=== PATIENT | female | born 1955 | race Caucasian/White ===

== ENCOUNTER 2016-11-05 16:53 | Observation (INO) | payer MEDICARE ==
[2016-11-05] MEDS: Sodium Chloride 0.9% 1000 ML 1,000 ML IV SCH (17:47)
[2016-11-05] MEDS: NovoLOG Insulin SQ PRN ×2 (18:01→20:53)
[2016-11-05] MEDS ORDERED: Ativan 0.5 MG PO ONE (20:31)
[2016-11-06] MEDS: Sodium Chloride 0.9% 1000 ML 1,000 ML IV SCH ×2 (03:58→15:24)
[2016-11-06 06:02] LABS: ALBUMIN 2.9 g/dL (3.4-5.0); ALKALINE PHOSPHATASE 91 U/L (46-116); ANION GAP 12.2 MEQ/L (5-15); BLOOD UREA NITROGEN 17 mg/dL (9-20); CHLORIDE 108 mEq/L (98-107); Carbon Dioxide 23.9 mEq/L (21-32); Glucose 218 MG/DL (70-110); Potassium 3.9 mEq/L (3.5-5.1); SGOT/AST 148 U/L (15-37); SGPT/ALT 212 U/L (12-78); SODIUM 140 mEq/L (136-145); Total Protein 6.8 gm/dL (6.4-8.2)
[2016-11-06 06:34] LABS: BASOPHIL % 0.7 % (0.0-0.4); Eosinophil % 3.8 % (0.00-5.0); Granulocytes % 41.8 % (36.0-66.0); Lymphocytes % 44.6 % (24.0-44.0); Mean Cell Volume 95.5 fl (78-100); Mean Platelet Volume 10.9 fl (6-9.5); Monocytes % 9.1 % (0.0-12.0); Platelet Count 157 K/mm3 (150-450); Red Blood Count 4.26 M/mm3 (4.1-5.4); Red Cell Distribution Width 14.4 % (11.5-14.0); White Blood Count 4.5 K/mm3 (4.0-10.5)
[2016-11-06] MEDS: NovoLOG Insulin SQ PRN ×3 (08:22→22:05)
--- NOTE | 2016-11-06 08:42 | PCM.NOTE ---
Date and Time: 11/06/16 0837 Subjective Assessment: Pt still not feeling well, having frontal headaches. Couldn't sleep well last night she says due to restless legs, not on any meds at home for that. Was anxious last night and received IV ativan. Objective Exam General Appearance: no apparent distress Neurologic Exam: alert, oriented x 3, cooperative Skin Exam: normal color, warm, dry Respiratory Exam: normal breath sounds, lungs clear, No crackles/rales, No rhonchi, No wheezing Cardiovascular Exam: regular rate/rhythm, normal heart sounds, No murmur Gastrointestinal/Abdomen Exam: soft, normal bowel sounds, No tenderness, No distention, No mass Extremity Exam: No pedal edema, No swelling OBJECTIVE DATA Vital Signs: Vital Signs - 24 hr Temp Pulse Resp BP BP Pulse Ox 11/06/16 06:58 97.9 F 64 20 114/55 95 11/06/16 04:00 98.5 F 63 18 104/49 94 L 11/05/16 23:47 98.2 F 65 18 90/46 98 11/05/16 20:00 98.3 F 89 18 133/60 96 11/05/16 17:24 98.3 F 89 133/60 11/05/16 17:15 98.3 F 89 16 133/60 Oxygen-Last 24 hours Oxygen Flowrate (L/min)-RT 96 Pain Assessment - Last Documented Pain Intensity 10 [facility] Intake and Output: Intake & Output 11/03/16 11/04/16 11/05/16 11/06/16 11:59 11:59 11:59 11:59 Intake Total 2285 Output Total 450 Balance 1835 Weight 109.679 kg Lab Results: Accuchecks Date 11/05/16 Date 11/05/16 Time 20:51 Time 17:55 Accucheck Value: 261 Accucheck Value: 308 Lab Results-Last 24 Hours 11/05/16 11/06/16 11/06/16 Range/Units 18:09 05:10 05:10 WBC 4.5 (4.0-10.5) K/mm3 RBC 4.26 (4.1-5.4) M/mm3 Hgb 13.2 (12.0-16.0) gm/dl Hct 40.7 (35-47) % MCV 95.5 (78-100) fl MCH 31.0 (26-32) pg MCHC 32.4 (32-36) g/dl RDW 14.4 H (11.5-14.0) % Plt Count 157 (150-450) K/mm3 MPV 10.9 H (6-9.5) fl Gran % 41.8 (36.0-66.0) % Lymphocytes % 44.6 H (24.0-44.0) % Monocytes % 9.1 (0.0-12.0) % Eosinophils % 3.8 (0.00-5.0) % Basophils % 0.7 (0.0-0.4) % Basophils # 0.03 (0-0.4) Sodium 140 (136-145) mEq/L Potassium 3.9 (3.5-5.1) mEq/L Chloride 108 H (98-107) mEq/L Carbon Dioxide 23.9 (21-32) mEq/L Anion Gap 12.2 (5-15) MEQ/L BUN 17 (9-20) mg/dL Creatinine 0.72 (0.55-1.30) mg/dl Estimated GFR > 60 ML/MIN Glucose 218 H (70-110) MG/DL Calcium 9.1 (8.5-10.1) mg/dL Total Bilirubin 0.50 (0.2-1.0) mg/dL AST 148 H (15-37) U/L ALT 212 H (12-78) U/L Alkaline Phosphatase 91 (46-116) U/L Serum Total Protein 6.8 (6.4-8.2) gm/dL Albumin 2.9 L (3.4-5.0) g/dL Prealbumin 18.4 (18.0-35.7) mg/dL Radiology Exams: Radiology Procedures Category Date Time Status GALLBLADDER [US] Routine Exams 11/06/16 08:00 Taken Assessment/Plan (1) Sinusitis Current Visit: No Status: Acute Qualifiers: Sinusitis location: frontal Chronicity: acute Recurrence: not specified as recurrent Qualified Code(s): J01.10 - Acute frontal sinusitis, unspecified Assessment & Plan: On IV levaquin. Still having frontal NIEVES. Will likely need at least another day on IV antibiotics. 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 Code(s): E11.9 - TYPE 2 DIABETES MELLITUS WITHOUT COMPLICATIONS (4) Elevated liver enzymes Current Visit: No Status: Acute Assessment & Plan: Improved since yesterday and alk phos not elevated today. She is getting a RUQ u/s. Code(s): R74.8 - ABNORMAL LEVELS OF OTHER SERUM ENZYMES
--- NOTE | 2016-11-06 09:30 | XRAY ---
Indication: Abdominal pain. Two-dimensional right upper quadrant abdominal sonogram performed. Comparison: None Gallbladder normally distended without gallstones, wall thickening, or pericholecystic fluid. Common bile duct measures 5.5 mm. Remaining visualized portions of the liver, pancreas, and right kidney sonographically unremarkable. Right kidney measures 10.9 cm in length. No ascites. Impression: Negative gallbladder sonogram.
[2016-11-06] MEDS: Levofloxacin 500MG/100ML D5W 500 MG/100 ML BAG IV SCH (09:33)
[2016-11-06] MEDS ORDERED: [UNRECOGNIZED DRUG - OTHER] PO SCH (10:00)
[2016-11-06] MEDS ORDERED: NON-FORMULARY ITEM (Solifenacin Succinate [Vesicare] 10 MG) PO SCH (10:00)
[2016-11-06] MEDS ORDERED: LISINOPRIL PO SCH (10:00)
[2016-11-06] MEDS ORDERED: HYDROCHLOROTHIAZIDE PO SCH (10:00)
[2016-11-06] MEDS ORDERED: Lantus Insulin SQ SCH (10:00)
[2016-11-06] MEDS ORDERED: ROCEPHIN 1 Gm-D5w 50 ml Bag** 1 G/50 ML IVPB IV SCH (10:00)
[2016-11-06] MEDS: Ditropan 5 MG PO SCH ×2 (10:02→21:52)
[2016-11-06] MEDS: Zestril 20 MG PO SCH (10:02)
[2016-11-06] MEDS: NORVASC 5 MG PO SCH (10:02)
[2016-11-06] MEDS: hydroDIURIL 25 MG PO SCH (10:03)
[2016-11-06] MEDS: ENOXAPARIN SODIUM SQ SCH (10:05)
[2016-11-06] MEDS: NovoLOG Insulin SQ SCH ×2 (11:47→16:42)
[2016-11-06] MEDS ORDERED: NON-FORMULARY ITEM (Insulin Lispro 10 UNIT) SQ SCH (12:00)
[2016-11-06] MEDS: Mirapex 0.5 MG Tablet PO SCH (16:35)
[2016-11-06] MEDS ORDERED: ZOCOR 20MG PO SCH (22:00)
[2016-11-06] MEDS ORDERED: Ativan 0.5 MG PO SCH (22:00)
[2016-11-06] MEDS ORDERED: Mirapex 0.5 MG Tablet PO SCH ×2 (22:00)
[2016-11-07] MEDS: Sodium Chloride 0.9% 1000 ML 1,000 ML IV SCH (01:38)
[2016-11-07 07:13] VITALS: BP 143/67; PULSE 78; O2SAT 94
[2016-11-07] MEDS: NovoLOG Insulin SQ SCH (07:41)
[2016-11-07] MEDS: NovoLOG Insulin SQ PRN (07:42)
[2016-11-07 08:25] LABS: Mean Cell Volume 95.4 fl (78-100); Mean Platelet Volume 11.4 fl (6-9.5); Platelet Count 159 K/mm3 (150-450); Red Blood Count 4.52 M/mm3 (4.1-5.4); Red Cell Distribution Width 14.2 % (11.5-14.0); White Blood Count 5.1 K/mm3 (4.0-10.5)
--- NOTE | 2016-11-07 08:29 | PCM.DS ---
Discharge Summary Date of Admission: 11/05/16 16:55 Admitting Physician: JOLANTA MEDEIROS Primary Care Provider: JOLANTA MEDEIROS Allergies Allergies pregabalin [From Lyrica] Allergy (Severe, Verified 11/05/16 17:35) Swelling methadone [Methadone] Allergy (Mild, Verified 02/16/13 15:16) Hives oxycodone HCl [From OxyContin] Allergy (Verified 02/16/13 15:16) Hospital Summary - Hospital Course Hospital Course: Pt admitted from office with sinusitis, also had elevated liver enzymes and alkaline phosphatase. Her labs have improved; rechecking this morning. She is feeling much better, tolerating po well, headache is decreased. Does complain of ongoing leg pain, chronic, and some vaginal itching. She has been depressed and anxious, no suicidal ideation. Not currently on any anti depressants. Has tried several in the past but unsure which ones helped her the most. - Vitals & Intake/Output Vital Signs: Vital Signs Temperature 98.2 F 11/07/16 07:11 Pulse Rate 78 11/07/16 07:11 Respiratory Rate 18 11/07/16 07:11 Blood Pressure 143/67 11/07/16 07:11 O2 Sat by Pulse Oximetry 94 L 11/07/16 07:11 Intake & Output: Intake & Output 11/04/16 11/05/16 11/06/16 11/07/16 11:59 11:59 11:59 11:59 Intake Total 2285 4066 Output Total 450 2200 Balance 1835 1866 Weight 109.679 kg - Lab Result Diagrams: 11/06/16 05:10 11/06/16 05:10 Lab Results-Last 24 Hrs: Accuchecks Date 11/07/16 Date 11/06/16 Time 07:30 Time 22:00 Accucheck Value: 242 Accucheck Value: 217 Accucheck Value: 175 Accucheck Value: 322 Micro Results-Entire Visit: Accuchecks Date 11/07/16 Date 11/06/16 Time 07:30 Time 22:00 Accucheck Value: 242 Accucheck Value: 217 Accucheck Value: 175 Accucheck Value: 322 - Radiology Exams Ordered Rad Exams-Entire Visit: Radiology Procedures Category Date Time Status GALLBLADDER [US] Routine Exams 11/06/16 08:00 Completed Discharge Exam General Appearance: no apparent distress, obese Neurologic Exam: alert, oriented x 3, cooperative Skin Exam: normal color, warm, dry Neck Exam: normal inspection Respiratory Exam: normal breath sounds, No crackles/rales, No rhonchi, No wheezing Cardiovascular Exam: regular rate/rhythm, normal heart sounds, No murmur Gastrointestinal/Abdomen Exam: soft, normal bowel sounds, No tenderness Extremity Exam: normal inspection Back Exam: normal inspection Final Diagnosis/Problem List - Final Discharge Diagnosis/Problem (1) Sinusitis Current Visit: No Status: Acute Assessment & Plan: improved. Home on po levaquin. Advised if increased muscle aches particularly in the Achilles region she needs to call the immigration consultant doctor right away. (2) Dehydration Current Visit: No Status: Resolved (3) Diabetes mellitus Current Visit: No Status: Chronic Assessment & Plan: increase lantus back to home dose today. Uncontrolled. Will address again at office visit in 1 week. (4) Elevated liver enzymes Current Visit: No Status: Acute Assessment & Plan: recheck this morning. (5) Restless leg syndrome Current Visit: Yes Status: Acute Assessment & Plan: I have increased her medicine to TID instead of only at night. She did sleep better last night on the increased dose. (6) Leg pain Current Visit: Yes Status: Acute Assessment & Plan: Will see if paxil and the increased RLS med are helping; if not would discuss neurontin/lyrica or pain management if necessary. (7) Depressed Current Visit: Yes Status: Chronic Assessment & Plan: Start paxil. - Discharge Disposition: Home, Self-Care Condition: Stable Prescriptions: New Levofloxacin [Levaquin] 500 mg PO DAILY #10 tablet Pramipexole Di-HCl 0.5 mg [Mirapex 0.5 MG Tablet] 0.25 mg PO QID #120 tab Paroxetine HCl 20 mg [Paxil 20 MG] 20 mg PO DAILY #30 tablet Continue Lisinopril/Hydrochlorothiazide [Lisinopril-Hctz 20-12.5 mg Tab] 20 mg PO DAILY Solifenacin Succinate [Vesicare] 10 mg PO DAILY Pravastatin Sodium 40 mg PO HS Amlodipine Besylate 5 mg [Norvasc 5 mg] 5 mg PO DAILY Insulin Lispro [Humalog] 10 unit SQ TIDWMEALS Insulin Glargine [Lantus Insulin] 50 units SL DAILY Discontinued Minocycline [Minocycline 100MG Cap] 100 mg PO BID Follow up with: JOLANTA MEDEIROS [Primary Care Provider] - 1 Week
[2016-11-07] MEDS ORDERED: DIFLUCAN PO ONE (09:00)
[2016-11-07 09:13] LABS: ALKALINE PHOSPHATASE 106 U/L (46-116); ANION GAP 12.5 MEQ/L (5-15); BLOOD UREA NITROGEN 16 mg/dL (9-20); CHLORIDE 104 mEq/L (98-107); Carbon Dioxide 25.4 mEq/L (21-32); Glucose 287 MG/DL (70-110); Potassium 4.1 mEq/L (3.5-5.1); SGOT/AST 152 U/L (15-37); SGPT/ALT 226 U/L (12-78); SODIUM 138 mEq/L (136-145)
[2016-11-07] MEDS: Zestril 20 MG PO SCH (09:29)
[2016-11-07] MEDS: Ditropan 5 MG PO SCH (09:29)
[2016-11-07] MEDS: hydroDIURIL 25 MG PO SCH (09:29)
[2016-11-07] MEDS: NORVASC 5 MG PO SCH (09:29)
[2016-11-07] MEDS: Levofloxacin 500MG/100ML D5W 500 MG/100 ML BAG IV SCH (09:29)
[2016-11-07] MEDS: ENOXAPARIN SODIUM SQ SCH (09:30)
[2016-11-07] MEDS ORDERED: Lantus Insulin SQ SCH (10:00)
[2016-11-07] MEDS ORDERED: Paxil 20 MG PO SCH (10:00)
[2016-11-07] MEDS: Mirapex 0.5 MG Tablet PO SCH (10:20)
== END 2016-11-07 10:55 | disposition home or self-care (01) ==
LOC: MED SURG 16:55
PROVIDERS: ADMIT Family Medicine; ATTEND Family Medicine
DX: J01.10 Acute frontal sinusitis, unspecified (principal); E86.0 Dehydration; E11.65 Type 2 diabetes mellitus with hyperglycemia; R74.8 Abnormal levels of other serum enzymes; G25.81 Restless legs syndrome; M79.606 Pain in leg, unspecified; F32.9 Major depressive disorder, single episode, unspecified; R51 Headache; F41.9 Anxiety disorder, unspecified
CPT/HCPCS: 36415; 76705; 80053; 82962; 84134; 85025; 85027; G0378; J1650; J1956; A9270-GY

== ENCOUNTER 2018-03-19 20:50 | Inpatient (IN) | payer MEDICARE ==
[2018-03-19] MEDS ORDERED: Sodium Chloride 0.9% 1000 ML 1,000 ML IV STA (21:22)
[2018-03-19] MEDS ORDERED: Zofran 4 MG/2 ML VIAL IV ONE (21:22)
[2018-03-19] MEDS ORDERED: Hydromorphone 1 mg/ml Ampule IV ONE (21:23)
[2018-03-19] MEDS ORDERED: Zosyn INJ 4.5 GM in D5w 100ML Mini Bag 100 ML 100 ML IV ONE (21:25)
[2018-03-19] MEDS ORDERED: Vancomycin 1GM/ Ns 250ML*** 250 ML IV ONE ×2 (21:26→22:48)
--- NOTE | 2018-03-19 21:27 | ERPHSYRPT ---
- History of Present Illness Time Seen by Provider: 03/19/18 21:15 Source: patient Exam Limitations: clinical condition Patient Subjective Stated Complaint: pt reports chest redness with severe pain for approx 3 days. denies any exposure to new medications or creams. pt reports history of breast CA with double masectomy in July. pt states she finished with radiation before . Triage Nursing Assessment: pt is aox3, crying upon exam, pupils perrl, afebrile , resps easy and non labored, radial pulses strong and equal, abd is distended and tender to the upper quadrants, bowel sounds present and normoactivex4. redness noted across the upper portion of the chest as well as under the axilla bilat, swelling noted the axillary region bilat, 2 abrasions present noted to the left axillary region as well. skin is hot to touch and very painful. skin is intact, no drainage present at this time. no edema noted to the BLE. Physician History: PATIENT WITH A HISTORY OF LEFT BREAST CARCINOMA, UNDERWENT BILATERAL MASECTOMY JULY 2017 AND FINISHED RADIATION THERAPY MID DECEMBER 2017 , COMPLAINS OF A PAINFUL RASH OVER MID TO LOWER CHEST WALL, FEELS HOT TO TOUCH, ASSOCIATED WITH FEVER. PATIENT ALSO COMPLAINS OF INCREASING ABDOMINAL GIRTH OVER THE PAST 6 MONTHS. DENIES NAUSEA, EMESIS OR DIARRHEA. Timing/Duration: yesterday Quality: burning, painful Severity: severe Location: torso Possible Causes: no cause identified Modifying Factors: Improves With: other (MOTION OF TORSO) Associated Symptoms: change in skin texture, fever Allergies/Adverse Reactions: pregabalin [From Lyrica] Allergy (Severe, Verified 03/19/18 21:25) Swelling methadone [Methadone] Allergy (Mild, Verified 03/19/18 21:25) Hives oxycodone HCl [From OxyContin] Allergy (Verified 03/19/18 21:25) Home Medications: Insulin Glargine [Lantus Insulin] 50 units SL DAILY 11/05/16 [History] Insulin Lispro [Humalog] 10 unit SQ TIDWMEALS 11/05/16 [History] Letrozole 2.5 mg PO HS 03/19/18 [History] Hx Tetanus, Diphtheria Vaccination/Date Given: Yes Hx Influenza Vaccination/Date Given: No Hx Pneumococcal Vaccination/Date Given: No - Review of Systems Constitutional: No Fever, No Chills Eyes: No Symptoms Ears, Nose, & Throat: No Symptoms Respiratory: No Symptoms, No Cough, No Dyspnea Cardiac: No Symptoms, No Chest Pain, No Edema, No Syncope Abdominal/Gastrointestinal: No Symptoms, No Abdominal Pain, No Nausea, No Vomiting, No Diarrhea Genitourinary Symptoms: No Symptoms, No Dysuria Musculoskeletal: No Symptoms, No Back Pain, No Neck Pain Skin: Cellulitis, Induration, No Rash Neurological: No Dizziness, No Focal Weakness, No Sensory Changes Psychological: No Symptoms Endocrine: No Symptoms All Other Systems: Reviewed and Negative - Past Medical History Pertinent Past Medical History: Yes Neurological History: Migraines ENT History: No Pertinent History Cardiac History: No Pertinent History Respiratory History: No Pertinent History Endocrine Medical History: Diabetes Type II Musculoskeletal History: Fibromyalgia GI Medical History: No Pertinent History History: No Pertinent History Psycho-Social History: Anxiety, Depression Female Reproductive Disorders: Breast Cancer Other Medical History: breast CA DX 2017 - Past Surgical History Past Surgical History: Yes Neuro Surgical History: No Pertinent History Cardiac: No Pertinent History Respiratory: No Pertinent History Gastrointestinal: Hernia Repair Genitourinary: No Pertinent History Musculoskeletal: Orthopedic Surgery Female Surgical History: No Pertinent History Other Surgical History: muscle stimulator 02/04-REMOVED 2013. back surgery hip surgery. double masectomy july 2017 - Social History Smoking Status: Former smoker Exposure to second hand smoke: Yes Drug Use: none Patient Lives Alone: No - Nursing Vital Signs Nursing Vital Signs: Initial Vital Signs Temperature 99.7 F 03/19/18 20:59 Pulse Rate 97 H 03/19/18 20:59 Respiratory Rate 22 03/19/18 20:59 Blood Pressure 153/79 03/19/18 20:59 O2 Sat by Pulse Oximetry 96 03/19/18 20:59 Pain Scale Pain Intensity 5 - Physical Exam General Appearance: no apparent distress, alert Eye Exam: PERRL/EOMI, eyes nml inspection Ears, Nose, Throat Exam: normal ENT inspection, pharynx normal, moist mucous membranes Neck Exam: normal inspection, non-tender, supple, full range of motion Respiratory Exam: normal breath sounds, lungs clear, other, No respiratory distress Cardiovascular Exam: regular rate/rhythm, normal heart sounds Gastrointestinal/Abdomen Exam: soft, normal bowel sounds, mass, No tenderness Back Exam: normal inspection, normal range of motion, No CVA tenderness, No vertebral tenderness Extremity Exam: normal inspection, normal range of motion Neurologic Exam: alert, oriented x 3, cooperative, normal mood/affect, sensation nml, No motor deficits Skin Exam: dry, other (MARKED CONFLUENT ERYTHEMA BILATERAL CHEST WALL T-2 TO UPPER ABDOMINAL WALL, EXTENDS TO BILATERAL AXILLA AND THE POSTERIOR AXILLA LINE , MARKED TENDERNESS, BILATERAL AXILLA WITH SWELLING) SpO2 Interpretation: normal SpO2: 96 - Course EKG Interpreted by Me: RATE, Sinus Rhythm, NORMAL AXIS - Radiology Exams Chest X-ray Interpretation: Interpreted by me (NO EVIDENCE OF INFILTRATES, ELEVATION RIGHT HEMIDIAPHRAM) - CT Exams Abdomen/Pelvis CT Interpretation: Tele-radiologist Report (NO ACUTE FINDINGS IN THE ABDOMEN OR PELVIS. SUBCUTANEOUS SCARRING WITH SUSPECTED SEROMAS ARE PARTIALLY VISUALIZED IN THE ANTERIOR LOWER HEMITHORAX LIKELY RELATED TO MASTECTOMY AND RADIATION. A REGULAR FOCAL CONSOLIDATION IN THE PERIPHERAL LEFT LOWER LOBE LIKELY RELATED TO ATELECTASIS OR POSSIBLY SCARRING. ) Ordered Tests: Active Orders 24 hr Category Date Time Status Up With Assistance ROUTINE Activity 03/20/18 01:54 Ordered Accucheck Q4H Care 03/20/18 01:54 Ordered Call Admit Doctor for Orders ON ADMISSION Care 03/20/18 01:56 Ordered Code Status Order ROUTINE Care 03/20/18 01:54 Ordered EKG-ER Only STAT Care 03/20/18 01:18 Active IV Care Q6H Care 03/20/18 01:[address] in Observation ROUTINE Care 03/20/18 01:54 Ordered Vital Signs Q4H Care 03/20/18 01:54 Ordered 1800 Calorie ADA Diet 03/20/18 Breakfast Ordered ABDOMEN AND PELVIS W CONTRAST [CT] Stat Exams 03/19/18 21:24 Taken CHEST 1 VIEW (PORTABLE) Stat Exams 03/20/18 00:17 Taken AMYLASE Stat Lab 03/19/18 22:11 Completed BLOOD CULTURE Stat Lab 03/19/18 21:45 Ordered CBC W DIFF Stat Lab 03/19/18 21:45 Completed CMP Stat Lab 03/19/18 21:45 Completed CULTURE,URINE Stat Lab 03/19/18 22:28 Received LIPASE Stat Lab 03/19/18 22:11 Completed Lactic Acid Stat Lab 03/19/18 21:48 Completed PT INR [PROTIME WITH INR] Stat Lab 03/19/18 22:00 Completed TROPONIN Q3H Lab 03/20/18 00:00 Completed TROPONIN Q3H Lab 03/20/18 04:15 Ordered TROPONIN Q3H Lab 03/20/18 07:15 Ordered TROPONIN Q3H Lab 03/20/18 10:15 Ordered TROPONIN Q3H Lab 03/20/18 13:15 Ordered UA W/RFX UR CULTURE Stat Lab 03/19/18 22:28 Completed Oxygen Nasal Cannula 2 lpm RT 03/20/18 01:54 Ordered Transfer Order Routine Transfer 03/20/18 Ordered Medication Summary Discontinued Medications Generic Name Dose Route Start Last Admin Trade Name Heladio PRN Reason Stop Dose Admin Hydromorphone HCl 1 mg 03/19/18 21:23 03/19/18 21:58 Hydromorphone 1 Mg/Ml Ampule IV 03/19/18 21:24 1 mg STAT ONE Administration Hydromorphone HCl Confirm 03/19/18 21:51 Hydromorphone 1 Mg/Ml Ampule Administered 03/19/18 21:52 Dose 1 mg .ROUTE .STK-MED ONE Sodium Chloride 1,000 mls @ 999 mls/hr 03/19/18 21:22 03/19/18 21:58 Sodium Chloride 0.9% 1000 Ml IV 03/19/18 22:22 999 mls/hr .Q1H1M STA Administration Piperacillin Sod/Tazobactam 100 mls @ 100 mls/hr 03/19/18 21:25 03/19/18 21: 59 Sod 4.5 gm/ Dextrose IV 03/19/18 22:24 100 mls/hr STAT ONE Administration Vancomycin HCl 250 mls @ 167 mls/hr 03/19/18 21:26 03/19/18 23:14 Vancomycin 1gm/ Ns 250ml IV 03/19/18 22:55 167 mls/hr STAT ONE Administration Sodium Chloride Confirm 03/19/18 21:51 Sodium Chloride 0.9% 1000 Ml Administered 03/19/18 21:52 Dose 1,000 mls @ ud .ROUTE .STK-MED ONE Piperacillin Sod/Tazobactam Sod Confirm 03/19/18 21:51 Zosyn 3.375gm/100 Ml D5w Administered 03/19/18 21:52 Dose 3.375 gm in 100 mls @ ud IV .STK-MED ONE Dextrose Confirm 03/19/18 21:55 D5w 100ml Mini Bag 100 Ml Administered 03/19/18 21:56 Dose 100 mls @ ud IV .STK-MED ONE Vancomycin HCl Confirm 03/19/18 22:48 Vancomycin 1gm/ Ns 250ml Administered 03/19/18 22:49 Dose 250 mls @ ud IV .STK-MED ONE Morphine Sulfate 4 mg 03/20/18 00:45 03/20/18 01:13 Morphine Sulfate 4 Mg Inj IV 03/20/18 00:46 4 mg STAT ONE Administration Morphine Sulfate Confirm 03/20/18 01:11 Morphine Sulfate 4 Mg Inj Administered 03/20/18 01:12 Dose 4 mg .ROUTE .STK-MED ONE Ondansetron HCl 4 mg 03/19/18 21:22 03/19/18 21:58 Zofran 4 Mg/2 Ml Vial IV 03/19/18 21:23 4 mg STAT ONE Administration Ondansetron HCl Confirm 03/19/18 21:51 Zofran 4 Mg/2 Ml Vial Administered 03/19/18 21:52 Dose 4 mg .ROUTE .STK-MED ONE Piperacillin Sod/Tazobactam Sod Confirm 03/19/18 21:54 Zosyn Inj Administered 03/19/18 21:55 Dose 4.5 gm IV .STK-MED ONE Lab/Rad Data: Laboratory Result Diagrams 03/19/18 21:45 03/19/18 21:45 Laboratory Results 03/20/18 03/19/18 03/19/18 Range/Units 00:00 22:28 22:11 WBC (4.0-10.5) K/mm3 RBC (4.1-5.4) M/mm3 Hgb (12.0-16.0) gm/dl Hct (35-47) % MCV (78-100) fl MCH (26-32) pg MCHC (32-36) g/dl RDW (11.5-14.0) % Plt Count (150-450) K/mm3 MPV (6-9.5) fl Gran % (36.0-66.0) % Eos # (Auto) (0-0.5) Absolute Lymphs (auto) (1.0-4.6) Absolute Monos (auto) (0.0-1.3) Lymphocytes % (24.0-44.0) % Monocytes % (0.0-12.0) % Eosinophils % (0.00-5.0) % Basophils % (0.0-0.4) % Absolute Granulocytes (1.4-6.9) Basophils # (0-0.4) PT (9.95-12.35) SECONDS INR (0.8-3.0) Sodium (137-145) mmol/L Potassium (3.5-5.1) mmol/L Chloride (98-107) mmol/L Carbon Dioxide (22-30) mmol/L Anion Gap (5-15) MEQ/L BUN (7-17) mg/dL Creatinine (0.52-1.04) mg/dL Estimated GFR ML/MIN Glucose (74-106) mg/dL Lactic Acid (0.4-2.0) Calcium (8.4-10.2) mg/dL Total Bilirubin (0.2-1.3) mg/dL AST (14-36) U/L ALT (0-35) U/L Alkaline Phosphatase (38-126) U/L Troponin I < 0.012 (0.000-0.034) ng/mL Serum Total Protein (6.3-8.2) g/dL Albumin (3.5-5.0) g/dL Amylase 58 (30-110) U/L Lipase 74 (23-300) U/L Urine Color YELLOW (YELLOW) Urine Appearance SLIGHTLY CLOUDY (CLEAR) Urine pH 5.0 (5-6) Ur Specific [place] 1.037 (1.005-1.025) Urine Protein 30 (Negative) Urine Ketones TRACE (NEGATIVE) Urine Blood SMALL (0-5) Mookie/ul Urine Nitrite NEGATIVE (NEGATIVE) Urine Bilirubin NEGATIVE (NEGATIVE) Urine Urobilinogen NEGATIVE (0-1) mg/dL Ur Leukocyte Esterase SMALL (NEGATIVE) Urine WBC (Auto) 26-50 (0-5) /HPF Urine RBC (Auto) 6-10 (0-2) /HPF U Epithel Cells (Auto) RARE (FEW) /HPF Urine Bacteria (Auto) RARE (NEGATIVE) /HPF Urine Mucus (Auto) SLIGHT (NEGATIVE) /HPF Urine Culture Reflexed YES (NO) Urine Glucose >=500 (NEGATIVE) mg/dL 03/19/18 03/19/18 03/19/18 Range/Units 22:00 21:48 21:45 WBC (4.0-10.5) K/mm3 RBC (4.1-5.4) M/mm3 Hgb (12.0-16.0) gm/dl Hct (35-47) % MCV (78-100) fl MCH (26-32) pg MCHC (32-36) g/dl RDW (11.5-14.0) % Plt Count (150-450) K/mm3 MPV (6-9.5) fl Gran % (36.0-66.0) % Eos # (Auto) (0-0.5) Absolute Lymphs (auto) (1.0-4.6) Absolute Monos (auto) (0.0-1.3) Lymphocytes % (24.0-44.0) % Monocytes % (0.0-12.0) % Eosinophils % (0.00-5.0) % Basophils % (0.0-0.4) % Absolute Granulocytes (1.4-6.9) Basophils # (0-0.4) PT 13.0 H (9.95-12.35) SECONDS INR 1.12 (0.8-3.0) Sodium 134 L (137-145) mmol/L Potassium 4.1 (3.5-5.1) mmol/L Chloride 100 (98-107) mmol/L Carbon Dioxide 23 (22-30) mmol/L Anion Gap 14.7 (5-15) MEQ/L BUN 18 H (7-17) mg/dL Creatinine 1.02 (0.52-1.04) mg/dL Estimated GFR 58.8 ML/MIN Glucose 375 H (74-106) mg/dL Lactic Acid 1.8 (0.4-2.0) Calcium 8.8 (8.4-10.2) mg/dL Total Bilirubin 0.90 (0.2-1.3) mg/dL AST 88 H (14-36) U/L ALT 141 H (0-35) U/L Alkaline Phosphatase 165 H (38-126) U/L Troponin I (0.000-0.034) ng/mL Serum Total Protein 7.4 (6.3-8.2) g/dL Albumin 3.9 (3.5-5.0) g/dL Amylase (30-110) U/L Lipase (23-300) U/L Urine Color (YELLOW) Urine Appearance (CLEAR) Urine pH (5-6) Ur Specific [place] (1.005-1.025) Urine Protein (Negative) Urine Ketones (NEGATIVE) Urine Blood (0-5) Mookie/ul Urine Nitrite (NEGATIVE) Urine Bilirubin (NEGATIVE) Urine Urobilinogen (0-1) mg/dL Ur Leukocyte Esterase (NEGATIVE) Urine WBC (Auto) (0-5) /HPF Urine RBC (Auto) (0-2) /HPF U Epithel Cells (Auto) (FEW) /HPF Urine Bacteria (Auto) (NEGATIVE) /HPF Urine Mucus (Auto) (NEGATIVE) /HPF Urine Culture Reflexed (NO) Urine Glucose (NEGATIVE) mg/dL 03/19/18 Range/Units 21:45 WBC 9.0 (4.0-10.5) K/mm3 RBC 4.32 (4.1-5.4) M/mm3 Hgb 13.9 (12.0-16.0) gm/dl Hct 42.6 (35-47) % MCV 98.6 (78-100) fl MCH 32.2 H (26-32) pg MCHC 32.6 (32-36) g/dl RDW 14.8 H (11.5-14.0) % Plt Count 175 (150-450) K/mm3 MPV 11.3 H (6-9.5) fl Gran % 75.2 H (36.0-66.0) % Eos # (Auto) 0.05 (0-0.5) Absolute Lymphs (auto) 1.62 (1.0-4.6) Absolute Monos (auto) 0.56 (0.0-1.3) Lymphocytes % 17.9 L (24.0-44.0) % Monocytes % 6.2 (0.0-12.0) % Eosinophils % 0.6 (0.00-5.0) % Basophils % 0.1 (0.0-0.4) % Absolute Granulocytes 6.79 (1.4-6.9) Basophils # 0.01 (0-0.4) PT (9.95-12.35) SECONDS INR (0.8-3.0) Sodium (137-145) mmol/L Potassium (3.5-5.1) mmol/L Chloride (98-107) mmol/L Carbon Dioxide (22-30) mmol/L Anion Gap (5-15) MEQ/L BUN (7-17) mg/dL Creatinine (0.52-1.04) mg/dL Estimated GFR ML/MIN Glucose (74-106) mg/dL Lactic Acid (0.4-2.0) Calcium (8.4-10.2) mg/dL Total Bilirubin (0.2-1.3) mg/dL AST (14-36) U/L ALT (0-35) U/L Alkaline Phosphatase (38-126) U/L Troponin I (0.000-0.034) ng/mL Serum Total Protein (6.3-8.2) g/dL Albumin (3.5-5.0) g/dL Amylase (30-110) U/L Lipase (23-300) U/L Urine Color (YELLOW) Urine Appearance (CLEAR) Urine pH (5-6) Ur Specific [place] (1.005-1.025) Urine Protein (Negative) Urine Ketones (NEGATIVE) Urine Blood (0-5) Mookie/ul Urine Nitrite (NEGATIVE) Urine Bilirubin (NEGATIVE) Urine Urobilinogen (0-1) mg/dL Ur Leukocyte Esterase (NEGATIVE) Urine WBC (Auto) (0-5) /HPF Urine RBC (Auto) (0-2) /HPF U Epithel Cells (Auto) (FEW) /HPF Urine Bacteria (Auto) (NEGATIVE) /HPF Urine Mucus (Auto) (NEGATIVE) /HPF Urine Culture Reflexed (NO) Urine Glucose (NEGATIVE) mg/dL - Progress Progress Note: 03/19/18 22:11 AFTER 2 SETS OF BLOOD CULTURES, IV NORMAL SALINE 50ML/HR, VANCOMYCIN 1GM, ZOSYN 4.5GM IVPB, DILAUDID 1MG IV 03/20/18 00:37 03/20/18 01:52, NEGATIVE TROPONIN Discussed with : Hilton (DISCUSSED WITH DR DUNN AT 1310 FOR OBSERVATION) - Departure Time of Disposition: 02:00 Departure Disposition: Observation Clinical Impression: CHEST WALL CELLULITIS, URINARY TRACT INFECTION Condition: Stable Critical Care Time: No Referrals: JOLANTA MEDEIROS [Primary Care Provider] -
[2018-03-19] MEDS ORDERED: Sodium Chloride 0.9% 1000 ML 1,000 ML ONE (21:51)
[2018-03-19] MEDS ORDERED: Zosyn 3.375GM/100 Ml D5W 3.375 GM/100 ML IVPB IV ONE (21:51)
[2018-03-19] MEDS ORDERED: Hydromorphone 1 mg/ml Ampule ONE (21:51)
[2018-03-19] MEDS ORDERED: Zofran 4 MG/2 ML VIAL ONE (21:51)
[2018-03-19] MEDS ORDERED: Zosyn INJ IV ONE (21:54)
[2018-03-19] MEDS ORDERED: D5w 100ML Mini Bag 100 ML 100 ML IV ONE (21:55)
[2018-03-19 22:13] LABS: BASOPHIL % 0.1 % (0.0-0.4); Basophil (Absolute #) 0.01 (0-0.4); Eosinophil % 0.6 % (0.00-5.0); Eosinophil (Absolute #) 0.05 (0-0.5); Granulocyte Absolute (ANC) 6.79 (1.4-6.9); Granulocytes % 75.2 % (36.0-66.0); Hematocrit 42.6 % (35-47); Hemoglobin 13.9 gm/dl (12.0-16.0); Lymphocyte (Absolute #) 1.62 (1.0-4.6); Lymphocytes % 17.9 % (24.0-44.0); Mean Cell Volume 98.6 fl (78-100); Mean Corpuscular Hemoglobin 32.2 pg (26-32); Mean Corpuscular Hgb Concent. 32.6 g/dl (32-36); Mean Platelet Volume 11.3 fl (6-9.5); Monocyte (Absolute #) 0.56 (0.0-1.3); Monocytes % 6.2 % (0.0-12.0); Platelet Count 175 K/mm3 (150-450); Red Blood Count 4.32 M/mm3 (4.1-5.4); Red Cell Distribution Width 14.8 % (11.5-14.0)
[2018-03-19 22:29] LABS: INR 1.12 (0.8-3.0)
[2018-03-19 22:31] LABS: AMYLASE 58 U/L (30-110); LIPASE 74 U/L (23-300)
[2018-03-19 22:33] LABS: ALBUMIN 3.9 g/dL (3.5-5.0); ANION GAP 14.7 MEQ/L (5-15); BILIRUBIN,TOTAL 0.9 mg/dL (0.2-1.3); Calcium 8.8 mg/dL (8.4-10.2); Creatinine 1 1.02 mg/dL (0.52-1.04); Potassium 4.1 mmol/L (3.5-5.1); Total Protein 7.4 g/dL (6.3-8.2)
[2018-03-19 22:35] LABS: Appearance SLIGHTLY CLOUDY (CLEAR); Bacteria RARE /HPF (NEGATIVE); Bilirubin NEGATIVE (NEGATIVE); Blood SMALL Ery/ul (0-5); Epithelial Cells RARE /HPF (FEW); Glucose >=500 mg/dL (NEGATIVE); Ketones TRACE (NEGATIVE); Leukocyte Esterase SMALL (NEGATIVE); Mucus SLIGHT /HPF (NEGATIVE); Nitrite NEGATIVE (NEGATIVE); Protein,Urine Dip 30 (Negative); Specific Gravity 1.037 (1.005-1.025); Urobilinogen NEGATIVE mg/dL (0-1); WBC 26-50 /HPF (0-5)
[2018-03-20] MEDS ORDERED: MORPHINE SULFATE 4 MG INJ IV ONE (00:45)
[2018-03-20] MEDS ORDERED: MORPHINE SULFATE 4 MG INJ ONE (01:11)
[2018-03-20] MEDS ORDERED: Zofran 4 MG/2 ML VIAL IV PRN (01:54)
[2018-03-20] MEDS ORDERED: TYLENOL 325 MG PO PRN (01:54)
[2018-03-20] MEDS ORDERED: VANCOCIN 1 GM VIAL*** 1 GM in Sodium Chloride 0.9% 250 ML 250 ML IV SCH (02:30)
[2018-03-20] MEDS: Sodium Chloride 0.9% 1000 ML 1,000 ML IV SCH (02:36)
[2018-03-20] MEDS ORDERED: NORCO 5/325 MG ONE (03:15)
[2018-03-20] MEDS ORDERED: Zosyn 3.375GM/100 Ml D5W 3.375 GM/100 ML IVPB IV ONE (05:32)
[2018-03-20] MEDS: MORPHINE SULFATE 4 MG INJ IV PRN ×2 (05:36→12:21)
[2018-03-20] MEDS: Zosyn 3.375GM/100 Ml D5W 3.375 GM/100 ML IVPB IV SCH ×4 (05:37→23:57)
[2018-03-20] MEDS: NovoLOG Insulin SQ PRN ×5 (05:37→23:57)
--- NOTE | 2018-03-20 08:28 | XRAY ---
Indication: Cough. History left breast cancer. Comparison: March 10, 2018. Portable chest less inflated and remains clear. Heart is not enlarged. No new/acute findings.
--- NOTE | 2018-03-20 08:28 | XRAY ---
Indication: Abdominal pain 2 days. Abdominal distention 6 months. History left breast cancer. Multiple contiguous axial images obtained through the abdomen and pelvis using 80 cc Isovue 370 contrast only. Comparison: January 23, 2012. Lung bases now demonstrates bibasilar dependent atelectasis and left peripheral fibrosis/scarring. No infiltrate or effusion. Heart is not enlarged. There has been interval bilateral total hip arthroplasty with beam artifact limiting evaluation at this level. Noncontrasted stomach and bowel loops appear nonobstructed. Normal appendix. No free fluid/air. There is now mild diffuse scattered colonic fecal debris throughout. Gallbladder is now moderately distended without gallstones or biliary distention. Spleen is enlarged measuring 14.2 cm in greatest axial dimension. Remaining liver, gallbladder, pancreas, spleen, adrenal glands, kidneys, ureters, bladder, and uterus appear unremarkable. Minimal aortic calcifications. No AAA or pathological retroperitoneal lymphadenopathy. Osseous structures intact again with mild hand changes throughout the spine. Stable bilateral L5 spondylolysis with minimal grade 1 spondylolisthesis. Impression: 1. Fecal stasis without obstruction and splenomegaly. 2. Distended gallbladder without gallstones. Gallbladder sonogram may yield further information if clinically warranted. 3. Remaining CT abdomen/pelvis with contrast exam is negative. 4. Again incidental L5 spondylolysis with minimal spondylolisthesis. Comment: Preliminary interpretation was made by [facility]. No critical discrepancy. CTDI 23.68
[2018-03-20] MEDS: Zestril 20 MG PO SCH (08:51)
[2018-03-20] MEDS: NORCO 5/325 MG PO PRN ×2 (08:51→18:11)
[2018-03-20] MEDS: NORVASC 5 MG PO SCH (08:51)
[2018-03-20] MEDS: NovoLOG Insulin SQ SCH ×3 (08:52→16:38)
[2018-03-20] MEDS ORDERED: PHARMACY DOSING REQUIRED: VANCOMYCIN IV ONE (08:55)
[2018-03-20] MEDS ORDERED: Lantus Insulin SQ SCH (10:00)
[2018-03-20] MEDS ORDERED: Paxil 20 MG PO SCH (10:00)
[2018-03-20] MEDS: VANCOCIN 1 GM VIAL*** 1.75 GM in Sodium Chloride 0.9% 500 ML 500 ML IV SCH (11:36)
[2018-03-20] MEDS: Lantus Insulin SQ SCH (16:37)
[2018-03-20] MEDS: PATIENT OWN MEDICATION PO SCH (20:34)
[2018-03-20] MEDS ORDERED: Bactroban OINTMENT ONE (21:31)
[2018-03-20] MEDS: Bactroban OINTMENT TP SCH (21:35)
[2018-03-21] MEDS: Sodium Chloride 0.9% 1000 ML 1,000 ML IV SCH (02:28)
[2018-03-21] MEDS: MORPHINE SULFATE 4 MG INJ IV PRN ×4 (04:49→21:02)
[2018-03-21 06:22] LABS: Hematocrit 42.2 % (35-47); Hemoglobin 13.2 gm/dl (12.0-16.0); Mean Cell Volume 100.7 fl (78-100); Mean Corpuscular Hemoglobin 31.5 pg (26-32); Mean Corpuscular Hgb Concent. 31.3 g/dl (32-36); Mean Platelet Volume 10.9 fl (6-9.5); Platelet Count 144 K/mm3 (150-450); Red Blood Count 4.19 M/mm3 (4.1-5.4); Red Cell Distribution Width 14.8 % (11.5-14.0); White Blood Count 5.8 K/mm3 (4.0-10.5)
[2018-03-21 06:29] LABS: ANION GAP 10.9 MEQ/L (5-15); BLOOD UREA NITROGEN 18 mg/dL (7-17); CHLORIDE 103 mmol/L (98-107); Calcium 8.4 mg/dL (8.4-10.2); Carbon Dioxide 27 mmol/L (22-30); Creatinine 1 0.78 mg/dL (0.52-1.04); Glucose 162 mg/dL (74-106); Potassium 4.1 mmol/L (3.5-5.1); SODIUM 137 mmol/L (137-145)
[2018-03-21] MEDS: NORCO 5/325 MG PO PRN ×3 (07:03→23:03)
[2018-03-21] MEDS: Zosyn 3.375GM/100 Ml D5W 3.375 GM/100 ML IVPB IV SCH ×4 (07:03→23:03)
[2018-03-21] MEDS: NovoLOG Insulin SQ SCH ×3 (09:00→17:10)
[2018-03-21] MEDS: Zestril 20 MG PO SCH (09:26)
[2018-03-21] MEDS: NORVASC 5 MG PO SCH (09:26)
[2018-03-21] MEDS: Bactroban OINTMENT TP SCH ×2 (09:33→21:03)
[2018-03-21] MEDS: VANCOCIN 1 GM VIAL*** 1.75 GM in Sodium Chloride 0.9% 500 ML 500 ML IV SCH (10:19)
[2018-03-21] MEDS: ENOXAPARIN SODIUM SQ SCH (12:59)
[2018-03-21] MEDS: NovoLOG Insulin SQ PRN ×3 (13:00→22:15)
[2018-03-21] MEDS: Lantus Insulin SQ SCH (16:40)
[2018-03-21] MEDS: PATIENT OWN MEDICATION PO SCH (21:03)
[2018-03-22] MEDS: MORPHINE SULFATE 4 MG INJ IV PRN ×5 (01:55→20:04)
[2018-03-22] MEDS: NovoLOG Insulin SQ PRN ×4 (01:55→23:14)
[2018-03-22] MEDS: NORCO 5/325 MG PO PRN (04:13)
[2018-03-22] MEDS: Zosyn 3.375GM/100 Ml D5W 3.375 GM/100 ML IVPB IV SCH ×3 (06:05→18:36)
[2018-03-22] MEDS: Sodium Chloride 0.9% 1000 ML 1,000 ML IV SCH (06:15)
[2018-03-22] MEDS: NovoLOG Insulin SQ SCH ×3 (08:08→17:14)
--- NOTE | 2018-03-22 09:09 | PCM.NOTE ---
Date and Time: 03/22/18904 Subjective Assessment: Pt is feeling better but stillhaving pain at the cellulitis site across the chest. kyree po. c/o urinary incontinence which is chronic - Review of Systems Constitutional: No Fever Skin: Cellulitis Objective Exam General Appearance: no apparent distress, alert Neurologic Exam: oriented x 3, cooperative Skin Exam: other (erythema to chest is decreased as evidenced by markings) Eye Exam: eyes nml inspection Respiratory Exam: normal breath sounds, lungs clear, No crackles/rales, No rhonchi, No wheezing Cardiovascular Exam: regular rate/rhythm, normal heart sounds, No murmur Gastrointestinal/Abdomen Exam: soft, normal bowel sounds, No tenderness Extremity Exam: No pedal edema, No swelling OBJECTIVE DATA Vital Signs: Vital Signs - 24 hr Temp Pulse Resp BP Pulse Ox 03/22/18 07:21 98.2 F 74 18 128/58 94 L 03/22/18 04:00 98.3 F 69 19 126/60 92 L 03/22/18 00:00 98.4 F 76 18 130/64 93 L 03/21/18 20:00 98.3 F 74 18 152/66 95 03/21/18 16:00 96.9 F 68 18 131/63 94 L 03/21/18 11:48 97.7 F 66 18 121/62 96 Oxygen-Last 24 hours O2 Percentage 2 Liters = 28% Pain Assessment - Last Documented Pain Intensity 7 Pain Scale Used 0-10 Pain Scale Intake and Output: Intake & Output 03/19/18 03/20/18 03/21/18 03/22/18 11:59 11:59 11:59 11:59 Intake Total 360 3555 1460 Output Total 400 Balance 360 3555 1060 Weight 105.4 kg Lab Results: Accuchecks Date 03/22/18 Date 03/22/18 Date 03/21/18 Date 03/21/18 Date 03/21/18 Time 04:00 Time 00:30 Time 20:00 Time 16:40 Time 08:00 Accucheck Value: 165 Accucheck Value: 214 Accucheck Value: 241 Accucheck Value: 251 Accucheck Value: 361 Accucheck Value: 171 Assessment/Plan (1) Cellulitis Current Visit: Yes Status: Acute Onset Date: ~03/20/18 Assessment & Plan: continue vancomycin an dzosyn, day #3. OK to admit inpatient. Code(s): L03.90 - CELLULITIS, UNSPECIFIED (2) UTI (urinary tract infection) Current Visit: Yes Status: Acute Onset Date: ~03/20/18 Qualifiers: Urinary tract infection type: acute cystitis Hematuria presence: without hematuria Qualified Code(s): N30.00 - Acute cystitis without hematuria Code(s): N39.0 - URINARY TRACT INFECTION, SITE NOT SPECIFIED (3) HX: breast cancer Current Visit: Yes Status: Chronic Code(s): Z85.3 - PERSONAL HISTORY OF MALIGNANT NEOPLASM OF BREAST (4) Hx of bilateral mastectomy Current Visit: Yes Status: Chronic Code(s): Z90.13 - ACQUIRED ABSENCE OF BILATERAL BREASTS AND NIPPLES (5) Diabetes mellitus Current Visit: No Status: Chronic Qualifiers: Code(s): E11.9 - TYPE 2 DIABETES MELLITUS WITHOUT COMPLICATIONS (6) Urinary incontinence Current Visit: Yes Status: Acute Assessment & Plan: restart ditropan; sounds like overactive bladder. Code(s): R32 - UNSPECIFIED URINARY INCONTINENCE
[2018-03-22] MEDS ORDERED: TROUGH DRUG LEVELS IJ ONE (09:30)
[2018-03-22] MEDS: Zestril 20 MG PO SCH (09:56)
[2018-03-22] MEDS: ENOXAPARIN SODIUM SQ SCH (09:56)
[2018-03-22] MEDS: Ditropan XL 5 MG PO SCH (09:56)
[2018-03-22] MEDS: NORVASC 5 MG PO SCH (09:56)
[2018-03-22] MEDS: Bactroban OINTMENT TP SCH ×2 (09:57→21:48)
--- NOTE | 2018-03-22 10:16 | HP ---
CHIEF COMPLAINT: Chest pain, open wounds in the chest, previous bilateral mastectomy from breast cancer. HISTORY OF PRESENT ILLNESS: The patient is a 62 year-old white female who reports she tried to get a hold of Dr. De Jesus's office. She had problems with redness and warmth in the chest area and had developed cellulitis. She presented to the emergency room and subsequently admitted to the hospital on IV Zosyn and Vancomycin for fairly significant cellulitis. PAST MEDICAL/SURGICAL HISTORY: Bilateral mastectomy for breast cancer. She has received radiation and chemotherapy. She has diabetes mellitus type 2 on insulin. HOME MEDICATIONS: Currently are insulin, Lantus 50 units daily and Humalog 10 mg t.i.d. with meals, Letrozole 2.5 mg at night. ALLERGIES: LYRICA, METHADONE, OXYCODONE. PHYSICAL EXAMINATION: Revealed a well nourished, well developed 62 year-old white female currently in mild distress with the chest discomfort. Her vital signs on admission showed a temperature 99.7F, pulse 92, respiratory rate 22, blood pressure 153/79. O2 saturations 96%. HEENT: Normocephalic, atraumatic. Pupils equal round reactive to light. Extraocular movements intact. Oropharynx is pink and moist. NECK: Supple without lymphadenopathy, thyromegaly or JVD. CHEST: Revealed redness clear across the anterior region of the chest measuring approximately 15 cm from the superior to inferior margin and completely across the chest from side to side. There are noted also to be abrasions on both sides of the chest from where the previous scars were located. ABDOMEN: Soft. No palpable masses. EXTREMITIES: Without cyanosis, clubbing or edema. NEUROLOGIC: The patient is alert and oriented x3 with no focal deficits. LAB DATA AND TESTS: Revealed a CT scan abdomen and pelvis essentially normal. She had A1C of 13.26. Her troponin has been less than 0.012 on three separate occasions. She had chest x-ray that showed no acute findings. Her hemoglobin was 13.9, white blood cell count 9,000 with 75.2% granulocytes, PLT count 275,000. Metabolic panel showed her sugar to be 375, BUN 18, creatinine 1.02. Electrolytes were essentially normal. She does have elevation in AST at 88 and ALT 141 and alkaline phosphatase 165. The patient's amylase and lipase were normal. Lactic acid 1.8. International normalized ratio 1.12. ASSESSMENT: We will treat the patient with IV Vancomycin and IV Zosyn. She will receive Lovenox for deep venous thrombosis prophylaxis. We will consider placing a PICC line in the patient as she will likely need at least a week to ten days or perhaps even longer of IV antibiotics.
[2018-03-22] MEDS: VANCOCIN 1 GM VIAL*** 1.75 GM in Sodium Chloride 0.9% 500 ML 500 ML IV SCH (10:47)
[2018-03-22] MEDS: Miralax Powder 17GM PACKET PO SCH (14:34)
[2018-03-22] MEDS: Lantus Insulin SQ SCH (17:14)
[2018-03-22] MEDS: PATIENT OWN MEDICATION PO SCH (21:48)
[2018-03-23] MEDS: MORPHINE SULFATE 4 MG INJ IV PRN ×4 (01:00→20:22)
[2018-03-23] MEDS: Zosyn 3.375GM/100 Ml D5W 3.375 GM/100 ML IVPB IV SCH ×5 (01:02→23:09)
[2018-03-23] MEDS: NovoLOG Insulin SQ PRN ×3 (01:37→21:59)
[2018-03-23 06:29] LABS: BASOPHIL % 0.3 % (0.0-0.4); Basophil (Absolute #) 0.01 (0-0.4); Eosinophil % 2.2 % (0.00-5.0); Eosinophil (Absolute #) 0.08 (0-0.5); Hematocrit 37.3 % (35-47); Hemoglobin 12.1 gm/dl (12.0-16.0); Lymphocyte (Absolute #) 1.04 (1.0-4.6); Lymphocytes % 28.7 % (24.0-44.0); Mean Cell Volume 100.3 fl (78-100); Mean Corpuscular Hemoglobin 32.5 pg (26-32); Mean Corpuscular Hgb Concent. 32.4 g/dl (32-36); Mean Platelet Volume 11.1 fl (6-9.5); Monocyte (Absolute #) 0.39 (0.0-1.3); Monocytes % 10.8 % (0.0-12.0); Platelet Count 138 K/mm3 (150-450); Red Blood Count 3.72 M/mm3 (4.1-5.4); Red Cell Distribution Width 14.9 % (11.5-14.0); White Blood Count 3.6 K/mm3 (4.0-10.5)
[2018-03-23 06:41] LABS: ANION GAP 8.9 MEQ/L (5-15); Calcium 9.1 mg/dL (8.4-10.2); Creatinine 1 1.28 mg/dL (0.52-1.04); Potassium 4.2 mmol/L (3.5-5.1)
--- NOTE | 2018-03-23 08:54 | PCM.NOTE ---
Date and Time: 03/23/18851 Subjective Assessment: Still having pain on the skin of the chest, but the erythema is better. Gladys po. Has been up around the room. - Review of Systems Constitutional: No Fever Skin: Cellulitis Objective Exam General Appearance: no apparent distress, alert, obese Neurologic Exam: oriented x 3, cooperative Skin Exam: warm, dry, other (erythema of chest decreased superiorly; inferiorly still present L>R. TTP L>R.) Ears, Nose, Throat Exam: moist mucous membranes Respiratory Exam: normal breath sounds, lungs clear, No crackles/rales, No rhonchi, No wheezing Cardiovascular Exam: regular rate/rhythm, normal heart sounds, No murmur Extremity Exam: No pedal edema, No swelling OBJECTIVE DATA Vital Signs: Vital Signs - 24 hr Temp Pulse Resp BP BP Pulse Ox 03/23/18 08:00 97.8 F 70 18 150/66 93 L 03/23/18 04:00 98.1 F 66 21 114/97 90 L 03/23/18 00:00 99 F 65 20 140/65 91 L 03/22/18 20:00 96.7 F 73 21 143/65 92 L 03/22/18 15:51 98.2 F 70 18 149/67 93 L 03/22/18 12:00 98.5 F 75 18 140/64 94 L Pain Assessment - Last Documented Pain Intensity 7 Pain Scale Used 0-10 Pain Scale Intake and Output: Intake & Output 03/20/18 03/21/18 03/22/18 03/23/18 11:59 11:59 11:59 11:59 Intake Total 360 3555 2040 3237 Output Total 400 Balance 360 3555 1640 3237 Weight 105.4 kg Lab Results: Accuchecks Date 03/23/18 Date 03/23/18 Date 03/22/18 Time 04:00 Time 00:00 Time 20:00 Accucheck Value: 126 Accucheck Value: 241 Accucheck Value: 342 Accucheck Value: 280 Accucheck Value: 195 Lab Results-Last 24 Hours 03/22/18 03/23/18 03/23/18 Range/Units 09:30 05:40 05:40 WBC 3.6 L (4.0-10.5) K/mm3 RBC 3.72 L (4.1-5.4) M/mm3 Hgb 12.1 (12.0-16.0) gm/dl Hct 37.3 (35-47) % MCV 100.3 H (78-100) fl MCH 32.5 H (26-32) pg MCHC 32.4 (32-36) g/dl RDW 14.9 H (11.5-14.0) % Plt Count 138 L (150-450) K/mm3 MPV 11.1 H (6-9.5) fl Gran % 58.0 (36.0-66.0) % Eos # (Auto) 0.08 (0-0.5) Absolute Lymphs (auto) 1.04 (1.0-4.6) Absolute Monos (auto) 0.39 (0.0-1.3) Lymphocytes % 28.7 (24.0-44.0) % Monocytes % 10.8 (0.0-12.0) % Eosinophils % 2.2 (0.00-5.0) % Basophils % 0.3 (0.0-0.4) % Absolute Granulocytes 2.10 (1.4-6.9) Basophils # 0.01 (0-0.4) Sodium 140 (137-145) mmol/L Potassium 4.2 (3.5-5.1) mmol/L Chloride 109 H (98-107) mmol/L Carbon Dioxide 26 (22-30) mmol/L Anion Gap 8.9 (5-15) MEQ/L BUN 21 H (7-17) mg/dL Creatinine 1.28 H (0.52-1.04) mg/dL Estimated GFR 45.2 ML/MIN Glucose 135 H (74-106) mg/dL Calcium 9.1 (8.4-10.2) mg/dL Vancomycin Trough 11.06 (10-20) ug/mL Assessment/Plan (1) Cellulitis Current Visit: Yes Status: Acute Onset Date: ~03/20/18 Qualifiers: Site of cellulitis: trunk Site of cellulitis of trunk: chest wall Qualified Code(s): L03.313 - Cellulitis of chest wall Assessment & Plan: Improving daily; on vancomycin an dzosyn day #4. Will likely need a few more days of IV antibiotics before discharge to home. Code(s): L03.90 - CELLULITIS, UNSPECIFIED (2) UTI (urinary tract infection) Current Visit: Yes Status: Acute Onset Date: ~03/20/18 Qualifiers: Urinary tract infection type: acute cystitis Hematuria presence: without hematuria Qualified Code(s): N30.00 - Acute cystitis without hematuria Code(s): N39.0 - URINARY TRACT INFECTION, SITE NOT SPECIFIED (3) HX: breast cancer Current Visit: Yes Status: Chronic Code(s): Z85.3 - PERSONAL HISTORY OF MALIGNANT NEOPLASM OF BREAST (4) Hx of bilateral mastectomy Current Visit: Yes Status: Chronic Code(s): Z90.13 - ACQUIRED ABSENCE OF BILATERAL BREASTS AND NIPPLES (5) Diabetes mellitus Current Visit: No Status: Chronic Qualifiers: Code(s): E11.9 - TYPE 2 DIABETES MELLITUS WITHOUT COMPLICATIONS (6) Urinary incontinence Current Visit: Yes Status: Acute Qualifiers: Urinary Incontinence type: urge incontinence Qualified Code(s): N39.41 - Urge incontinence Assessment & Plan: started Detrol LA yesterday. Code(s): R32 - UNSPECIFIED URINARY INCONTINENCE (7) Renal insufficiency Current Visit: Yes Status: Acute Assessment & Plan: will increase fluids; was present on admission but in normal range yesterday. Decreased again today.
--- NOTE | 2018-03-23 09:26 | CONS ---
CONSULT DATE: 03/22/2018 The patient was seen for Dr. De Jesus who apparently was consulted over the weekend and had not been seen yet. HISTORY: She has a prior history of breast cancer on the left side, had bilateral mastectomy by Dr. De Jesus over the summer back in July or August. She said she had some radiation treatments as well. She had some rash recently that failed to improve. She is trying to get into to see Dr. De Jesus to admit her to the hospital for IV antibiotics. She has history of some methicillin resistant staphylococcus aureus in the past according to the nursing staff. She had some small sores on the anterior aspect of chest wall area on the right as well as laterally on the left. She said it has been there for some time, whether she had scratched these areas or not. They do not appear to be malignant at this time. Otherwise the mastectomy incisions seem to be clean, dry and intact, well healed. She had some mild erythema on the chest wall and abdomen. She said this is much improved since she had been on the IV antibiotics in the hospital. There was no evidence of any palpable large masses just some generalized cellulitis or whether this is super-infection from the recent sore. PAST MEDICAL HISTORY: Includes breast cancer, diabetes. PAST SURGICAL HISTORY: Bilateral mastectomy. MEDICATIONS: As listed per the MAR. ALLERGIES: LISTED PER APR. REVIEW OF SYSTEMS: Twelve systems reviewed. No chest pain or palpitations other systems negative or noncontributory as above and per preadmission questionnaire. PHYSICAL EXAMINATION: GENERAL: No acute distress. NECK: No JVD. CHEST: Equal excursion, nonlabored breathing. ABDOMEN: Soft, nondistended. EXTREMITIES: No significant edema. NEURO: Alert, moving extremities grossly symmetrically. IMPRESSION: Chest wall cellulitis. Continue IV antibiotics. She has got some small superficial sores on either side. There does not appear to be obvious malignancy at this point. Recommend continuing IV antibiotics at this time, continue monitoring. No emergent surgery necessary at this point. The patient agrees with the plan. They questioned about consideration of a PICC line. If she does need one for access try to lean towards placing on the right side as the breast cancer was on the left. She understands that she has high risk of thrombosis while being on a thing like that. If she does need skilled nursing IV access for IV antibiotics could consider that. She understands. Continue medical management for now. Again, this patient was seen for Dr. Rogers De Jesus.
[2018-03-23] MEDS: Miralax Powder 17GM PACKET PO SCH (10:25)
[2018-03-23] MEDS: ENOXAPARIN SODIUM SQ SCH (10:25)
[2018-03-23] MEDS: NORVASC 5 MG PO SCH (10:26)
[2018-03-23] MEDS: Zestril 20 MG PO SCH (10:26)
[2018-03-23] MEDS: Ditropan XL 5 MG PO SCH (10:26)
[2018-03-23] MEDS: Bactroban OINTMENT TP SCH ×2 (10:26→20:35)
[2018-03-23] MEDS: NovoLOG Insulin SQ SCH ×3 (10:27→17:52)
[2018-03-23] MEDS: NORCO 5/325 MG PO PRN ×3 (10:31→22:08)
[2018-03-23] MEDS: VANCOCIN 1 GM VIAL*** 1.75 GM in Sodium Chloride 0.9% 500 ML 500 ML IV SCH (10:31)
[2018-03-23] MEDS: Lantus Insulin SQ SCH (18:02)
[2018-03-23] MEDS: Sodium Chloride 0.9% 1000 ML 1,000 ML IV SCH (21:59)
[2018-03-23] MEDS: PATIENT OWN MEDICATION PO SCH (22:00)
[2018-03-24] MEDS: MORPHINE SULFATE 4 MG INJ IV PRN ×2 (00:34→04:15)
[2018-03-24] MEDS: NovoLOG Insulin SQ PRN ×4 (00:45→21:30)
[2018-03-24] MEDS: NORCO 5/325 MG PO PRN ×2 (02:24→06:07)
[2018-03-24] MEDS: Zosyn 3.375GM/100 Ml D5W 3.375 GM/100 ML IVPB IV SCH ×4 (06:07→23:45)
[2018-03-24 06:16] LABS: BASOPHIL % 0.5 % (0.0-0.4); Basophil (Absolute #) 0.02 (0-0.4); Eosinophil (Absolute #) 0.11 (0-0.5); Granulocyte Absolute (ANC) 2.01 (1.4-6.9); Granulocytes % 54.1 % (36.0-66.0); Hematocrit 38.4 % (35-47); Hemoglobin 11.8 gm/dl (12.0-16.0); Lymphocyte (Absolute #) 1.21 (1.0-4.6); Lymphocytes % 32.5 % (24.0-44.0); Mean Cell Volume 102.7 fl (78-100); Mean Corpuscular Hgb Concent. 30.7 g/dl (32-36); Mean Platelet Volume 10.9 fl (6-9.5); Monocyte (Absolute #) 0.37 (0.0-1.3); Monocytes % 9.9 % (0.0-12.0); Platelet Count 145 K/mm3 (150-450); Red Blood Count 3.74 M/mm3 (4.1-5.4); Red Cell Distribution Width 14.7 % (11.5-14.0); White Blood Count 3.7 K/mm3 (4.0-10.5)
[2018-03-24 06:17] LABS: Mean Corpuscular Hemoglobin 31.5 pg (26-32)
[2018-03-24 06:29] LABS: ANION GAP 9.3 MEQ/L (5-15); Calcium 9.7 mg/dL (8.4-10.2); Creatinine 1 1.3 mg/dL (0.52-1.04); Potassium 4.5 mmol/L (3.5-5.1)
[2018-03-24] MEDS ORDERED: APRESOLINE 20 MG/ML INJ IV PRN (07:36)
[2018-03-24] MEDS: NovoLOG Insulin SQ SCH ×3 (08:04→17:33)
--- NOTE | 2018-03-24 09:22 | PCM.NOTE ---
Date and Time: 03/24/18919 Subjective Assessment: Pt still having pain in the chest but thinks it is better. Requiring IV and po pain meds currently. - Review of Systems Constitutional: No Fever Skin: Cellulitis Objective Exam General Appearance: no apparent distress, alert Neurologic Exam: oriented x 3, cooperative Skin Exam: warm, dry, other (chest with erythema L lower chest with some warmth and ttp) Ears, Nose, Throat Exam: moist mucous membranes Neck Exam: normal inspection Respiratory Exam: normal breath sounds, lungs clear, No crackles/rales, No rhonchi, No wheezing Cardiovascular Exam: regular rate/rhythm, normal heart sounds, No murmur Extremity Exam: No pedal edema, No swelling Back Exam: normal inspection, No rash OBJECTIVE DATA Vital Signs: Vital Signs - 24 hr Temp Pulse Resp BP Pulse Ox 03/24/18 07:28 97.3 F 66 18 167/74 94 L 03/24/18 04:00 97.5 F 62 17 144/77 94 L 03/23/18 23:55 93 L 03/23/18 23:38 97.2 F 69 18 136/62 93 L 03/23/18 20:00 98.9 F 62 20 184/79 96 03/23/18 16:00 96.9 F 63 18 169/86 93 L 03/23/18 11:48 98.6 F 71 18 126/84 94 L Pain Assessment - Last Documented Pain Intensity 7 Pain Scale Used 0-10 Pain Scale Intake and Output: Intake & Output 03/21/18 03/22/18 03/23/18 03/24/18 11:59 11:59 11:59 11:59 Intake Total 3555 2040 3717 4198 Output Total 400 400 Balance 3555 1640 3717 3798 Lab Results: Accuchecks Date 03/24/18 Date 03/24/18 Date 03/23/18 Date 03/23/18 Date 03/23/18 Time 04:24 Time 00:30 Time 20:00 Time 16:30 Time 11:30 Accucheck Value: 164 Accucheck Value: 277 Accucheck Value: 338 Accucheck Value: 167 Accucheck Value: 286 Lab Results-Last 24 Hours 03/24/18 03/24/18 Range/Units 06:05 06:05 WBC 3.7 L (4.0-10.5) K/mm3 RBC 3.74 L (4.1-5.4) M/mm3 Hgb 11.8 L (12.0-16.0) gm/dl Hct 38.4 (35-47) % MCV 102.7 H (78-100) fl MCH 31.5 (26-32) pg MCHC 30.7 L (32-36) g/dl RDW 14.7 H (11.5-14.0) % Plt Count 145 L (150-450) K/mm3 MPV 10.9 H (6-9.5) fl Gran % 54.1 (36.0-66.0) % Eos # (Auto) 0.11 (0-0.5) Absolute Lymphs (auto) 1.21 (1.0-4.6) Absolute Monos (auto) 0.37 (0.0-1.3) Lymphocytes % 32.5 (24.0-44.0) % Monocytes % 9.9 (0.0-12.0) % Eosinophils % 3.0 (0.00-5.0) % Basophils % 0.5 (0.0-0.4) % Absolute Granulocytes 2.01 (1.4-6.9) Basophils # 0.02 (0-0.4) Sodium 139 (137-145) mmol/L Potassium 4.5 (3.5-5.1) mmol/L Chloride 106 (98-107) mmol/L Carbon Dioxide 28 (22-30) mmol/L Anion Gap 9.3 (5-15) MEQ/L BUN 22 H (7-17) mg/dL Creatinine 1.30 H (0.52-1.04) mg/dL Estimated GFR 44.4 ML/MIN Glucose 149 H (74-106) mg/dL Calcium 9.7 (8.4-10.2) mg/dL Multi-Disciplinary Progress Notes: Multi-Disciplinary Progress Notes 03/23/18 17:37 Case Management Note by Arielle Aguirre S/W [facility] REGARDING NEW GLUCOMETER. PRESCRIPTIONS FILLED OUT AND SIGNED BY DR. MEDEIROS AND PUT ON THE CHART FOR PT TO TAKE AT D/C. PT DENIED NEED FOR ANY OTHER SERVICES. PLANS TO RETURN HOME TO PRE-EPISODIC LEVEL OF FUNCTION AT D/C. Initialized on 03/23/18 17:37 - END OF NOTE 03/23/18 10:10 Case Management Note by Erin Judd S/W DR. MEDEIROS REGARDING PICC LINE PLACEMENT. AT THIS TIME SHE FEELS THAT PATIENT IS RESPONDING TO THE ANTIBIOTICS NICELY. LONG THE PERIPHERAL LINE (S) REMAIN PATENT, SHE WOULD CANCEL THE PICC LINE PLACEMENT AND REVISIT AT A LATER DATE IF NEEDED. ORDER CANCELLED. Initialized on 03/23/18 10:10 - END OF NOTE Assessment/Plan (1) Cellulitis Current Visit: Yes Status: Acute Onset Date: ~03/20/18 Qualifiers: Site of cellulitis: trunk Site of cellulitis of trunk: chest wall Qualified Code(s): L03.313 - Cellulitis of chest wall Assessment & Plan: Improving. Will stop vanc as below, continue zosyn. Code(s): L03.90 - CELLULITIS, UNSPECIFIED (2) HX: breast cancer Current Visit: Yes Status: Chronic Onset Date: ~03/22/18 Code(s): Z85.3 - PERSONAL HISTORY OF MALIGNANT NEOPLASM OF BREAST (3) Hx of bilateral mastectomy Current Visit: Yes Status: Chronic Onset Date: ~03/22/18 Code(s): Z90.13 - ACQUIRED ABSENCE OF BILATERAL BREASTS AND NIPPLES (4) Diabetes mellitus Current Visit: No Status: Chronic Qualifiers: Code(s): E11.9 - TYPE 2 DIABETES MELLITUS WITHOUT COMPLICATIONS (5) Urinary incontinence Current Visit: Yes Status: Acute Onset Date: ~03/22/18 Qualifiers: Urinary Incontinence type: urge incontinence Qualified Code(s): N39.41 - Urge incontinence Code(s): R32 - UNSPECIFIED URINARY INCONTINENCE (6) Renal insufficiency Current Visit: Yes Status: Acute Onset Date: ~03/22/18 Assessment & Plan: Worse today; may be due to vancomycin. Will stop that. Can add po MRSA coverage.
[2018-03-24] MEDS: Zestril 20 MG PO SCH (09:44)
[2018-03-24] MEDS: Bactroban OINTMENT TP SCH ×2 (09:44→22:04)
[2018-03-24] MEDS: NORVASC 5 MG PO SCH (09:44)
[2018-03-24] MEDS: Miralax Powder 17GM PACKET PO SCH (09:44)
[2018-03-24] MEDS: ENOXAPARIN SODIUM SQ SCH (09:44)
[2018-03-24] MEDS: Ditropan XL 5 MG PO SCH (09:44)
[2018-03-24] MEDS: Vibramycin 100 MG PO SCH ×2 (09:46→21:29)
[2018-03-24] MEDS: Norco 10/325 MG Tablet PO PRN ×2 (12:08→21:32)
[2018-03-24] MEDS: Sodium Chloride 0.9% 1000 ML 1,000 ML IV SCH (14:31)
[2018-03-24] MEDS: Lantus Insulin SQ SCH (17:33)
[2018-03-24] MEDS: PATIENT OWN MEDICATION PO SCH (21:29)
[2018-03-25] MEDS: Sodium Chloride 0.9% 1000 ML 1,000 ML IV SCH ×2 (04:48→21:48)
[2018-03-25] MEDS: Zosyn 3.375GM/100 Ml D5W 3.375 GM/100 ML IVPB IV SCH ×4 (05:13→23:55)
[2018-03-25] MEDS: Norco 10/325 MG Tablet PO PRN ×4 (05:50→22:56)
[2018-03-25 05:55] LABS: BASOPHIL % 0.3 % (0.0-0.4); Basophil (Absolute #) 0.01 (0-0.4); Eosinophil % 3.4 % (0.00-5.0); Eosinophil (Absolute #) 0.13 (0-0.5); Granulocyte Absolute (ANC) 2.34 (1.4-6.9); Granulocytes % 60.2 % (36.0-66.0); Hematocrit 39.8 % (35-47); Hemoglobin 12.5 gm/dl (12.0-16.0); Lymphocyte (Absolute #) 1.07 (1.0-4.6); Lymphocytes % 27.6 % (24.0-44.0); Mean Cell Volume 101.3 fl (78-100); Mean Corpuscular Hemoglobin 31.8 pg (26-32); Mean Corpuscular Hgb Concent. 31.4 g/dl (32-36); Mean Platelet Volume 10.8 fl (6-9.5); Monocyte (Absolute #) 0.33 (0.0-1.3); Monocytes % 8.5 % (0.0-12.0); Platelet Count 156 K/mm3 (150-450); Red Blood Count 3.93 M/mm3 (4.1-5.4); Red Cell Distribution Width 14.6 % (11.5-14.0); White Blood Count 3.9 K/mm3 (4.0-10.5)
[2018-03-25 06:16] LABS: ANION GAP 9.7 MEQ/L (5-15); Calcium 9.5 mg/dL (8.4-10.2); Creatinine 1 1.16 mg/dL (0.52-1.04)
[2018-03-25] MEDS ORDERED: Lantus Insulin SQ SCH (07:14)
[2018-03-25] MEDS: NovoLOG Insulin SQ SCH ×3 (08:45→17:13)
--- NOTE | 2018-03-25 08:56 | PCM.NOTE ---
Date and Time: 03/25/18 0852 Subjective Assessment: Continues to have some tightness superficially on the chest but overall feeling better. Out of bed. Gladys po. Complains ditropan is not helping enough. Had some BP into the 180s systolic last night. - Review of Systems Constitutional: No Fever Skin: Cellulitis Objective Exam General Appearance: no apparent distress, alert, obese Neurologic Exam: oriented x 3, cooperative Skin Exam: other (chest with mild erythema L>R, decreased ttp throughout. There is an excoriated area approx 2x2 cm R upper chest without erythema/exudate) OBJECTIVE DATA Vital Signs: Vital Signs - 24 hr Temp Pulse Resp BP Pulse Ox 03/25/18 07:28 98.3 F 64 20 176/99 92 L 03/25/18 04:00 98.0 F 59 L 16 166/72 95 03/25/18 00:00 97.8 F 64 18 145/72 96 03/24/18 20:40 94 L 03/24/18 20:00 98.3 F 63 18 180/74 96 03/24/18 16:00 98.5 F 57 L 18 137/61 93 L 03/24/18 11:52 98.3 F 65 18 194/84 93 L Pain Assessment - Last Documented Pain Intensity 8 Pain Scale Used 0-10 Pain Scale Intake and Output: Intake & Output 03/22/18 03/23/18 03/24/18 03/25/18 11:59 11:59 11:59 11:59 Intake Total 2040 3717 4198 2830 Output Total 400 400 Balance 1640 3717 3798 2830 Weight 105.4 kg Lab Results: Accuchecks Date 03/24/18 Date 03/24/18 Date 03/24/18 Time 20:00 Time 16:30 Time 11:30 Accucheck Value: 263 Accucheck Value: 304 Accucheck Value: 204 Lab Results-Last 24 Hours 03/25/18 03/25/18 Range/Units 05:25 05:25 WBC 3.9 L (4.0-10.5) K/mm3 RBC 3.93 L (4.1-5.4) M/mm3 Hgb 12.5 (12.0-16.0) gm/dl Hct 39.8 (35-47) % MCV 101.3 H (78-100) fl MCH 31.8 (26-32) pg MCHC 31.4 L (32-36) g/dl RDW 14.6 H (11.5-14.0) % Plt Count 156 (150-450) K/mm3 MPV 10.8 H (6-9.5) fl Gran % 60.2 (36.0-66.0) % Eos # (Auto) 0.13 (0-0.5) Absolute Lymphs (auto) 1.07 (1.0-4.6) Absolute Monos (auto) 0.33 (0.0-1.3) Lymphocytes % 27.6 (24.0-44.0) % Monocytes % 8.5 (0.0-12.0) % Eosinophils % 3.4 (0.00-5.0) % Basophils % 0.3 (0.0-0.4) % Absolute Granulocytes 2.34 (1.4-6.9) Basophils # 0.01 (0-0.4) Sodium 140 (137-145) mmol/L Potassium 4.0 (3.5-5.1) mmol/L Chloride 105 (98-107) mmol/L Carbon Dioxide 30 (22-30) mmol/L Anion Gap 9.7 (5-15) MEQ/L BUN 20 H (7-17) mg/dL Creatinine 1.16 H (0.52-1.04) mg/dL Estimated GFR 50.6 ML/MIN Glucose 177 H (74-106) mg/dL Calcium 9.5 (8.4-10.2) mg/dL Assessment/Plan (1) Cellulitis Current Visit: Yes Status: Acute Onset Date: ~03/20/18 Qualifiers: Site of cellulitis: trunk Site of cellulitis of trunk: chest wall Qualified Code(s): L03.313 - Cellulitis of chest wall Assessment & Plan: continues to improve. on Day #2 doxycycline po and day #6 zosyn IV. Plan would be to send pt home tomorrow on doxycycline and follow up closely (Thursday morning ) in office. Code(s): L03.90 - CELLULITIS, UNSPECIFIED (2) HX: breast cancer Current Visit: Yes Status: Chronic Onset Date: ~03/22/18 Code(s): Z85.3 - PERSONAL HISTORY OF MALIGNANT NEOPLASM OF BREAST (3) Hx of bilateral mastectomy Current Visit: Yes Status: Chronic Onset Date: ~03/22/18 Code(s): Z90.13 - ACQUIRED ABSENCE OF BILATERAL BREASTS AND NIPPLES (4) Diabetes mellitus Current Visit: No Status: Chronic Qualifiers: Diabetes mellitus type: type 2 Diabetes mellitus prison insulin use: unspecified special agent in charge insulin use status Diabetes mellitus complication status : with skin complications Diabetes mellitus complication detail: with other skin complication Qualified Code(s): E11.628 - Type 2 diabetes mellitus with other skin complications Code(s): E11.9 - TYPE 2 DIABETES MELLITUS WITHOUT COMPLICATIONS (5) Urinary incontinence Current Visit: Yes Status: Acute Onset Date: ~03/22/18 Qualifiers: Urinary Incontinence type: urge incontinence Qualified Code(s): N39.41 - Urge incontinence Assessment & Plan: increase ditropan from 5mg daily to 10mg daily. Code(s): R32 - UNSPECIFIED URINARY INCONTINENCE (6) Renal insufficiency Current Visit: Yes Status: Acute Onset Date: ~03/22/18 Assessment & Plan: improved this morning. stopped vancomycin yesterday. recheck in a.m. (7) HTN (hypertension) Current Visit: Yes Status: Acute Qualifiers: Hypertension type: essential hypertension Qualified Code(s): I10 - Essential (primary) hypertension Assessment & Plan: increase amlodipine to 10mg/d Code(s): I10 - ESSENTIAL (PRIMARY) HYPERTENSION
[2018-03-25] MEDS: Vibramycin 100 MG PO SCH ×2 (09:46→22:55)
[2018-03-25] MEDS: Ditropan XL 5 MG PO SCH (09:46)
[2018-03-25] MEDS: Zestril 20 MG PO SCH (09:47)
[2018-03-25] MEDS: Miralax Powder 17GM PACKET PO SCH (09:47)
[2018-03-25] MEDS: NORVASC 5 MG PO SCH (09:47)
[2018-03-25] MEDS: ENOXAPARIN SODIUM SQ SCH (09:47)
[2018-03-25] MEDS: Bactroban OINTMENT TP SCH ×2 (09:47→22:55)
[2018-03-25] MEDS ORDERED: Flonase NASAL NS SCH (10:00)
[2018-03-25] MEDS: Flonase NASAL NS SCH (11:07)
[2018-03-25] MEDS: NovoLOG Insulin SQ PRN ×3 (11:56→22:57)
[2018-03-25] MEDS: PATIENT OWN MEDICATION PO SCH (22:55)
[2018-03-26] MEDS: Norco 10/325 MG Tablet PO PRN ×3 (04:47→13:36)
[2018-03-26] MEDS: Zosyn 3.375GM/100 Ml D5W 3.375 GM/100 ML IVPB IV SCH ×2 (05:54→11:50)
[2018-03-26 08:30] LABS: Hematocrit 37.9 % (35-47); Hemoglobin 11.9 gm/dl (12.0-16.0); Mean Cell Volume 101.6 fl (78-100); Mean Corpuscular Hemoglobin 31.9 pg (26-32); Mean Corpuscular Hgb Concent. 31.4 g/dl (32-36); Mean Platelet Volume 10.8 fl (6-9.5); Platelet Count 153 K/mm3 (150-450); Red Blood Count 3.73 M/mm3 (4.1-5.4); Red Cell Distribution Width 14.7 % (11.5-14.0); White Blood Count 3.6 K/mm3 (4.0-10.5)
--- NOTE | 2018-03-26 08:43 | PCM.DS ---
Discharge Summary Date of Admission: 03/22/18 09:05 Admitting Physician: JOLANTA MEDEIROS Consults: Consults on Case 03/21/18 17:35 Consult Surgery ROUTINE Primary Care Provider: JOLANTA MEDEIROS Allergies Allergies pregabalin [From Lyrica] Allergy (Severe, Verified 03/19/18 21:25) Swelling methadone [Methadone] Allergy (Mild, Verified 03/19/18 21:25) Hives oxycodone HCl [From OxyContin] Allergy (Verified 03/19/18 21:25) Hospital Summary - Hospital Course Hospital Course: Pt is 62 yo female pt of mine from [facility] with HTN and DM with recent PMHx breast cancer and bilateral mastectomy who was admitted through ER with cellulitis of the chest. She was placed on vancomycin and zosyn and recovered steadily; however after 4d the vancomycin was discontinued and doxycycline was started instead because of decreased renal function. Her renal function did improve and is being checked one more time prior to discharge. She has had quite a bit of pain at the chest wall area but it has improved daily and the erythema is nearly resolved. She will be discharged to home on po doxycycline (today is day #3 doxycycline, day #7 of zosyn). Her BP have been intermittently elevated here; at times will be 120s systolic and at times 180s systolic. I did increase her amlodipine form 5mg to 10mg po daily yesterday. Discussed adding Imdur, as she is already on lisinopril 20mg/ d as well. Discussed holding imdur if she feels dizzy or lightheaded at home. she will f/u with me in 1 week in the office. Will be given 1 week of po pain meds for home use. - Vitals & Intake/Output Vital Signs: Vital Signs Temperature 97.7 F 03/26/18 07:35 Pulse Rate 66 03/26/18 07:35 Respiratory Rate 18 03/26/18 07:35 Blood Pressure 172/78 03/26/18 07:35 O2 Sat by Pulse Oximetry 93 L 03/26/18 07:35 Oxygen-Last Documented O2 Percentage 2 Liters = 28% Intake & Output: Intake & Output 03/23/18 03/24/18 03/25/18 03/26/18 11:59 11:59 11:59 11:59 Intake Total 3717 4198 3070 4295 Output Total 400 Balance 3713 6618 3070 4295 Weight 105.4 kg - Lab Result Diagrams: 03/25/18 05:25 03/25/18 05:25 Lab Results-Last 24 Hrs: Accuchecks Date 03/25/18 Date 03/25/18 Date 03/25/18 Time 22:00 Accucheck Value: 221 Accucheck Value: 252 Accucheck Value: 241 Micro Results-Entire Visit: Microbiology 03/19/18 21:22 Blood Culture Gram Stain - Final Blood Not Reportable Blood Culture - Final NO GROWTH 03/19/18 21:45 Blood Culture Gram Stain - Final Blood Not Reportable Blood Culture - Final NO GROWTH 03/19/18 22:28 Urine Culture - Final Urine, Void MIXED CAROL; 3 OR MORE TYPES. NO PREDOMINANT ORGANISM. NO FURTHER WORKUP. PLEASE RESUBMIT IF CLINICALLY INDICATED. Accuchecks Date 03/25/18 Date 03/25/18 Date 03/25/18 Time 22:00 Accucheck Value: 221 Accucheck Value: 252 Accucheck Value: 241 - Procedures and Test Procedures and Tests throughout Hospitalization: Therapy Orders & Screens 03/20/18 01:54 Oxygen Nasal Cannula 2 lpm Comment: 03/20/18 03:41 OT Screen per Nursing Assess Comment: Protocol Order Physician Instructions: Greater than 3 points order OT Admission Screening Reason For Exam: Triggered on Admission Diagnosis: cellulitous Open Wound/Cellutlitis/Pressure Ulcers: Yes Acute Fx/ORIF/Change in wt bearing status: No Severe MUSCULOSKELETAL pain: No ADL Dysfunction: No Acute CVA w/Hemiparesis/Hemiplegia: No Decreased Functional Mobility/Strength: No Sprain/Strain: No Acute Post-op Mobility Dysfunction: No Total Points: 5 PT Screen per Nursing Assess Comment: Protocol Order Physician Instructions: Greater than 3 points order PT Admission Screenin Reason For Exam: Triggered on Admission Diagnosis: cellulitous Open Wound/Cellutlitis/Pressure Ulcers: Yes Acute Fx/ORIF/Change in wt bearing status: No Severe MUSCULOSKELETAL pain: No ADL Dysfunction: No Acute CVA w/Hemiparesis/Hemiplegia: No Decreased Functional Mobility/Strength: No Sprain/Strain: No Acute Post-op Mobility Dysfunction: No Total Points: 5 03/24/18 20:35 Respiratory Therapy Assessment DAILY Comment: Diagnosis: CELLULITIS, FAILED OUTPATIENT, UTI Discharge Exam General Appearance: no apparent distress, alert, obese Neurologic Exam: oriented x 3, cooperative Skin Exam: other (chest with scant erythema, mild ttp L>R) Respiratory Exam: normal breath sounds, lungs clear, No crackles/rales, No rhonchi, No wheezing Cardiovascular Exam: regular rate/rhythm, normal heart sounds, No murmur Gastrointestinal/Abdomen Exam: soft, normal bowel sounds, No tenderness, No distention, No mass, No guarding, No rebound Extremity Exam: normal inspection, No pedal edema, No swelling Final Diagnosis/Problem List - Final Discharge Diagnosis/Problem (1) Cellulitis Current Visit: Yes Status: Acute Onset Date: ~03/20/18 Assessment & Plan: much improved. Home on doxycycline for another week. home on norco. (2) HX: breast cancer Current Visit: Yes Status: Chronic Onset Date: ~03/22/18 (3) Hx of bilateral mastectomy Current Visit: Yes Status: Chronic Onset Date: ~03/22/18 (4) Diabetes mellitus Current Visit: No Status: Chronic (5) Urinary incontinence Current Visit: Yes Status: Chronic Onset Date: ~03/22/18 Assessment & Plan: continue anti-spasmodic at home; started in hospital. (6) Renal insufficiency Current Visit: Yes Status: Acute Onset Date: ~03/22/18 Assessment & Plan: will continue to observe; improved after stopping vancomycin. (7) HTN (hypertension) Current Visit: Yes Status: Acute Assessment & Plan: home on Imdur 30mg/d, first dose today. Also lisinopril 20mg/d, and amlodipine 10mg/d. - Discharge Disposition: Home, Self-Care Condition: Stable Prescriptions: New Mupirocin [Bactroban OINTMENT] 1 gm TP BID #1 tube Oxybutynin Chloride Xl 5 mg [Ditropan XL 5 MG] 10 mg PO DAILY #30 tab Fluticasone Propionate [Flonase NASAL] 0 gm NS DAILY #0 bottle Isosorbide Mononitrate 30 mg [Imdur 30 MG] 30 mg PO DAILY #30 tab Hydrocodone/APAP 10/325 mg [[place] 10/325 MG Tablet] 1 tab PO Q6H PRN PRN #28 tablet MDD 4 PRN Reason: Pain Amlodipine Besylate 5 mg [Norvasc 5 mg] 10 mg PO QAM #30 tablet Doxycycline Hyclate 100 mg [Vibramycin 100 MG] 100 mg PO BID #14 tab Lisinopril 20 mg [Zestril 20 MG] 20 mg PO DAILY #30 tablet Continue Insulin Lispro [Humalog] 10 unit SQ TIDWMEALS Insulin Glargine [Lantus Insulin] 50 units SL DAILY Letrozole 2.5 mg PO HS Follow up with: JOLANTA MEDEIROS [Primary Care Provider] - 03/29/18 9:00 am
[2018-03-26 09:08] LABS: ANION GAP 11.9 MEQ/L (5-15); Calcium 9.7 mg/dL (8.4-10.2); Creatinine 1 1.24 mg/dL (0.52-1.04); Potassium 4.2 mmol/L (3.5-5.1)
[2018-03-26] MEDS: Miralax Powder 17GM PACKET PO SCH (09:39)
[2018-03-26] MEDS: Vibramycin 100 MG PO SCH (09:40)
[2018-03-26] MEDS: NORVASC 5 MG PO SCH (09:40)
[2018-03-26] MEDS: ENOXAPARIN SODIUM SQ SCH (09:40)
[2018-03-26] MEDS: Zestril 20 MG PO SCH (09:40)
[2018-03-26] MEDS: Ditropan XL 5 MG PO SCH (09:40)
[2018-03-26] MEDS: Flonase NASAL NS SCH (09:41)
[2018-03-26] MEDS: NovoLOG Insulin SQ SCH ×2 (09:41→12:12)
[2018-03-26] MEDS: NovoLOG Insulin SQ PRN ×2 (09:42→12:12)
[2018-03-26] MEDS: Bactroban OINTMENT TP SCH (09:43)
[2018-03-26 12:18] VITALS: BP 186/79; PULSE 62; O2SAT 96
== END 2018-03-26 14:45 | disposition home or self-care (01) | DRG 603 ==
LOC: ED 20:50 → MED SURG 03-20 02:14 → OBSVTOIN 03-22 09:05
PROVIDERS: ADMIT Family Medicine; ATTEND Family Medicine
DX: L03.313 Cellulitis of chest wall (principal); N39.0 Urinary tract infection, site not specified; R10.9 Unspecified abdominal pain; R07.9 Chest pain, unspecified; Z85.3 Personal history of malignant neoplasm of breast; Z90.13 Acquired absence of bilateral breasts and nipples; E11.9 Type 2 diabetes mellitus without complications; Z79.4 Long term (current) use of insulin; I10 Essential (primary) hypertension; R32 Unspecified urinary incontinence; N28.9 Disorder of kidney and ureter, unspecified; Z79.899 Other long term (current) drug therapy
CPT/HCPCS: 36415; 71045; 74177; 80048; 80053; 80202; 81001; 82150; 82962; 83036; 83605; 83690; 84484; 85025; 85027; 85610; 87040; 87086; 93005; 94760; 96365; 96367; 96374; 96375; 99285; G0378; J1170; J1650; J2270; J2405; J2543; J3370; A9270-GY

== ENCOUNTER 2018-04-20 06:56 | Inpatient (IN) | payer MEDICARE ==
[2018-04-20] MEDS ORDERED: TYLENOL 325 MG PO PRN (13:56)
[2018-04-20] MEDS ORDERED: NORCO 5/325 MG PO PRN (14:00)
[2018-04-20 14:03] LABS: ALKALINE PHOSPHATASE 185 U/L (38-126); ANION GAP 15.3 MEQ/L (5-15); BLOOD UREA NITROGEN 17 mg/dL (7-17); CHLORIDE 99 mmol/L (98-107); Calcium 9.4 mg/dL (8.4-10.2); Carbon Dioxide 22 mmol/L (22-30); Potassium 4.5 mmol/L (3.5-5.1); SGOT/AST 81 U/L (14-36); SGPT/ALT 105 U/L (0-35); SODIUM 132 mmol/L (137-145); Total Protein 7.5 g/dL (6.3-8.2)
[2018-04-20 14:09] LABS: BASOPHIL % 0.5 % (0.0-0.4); Basophil (Absolute #) 0.02 (0-0.4); Eosinophil % 2.1 % (0.00-5.0); Eosinophil (Absolute #) 0.09 (0-0.5); Granulocyte Absolute (ANC) 2.67 (1.4-6.9); Granulocytes % 63.7 % (36.0-66.0); Hematocrit 36.2 % (35-47); Hemoglobin 11.6 gm/dl (12.0-16.0); Lymphocyte (Absolute #) 1.08 (1.0-4.6); Lymphocytes % 25.8 % (24.0-44.0); Mean Cell Volume 99.7 fl (78-100); Mean Platelet Volume 11.1 fl (6-9.5); Monocyte (Absolute #) 0.33 (0.0-1.3); Monocytes % 7.9 % (0.0-12.0); Platelet Count 133 K/mm3 (150-450); Red Blood Count 3.63 M/mm3 (4.1-5.4); White Blood Count 4.2 K/mm3 (4.0-10.5)
[2018-04-20 14:12] LABS: Mean Corpuscular Hemoglobin 31.9 pg (26-32)
[2018-04-20 14:14] LABS: Glucose 614 mg/dL (74-106)
[2018-04-20] MEDS ORDERED: NovoLIN R IV ONE (14:51)
[2018-04-20] MEDS: Sodium Chloride 0.9% 1000 ML 1,000 ML IV SCH (15:48)
[2018-04-20] MEDS: NovoLOG Insulin SQ PRN ×3 (15:51→21:31)
[2018-04-20 16:28] LABS: Appearance CLEAR (CLEAR); Bilirubin NEGATIVE (NEGATIVE); Blood NEGATIVE Ery/ul (0-5); Glucose 250 mg/dL (NEGATIVE); Ketones NEGATIVE (NEGATIVE); Leukocyte Esterase NEGATIVE (NEGATIVE); Nitrite NEGATIVE (NEGATIVE); Protein,Urine Dip NEGATIVE (Negative); Urobilinogen NORMAL mg/dL (0-1)
[2018-04-20 16:38] LABS: Bacteria RARE /HPF (NEGATIVE); Epithelial Cells RARE /HPF (FEW)
[2018-04-20] MEDS ORDERED: Norco 10/325 MG Tablet PO PRN (17:13)
[2018-04-20] MEDS: VANCOCIN 1 GM VIAL*** 0.75 GM in Sodium Chloride 0.9% 250 ML 250 ML IV SCH (17:18)
[2018-04-20] MEDS ORDERED: MEDICATION INTERVENTION PO SCH (17:30)
--- NOTE | 2018-04-20 17:49 | PCM.HP ---
History of Present Illness - Chief Complaint Chief Complaint: cellulitis to chest History of Present Illness: is a 63 year old female pt of mine from [facility] with PMHx breast cancer (double mastectomy with radiation course finished 12/2017), DM, HTN, and psoriasis who was admitted from office today with cellulitis of the chest. She was treated in the hospital from 03/21/18 to 03/26/18 for cellulitis of the chest; had IV antibiotics then was discharged to home on doxycycline, which she finished. In the hospital she was feeling much better at the time of discharge ; I did not see her on admission but late in her stay the erythema was barely noticeable on the chest and she was ready to go home. In Dr. Brown's note of 03/30/18 he mentions her recent admission but he did not mention her having pain in the area. Today she says she never really got any better. She is complaining of 10/10 chest pain that is constant. Had fever to 102 the past 2 days. she does have cough. Has been tolerating po. She is also c/o 8/10 pain in the bilat soles of her feet that is worse at night. - Review of Systems Constitutional: Fever Respiratory: Cough Cardiac: Chest Pain Abdominal/Gastrointestinal: Abdominal Pain (after eating), Diarrhea (x3d , now resolved) Skin: Cellulitis All Other Systems: Reviewed and Negative Medications & Allergies Home Medications: Home Medication List Insulin Glargine [Lantus Insulin] 50 units SL HS 11/05/16 [History Confirmed ] Insulin Lispro [Humalog] 10 unit SQ TIDWMEALS 11/05/16 [History Confirmed ] Letrozole 2.5 mg PO HS 03/19/18 [History Confirmed 04/20/18] Isosorbide Mononitrate 30 mg [Imdur 30 MG] 30 mg PO DAILY #30 tab 03/26/18 [Rx Confirmed 04/20/18] Lisinopril 20 mg [Zestril 20 MG] 20 mg PO DAILY #30 tablet 03/26/18 [Rx Confirmed 04/20/18] Amlodipine Besylate 5 mg [Norvasc 5 mg] 10 mg PO DAILY 04/20/18 [History Confirmed 04/20/18] Hydrocodone/APAP 10/325 mg [[place] 10/325 MG Tablet] 1 tab PO HS PRN PRN MDD 4 04/20/18 [History Confirmed 04/20/18] Allergies/Adverse Reactions: Allergies Allergy/AdvReac Type Severity Reaction Status Date / Time pregabalin [From Lyrica] Allergy Severe Swelling Verified 03/19/18 21:25 methadone [Methadone] Allergy Mild Hives Verified 03/19/18 21:25 oxycodone HCl Allergy Verified 03/19/18 21:25 [From OxyContin] - Past Medical History Past Medical History: Yes Neurological History: Migraines ENT History: No Pertinent History Cardiac History: No Pertinent History, Hypertension Respiratory History: No Pertinent History Endocrine Medical History: Diabetes Type II Musculoskelatal History: Fibromyalgia GI Medical History: No Pertinent History History: No Pertinent History Pyscho-Social History: Anxiety, Depression Reproductive Disorders: Breast Cancer Comment: breast CA DX 2017 - Female History Are you now?: No - Past Surgical History Past Surgical History: Yes Neuro Surgical History: No Pertinent History Cardiac History: No Pertinent History Respiratory Surgery: No Pertinent History GI Surgical History: Hernia Repair Genitourinary Surgical Hx: No Pertinent History Musculskeletal Surgical Hx: Orthopedic Surgery Female Surgical History: No Pertinent History Other Surgical History: muscle stimulator 02/04-REMOVED 2013. back surgery hip surgery. double masectomy july 2017 - Social History Smoking Status: Former smoker Exposure to second hand smoke: No Alcohol: None Drug Use: none - Physical Exam Vital Signs: Vital Signs - 24 hr Temp Pulse Resp BP BP Pulse Ox 04/20/18 16:11 98.0 F 77 19 141/65 96 04/20/18 13:54 97.8 F 87 22 157/67 157/67 94 L 04/20/18 13:32 97.8 F 87 22 157/67 94 L General Appearance: moderate distress (crying during interview), obese Neurologic Exam: alert, cooperative Eye Exam: eyes nml inspection Ears, Nose, Throat Exam: moist mucous membranes Neck Exam: normal inspection, non-tender, No lymphadenopathy Respiratory Exam: normal breath sounds, lungs clear, No crackles/rales, No rhonchi, No wheezing Cardiovascular Exam: regular rate/rhythm, normal heart sounds, No murmur Gastrointestinal/Abdomen Exam: soft, normal bowel sounds, No tenderness, No distention, No mass, No guarding, No rebound Extremity Exam: other (feet w/o lesions. pedal pulses + bilat.), No pedal edema , No swelling Skin Exam: other (very faint erythema on mid chest. chest is s/p bilateral mastectomy. no appreciable warmth. no exudate. tender to palp. R chest with approx 1cm healing abrasion.) Results - Labs Lab/Micro Results: Accuchecks Date 04/20/18 Time 16:30 Accucheck Value: 323 Lab Results-Last 24 Hours 04/20/18 04/20/18 04/20/18 Range/Units 13:30 13:44 13:44 WBC 4.2 (4.0-10.5) K/mm3 RBC 3.63 L (4.1-5.4) M/mm3 Hgb 11.6 L (12.0-16.0) gm/dl Hct 36.2 (35-47) % MCV 99.7 (78-100) fl MCH 31.9 (26-32) pg MCHC 32.0 (32-36) g/dl RDW 14.0 (11.5-14.0) % Plt Count 133 L (150-450) K/mm3 MPV 11.1 H (6-9.5) fl Gran % 63.7 (36.0-66.0) % Eos # (Auto) 0.09 (0-0.5) Absolute Lymphs (auto) 1.08 (1.0-4.6) Absolute Monos (auto) 0.33 (0.0-1.3) Lymphocytes % 25.8 (24.0-44.0) % Monocytes % 7.9 (0.0-12.0) % Eosinophils % 2.1 (0.00-5.0) % Basophils % 0.5 (0.0-0.4) % Absolute Granulocytes 2.67 (1.4-6.9) Basophils # 0.02 (0-0.4) Sodium 132 L (137-145) mmol/L Potassium 4.5 (3.5-5.1) mmol/L Chloride 99 (98-107) mmol/L Carbon Dioxide 22 (22-30) mmol/L Anion Gap 15.3 H (5-15) MEQ/L BUN 17 (7-17) mg/dL Creatinine 0.80 (0.52-1.04) mg/dL Estimated GFR > 60.0 ML/MIN Glucose 614 H* (74-106) mg/dL Calcium 9.4 (8.4-10.2) mg/dL Total Bilirubin 0.60 (0.2-1.3) mg/dL AST 81 H (14-36) U/L ALT 105 H (0-35) U/L Alkaline Phosphatase 185 H (38-126) U/L Serum Total Protein 7.5 (6.3-8.2) g/dL Albumin 4.0 (3.5-5.0) g/dL Urine Color YELLOW (YELLOW) Urine Appearance CLEAR (CLEAR) Urine pH 5.0 (5-6) Ur Specific [place] 1.010 (1.005-1.025) Urine Protein NEGATIVE (Negative) Urine Ketones NEGATIVE (NEGATIVE) Urine Blood NEGATIVE (0-5) Mookie/ul Urine Nitrite NEGATIVE (NEGATIVE) Urine Bilirubin NEGATIVE (NEGATIVE) Urine Urobilinogen NORMAL (0-1) mg/dL Ur Leukocyte Esterase NEGATIVE (NEGATIVE) Urine WBC (Auto) NONE (0-5) /HPF Urine RBC (Auto) NONE (0-2) /HPF U Epithel Cells (Auto) RARE (FEW) /HPF Urine Bacteria (Auto) RARE (NEGATIVE) /HPF Urine Culture Reflexed NO (NO) Urine Glucose 250 (NEGATIVE) mg/dL Accuchecks Date 04/20/18 Time 16:30 Accucheck Value: 323 - Radiology Impressions Radiology Exams & Impressions: Radiology Procedures Category Date Time Status CHEST 2 VIEWS (PA AND LAT) Urgent Exams 04/20/18 Ordered - Other Procedures and Tests Respiratory Therapy 04/20/18 17:35 EKG STAT Assessment/Plan (1) Chest pain Current Visit: Yes Status: Acute Qualifiers: Chest pain type: unspecified Qualified Code(s): R07.9 - Chest pain, unspecified Assessment & Plan: likely due to superficial process, but I have ordered stat EKG and troponin x 1. The appearance of the skin is not typical for cellulitis, but I have initiated IV antibiotics. Considered radiation dermatitis, but she does not have peeling skin, just very mild erythema. OK ice to the area prn. [place] is not helping, so will give IV morphine for now. Checking ESR to r/o a vasculitis but this is not typical appearance for that either. Code(s): R07.9 - CHEST PAIN, UNSPECIFIED (2) Peripheral neuropathy Current Visit: Yes Status: Acute Qualifiers: Peripheral neuropathy type: polyneuropathy associated with underlying disease Qualified Code(s): G63 - Polyneuropathy in diseases classified elsewhere Assessment & Plan: diabetic. She was on gabapentin in the past; it is not on her allergy list. She is however allergic to lyrica. checking B12/folate and RPR. Code(s): G62.9 - POLYNEUROPATHY, UNSPECIFIED (3) Cellulitis Current Visit: No Status: Acute Onset Date: ~03/20/18 Qualifiers: Site of cellulitis: trunk Site of cellulitis of trunk: chest wall Qualified Code(s): L03.313 - Cellulitis of chest wall Assessment & Plan: on vancomycin IV. 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 She is on a regular diet currently so I can adjust her insulin more accurately to her home po intake. Code(s): E11.9 - TYPE 2 DIABETES MELLITUS WITHOUT COMPLICATIONS (5) HX: breast cancer Current Visit: No Status: Chronic Onset Date: ~03/22/18 Assessment & Plan: Sees Dr. Brown. Code(s): Z85.3 - PERSONAL HISTORY OF MALIGNANT NEOPLASM OF BREAST
[2018-04-20] MEDS: NovoLOG Insulin SQ SCH (17:54)
[2018-04-20] MEDS: MORPHINE SULFATE 10 MG/ML IV PRN (20:08)
[2018-04-20 21:22] LABS: Folate (Folic Acid) 9.1 ng/mL (2.76 - >20)
[2018-04-20] MEDS: Lantus Insulin SQ SCH (21:30)
[2018-04-20] MEDS: NEURONTIN 300 MG PO SCH (21:30)
[2018-04-21] MEDS: MORPHINE SULFATE 10 MG/ML IV PRN ×4 (00:18→13:38)
[2018-04-21] MEDS: Sodium Chloride 0.9% 1000 ML 1,000 ML IV SCH ×2 (03:28→13:38)
[2018-04-21] MEDS ORDERED: Vancomycin 1GM/ Ns 250ML*** 250 ML IV ONE (05:03)
[2018-04-21 05:52] LABS: BASOPHIL % 0.4 % (0.0-0.4); Basophil (Absolute #) 0.02 (0-0.4); Eosinophil (Absolute #) 0.18 (0-0.5); Granulocyte Absolute (ANC) 2.59 (1.4-6.9); Granulocytes % 58.3 % (36.0-66.0); Hematocrit 38.3 % (35-47); Hemoglobin 12.2 gm/dl (12.0-16.0); Lymphocyte (Absolute #) 1.28 (1.0-4.6); Lymphocytes % 28.8 % (24.0-44.0); Mean Corpuscular Hemoglobin 31.5 pg (26-32); Mean Corpuscular Hgb Concent. 31.9 g/dl (32-36); Mean Platelet Volume 10.3 fl (6-9.5); Monocyte (Absolute #) 0.38 (0.0-1.3); Monocytes % 8.5 % (0.0-12.0); Platelet Count 141 K/mm3 (150-450); Red Blood Count 3.87 M/mm3 (4.1-5.4); Red Cell Distribution Width 14.1 % (11.5-14.0); White Blood Count 4.5 K/mm3 (4.0-10.5)
[2018-04-21 06:04] LABS: ALBUMIN 3.7 g/dL (3.5-5.0); ALKALINE PHOSPHATASE 136 U/L (38-126); ANION GAP 12.1 MEQ/L (5-15); BLOOD UREA NITROGEN 18 mg/dL (7-17); CHLORIDE 105 mmol/L (98-107); Carbon Dioxide 24 mmol/L (22-30); Creatinine 1 0.72 mg/dL (0.52-1.04); Glucose 249 mg/dL (74-106); Potassium 4.2 mmol/L (3.5-5.1); SGOT/AST 78 U/L (14-36); SGPT/ALT 105 U/L (0-35); SODIUM 137 mmol/L (137-145); Total Protein 7.2 g/dL (6.3-8.2)
[2018-04-21] MEDS: VANCOCIN 1 GM VIAL*** 0.75 GM in Sodium Chloride 0.9% 250 ML 250 ML IV SCH ×2 (06:40→17:05)
--- NOTE | 2018-04-21 06:59 | PCM.NOTE ---
Date and Time: 04/21/18 0656 Subjective Assessment: Feeling better this morning, pain on chest is 8/10. She has been using ice pack. Out of bed to bathroom by herself. Objective Exam General Appearance: no apparent distress, alert Neurologic Exam: oriented x 3, cooperative Skin Exam: warm, dry, other (chest with very mild erythema and warmth; ttp), No rash Eye Exam: eyes nml inspection Ears, Nose, Throat Exam: moist mucous membranes Respiratory Exam: normal breath sounds, lungs clear, No crackles/rales, No rhonchi, No wheezing Cardiovascular Exam: regular rate/rhythm, normal heart sounds, No murmur Extremity Exam: normal inspection OBJECTIVE DATA Vital Signs: Vital Signs - 24 hr Temp Pulse Resp BP BP Pulse Ox 04/21/18 04:00 97.9 F 69 18 133/62 95 04/20/18 23:58 98.5 F 82 20 134/62 96 04/20/18 20:00 97.9 F 76 16 151/67 97 04/20/18 16:11 98.0 F 77 19 141/65 96 04/20/18 13:54 97.8 F 87 22 157/67 157/67 94 L 04/20/18 13:32 97.8 F 87 22 157/67 94 L Pain Assessment - Last Documented Pain Intensity 9 Pain Scale Used 0-10 Pain Scale Intake and Output: Intake & Output 04/18/18 04/19/18 04/20/18 04/21/18 11:59 11:59 11:59 11:59 Intake Total 2557 Output Total 1050 Balance 1507 Weight 107.9 kg Lab Results: Accuchecks Date 04/20/18 Date 04/20/18 Time 22:00 Time 16:30 Accucheck Value: 295 Accucheck Value: 323 Lab Results-Last 24 Hours 04/20/18 04/20/18 04/20/18 Range/Units 13:30 13:44 13:44 WBC 4.2 (4.0-10.5) K/mm3 RBC 3.63 L (4.1-5.4) M/mm3 Hgb 11.6 L (12.0-16.0) gm/dl Hct 36.2 (35-47) % MCV 99.7 (78-100) fl MCH 31.9 (26-32) pg MCHC 32.0 (32-36) g/dl RDW 14.0 (11.5-14.0) % Plt Count 133 L (150-450) K/mm3 MPV 11.1 H (6-9.5) fl Gran % 63.7 (36.0-66.0) % Eos # (Auto) 0.09 (0-0.5) Absolute Lymphs (auto) 1.08 (1.0-4.6) Absolute Monos (auto) 0.33 (0.0-1.3) Lymphocytes % 25.8 (24.0-44.0) % Monocytes % 7.9 (0.0-12.0) % Eosinophils % 2.1 (0.00-5.0) % Basophils % 0.5 (0.0-0.4) % Absolute Granulocytes 2.67 (1.4-6.9) Basophils # 0.02 (0-0.4) ESR (0-20) mm/hr Sodium 132 L (137-145) mmol/L Potassium 4.5 (3.5-5.1) mmol/L Chloride 99 (98-107) mmol/L Carbon Dioxide 22 (22-30) mmol/L Anion Gap 15.3 H (5-15) MEQ/L BUN 17 (7-17) mg/dL Creatinine 0.80 (0.52-1.04) mg/dL Estimated GFR > 60.0 ML/MIN Glucose 614 H* (74-106) mg/dL Calcium 9.4 (8.4-10.2) mg/dL Total Bilirubin 0.60 (0.2-1.3) mg/dL AST 81 H (14-36) U/L ALT 105 H (0-35) U/L Alkaline Phosphatase 185 H (38-126) U/L Troponin I (0.000-0.034) ng/mL Serum Total Protein 7.5 (6.3-8.2) g/dL Albumin 4.0 (3.5-5.0) g/dL Vitamin B12 (239-931) pg/mL Folic Acid (2.76 - >20) ng/mL Urine Color YELLOW (YELLOW) Urine Appearance CLEAR (CLEAR) Urine pH 5.0 (5-6) Ur Specific [place] 1.010 (1.005-1.025) Urine Protein NEGATIVE (Negative) Urine Ketones NEGATIVE (NEGATIVE) Urine Blood NEGATIVE (0-5) Mookie/ul Urine Nitrite NEGATIVE (NEGATIVE) Urine Bilirubin NEGATIVE (NEGATIVE) Urine Urobilinogen NORMAL (0-1) mg/dL Ur Leukocyte Esterase NEGATIVE (NEGATIVE) Urine WBC (Auto) NONE (0-5) /HPF Urine RBC (Auto) NONE (0-2) /HPF U Epithel Cells (Auto) RARE (FEW) /HPF Urine Bacteria (Auto) RARE (NEGATIVE) /HPF Urine Culture Reflexed NO (NO) Urine Glucose 250 (NEGATIVE) mg/dL 04/20/18 04/20/18 04/20/18 Range/Units 17:36 18:05 18:05 WBC (4.0-10.5) K/mm3 RBC (4.1-5.4) M/mm3 Hgb (12.0-16.0) gm/dl Hct (35-47) % MCV (78-100) fl MCH (26-32) pg MCHC (32-36) g/dl RDW (11.5-14.0) % Plt Count (150-450) K/mm3 MPV (6-9.5) fl Gran % (36.0-66.0) % Eos # (Auto) (0-0.5) Absolute Lymphs (auto) (1.0-4.6) Absolute Monos (auto) (0.0-1.3) Lymphocytes % (24.0-44.0) % Monocytes % (0.0-12.0) % Eosinophils % (0.00-5.0) % Basophils % (0.0-0.4) % Absolute Granulocytes (1.4-6.9) Basophils # (0-0.4) ESR 60 H (0-20) mm/hr Sodium (137-145) mmol/L Potassium (3.5-5.1) mmol/L Chloride (98-107) mmol/L Carbon Dioxide (22-30) mmol/L Anion Gap (5-15) MEQ/L BUN (7-17) mg/dL Creatinine (0.52-1.04) mg/dL Estimated GFR ML/MIN Glucose (74-106) mg/dL Calcium (8.4-10.2) mg/dL Total Bilirubin (0.2-1.3) mg/dL AST (14-36) U/L ALT (0-35) U/L Alkaline Phosphatase (38-126) U/L Troponin I < 0.012 (0.000-0.034) ng/mL Serum Total Protein (6.3-8.2) g/dL Albumin (3.5-5.0) g/dL Vitamin B12 447 (239-931) pg/mL Folic Acid 9.10 (2.76 - >20) ng/mL Urine Color (YELLOW) Urine Appearance (CLEAR) Urine pH (5-6) Ur Specific [place] (1.005-1.025) Urine Protein (Negative) Urine Ketones (NEGATIVE) Urine Blood (0-5) Mookie/ul Urine Nitrite (NEGATIVE) Urine Bilirubin (NEGATIVE) Urine Urobilinogen (0-1) mg/dL Ur Leukocyte Esterase (NEGATIVE) Urine WBC (Auto) (0-5) /HPF Urine RBC (Auto) (0-2) /HPF U Epithel Cells (Auto) (FEW) /HPF Urine Bacteria (Auto) (NEGATIVE) /HPF Urine Culture Reflexed (NO) Urine Glucose (NEGATIVE) mg/dL 04/21/18 04/21/18 Range/Units 05:36 05:36 WBC 4.5 (4.0-10.5) K/mm3 RBC 3.87 L (4.1-5.4) M/mm3 Hgb 12.2 (12.0-16.0) gm/dl Hct 38.3 (35-47) % MCV 99.0 (78-100) fl MCH 31.5 (26-32) pg MCHC 31.9 L (32-36) g/dl RDW 14.1 H (11.5-14.0) % Plt Count 141 L (150-450) K/mm3 MPV 10.3 H (6-9.5) fl Gran % 58.3 (36.0-66.0) % Eos # (Auto) 0.18 (0-0.5) Absolute Lymphs (auto) 1.28 (1.0-4.6) Absolute Monos (auto) 0.38 (0.0-1.3) Lymphocytes % 28.8 (24.0-44.0) % Monocytes % 8.5 (0.0-12.0) % Eosinophils % 4.0 (0.00-5.0) % Basophils % 0.4 (0.0-0.4) % Absolute Granulocytes 2.59 (1.4-6.9) Basophils # 0.02 (0-0.4) ESR (0-20) mm/hr Sodium 137 (137-145) mmol/L Potassium 4.2 (3.5-5.1) mmol/L Chloride 105 (98-107) mmol/L Carbon Dioxide 24 (22-30) mmol/L Anion Gap 12.1 (5-15) MEQ/L BUN 18 H (7-17) mg/dL Creatinine 0.72 (0.52-1.04) mg/dL Estimated GFR > 60.0 ML/MIN Glucose 249 H (74-106) mg/dL Calcium 9.0 (8.4-10.2) mg/dL Total Bilirubin 0.50 (0.2-1.3) mg/dL AST 78 H (14-36) U/L ALT 105 H (0-35) U/L Alkaline Phosphatase 136 H (38-126) U/L Troponin I (0.000-0.034) ng/mL Serum Total Protein 7.2 (6.3-8.2) g/dL Albumin 3.7 (3.5-5.0) g/dL Vitamin B12 (239-931) pg/mL Folic Acid (2.76 - >20) ng/mL Urine Color (YELLOW) Urine Appearance (CLEAR) Urine pH (5-6) Ur Specific [place] (1.005-1.025) Urine Protein (Negative) Urine Ketones (NEGATIVE) Urine Blood (0-5) Mookie/ul Urine Nitrite (NEGATIVE) Urine Bilirubin (NEGATIVE) Urine Urobilinogen (0-1) mg/dL Ur Leukocyte Esterase (NEGATIVE) Urine WBC (Auto) (0-5) /HPF Urine RBC (Auto) (0-2) /HPF U Epithel Cells (Auto) (FEW) /HPF Urine Bacteria (Auto) (NEGATIVE) /HPF Urine Culture Reflexed (NO) Urine Glucose (NEGATIVE) mg/dL Radiology Exams: Radiology Procedures Category Date Time Status CHEST 2 VIEWS (PA AND LAT) Urgent Exams 04/20/18 18:07 Taken Multi-Disciplinary Progress Notes: Multi-Disciplinary Progress Notes 04/20/18 14:27 Pharmacy Note by GUIDE SETTER,PHARM Vancomycin IV pharmacy to dose. Will dose at 750 mg IV every 12 hours, will check trough morning and adjust dose as necessary. Leopoldo Preciado - Animal Anatomist. Initialized on 04/20/18 14:27 - END OF NOTE Assessment/Plan (1) Chest pain Current Visit: Yes Status: Acute Qualifiers: Chest pain type: unspecified Qualified Code(s): R07.9 - Chest pain, unspecified Assessment & Plan: improving. on IV vancomycin day #2. She notes she did have some peeling skin after her last admission. Code(s): R07.9 - CHEST PAIN, UNSPECIFIED (2) Peripheral neuropathy Current Visit: Yes Status: Acute Qualifiers: Peripheral neuropathy type: polyneuropathy associated with underlying disease Qualified Code(s): G63 - Polyneuropathy in diseases classified elsewhere Assessment & Plan: started neurontin Code(s): G62.9 - POLYNEUROPATHY, UNSPECIFIED (3) Cellulitis Current Visit: No Status: Acute Onset Date: ~03/20/18 Qualifiers: Site of cellulitis: trunk Site of cellulitis of trunk: chest wall Qualified Code(s): L03.313 - Cellulitis of chest wall Code(s): L03.90 - CELLULITIS, UNSPECIFIED (4) Diabetes mellitus Current Visit: No Status: Chronic Qualifiers: Diabetes mellitus type: type 2 Diabetes 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 Code(s): E11.9 - TYPE 2 DIABETES MELLITUS WITHOUT COMPLICATIONS (5) HX: breast cancer Current Visit: No Status: Chronic Onset Date: ~03/22/18 Code(s): Z85.3 - PERSONAL HISTORY OF MALIGNANT NEOPLASM OF BREAST
[2018-04-21] MEDS ORDERED: NON-FORMULARY ITEM (Insulin Lispro 10 UNIT) SQ SCH (08:00)
[2018-04-21] MEDS: NovoLOG Insulin SQ PRN ×4 (08:15→22:17)
[2018-04-21] MEDS: NovoLOG Insulin SQ SCH ×3 (08:15→17:04)
--- NOTE | 2018-04-21 08:35 | XRAY ---
Indication: Fever and cough. Cellulitis. Comparison: March 20, 2018. PA/lateral chest remains clear. Heart and mediastinal structures within normal limits. Bony thorax intact again with mild degenerative changes and left axillary surgical clips. No new/acute findings. Impression: Stable nonacute chest with chronic features.
[2018-04-21] MEDS: ENOXAPARIN SODIUM SQ SCH (09:16)
[2018-04-21] MEDS: NEURONTIN 300 MG PO SCH ×3 (09:16→22:17)
[2018-04-21] MEDS: Imdur 30 MG PO SCH (09:16)
[2018-04-21] MEDS: NORVASC 5 MG PO SCH (09:16)
[2018-04-21] MEDS: Zestril 20 MG PO SCH (09:16)
[2018-04-21] MEDS: PATIENT OWN MEDICATION PO SCH (09:17)
[2018-04-21] MEDS: Ditropan 5 MG PO SCH ×2 (14:45→22:17)
[2018-04-21] MEDS: Norco 10/325 MG Tablet PO PRN ×3 (15:41→23:48)
[2018-04-21] MEDS ORDERED: Ditropan 5 MG PO SCH (22:00)
[2018-04-21] MEDS: Lantus Insulin SQ SCH (22:17)
[2018-04-22] MEDS: Sodium Chloride 0.9% 1000 ML 1,000 ML IV SCH ×2 (02:05→14:27)
[2018-04-22] MEDS: Norco 10/325 MG Tablet PO PRN ×5 (04:26→23:53)
[2018-04-22] MEDS ORDERED: TROUGH DRUG LEVELS IJ ONE (05:30)
[2018-04-22] MEDS: VANCOCIN 1 GM VIAL*** 0.75 GM in Sodium Chloride 0.9% 250 ML 250 ML IV SCH (05:53)
[2018-04-22 07:37] LABS: BASOPHIL % 0.3 % (0.0-0.4); Basophil (Absolute #) 0.01 (0-0.4); Eosinophil % 4.4 % (0.00-5.0); Eosinophil (Absolute #) 0.17 (0-0.5); Granulocyte Absolute (ANC) 2.28 (1.4-6.9); Granulocytes % 58.5 % (36.0-66.0); Hemoglobin 11.5 gm/dl (12.0-16.0); Lymphocyte (Absolute #) 1.15 (1.0-4.6); Lymphocytes % 29.6 % (24.0-44.0); Mean Cell Volume 100.6 fl (78-100); Mean Corpuscular Hemoglobin 32.1 pg (26-32); Mean Corpuscular Hgb Concent. 31.9 g/dl (32-36); Mean Platelet Volume 10.8 fl (6-9.5); Monocyte (Absolute #) 0.28 (0.0-1.3); Monocytes % 7.2 % (0.0-12.0); Platelet Count 143 K/mm3 (150-450); Red Blood Count 3.58 M/mm3 (4.1-5.4); Red Cell Distribution Width 14.4 % (11.5-14.0); White Blood Count 3.9 K/mm3 (4.0-10.5)
[2018-04-22 07:41] LABS: ALBUMIN 3.5 g/dL (3.5-5.0); ALKALINE PHOSPHATASE 116 U/L (38-126); ANION GAP 11.4 MEQ/L (5-15); BLOOD UREA NITROGEN 21 mg/dL (7-17); CHLORIDE 107 mmol/L (98-107); Calcium 8.9 mg/dL (8.4-10.2); Carbon Dioxide 23 mmol/L (22-30); Creatinine 1 0.72 mg/dL (0.52-1.04); Glucose 250 mg/dL (74-106); Potassium 4.6 mmol/L (3.5-5.1); SGOT/AST 93 U/L (14-36); SGPT/ALT 114 U/L (0-35); SODIUM 137 mmol/L (137-145); Total Protein 6.9 g/dL (6.3-8.2)
[2018-04-22] MEDS: NovoLOG Insulin SQ PRN ×4 (07:52→21:37)
[2018-04-22] MEDS: NovoLOG Insulin SQ SCH ×3 (07:53→17:12)
[2018-04-22] MEDS ORDERED: PROVENTIL 2.5 MG/3 ML NEB IH PRN (08:19)
--- NOTE | 2018-04-22 08:21 | PCM.NOTE ---
Date and Time: 04/22/18 0816 Subjective Assessment: Her chest pain is somewhat better but is still 8/10 this morning. Having productive cough. non smoker. c/o vaginal itching. Objective Exam General Appearance: no apparent distress, alert (laughing and talking, sitting on side of bed) Neurologic Exam: oriented x 3, cooperative Skin Exam: warm, dry, other (central and upper chest with very mild erythema; warmth is present. nttp) Eye Exam: eyes nml inspection Ears, Nose, Throat Exam: moist mucous membranes Respiratory Exam: normal breath sounds, lungs clear, No crackles/rales, No rhonchi, No wheezing Cardiovascular Exam: regular rate/rhythm, normal heart sounds, No murmur Extremity Exam: normal inspection OBJECTIVE DATA Vital Signs: Vital Signs - 24 hr Temp Pulse Resp BP BP Pulse Ox 04/22/18 08:00 98.7 F 75 18 150/67 97 04/22/18 04:00 98.6 F 66 20 127/61 95 04/22/18 00:00 98 F 70 20 140/63 96 04/21/18 20:00 98.3 F 68 21 142/65 96 04/21/18 16:00 97.8 F 75 20 150/67 96 04/21/18 12:00 97.5 F 64 20 139/58 97 Pain Assessment - Last Documented Pain Intensity 6 Pain Scale Used 0-10 Pain Scale Intake and Output: Intake & Output 04/19/18 04/20/18 04/21/18 04/22/18 11:59 11:59 11:59 11:59 Intake Total 3037 3910 Output Total 1450 600 Balance 1587 3310 Weight 107.9 kg Lab Results: Accuchecks Date 04/21/18 Time 22:00 Accucheck Value: 308 Accucheck Value: 349 Accucheck Value: 272 Lab Results-Last 24 Hours 04/22/18 04/22/18 04/22/18 Range/Units 05:45 05:45 05:45 WBC 3.9 L (4.0-10.5) K/mm3 RBC 3.58 L (4.1-5.4) M/mm3 Hgb 11.5 L (12.0-16.0) gm/dl Hct 36.0 (35-47) % MCV 100.6 H (78-100) fl MCH 32.1 H (26-32) pg MCHC 31.9 L (32-36) g/dl RDW 14.4 H (11.5-14.0) % Plt Count 143 L (150-450) K/mm3 MPV 10.8 H (6-9.5) fl Gran % 58.5 (36.0-66.0) % Eos # (Auto) 0.17 (0-0.5) Absolute Lymphs (auto) 1.15 (1.0-4.6) Absolute Monos (auto) 0.28 (0.0-1.3) Lymphocytes % 29.6 (24.0-44.0) % Monocytes % 7.2 (0.0-12.0) % Eosinophils % 4.4 (0.00-5.0) % Basophils % 0.3 (0.0-0.4) % Absolute Granulocytes 2.28 (1.4-6.9) Basophils # 0.01 (0-0.4) Sodium 137 (137-145) mmol/L Potassium 4.6 (3.5-5.1) mmol/L Chloride 107 (98-107) mmol/L Carbon Dioxide 23 (22-30) mmol/L Anion Gap 11.4 (5-15) MEQ/L BUN 21 H (7-17) mg/dL Creatinine 0.72 (0.52-1.04) mg/dL Estimated GFR > 60.0 ML/MIN Glucose 250 H (74-106) mg/dL Calcium 8.9 (8.4-10.2) mg/dL Total Bilirubin 0.40 (0.2-1.3) mg/dL AST 93 H (14-36) U/L ALT 114 H (0-35) U/L Alkaline Phosphatase 116 (38-126) U/L Serum Total Protein 6.9 (6.3-8.2) g/dL Albumin 3.5 (3.5-5.0) g/dL Vancomycin Trough 10.07 (10-20) ug/mL Radiology Exams: Radiology Procedures Category Date Time Status CHEST 2 VIEWS (PA AND LAT) Urgent Exams 04/20/18 18:07 Completed Multi-Disciplinary Progress Notes: Multi-Disciplinary Progress Notes 04/22/18 08:09 Pharmacy Note by JAVA LEAD ARCHITECT,PHARM Reviewed vancomycin trough this morning of 10.07. Dose was increased from 750 mg every 12 hours to 1 g every 12 hours to target a trough of 15. Will continue to monitor and follow. Leopoldo Preciado - student affairs vice president. Initialized on 04/22/18 08:09 - END OF NOTE Assessment/Plan (1) Chest pain Current Visit: Yes Status: Acute Qualifiers: Chest pain type: unspecified Qualified Code(s): R07.9 - Chest pain, unspecified Assessment & Plan: it's improved. I will discuss with Dr. Brown today re her radiation therapy to see if he recommends any treatment changes. Code(s): R07.9 - CHEST PAIN, UNSPECIFIED (2) Peripheral neuropathy Current Visit: Yes Status: Chronic Qualifiers: Peripheral neuropathy type: polyneuropathy associated with underlying disease Qualified Code(s): G63 - Polyneuropathy in diseases classified elsewhere Assessment & Plan: pt reports much better with neurontin. Code(s): G62.9 - POLYNEUROPATHY, UNSPECIFIED (3) Cellulitis Current Visit: No Status: Acute Onset Date: ~03/20/18 Qualifiers: Site of cellulitis: trunk Site of cellulitis of trunk: chest wall Qualified Code(s): L03.313 - Cellulitis of chest wall Assessment & Plan: on vancomycin IV day #3. norco for pain. Reports feeling somewhat better. Acts like she feels much better. Code(s): L03.90 - CELLULITIS, UNSPECIFIED (4) Diabetes mellitus Current Visit: No Status: Chronic Qualifiers: Diabetes mellitus type: type 2 Diabetes mellitus management scientist insulin use: unspecified mcc insulin use status Diabetes mellitus complication status : with skin complications Diabetes mellitus complication detail: with other skin complication Qualified Code(s): E11.628 - Type 2 diabetes mellitus with other skin complications Assessment & Plan: BS in 200s-300s - increase lantus to 60 units qhs. Code(s): E11.9 - TYPE 2 DIABETES MELLITUS WITHOUT COMPLICATIONS (5) HX: breast cancer Current Visit: No Status: Chronic Onset Date: ~03/22/18 Code(s): Z85.3 - PERSONAL HISTORY OF MALIGNANT NEOPLASM OF BREAST
[2018-04-22] MEDS: Zithromax 250 MG TABLET PO SCH (09:40)
[2018-04-22] MEDS: Imdur 30 MG PO SCH (09:40)
[2018-04-22] MEDS: Mucinex 600MG ER Tabs PO SCH ×2 (09:40→21:36)
[2018-04-22] MEDS: Ditropan 5 MG PO SCH ×2 (09:41→21:35)
[2018-04-22] MEDS: PATIENT OWN MEDICATION PO SCH (09:41)
[2018-04-22] MEDS: NEURONTIN 300 MG PO SCH ×3 (09:41→21:37)
[2018-04-22] MEDS: ENOXAPARIN SODIUM SQ SCH (09:41)
[2018-04-22] MEDS: NORVASC 5 MG PO SCH (09:43)
[2018-04-22] MEDS: Zestril 20 MG PO SCH (09:43)
[2018-04-22] MEDS: VANCOCIN 1 GM VIAL*** 1 GM in Sodium Chloride 0.9% 250 ML 250 ML IV SCH (17:12)
[2018-04-22] MEDS: Lantus Insulin SQ SCH (21:36)
[2018-04-22] MEDS: Monistat 7 VG SCH (21:36)
[2018-04-23] MEDS: Sodium Chloride 0.9% 1000 ML 1,000 ML IV SCH ×2 (02:29→17:18)
[2018-04-23] MEDS: Norco 10/325 MG Tablet PO PRN ×4 (05:13→19:51)
[2018-04-23] MEDS: VANCOCIN 1 GM VIAL*** 1 GM in Sodium Chloride 0.9% 250 ML 250 ML IV SCH ×2 (06:27→17:56)
[2018-04-23 07:42] LABS: Hematocrit 37.3 % (35-47); Hemoglobin 11.9 gm/dl (12.0-16.0); Mean Cell Volume 101.1 fl (78-100); Mean Corpuscular Hemoglobin 32.2 pg (26-32); Mean Corpuscular Hgb Concent. 31.9 g/dl (32-36); Mean Platelet Volume 10.6 fl (6-9.5); Platelet Count 135 K/mm3 (150-450); Red Blood Count 3.69 M/mm3 (4.1-5.4); Red Cell Distribution Width 14.4 % (11.5-14.0); White Blood Count 3.4 K/mm3 (4.0-10.5)
[2018-04-23] MEDS: NovoLOG Insulin SQ SCH ×3 (07:47→17:56)
[2018-04-23] MEDS: NovoLOG Insulin SQ PRN ×4 (07:47→21:54)
[2018-04-23 07:57] LABS: ALBUMIN 3.5 g/dL (3.5-5.0); ALKALINE PHOSPHATASE 112 U/L (38-126); ANION GAP 11.3 MEQ/L (5-15); BLOOD UREA NITROGEN 15 mg/dL (7-17); CHLORIDE 106 mmol/L (98-107); Calcium 8.9 mg/dL (8.4-10.2); Carbon Dioxide 26 mmol/L (22-30); Creatinine 1 0.69 mg/dL (0.52-1.04); Glucose 251 mg/dL (74-106); Potassium 4.4 mmol/L (3.5-5.1); SGOT/AST 79 U/L (14-36); SGPT/ALT 98 U/L (0-35); SODIUM 139 mmol/L (137-145)
[2018-04-23] MEDS: NEURONTIN 300 MG PO SCH ×3 (09:50→21:54)
[2018-04-23] MEDS: Mucinex 600MG ER Tabs PO SCH ×2 (09:50→21:54)
[2018-04-23] MEDS: ENOXAPARIN SODIUM SQ SCH (09:51)
[2018-04-23] MEDS: Imdur 30 MG PO SCH (09:51)
[2018-04-23] MEDS: Zestril 20 MG PO SCH (09:51)
[2018-04-23] MEDS: NORVASC 5 MG PO SCH (09:51)
[2018-04-23] MEDS: Ditropan 5 MG PO SCH ×2 (09:51→21:52)
[2018-04-23] MEDS: Zithromax 250 MG TABLET PO SCH (09:51)
[2018-04-23] MEDS: PATIENT OWN MEDICATION PO SCH (10:02)
[2018-04-23 15:19] LABS: RPR Screen Non Reactive (Non Reactive)
--- NOTE | 2018-04-23 17:20 | PCM.NOTE ---
Date and Time: 04/23/18 171 Late entry for 04/23/18 08:30 Subjective Assessment: She is still having 7-8/10 chest discomfort of the skin of the upper chest, with warmth. It feels "like a piece of raw meat." - Review of Systems Constitutional: No Fever Skin: Cellulitis Objective Exam General Appearance: no apparent distress, alert, obese Neurologic Exam: oriented x 3, cooperative Skin Exam: warm, dry, other (upper chest with warm skin, somewhat warm, is ttp. there is a bandage on a small lesion R lateral chest near axilla.), No rash Eye Exam: eyes nml inspection Ears, Nose, Throat Exam: moist mucous membranes Respiratory Exam: normal breath sounds, lungs clear, No crackles/rales, No rhonchi, No wheezing Cardiovascular Exam: regular rate/rhythm, normal heart sounds, No murmur Extremity Exam: No pedal edema, No swelling OBJECTIVE DATA Vital Signs: Vital Signs - 24 hr Temp Pulse Resp BP Pulse Ox 04/23/18 16:00 98.5 F 73 19 139/66 99 04/23/18 12:00 98.1 F 70 18 129/57 95 04/23/18 11:23 92 H 16 97 04/23/18 07:40 98.0 F 65 18 149/66 98 04/23/18 04:00 98.4 F 63 20 153/74 95 04/23/18 00:00 98.5 F 66 20 140/61 95 04/22/18 20:11 87 18 95 04/22/18 20:00 98.9 F 72 22 144/65 96 Pain Assessment - Last Documented Pain Intensity 7 Pain Scale Used 0-10 Pain Scale Intake and Output: Intake & Output 04/21/18 04/22/18 04/23/18 04/24/18 11:59 11:59 11:59 11:59 Intake Total 3037 4150 3730 240 Output Total 1450 600 Balance 1587 3550 3730 240 Weight 107.9 kg Lab Results: Accuchecks Date 04/23/18 Date 04/23/18 Date 04/22/18 Time 11:30 Time 07:30 Time 22:00 Accucheck Value: 289 Accucheck Value: 244 Accucheck Value: 320 Lab Results-Last 24 Hours 04/23/18 04/23/18 Range/Units 07:36 07:36 WBC 3.4 L (4.0-10.5) K/mm3 RBC 3.69 L (4.1-5.4) M/mm3 Hgb 11.9 L (12.0-16.0) gm/dl Hct 37.3 (35-47) % MCV 101.1 H (78-100) fl MCH 32.2 H (26-32) pg MCHC 31.9 L (32-36) g/dl RDW 14.4 H (11.5-14.0) % Plt Count 135 L (150-450) K/mm3 MPV 10.6 H (6-9.5) fl Sodium 139 (137-145) mmol/L Potassium 4.4 (3.5-5.1) mmol/L Chloride 106 (98-107) mmol/L Carbon Dioxide 26 (22-30) mmol/L Anion Gap 11.3 (5-15) MEQ/L BUN 15 (7-17) mg/dL Creatinine 0.69 (0.52-1.04) mg/dL Estimated GFR > 60.0 ML/MIN Glucose 251 H (74-106) mg/dL Calcium 8.9 (8.4-10.2) mg/dL Total Bilirubin 0.40 (0.2-1.3) mg/dL AST 79 H (14-36) U/L ALT 98 H (0-35) U/L Alkaline Phosphatase 112 (38-126) U/L Serum Total Protein 7.0 (6.3-8.2) g/dL Albumin 3.5 (3.5-5.0) g/dL Multi-Disciplinary Progress Notes: Multi-Disciplinary Progress Notes 04/23/18 10:30 (created 04/23/18 10:41) Case Management Note by Ashley Resendiz INDEPENDENT WITH ALL ADL'S. CONTINUES TO DENY NEEDS FOR DISCHARGE. PLANS TO RETURN HOME TO PRE EPISODIC LEVEL OF FNX. Initialized on 04/23/18 10:41 - END OF NOTE Assessment/Plan (1) Chest pain Current Visit: Yes Status: Acute Qualifiers: Chest pain type: unspecified Qualified Code(s): R07.9 - Chest pain, unspecified Assessment & Plan: I spoke with Dr. Brown about the possibility of a radiation-induced dermatitis. Her last radiation was I believe in dec. He said it is reasonable to try a topical steroid, so I ordered that today. He said to see if it improves over the next 5-6 days. If so, continue it another 10 days. If at any time it's worse, call him and he would see the pt in office the same day. Plan is to see if pt's pain would improve over the next day or two, send her home to finish a course of po antibiotics and the topical steroid. Close follow up in the office. Code(s): R07.9 - CHEST PAIN, UNSPECIFIED (2) Peripheral neuropathy Current Visit: Yes Status: Chronic Qualifiers: Peripheral neuropathy type: polyneuropathy associated with underlying disease Qualified Code(s): G63 - Polyneuropathy in diseases classified elsewhere Assessment & Plan: Much better on gabapentin - she will need a new script at home. Code(s): G62.9 - POLYNEUROPATHY, UNSPECIFIED (3) Cellulitis Current Visit: No Status: Acute Onset Date: ~03/20/18 Qualifiers: Site of cellulitis: trunk Site of cellulitis of trunk: chest wall Qualified Code(s): L03.313 - Cellulitis of chest wall Assessment & Plan: on IV vancomycin. Code(s): L03.90 - CELLULITIS, UNSPECIFIED (4) Diabetes mellitus Current Visit: No Status: Chronic Qualifiers: Diabetes mellitus type: type 2 Diabetes mellitus termination clerk insulin use: unspecified termination clerk insulin use status Diabetes mellitus complication status : with skin complications Diabetes mellitus complication detail: with other skin complication Qualified Code(s): E11.628 - Type 2 diabetes mellitus with other skin complications Code(s): E11.9 - TYPE 2 DIABETES MELLITUS WITHOUT COMPLICATIONS (5) HX: breast cancer Current Visit: No Status: Chronic Onset Date: ~03/22/18 Assessment & Plan: s/p double mastectomy Code(s): Z85.3 - PERSONAL HISTORY OF MALIGNANT NEOPLASM OF BREAST
[2018-04-23] MEDS: BETAMETHASONE DIPROPIONATE TOP SCH (21:51)
[2018-04-23] MEDS: Lantus Insulin SQ SCH (21:52)
[2018-04-23] MEDS: Monistat 7 VG SCH (21:53)
[2018-04-24] MEDS: Norco 10/325 MG Tablet PO PRN ×5 (00:06→21:17)
[2018-04-24] MEDS: Sodium Chloride 0.9% 1000 ML 1,000 ML IV SCH ×2 (05:20→16:36)
[2018-04-24] MEDS: VANCOCIN 1 GM VIAL*** 1 GM in Sodium Chloride 0.9% 250 ML 250 ML IV SCH ×2 (05:20→17:48)
[2018-04-24 05:49] LABS: Hematocrit 38.2 % (35-47); Hemoglobin 12.2 gm/dl (12.0-16.0); Mean Corpuscular Hemoglobin 31.9 pg (26-32); Mean Corpuscular Hgb Concent. 31.9 g/dl (32-36); Mean Platelet Volume 10.7 fl (6-9.5); Platelet Count 140 K/mm3 (150-450); Red Blood Count 3.82 M/mm3 (4.1-5.4); Red Cell Distribution Width 14.5 % (11.5-14.0); White Blood Count 3.1 K/mm3 (4.0-10.5)
[2018-04-24 06:02] LABS: ALBUMIN 3.6 g/dL (3.5-5.0); ALKALINE PHOSPHATASE 129 U/L (38-126); ANION GAP 11.2 MEQ/L (5-15); BLOOD UREA NITROGEN 14 mg/dL (7-17); CHLORIDE 106 mmol/L (98-107); Carbon Dioxide 25 mmol/L (22-30); Creatinine 1 0.73 mg/dL (0.52-1.04); Glucose 196 mg/dL (74-106); Potassium 4.2 mmol/L (3.5-5.1); SGOT/AST 74 U/L (14-36); SGPT/ALT 100 U/L (0-35); SODIUM 138 mmol/L (137-145)
--- NOTE | 2018-04-24 07:38 | PCM.NOTE ---
Date and Time: 04/24/18 0737 Subjective Assessment: patient reports some mild improvement in her pain and redness, no new complaints or problems Objective Exam General Appearance: obese Neurologic Exam: alert, oriented x 3 Skin Exam: other (well healed bilateral mastectomy scars, mild erythema in folds. slightly warmth and tenderness) Respiratory Exam: normal breath sounds, lungs clear, No respiratory distress Cardiovascular Exam: regular rate/rhythm, normal heart sounds OBJECTIVE DATA Vital Signs: Vital Signs - 24 hr Temp Pulse Resp BP Pulse Ox 04/24/18 07:17 98.2 F 70 20 133/60 96 04/24/18 00:00 98.3 F 72 21 145/65 95 04/23/18 20:13 75 20 97 04/23/18 20:00 98.4 F 76 20 138/61 95 04/23/18 16:00 98.5 F 73 19 139/66 99 04/23/18 12:00 98.1 F 70 18 129/57 95 04/23/18 11:23 92 H 16 97 04/23/18 07:40 98.0 F 65 18 149/66 98 Pain Assessment - Last Documented Pain Intensity 10 Pain Scale Used 0-10 Pain Scale Intake and Output: Intake & Output 04/21/18 04/22/18 04/23/18 04/24/18 11:59 11:59 11:59 11:59 Intake Total 3037 4150 3730 3709 Output Total 3934 198 8933 Balance 1587 3550 3730 2709 Weight 107.9 kg Lab Results: Accuchecks Date 04/23/18 Date 04/23/18 Time 16:30 Time 11:30 Accucheck Value: 350 Accucheck Value: 312 Accucheck Value: 289 Lab Results-Last 24 Hours 04/20/18 04/23/18 04/23/18 Range/Units 18:05 07:36 07:36 WBC 3.4 L (4.0-10.5) K/mm3 RBC 3.69 L (4.1-5.4) M/mm3 Hgb 11.9 L (12.0-16.0) gm/dl Hct 37.3 (35-47) % MCV 101.1 H (78-100) fl MCH 32.2 H (26-32) pg MCHC 31.9 L (32-36) g/dl RDW 14.4 H (11.5-14.0) % Plt Count 135 L (150-450) K/mm3 MPV 10.6 H (6-9.5) fl Sodium 139 (137-145) mmol/L Potassium 4.4 (3.5-5.1) mmol/L Chloride 106 (98-107) mmol/L Carbon Dioxide 26 (22-30) mmol/L Anion Gap 11.3 (5-15) MEQ/L BUN 15 (7-17) mg/dL Creatinine 0.69 (0.52-1.04) mg/dL Estimated GFR > 60.0 ML/MIN Glucose 251 H (74-106) mg/dL Calcium 8.9 (8.4-10.2) mg/dL Total Bilirubin 0.40 (0.2-1.3) mg/dL AST 79 H (14-36) U/L ALT 98 H (0-35) U/L Alkaline Phosphatase 112 (38-126) U/L Serum Total Protein 7.0 (6.3-8.2) g/dL Albumin 3.5 (3.5-5.0) g/dL RPR w/Rflx to Titer Non Reactive (Non Reactive) 04/24/18 04/24/18 Range/Units 05:30 05:30 WBC 3.1 L (4.0-10.5) K/mm3 RBC 3.82 L (4.1-5.4) M/mm3 Hgb 12.2 (12.0-16.0) gm/dl Hct 38.2 (35-47) % MCV 100.0 (78-100) fl MCH 31.9 (26-32) pg MCHC 31.9 L (32-36) g/dl RDW 14.5 H (11.5-14.0) % Plt Count 140 L (150-450) K/mm3 MPV 10.7 H (6-9.5) fl Sodium 138 (137-145) mmol/L Potassium 4.2 (3.5-5.1) mmol/L Chloride 106 (98-107) mmol/L Carbon Dioxide 25 (22-30) mmol/L Anion Gap 11.2 (5-15) MEQ/L BUN 14 (7-17) mg/dL Creatinine 0.73 (0.52-1.04) mg/dL Estimated GFR > 60.0 ML/MIN Glucose 196 H (74-106) mg/dL Calcium 9.0 (8.4-10.2) mg/dL Total Bilirubin 0.40 (0.2-1.3) mg/dL AST 74 H (14-36) U/L ALT 100 H (0-35) U/L Alkaline Phosphatase 129 H (38-126) U/L Serum Total Protein 7.0 (6.3-8.2) g/dL Albumin 3.6 (3.5-5.0) g/dL RPR w/Rflx to Titer (Non Reactive) Multi-Disciplinary Progress Notes: Multi-Disciplinary Progress Notes 04/23/18 10:30 (created 04/23/18 10:41) Case Management Note by Ashley Resendiz INDEPENDENT WITH ALL ADL'S. CONTINUES TO DENY NEEDS FOR DISCHARGE. PLANS TO RETURN HOME TO PRE EPISODIC LEVEL OF FNX. Initialized on 04/23/18 10:41 - END OF NOTE Assessment/Plan (1) Cellulitis Current Visit: No Status: Acute Onset Date: ~03/20/18 Qualifiers: Site of cellulitis: trunk Site of cellulitis of trunk: chest wall Qualified Code(s): L03.313 - Cellulitis of chest wall Assessment & Plan: continue vanc at this time, using steroid cream for likely radiation induced component Code(s): L03.90 - CELLULITIS, UNSPECIFIED (2) Chest pain Current Visit: Yes Status: Acute Qualifiers: Chest pain type: unspecified Qualified Code(s): R07.9 - Chest pain, unspecified Code(s): R07.9 - CHEST PAIN, UNSPECIFIED (3) Hx of bilateral mastectomy Current Visit: No Status: Chronic Onset Date: ~03/22/18 Code(s): Z90.13 - ACQUIRED ABSENCE OF BILATERAL BREASTS AND NIPPLES
[2018-04-24] MEDS: NovoLOG Insulin SQ SCH ×3 (08:09→17:03)
[2018-04-24] MEDS: Mucinex 600MG ER Tabs PO SCH ×2 (09:32→21:17)
[2018-04-24] MEDS: NORVASC 5 MG PO SCH (09:32)
[2018-04-24] MEDS: NEURONTIN 300 MG PO SCH ×3 (09:32→21:17)
[2018-04-24] MEDS: Imdur 30 MG PO SCH (09:32)
[2018-04-24] MEDS: Zestril 20 MG PO SCH (09:33)
[2018-04-24] MEDS: PATIENT OWN MEDICATION PO SCH (09:33)
[2018-04-24] MEDS: ENOXAPARIN SODIUM SQ SCH (09:33)
[2018-04-24] MEDS: Ditropan 5 MG PO SCH ×2 (09:33→21:17)
[2018-04-24] MEDS: BETAMETHASONE DIPROPIONATE TOP SCH ×2 (09:33→21:17)
[2018-04-24] MEDS: Zithromax 250 MG TABLET PO SCH (09:34)
[2018-04-24] MEDS: NovoLOG Insulin SQ PRN ×2 (17:03→21:18)
[2018-04-24] MEDS: Lantus Insulin SQ SCH (21:18)
[2018-04-24] MEDS: Monistat 7 VG SCH (21:19)
[2018-04-25] MEDS: Sodium Chloride 0.9% 1000 ML 1,000 ML IV SCH (04:00)
[2018-04-25] MEDS: Norco 10/325 MG Tablet PO PRN (04:00)
[2018-04-25] MEDS: VANCOCIN 1 GM VIAL*** 1 GM in Sodium Chloride 0.9% 250 ML 250 ML IV SCH (05:22)
[2018-04-25 06:02] LABS: BASOPHIL % 0.8 % (0.0-0.4); Basophil (Absolute #) 0.03 (0-0.4); Eosinophil % 5.1 % (0.00-5.0); Eosinophil (Absolute #) 0.19 (0-0.5); Granulocyte Absolute (ANC) 1.94 (1.4-6.9); Hematocrit 35.5 % (35-47); Hemoglobin 11.3 gm/dl (12.0-16.0); Lymphocyte (Absolute #) 1.22 (1.0-4.6); Lymphocytes % 32.7 % (24.0-44.0); Mean Corpuscular Hemoglobin 31.8 pg (26-32); Mean Corpuscular Hgb Concent. 31.8 g/dl (32-36); Mean Platelet Volume 10.2 fl (6-9.5); Monocyte (Absolute #) 0.35 (0.0-1.3); Monocytes % 9.4 % (0.0-12.0); Platelet Count 144 K/mm3 (150-450); Red Blood Count 3.55 M/mm3 (4.1-5.4); Red Cell Distribution Width 14.7 % (11.5-14.0); White Blood Count 3.7 K/mm3 (4.0-10.5)
[2018-04-25 06:23] LABS: ANION GAP 10.6 MEQ/L (5-15); BLOOD UREA NITROGEN 16 mg/dL (7-17); CHLORIDE 108 mmol/L (98-107); Carbon Dioxide 25 mmol/L (22-30); Creatinine 1 0.66 mg/dL (0.52-1.04); Glucose 135 mg/dL (74-106); SODIUM 139 mmol/L (137-145)
[2018-04-25 07:01] VITALS: BP 158/78; PULSE 86; O2SAT 96
[2018-04-25] MEDS: NovoLOG Insulin SQ SCH (08:01)
--- NOTE | 2018-04-25 08:15 | PCM.DS ---
Discharge Summary Date of Admission: 04/21/18 06:56 Admitting Physician: JOLANTA BARNETT Primary Care Provider: JOLANTA BARNETT Allergies Allergies pregabalin [From Lyrica] Allergy (Severe, Verified 03/19/18 21:25) Swelling methadone [Methadone] Allergy (Mild, Verified 03/19/18 21:25) Hives oxycodone HCl [From OxyContin] Allergy (Verified 03/19/18 21:25) Hospital Summary - Hospital Course Hospital Course: patient was admitted and cared for by Dr Barnett, treated for cellulitis of chest , hx bilateral mastectomy. redness and pain have resolved and she is feeling well at the time of discharge. - Vitals & Intake/Output Vital Signs: Vital Signs Temperature 97.9 F 04/25/18 07:01 Pulse Rate 86 04/25/18 07:01 Respiratory Rate 20 04/25/18 07:01 Blood Pressure 158/78 04/25/18 07:01 O2 Sat by Pulse Oximetry 96 04/25/18 07:01 Intake & Output: Intake & Output 04/22/18 04/23/18 04/24/18 04/25/18 11:59 11:59 11:59 11:59 Intake Total 4150 3730 4249 4311 Output Total 600 1300 4900 Balance 3550 3730 2949 -589 - Lab Result Diagrams: 04/25/18 05:50 04/25/18 05:50 Lab Results-Last 24 Hrs: Accuchecks Date 04/24/18 Time 21:56 Accucheck Value: 262 Accucheck Value: 291 Accucheck Value: 165 Lab Results-Last 24 Hours 04/25/18 04/25/18 Range/Units 05:50 05:50 WBC 3.7 L (4.0-10.5) K/mm3 RBC 3.55 L (4.1-5.4) M/mm3 Hgb 11.3 L (12.0-16.0) gm/dl Hct 35.5 (35-47) % MCV 100.0 (78-100) fl MCH 31.8 (26-32) pg MCHC 31.8 L (32-36) g/dl RDW 14.7 H (11.5-14.0) % Plt Count 144 L (150-450) K/mm3 MPV 10.2 H (6-9.5) fl Gran % 52.0 (36.0-66.0) % Eos # (Auto) 0.19 (0-0.5) Absolute Lymphs (auto) 1.22 (1.0-4.6) Absolute Monos (auto) 0.35 (0.0-1.3) Lymphocytes % 32.7 (24.0-44.0) % Monocytes % 9.4 (0.0-12.0) % Eosinophils % 5.1 H (0.00-5.0) % Basophils % 0.8 (0.0-0.4) % Absolute Granulocytes 1.94 (1.4-6.9) Basophils # 0.03 (0-0.4) Sodium 139 (137-145) mmol/L Potassium 4.0 (3.5-5.1) mmol/L Chloride 108 H (98-107) mmol/L Carbon Dioxide 25 (22-30) mmol/L Anion Gap 10.6 (5-15) MEQ/L BUN 16 (7-17) mg/dL Creatinine 0.66 (0.52-1.04) mg/dL Estimated GFR > 60.0 ML/MIN Glucose 135 H (74-106) mg/dL Calcium 9.0 (8.4-10.2) mg/dL Micro Results-Entire Visit: Microbiology 04/20/18 13:30 Urine Culture - Final Urine, Void <10K NORMAL SKIN CAROL PROBABLE SKIN CONTAMINANT Accuchecks Date 04/24/18 Time 21:56 Accucheck Value: 262 Accucheck Value: 291 Accucheck Value: 165 - Procedures and Test Procedures and Tests throughout Hospitalization: Therapy Orders & Screens 04/20/18 17:35 EKG STAT Comment: chest pain Diagnosis: cellulitis to chest 04/22/18 09:46 Respiratory Therapy Assessment DAILY Comment: Diagnosis: cellulitis to chest Discharge Exam General Appearance: no apparent distress, alert, obese Neurologic Exam: alert, oriented x 3 Skin Exam: normal color, warm, dry, other (bilateral well healed mastectomy scars, no redness, no warmth) Respiratory Exam: normal breath sounds, lungs clear, No respiratory distress Cardiovascular Exam: regular rate/rhythm, normal heart sounds Gastrointestinal/Abdomen Exam: soft, No tenderness, No mass Final Diagnosis/Problem List - Final Discharge Diagnosis/Problem (1) Cellulitis Current Visit: No Status: Acute Onset Date: ~03/20/18 Assessment & Plan: much better, home on po bactrim (2) Chest pain Current Visit: Yes Status: Acute (3) Hx of bilateral mastectomy Current Visit: No Status: Chronic Onset Date: ~03/22/18 - Discharge Disposition: Home, Self-Care Condition: Stable Prescriptions: New Smz/Tmp Ds Tablet [Bactrim Ds Tablet] 1 udtab PO Q12H #10 tablet Continue Insulin Lispro [Humalog] 10 unit SQ TIDWMEALS Insulin Glargine [Lantus Insulin] 50 units SL HS Letrozole 2.5 mg PO HS Isosorbide Mononitrate 30 mg [Imdur 30 MG] 30 mg PO DAILY #30 tab Lisinopril 20 mg [Zestril 20 MG] 20 mg PO DAILY #30 tablet Amlodipine Besylate 5 mg [Norvasc 5 mg] 10 mg PO DAILY Hydrocodone/APAP 10/325 mg [Mizpah 10/325 MG Tablet] 1 tab PO HS PRN PRN MDD 4 PRN Reason: Pain Follow up with: JOLANTA BARNETT [Primary Care Provider] - 05/06/18 10:30 am
[2018-04-25] MEDS: ENOXAPARIN SODIUM SQ SCH (09:38)
[2018-04-25] MEDS: Ditropan 5 MG PO SCH (09:38)
[2018-04-25] MEDS: NEURONTIN 300 MG PO SCH (09:39)
[2018-04-25] MEDS: Mucinex 600MG ER Tabs PO SCH (09:39)
[2018-04-25] MEDS: Imdur 30 MG PO SCH (09:39)
[2018-04-25] MEDS: NORVASC 5 MG PO SCH (09:39)
[2018-04-25] MEDS: Zestril 20 MG PO SCH (09:40)
[2018-04-25] MEDS: Zithromax 250 MG TABLET PO SCH (09:40)
[2018-04-25] MEDS: PATIENT OWN MEDICATION PO SCH (09:40)
[2018-04-25] MEDS: BETAMETHASONE DIPROPIONATE TOP SCH (09:41)
== END 2018-04-25 10:20 | disposition home or self-care (01) | DRG 603 ==
LOC: MED SURG 06:56 → OBSVTOIN 04-21 06:56
PROVIDERS: ADMIT Family Medicine; ATTEND Family Medicine
DX: L03.313 Cellulitis of chest wall (principal); R07.9 Chest pain, unspecified; E11.9 Type 2 diabetes mellitus without complications; I10 Essential (primary) hypertension; G62.9 Polyneuropathy, unspecified; Z85.3 Personal history of malignant neoplasm of breast; Z90.13 Acquired absence of bilateral breasts and nipples; Z79.4 Long term (current) use of insulin; Z79.899 Other long term (current) drug therapy; R10.9 Unspecified abdominal pain; R19.7 Diarrhea, unspecified
CPT/HCPCS: 36415; 71046; 80048; 80053; 80202; 81001; 82607; 82746; 82962; 84484; 85025; 85027; 85652; 86592; 86593; 86780; 87086; 93005; 94760; G0378; J1650; J2270; J3370; A9270-GY

== ENCOUNTER 2018-09-29 05:03 | Inpatient (IN) | payer MEDICARE ==
[2018-09-29] MEDS ORDERED: Sodium Chloride 0.9% 1000 ML 1,000 ML IV STA (05:26)
[2018-09-29] MEDS ORDERED: Zofran 4 MG/2 ML VIAL IV ONE (05:29)
[2018-09-29] MEDS ORDERED: MORPHINE SULFATE 4 MG INJ IV ONE ×2 (05:29→06:04)
[2018-09-29] MEDS ORDERED: MORPHINE SULFATE 4 MG INJ ONE ×2 (05:31→06:05)
[2018-09-29] MEDS ORDERED: Sodium Chloride 0.9% 1000 ML 1,000 ML ONE (05:32)
[2018-09-29] MEDS ORDERED: Zofran 4 MG/2 ML VIAL ONE (05:32)
[2018-09-29] MEDS ORDERED: Zosyn 3.375GM/100 Ml D5W 3.375 GM/100 ML IVPB IV STA (05:35)
[2018-09-29] MEDS ORDERED: Vancomycin 1GM/ Ns 250ML*** 250 ML IV ONE ×2 (05:35→06:55)
--- NOTE | 2018-09-29 05:35 | ERPHSYRPT ---
- History of Present Illness Source: patient Exam Limitations: no limitations Patient Subjective Stated Complaint: pt states she has pain, redness and warmth to her chest since yesterday. has hx of mastectomy 1 yr ago with hx of cellulitis 2x Triage Nursing Assessment: pt alert and oriented, answers questions approp. pt ambulatory with steady gait ntoed. respirations nonlabored with l elsa cta. pt tearful and rubbing at red area on chest. redness and warmth ntoed to bilat scars on chest around to lt side of back and rt axilla. Timing/Duration: yesterday Severity: moderate Modifying Factors: Improves With: nothing Associated Symptoms: chest pain (burning pain in the skin of the anterior chest since yesterday), fever, malaise, rash (erythematous skin anterior chest), No nausea, No vomiting, No abdominal pain, No shortness of breath, No heartburn, No diaphoresis, No cough, No chills, No headaches, No loss of appetite, No syncope, No seizure, No weakness Hx Tetanus, Diphtheria Vaccination/Date Given: Yes Hx Influenza Vaccination/Date Given: No Hx Pneumococcal Vaccination/Date Given: No Immunizations Up to Date: Yes <JUDE GA - Last Filed: 09/29/18 07:02> <SARIAH JON - Last Filed: 09/29/18 09:00> - History of Present Illness Time Seen by Provider: 09/29/18 05:26 Physician History: 63-year-old white female with history of breast cancer status post mastectomy bilaterally of his head radiation therapy in the past approximately one year ago and has had 2 subsequent episodes of cellulitis of the chest. Patient arrives with complaint of pain in her anterior chest radiating across the chest described as sharp stabbing pain she also states her skin is erythematous she has erythema extending across her anterior lateral chest bilaterally. She states she's had a fever at home no nausea no vomiting. Past medical history includes migraines, high blood pressure, diabetes type 2, fibromyalgia, anxiety, depression, breast cancer. Past surgical history includes hernia repair, orthopedic surgery, muscle stimulator which was placed and removed in the past back surgery, hip surgery, double mastectomy. (JUDE GA) Allergies/Adverse Reactions: pregabalin [From Lyrica] Allergy (Severe, Verified 09/29/18 05:19) Swelling methadone [Methadone] Allergy (Mild, Verified 09/29/18 05:19) Hives oxycodone HCl [From OxyContin] Allergy (Verified 09/29/18 05:19) Home Medications: Insulin Glargine [Lantus Insulin] 50 units SL HS 11/05/16 [History] Insulin Lispro [Humalog] 10 unit SQ TIDWMEALS 11/05/16 [History] Letrozole 2.5 mg PO HS 03/19/18 [History] Amlodipine Besylate 10 mg PO DAILY 09/29/18 [History] Gabapentin [Neurontin] 300 mg PO TID 09/29/18 [History] Hydrocodone Bit/Acetaminophen [Hydrocodon-Acetaminophen 5-325] 1 each PO Q8H PRN PRN 09/29/18 [History] Paroxetine HCl 20 mg [Paxil 20 MG] 20 mg PO DAILY 09/29/18 [History] - Review of Systems Constitutional: Fever Eyes: No Symptoms Ears, Nose, & Throat: No Symptoms Respiratory: Other (erythematous skin anterior chest), No Cough, No Dyspnea Cardiac: Chest Pain (burning pain anterior chest since yesterday) Abdominal/Gastrointestinal: No Abdominal Pain, No Nausea, No Vomiting, No Diarrhea Genitourinary Symptoms: No Dysuria Musculoskeletal: No Back Pain, No Neck Pain Skin: No Rash Neurological: No Dizziness, No Focal Weakness, No Sensory Changes Psychological: No Symptoms Endocrine: No Symptoms All Other Systems: Reviewed and Negative <JUDE GA - Last Filed: 09/29/18 07:02> - Past Medical History Pertinent Past Medical History: Yes Neurological History: Migraines ENT History: No Pertinent History Cardiac History: No Pertinent History, Hypertension Respiratory History: No Pertinent History Endocrine Medical History: Diabetes Type II Musculoskeletal History: Fibromyalgia GI Medical History: No Pertinent History History: No Pertinent History Psycho-Social History: Anxiety, Depression Female Reproductive Disorders: Breast Cancer Other Medical History: breast CA DX 2017 - Past Surgical History Past Surgical History: Yes Neuro Surgical History: No Pertinent History Cardiac: No Pertinent History Respiratory: No Pertinent History Gastrointestinal: Hernia Repair Genitourinary: No Pertinent History Musculoskeletal: Orthopedic Surgery Female Surgical History: No Pertinent History Other Surgical History: muscle stimulator 02/04-REMOVED 2013. back surgery hip surgery. double masectomy july 2017 - Social History Smoking Status: Never smoker Exposure to second hand smoke: No Drug Use: none Patient Lives Alone: No (takes care of mother) <JUDE GA - Last Filed: 09/29/18 07:02> - Physical Exam General Appearance: moderate distress, alert, obese Eye Exam: PERRL/EOMI, eyes nml inspection Ears, Nose, Throat Exam: normal ENT inspection, TMs normal, pharynx normal, moist mucous membranes Neck Exam: normal inspection, non-tender, supple, full range of motion Respiratory Exam: normal breath sounds, lungs clear, other (status post mastectomy bilaterally, erythematous skin anterior chest extending from inferior axillary line to just above the lower ribs bilaterally, skin tender with palpation, small 1 cm area of excoriation right lateral anterior chest), No respiratory distress Cardiovascular Exam: regular rate/rhythm, normal heart sounds, normal peripheral pulses, capillary refill <2 sec Back Exam: normal inspection, normal range of motion, No CVA tenderness, No vertebral tenderness Extremity Exam: normal inspection, normal range of motion, pelvis stable Neurologic Exam: alert, oriented x 3, cooperative, normal mood/affect, nml cerebellar function, nml station & gait, sensation nml, No motor deficits Skin Exam: other (erythematous skin anterior and lateral chest from axilla to lower ribs) SpO2 Interpretation: normal (95%) SpO2: 95 <JUDE GA - Last Filed: 09/29/18 07:02> - Nursing Vital Signs Nursing Vital Signs: Initial Vital Signs Temperature 100.1 F 09/29/18 05:09 Pulse Rate 100 H 09/29/18 05:09 Respiratory Rate 20 09/29/18 05:09 Blood Pressure 108/71 09/29/18 05:09 O2 Sat by Pulse Oximetry 95 09/29/18 05:09 Pain Scale Pain Intensity [Chest] 10 Pain Intensity 6 - Course Nursing assessment & vital signs reviewed: Yes EKG Interpreted by Me: RATE (85 bpm), Sinus Rhythm, NORMAL AXIS, Other (EKG: Sinus rhythm, 85 beats per minute, normal axis, no acute ST or T wave changes, normal EKG compared to April 20, 2018) <JUDE GA - Last Filed: 09/29/18 07:02> Ordered Tests: Active Orders 24 hr Category Date Time Status EKG-ER Only STAT Care 09/29/18 05:26 Active IV Insertion STAT Care 09/29/18 05:26 Active CHEST WITH CONTRAST [CT] Stat Exams 09/29/18 06:00 Taken AMYLASE Stat Lab 09/29/18 05:38 Completed BLOOD CULTURE Stat Lab 09/29/18 05:55 Received CBC W DIFF Stat Lab 09/29/18 05:38 Completed CMP Stat Lab 09/29/18 05:38 Completed CULTURE,URINE Stat Lab 09/29/18 05:40 Received D-DIMER QUANTITATION Stat Lab 09/29/18 05:38 Completed LIPASE Stat Lab 09/29/18 05:38 Completed Lactic Acid Stat Lab 09/29/18 05:36 Completed TROPONIN Q3H Lab 09/29/18 05:38 Completed UA W/RFX UR CULTURE Stat Lab 09/29/18 05:40 Completed Transfer Order Routine Transfer 09/29/18 Ordered Medication Summary Discontinued Medications Generic Name Dose Route Start Last Admin Trade Name Freq PRN Reason Stop Dose Admin Sodium Chloride 1,000 mls @ 999 mls/hr 09/29/18 05:26 09/29/18 06:56 Sodium Chloride 0.9% 1000 Ml IV 09/29/18 06:26 Infused .Q1H1M STA Infusion Sodium Chloride Confirm 09/29/18 05:32 Sodium Chloride 0.9% 1000 Ml Administered 09/29/18 05:33 Dose 1,000 mls @ ud .ROUTE .STK-MED ONE Vancomycin HCl 250 mls @ 167 mls/hr 09/29/18 05:35 09/29/18 07:00 Vancomycin 1gm/ Ns 250ml IV 09/29/18 07:04 167 mls/hr STAT ONE Administration Piperacillin Sod/Tazobactam Sod 3.375 gm in 100 mls @ 200 mls/hr 09/29/18 05: 35 09/29/18 06:56 Zosyn 3.375gm/100 Ml D5w IV 09/29/18 06:04 Infused STAT STA Infusion Piperacillin Sod/Tazobactam Sod Confirm 09/29/18 05:49 Zosyn 3.375gm/100 Ml D5w Administered 09/29/18 05:50 Dose 3.375 gm in 100 mls @ ud IV .STK-MED ONE Vancomycin HCl Confirm 09/29/18 06:55 Vancomycin 1gm/ Ns 250ml Administered 09/29/18 06:56 Dose 250 mls @ ud IV .STK-MED ONE Morphine Sulfate 4 mg 09/29/18 05:29 09/29/18 05:34 Morphine Sulfate 4 Mg Inj IV 09/29/18 05:30 4 mg STAT ONE Administration Morphine Sulfate Confirm 09/29/18 05:31 Morphine Sulfate 4 Mg Inj Administered 09/29/18 05:32 Dose 4 mg .ROUTE .STK-MED ONE Morphine Sulfate 4 mg 09/29/18 06:04 09/29/18 06:10 Morphine Sulfate 4 Mg Inj IV 09/29/18 06:05 4 mg STAT ONE Administration Morphine Sulfate Confirm 09/29/18 06:05 Morphine Sulfate 4 Mg Inj Administered 09/29/18 06:06 Dose 4 mg .ROUTE .STK-MED ONE Ondansetron HCl 4 mg 09/29/18 05:29 09/29/18 05:34 Zofran 4 Mg/2 Ml Vial IV 09/29/18 05:30 4 mg STAT ONE Administration Ondansetron HCl Confirm 09/29/18 05:32 Zofran 4 Mg/2 Ml Vial Administered 09/29/18 05:33 Dose 4 mg .ROUTE .STK-MED ONE Lab/Rad Data: Laboratory Result Diagrams 09/29/18 05:38 09/29/18 05:38 Laboratory Results 09/29/18 09/29/18 09/29/18 Range/Units 05:40 05:38 05:38 WBC (4.0-10.5) K/mm3 RBC (4.1-5.4) M/mm3 Hgb (12.0-16.0) gm/dl Hct (35-47) % MCV (78-100) fl MCH (26-32) pg MCHC (32-36) g/dl RDW (11.5-14.0) % Plt Count (150-450) K/mm3 MPV (6-9.5) fl Gran % (36.0-66.0) % Eos # (Auto) (0-0.5) Absolute Lymphs (auto) (1.0-4.6) Absolute Monos (auto) (0.0-1.3) Lymphocytes % (24.0-44.0) % Monocytes % (0.0-12.0) % Eosinophils % (0.00-5.0) % Basophils % (0.0-0.4) % Absolute Granulocytes (1.4-6.9) Basophils # (0-0.4) D-Dimer 1569 H* (215-500) ng/mL Sodium (137-145) mmol/L Potassium (3.5-5.1) mmol/L Chloride (98-107) mmol/L Carbon Dioxide (22-30) mmol/L Anion Gap (5-15) MEQ/L BUN (7-17) mg/dL Creatinine (0.52-1.04) mg/dL Estimated GFR ML/MIN Glucose (74-106) mg/dL Lactic Acid (0.4-2.0) Calcium (8.4-10.2) mg/dL Total Bilirubin (0.2-1.3) mg/dL AST (14-36) U/L ALT (0-35) U/L Alkaline Phosphatase (38-126) U/L Troponin I < 0.012 (0.000-0.034) ng/mL Serum Total Protein (6.3-8.2) g/dL Albumin (3.5-5.0) g/dL Amylase (30-110) U/L Lipase (23-300) U/L Urine Color YELLOW (YELLOW) Urine Appearance SLIGHTLY CLOUDY (CLEAR) Urine pH 5.0 (5-6) Ur Specific [place] 1.025 (1.005-1.025) Urine Protein NEGATIVE (Negative) Urine Ketones TRACE (NEGATIVE) Urine Blood SMALL (0-5) Mookie/ul Urine Nitrite NEGATIVE (NEGATIVE) Urine Bilirubin NEGATIVE (NEGATIVE) Urine Urobilinogen NEGATIVE (0-1) mg/dL Ur Leukocyte Esterase LARGE (NEGATIVE) Urine WBC (Auto) 26-50 (0-5) /HPF Urine RBC (Auto) 3-5 (0-2) /HPF U Epithel Cells (Auto) RARE (FEW) /HPF Urine Bacteria (Auto) NONE (NEGATIVE) /HPF Urine Mucus (Auto) SLIGHT (NEGATIVE) /HPF Urine Culture Reflexed YES (NO) Urine Glucose NEGATIVE (NEGATIVE) mg/dL 09/29/18 09/29/18 09/29/18 Range/Units 05:38 05:38 05:36 WBC 8.8 (4.0-10.5) K/mm3 RBC 4.17 (4.1-5.4) M/mm3 Hgb 13.8 (12.0-16.0) gm/dl Hct 41.9 (35-47) % MCV 100.5 H (78-100) fl MCH 33.1 H (26-32) pg MCHC 32.9 (32-36) g/dl RDW 14.4 H (11.5-14.0) % Plt Count 182 (150-450) K/mm3 MPV 10.7 H (6-9.5) fl Gran % 77.9 H (36.0-66.0) % Eos # (Auto) 0.12 (0-0.5) Absolute Lymphs (auto) 1.42 (1.0-4.6) Absolute Monos (auto) 0.39 (0.0-1.3) Lymphocytes % 16.2 L (24.0-44.0) % Monocytes % 4.4 (0.0-12.0) % Eosinophils % 1.4 (0.00-5.0) % Basophils % 0.1 (0.0-0.4) % Absolute Granulocytes 6.83 (1.4-6.9) Basophils # 0.01 (0-0.4) D-Dimer (215-500) ng/mL Sodium 137 (137-145) mmol/L Potassium 4.3 (3.5-5.1) mmol/L Chloride 102 (98-107) mmol/L Carbon Dioxide 24 (22-30) mmol/L Anion Gap 14.6 (5-15) MEQ/L BUN 18 H (7-17) mg/dL Creatinine 0.89 (0.52-1.04) mg/dL Estimated GFR > 60.0 ML/MIN Glucose 220 H (74-106) mg/dL Lactic Acid 1.8 (0.4-2.0) Calcium 10.0 (8.4-10.2) mg/dL Total Bilirubin 0.60 (0.2-1.3) mg/dL AST 115 H (14-36) U/L ALT 135 H (0-35) U/L Alkaline Phosphatase 126 (38-126) U/L Troponin I (0.000-0.034) ng/mL Serum Total Protein 8.5 H (6.3-8.2) g/dL Albumin 4.3 (3.5-5.0) g/dL Amylase 81 (30-110) U/L Lipase 49 (23-300) U/L Urine Color (YELLOW) Urine Appearance (CLEAR) Urine pH (5-6) Ur Specific [place] (1.005-1.025) Urine Protein (Negative) Urine Ketones (NEGATIVE) Urine Blood (0-5) Mookie/ul Urine Nitrite (NEGATIVE) Urine Bilirubin (NEGATIVE) Urine Urobilinogen (0-1) mg/dL Ur Leukocyte Esterase (NEGATIVE) Urine WBC (Auto) (0-5) /HPF Urine RBC (Auto) (0-2) /HPF U Epithel Cells (Auto) (FEW) /HPF Urine Bacteria (Auto) (NEGATIVE) /HPF Urine Mucus (Auto) (NEGATIVE) /HPF Urine Culture Reflexed (NO) Urine Glucose (NEGATIVE) mg/dL - Progress Progress: improved <JUDE GA - Last Filed: 09/29/18 07:02> - Progress Counseled pt/family regarding: lab results, diagnosis, need for follow-up, rad results <SARIAH JON - Last Filed: 09/29/18 09:00> - Progress Progress Note: 09/29/18 07:[address] Jon, he will assume care of this patien due to shift change (JUDE GA) 09/29/18 08:48 cta chest-no pulm emboli. walled off fluid collection right chest. hematoma vs. seroma vs abscess. pt has had iv morphine in past for pain and kyree well. spoke with dr. medeiros. reviewed pts hx, condition, lab, and cta results. she accepts pt for admission. ok to continue zosyn and vanco for now (SARIAH JON) <JUDE GA - Last Filed: 09/29/18 07:02> - Departure Departure Disposition: In-patient Admission Critical Care Time: No <SARIAH JON - Last Filed: 09/29/18 09:00> - Departure Clinical Impression: Cellulitis Condition: Stable Referrals: JOLANTA MEDEIROS [Primary Care Provider] -
[2018-09-29 05:40] LABS: BASOPHIL % 0.1 % (0.0-0.4); Basophil (Absolute #) 0.01 (0-0.4); Eosinophil % 1.4 % (0.00-5.0); Eosinophil (Absolute #) 0.12 (0-0.5); Granulocyte Absolute (ANC) 6.83 (1.4-6.9); Granulocytes % 77.9 % (36.0-66.0); Hematocrit 41.9 % (35-47); Hemoglobin 13.8 gm/dl (12.0-16.0); Lymphocyte (Absolute #) 1.42 (1.0-4.6); Lymphocytes % 16.2 % (24.0-44.0); Mean Cell Volume 100.5 fl (78-100); Mean Corpuscular Hemoglobin 33.1 pg (26-32); Mean Corpuscular Hgb Concent. 32.9 g/dl (32-36); Mean Platelet Volume 10.7 fl (6-9.5); Monocyte (Absolute #) 0.39 (0.0-1.3); Monocytes % 4.4 % (0.0-12.0); Platelet Count 182 K/mm3 (150-450); Red Blood Count 4.17 M/mm3 (4.1-5.4); Red Cell Distribution Width 14.4 % (11.5-14.0); White Blood Count 8.8 K/mm3 (4.0-10.5)
[2018-09-29 05:45] LABS: Appearance SLIGHTLY CLOUDY (CLEAR); Bilirubin NEGATIVE (NEGATIVE); Blood SMALL Ery/ul (0-5); Epithelial Cells RARE /HPF (FEW); Glucose NEGATIVE (NEGATIVE); Ketones TRACE (NEGATIVE); Leukocyte Esterase LARGE (NEGATIVE); Mucus SLIGHT /HPF (NEGATIVE); Nitrite NEGATIVE (NEGATIVE); Protein,Urine Dip NEGATIVE (Negative); Specific Gravity 1.025 (1.005-1.025); Urobilinogen NEGATIVE mg/dL (0-1); WBC 26-50 /HPF (0-5)
[2018-09-29] MEDS ORDERED: Zosyn 3.375GM/100 Ml D5W 3.375 GM/100 ML IVPB IV ONE (05:49)
[2018-09-29 05:52] LABS: ALBUMIN 4.3 g/dL (3.5-5.0); ALKALINE PHOSPHATASE 126 U/L (38-126); AMYLASE 81 U/L (30-110); ANION GAP 14.6 MEQ/L (5-15); BLOOD UREA NITROGEN 18 mg/dL (7-17); CHLORIDE 102 mmol/L (98-107); Carbon Dioxide 24 mmol/L (22-30); Creatinine 1 0.89 mg/dL (0.52-1.04); Glucose 220 mg/dL (74-106); LIPASE 49 U/L (23-300); Potassium 4.3 mmol/L (3.5-5.1); SGOT/AST 115 U/L (14-36); SGPT/ALT 135 U/L (0-35); SODIUM 137 mmol/L (137-145); Total Protein 8.5 g/dL (6.3-8.2)
[2018-09-29] MEDS ORDERED: Zofran 4 MG/2 ML VIAL IV PRN (09:19)
[2018-09-29] MEDS ORDERED: TYLENOL 325 MG PO PRN (09:19)
--- NOTE | 2018-09-29 09:22 | XRAY ---
Indication: Fever. Bilateral chest cellulitis. Status post bilateral mastectomy and radiation therapy. Elevated d-dimer, AST, and ALT. Multiple contiguous axial images obtained through the chest using 80 cc Isovue 370 contrast and PE protocol. Comparison: None There is good opacification of the pulmonary arteries including the lobar and segmental branches. No filling defect or pulmonary embolus. Heart is not enlarged. Aorta is normal in course and caliber. No pathologic mediastinal/hilar lymphadenopathy. Small hiatal hernia. Lungs demonstrates left anterior lateral subpleural fibrosis/scarring possibly related to radiation therapy. No suspicious pulmonary mass, infiltrate, or effusion. Bony thorax intact with mild degenerative changes throughout the spine. There has been bilateral mastectomy with left axilla abhay dissection. Right mastectomy site demonstrates a walled off fluid collection measuring at least 3.1 x 13.6 x 10 cm possible postoperative hematoma/seroma versus abscess. Limited upper abdomen demonstrates diffuse fatty liver and 13.7 cm splenomegaly. Impression: 1. Negative pulmonary embolus. 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 2. Status post bilateral mastectomy and left axilla abhay dissection. Large walled off fluid collection right mastectomy site possibly postoperative hematoma/seroma versus abscess. 3. Incidental small hiatal hernia, fatty liver, and splenomegaly. CT DI 23.68
[2018-09-29] MEDS: Sodium Chloride 0.9% 1000 ML 1,000 ML IV SCH (10:14)
[2018-09-29] MEDS: MORPHINE SULFATE 4 MG INJ IV PRN ×2 (10:15→15:55)
[2018-09-29] MEDS ORDERED: MEDICATION INTERVENTION MC SCH (11:15)
[2018-09-29] MEDS ORDERED: NON-FORMULARY ITEM (Insulin Lispro 10 UNIT) SQ SCH (12:00)
[2018-09-29] MEDS: NovoLOG Insulin SQ SCH ×2 (12:41→16:35)
[2018-09-29] MEDS: NEURONTIN 300 MG PO SCH ×3 (12:41→21:33)
[2018-09-29] MEDS: NORVASC 5 MG PO SCH (12:41)
[2018-09-29] MEDS: NORCO 5/325 MG PO PRN ×2 (12:44→22:46)
[2018-09-29] MEDS: Zosyn 3.375GM/100 Ml D5W 3.375 GM/100 ML IVPB IV SCH ×2 (12:45→17:33)
[2018-09-29] MEDS: NovoLOG Insulin SQ PRN ×2 (16:36→22:41)
[2018-09-29] MEDS: DILAUDID 2 MG INJECTION IV PRN (18:34)
[2018-09-29] MEDS: Imdur 30 MG PO SCH (21:32)
[2018-09-29] MEDS: Lantus Insulin SQ SCH (21:33)
[2018-09-29] MEDS: Paxil 20 MG PO SCH (21:33)
[2018-09-29] MEDS: Vancomycin 1GM/ Ns 250ML*** 1 GM/250 ML IVPB IV SCH (21:34)
[2018-09-30 05:26] LABS: BASOPHIL % 0.2 % (0.0-0.4); Basophil (Absolute #) 0.01 (0-0.4); Eosinophil % 2.6 % (0.00-5.0); Eosinophil (Absolute #) 0.12 (0-0.5); Granulocyte Absolute (ANC) 2.78 (1.4-6.9); Granulocytes % 59.5 % (36.0-66.0); Hematocrit 36.5 % (35-47); Hemoglobin 11.5 gm/dl (12.0-16.0); Lymphocyte (Absolute #) 1.37 (1.0-4.6); Lymphocytes % 29.3 % (24.0-44.0); Mean Cell Volume 103.7 fl (78-100); Mean Corpuscular Hgb Concent. 31.5 g/dl (32-36); Mean Platelet Volume 10.4 fl (6-9.5); Monocyte (Absolute #) 0.39 (0.0-1.3); Monocytes % 8.4 % (0.0-12.0); Platelet Count 129 K/mm3 (150-450); Red Blood Count 3.52 M/mm3 (4.1-5.4); Red Cell Distribution Width 14.7 % (11.5-14.0); White Blood Count 4.7 K/mm3 (4.0-10.5)
[2018-09-30 05:28] LABS: Mean Corpuscular Hemoglobin 32.6 pg (26-32)
[2018-09-30] MEDS: Zosyn 3.375GM/100 Ml D5W 3.375 GM/100 ML IVPB IV SCH ×4 (05:37→17:26)
[2018-09-30 05:39] LABS: ALBUMIN 3.4 g/dL (3.5-5.0); ANION GAP 12.7 MEQ/L (5-15); BILIRUBIN,TOTAL 0.5 mg/dL (0.2-1.3); Calcium 8.8 mg/dL (8.4-10.2); Creatinine 1 1.13 mg/dL (0.52-1.04)
[2018-09-30] MEDS: DILAUDID 2 MG INJECTION IV PRN ×3 (06:03→17:30)
[2018-09-30] MEDS: NORCO 5/325 MG PO PRN (07:54)
[2018-09-30] MEDS: NovoLOG Insulin SQ SCH ×3 (07:59→16:54)
--- NOTE | 2018-09-30 09:27 | PCM.HP ---
History of Present Illness - Chief Complaint Chief Complaint: cellulitis; intrathoracic fluid collection History of Present Illness: is a 63 year old female pt of mine from [facility] with PMHx breast ca s/p bilat mastectomy (not recent0, chronic back pain and OA, HTN, DM and renal insufficiency who was admitted through ER with cellulitis of the chest wall and a possible abscess at the R mastectomy site. She started having pain on the R side of the chest 4d ago; started running a fever 3d ago. Then yesterday her L chest became very red and painful so she came to ER. She was started on IV vancomycin and zosyn. Her WBC were 8.8, this morning are 4.7. She was found on CT of the chest to have a [id number] walled off fluid collection in the R mastectomy site (neg for PE). Surgery has been consulted, thank you. This morning she is tearful, states pain is 10/10 "and more" and is helped only briefly by the pain medicine. - Review of Systems Constitutional: Fever Respiratory: Cough (dry cough for some time) Neurological: Dizziness All Other Systems: Reviewed and Negative Medications & Allergies Home Medications: Home Medication List Insulin Glargine [Lantus Insulin] 50 units SL HS 11/05/16 [History Confirmed 09/10] Insulin Lispro [Humalog] 10 unit SQ TIDWMEALS 11/05/16 [History Confirmed ] Letrozole 2.5 mg PO HS 03/19/18 [History Confirmed 09/29/18] Amlodipine Besylate 10 mg PO DAILY 09/29/18 [History Confirmed 09/29/18] Gabapentin [Neurontin] 300 mg PO TID 09/29/18 [History Confirmed 09/29/18] Hydrocodone Bit/Acetaminophen [Hydrocodon-Acetaminophen 5-325] 1 each PO Q8H PRN PRN 09/29/18 [History Confirmed 09/29/18] Isosorbide Mononitrate 30 mg [Imdur 30 MG] 30 mg PO HS 09/29/18 [History Confirmed 09/29/18] Paroxetine HCl 20 mg [Paxil 20 MG] 20 mg PO HS 09/29/18 [History Confirmed 09/29/18] Allergies/Adverse Reactions: Allergies Allergy/AdvReac Type Severity Reaction Status Date / Time pregabalin [From Lyrica] Allergy Severe Swelling Verified 09/29/18 05:19 methadone [Methadone] Allergy Mild Hives Verified 09/29/18 05:19 oxycodone HCl Allergy Verified 09/29/18 05:19 [From OxyContin] - Past Medical History Past Medical History: Yes Neurological History: Migraines ENT History: No Pertinent History Cardiac History: No Pertinent History, Hypertension Respiratory History: No Pertinent History Endocrine Medical History: Diabetes Type II Musculoskelatal History: Fibromyalgia GI Medical History: No Pertinent History History: No Pertinent History Pyscho-Social History: Anxiety, Depression Reproductive Disorders: Breast Cancer Comment: breast CA DX 2017 - Female History Are you now?: No - Past Surgical History Past Surgical History: Yes Neuro Surgical History: No Pertinent History Cardiac History: No Pertinent History Respiratory Surgery: No Pertinent History GI Surgical History: Hernia Repair Genitourinary Surgical Hx: No Pertinent History Musculskeletal Surgical Hx: Orthopedic Surgery Female Surgical History: No Pertinent History Other Surgical History: muscle stimulator 02/04-REMOVED 2013. back surgery hip surgery. double masectomy july 2017 - Social History Smoking Status: Never smoker Exposure to second hand smoke: No Alcohol: None Drug Use: none - Physical Exam Vital Signs: Vital Signs - 24 hr Temp Pulse Resp BP Pulse Ox 09/30/18 08:00 98.8 F 77 19 195/91 96 09/30/18 04:25 98.8 F 73 16 97/45 94 L 09/29/18 23:52 101.8 F 87 17 99/53 95 09/29/18 21:00 89 L 09/29/18 20:00 100.4 F 86 16 139/77 97 09/29/18 16:00 98.1 F 09/29/18 11:18 98 F 80 20 110/58 99 09/29/18 10:23 98.2 F 77 20 109/55 98 Oxygen-Last 24 hours O2 Percentage 2 Liters = 28% O2 Percentage 2 Liters = 28% O2 Percentage 2 Liters = 28% General Appearance: moderate distress, alert Neurologic Exam: oriented x 3, cooperative Eye Exam: eyes nml inspection Ears, Nose, Throat Exam: moist mucous membranes Respiratory Exam: normal breath sounds, lungs clear, No crackles/rales, No rhonchi, No wheezing Cardiovascular Exam: regular rate/rhythm, normal heart sounds, No murmur Gastrointestinal/Abdomen Exam: soft, normal bowel sounds, No tenderness, No distention, No mass, No guarding, No rebound Extremity Exam: normal inspection, No pedal edema, No swelling Skin Exam: other (L chest erythematous, warm, and tender. no induration or exudate. R lateral chest with an outpouching of skin, approx 8-10cm long; it is ttp, soft, no induration or erythema. no exudate.) Results - Labs Lab/Micro Results: Accuchecks Accucheck Value: 163 Accucheck Value: 208 Accucheck Value: 229 Accucheck Value: 180 Lab Results-Last 24 Hours 09/30/18 09/30/18 Range/Units 05:25 05:25 WBC 4.7 (4.0-10.5) K/mm3 RBC 3.52 L (4.1-5.4) M/mm3 Hgb 11.5 L (12.0-16.0) gm/dl Hct 36.5 (35-47) % MCV 103.7 H (78-100) fl MCH 32.6 H (26-32) pg MCHC 31.5 L (32-36) g/dl RDW 14.7 H (11.5-14.0) % Plt Count 129 L (150-450) K/mm3 MPV 10.4 H (6-9.5) fl Gran % 59.5 (36.0-66.0) % Eos # (Auto) 0.12 (0-0.5) Absolute Lymphs (auto) 1.37 (1.0-4.6) Absolute Monos (auto) 0.39 (0.0-1.3) Lymphocytes % 29.3 (24.0-44.0) % Monocytes % 8.4 (0.0-12.0) % Eosinophils % 2.6 (0.00-5.0) % Basophils % 0.2 (0.0-0.4) % Absolute Granulocytes 2.78 (1.4-6.9) Basophils # 0.01 (0-0.4) Sodium 138 (137-145) mmol/L Potassium 4.0 (3.5-5.1) mmol/L Chloride 105 (98-107) mmol/L Carbon Dioxide 24 (22-30) mmol/L Anion Gap 12.7 (5-15) MEQ/L BUN 22 H (7-17) mg/dL Creatinine 1.13 H (0.52-1.04) mg/dL Estimated GFR 52.0 ML/MIN Glucose 163 H (74-106) mg/dL Calcium 8.8 (8.4-10.2) mg/dL Total Bilirubin 0.50 (0.2-1.3) mg/dL AST 58 H (14-36) U/L ALT 80 H (0-35) U/L Alkaline Phosphatase 90 (38-126) U/L Serum Total Protein 7.0 (6.3-8.2) g/dL Albumin 3.4 L (3.5-5.0) g/dL Microbiology 09/29/18 05:55 Blood Culture - Preliminary Blood NO GROWTH TO DATE 09/29/18 05:51 Blood Culture - Preliminary Blood NO GROWTH TO DATE Accuchecks Accucheck Value: 163 Accucheck Value: 208 Accucheck Value: 229 Accucheck Value: 180 - Radiology Impressions Radiology Exams & Impressions: Radiology Procedures Category Date Time Status CHEST WITH CONTRAST [CT] Stat Exams 09/29/18 06:00 Completed - Other Procedures and Tests Respiratory Therapy 09/29/18 21:02 Oxygen NASAL CANNULA 2 lpm Assessment/Plan (1) Abscess of chest wall Current Visit: Yes Status: Acute Assessment & Plan: possibly. Surgery consulted, thank you. Code(s): L02.213 - CUTANEOUS ABSCESS OF CHEST WALL (2) Cellulitis Current Visit: Yes Status: Acute Onset Date: ~03/20/18 Qualifiers: Site of cellulitis: trunk Site of cellulitis of trunk: chest wall Qualified Code(s): L03.313 - Cellulitis of chest wall Assessment & Plan: on vancomycina nd zosyn day #2 Code(s): L03.90 - CELLULITIS, UNSPECIFIED (3) HTN (hypertension) Current Visit: No Status: Acute Qualifiers: Hypertension type: essential hypertension Qualified Code(s): I10 - Essential (primary) hypertension Code(s): I10 - ESSENTIAL (PRIMARY) HYPERTENSION (4) Renal insufficiency Current Visit: No Status: Acute Onset Date: ~03/22/18 (5) Diabetes mellitus Current Visit: No Status: Chronic Qualifiers: Diabetes mellitus type: type 2 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 Diabetes mellitus complication status : with skin complications Diabetes mellitus complication detail: with other skin complication Qualified Code(s): E11.628 - Type 2 diabetes mellitus with other skin complications Code(s): E11.9 - TYPE 2 DIABETES MELLITUS WITHOUT COMPLICATIONS (6) HX: breast cancer Current Visit: No Status: Chronic Onset Date: ~03/22/18 Code(s): Z85.3 - PERSONAL HISTORY OF MALIGNANT NEOPLASM OF BREAST (7) Hx of bilateral mastectomy Current Visit: No Status: Chronic Onset Date: ~03/22/18 Assessment & Plan: previously we have treated her chest wall pain for post-radiation pain so I will see which meds we used and possibly resume some of those. Code(s): Z90.13 - ACQUIRED ABSENCE OF BILATERAL BREASTS AND NIPPLES
[2018-09-30] MEDS: SODIUM CHLORIDE 0.9% IV SCH (09:48)
[2018-09-30] MEDS: MORPHINE SULFATE IV SCH (09:48)
[2018-09-30] MEDS: NEURONTIN 300 MG PO SCH ×3 (09:57→22:00)
[2018-09-30] MEDS: Sodium Chloride 0.9% 1000 ML 1,000 ML IV SCH (09:57)
[2018-09-30] MEDS: NORVASC 5 MG PO SCH (09:57)
[2018-09-30] MEDS: PATIENT OWN MEDICATION PO SCH (09:57)
[2018-09-30] MEDS: Vancomycin 1GM/ Ns 250ML*** 1 GM/250 ML IVPB IV SCH ×2 (09:58→22:01)
[2018-09-30] MEDS ORDERED: NON-FORMULARY ITEM (Amlodipine Besylate [Amlodipine Besylate] 10 MG) PO SCH (10:00)
[2018-09-30] MEDS: BETAMETHASONE DIPROPIONATE TOP SCH (21:58)
[2018-09-30] MEDS: Imdur 30 MG PO SCH (21:59)
[2018-09-30] MEDS: Paxil 20 MG PO SCH (22:00)
[2018-09-30] MEDS: Lantus Insulin SQ SCH (22:00)
[2018-10-01] MEDS: DILAUDID 2 MG INJECTION IV PRN ×5 (00:02→19:20)
[2018-10-01] MEDS: Zosyn 3.375GM/100 Ml D5W 3.375 GM/100 ML IVPB IV SCH ×2 (00:57→06:35)
[2018-10-01 05:12] LABS: BASOPHIL % 0.2 % (0.0-0.4); Basophil (Absolute #) 0.01 (0-0.4); Eosinophil % 4.1 % (0.00-5.0); Eosinophil (Absolute #) 0.18 (0-0.5); Granulocyte Absolute (ANC) 2.17 (1.4-6.9); Granulocytes % 49.3 % (36.0-66.0); Hematocrit 34.1 % (35-47); Lymphocyte (Absolute #) 1.65 (1.0-4.6); Lymphocytes % 37.5 % (24.0-44.0); Mean Cell Volume 104.3 fl (78-100); Mean Corpuscular Hemoglobin 33.6 pg (26-32); Mean Corpuscular Hgb Concent. 32.3 g/dl (32-36); Mean Platelet Volume 11.8 fl (6-9.5); Monocyte (Absolute #) 0.39 (0.0-1.3); Monocytes % 8.9 % (0.0-12.0); Platelet Count 97 K/mm3 (150-450); Red Blood Count 3.27 M/mm3 (4.1-5.4); Red Cell Distribution Width 14.3 % (11.5-14.0); White Blood Count 4.4 K/mm3 (4.0-10.5)
[2018-10-01 05:24] LABS: ANION GAP 11.1 MEQ/L (5-15); BLOOD UREA NITROGEN 15 mg/dL (7-17); CHLORIDE 107 mmol/L (98-107); Calcium 8.6 mg/dL (8.4-10.2); Carbon Dioxide 22 mmol/L (22-30); Creatinine 1 0.77 mg/dL (0.52-1.04); Glucose 145 mg/dL (74-106); Potassium 4.2 mmol/L (3.5-5.1); SODIUM 135 mmol/L (137-145)
[2018-10-01] MEDS: NovoLOG Insulin SQ SCH ×3 (07:44→17:02)
[2018-10-01 08:15] LABS: Slide Review 1 YES
[2018-10-01] MEDS: NEURONTIN 300 MG PO SCH ×3 (08:51→21:30)
[2018-10-01] MEDS: NORVASC 5 MG PO SCH (08:51)
[2018-10-01] MEDS: PATIENT OWN MEDICATION PO SCH (08:54)
[2018-10-01] MEDS: BETAMETHASONE DIPROPIONATE TOP SCH ×2 (08:55→21:29)
--- NOTE | 2018-10-01 09:14 | PCM.NOTE ---
Date and Time: 10/01/18908 Subjective Assessment: Had desat to 80s last night on pulse ox, after she had had some pain medicine and was sleeping. She is feeling better, pain is 7/10 now. The steroid topical cream is "heavenly" she says. - Review of Systems Constitutional: No Fever Abdominal/Gastrointestinal: No Vomiting Objective Exam General Appearance: no apparent distress, alert Neurologic Exam: oriented x 3, cooperative Skin Exam: warm, dry, other (decreasing erythema on chest L>R; the area is marked with marker. Warmth is present.) OBJECTIVE DATA Vital Signs: Vital Signs - 24 hr Temp Pulse Resp BP Pulse Ox 10/01/18 07:21 98 F 70 20 122/68 97 10/01/18 06:54 92 L 10/01/18 04:00 98.8 F 78 17 139/63 96 10/01/18 00:00 99.4 F 77 16 120/57 94 L 09/30/18 20:40 93 L 09/30/18 20:00 99.3 F 71 17 119/58 93 L 09/30/18 12:01 70 98 09/30/18 12:00 99.1 F 70 19 141/76 70 L 09/30/18 10:07 97 Oxygen-Last 24 hours O2 Percentage 2 Liters = 28% O2 Percentage 2 Liters = 28% O2 Percentage 2 Liters = 28% O2 Percentage 2 Liters = 28% Oxygen Flowrate (L/min)-RT 2 Pain Assessment - Last Documented Pain Intensity [Chest] 10 Pain Intensity 7 Pain Scale Used 0-10 Pain Scale Intake and Output: Intake & Output 09/28/18 09/29/18 09/30/18 10/01/18 11:59 11:59 11:59 11:59 Intake Total 2645 2581 Output Total 2500 2215 Balance 145 366 Weight 104.6 kg 106 kg Lab Results: Accuchecks Date 10/01/18 Time 07:45 Accucheck Value: 145 Accucheck Value: 154 Accucheck Value: 161 Accucheck Value: 149 Lab Results-Last 24 Hours 10/01/18 10/01/18 Range/Units 05:07 05:07 WBC 4.4 (4.0-10.5) K/mm3 RBC 3.27 L (4.1-5.4) M/mm3 Hgb 11.0 L (12.0-16.0) gm/dl Hct 34.1 L (35-47) % MCV 104.3 H (78-100) fl MCH 33.6 H (26-32) pg MCHC 32.3 (32-36) g/dl RDW 14.3 H (11.5-14.0) % Plt Count 97 L (150-450) K/mm3 MPV 11.8 H (6-9.5) fl Gran % 49.3 (36.0-66.0) % Eos # (Auto) 0.18 (0-0.5) Absolute Lymphs (auto) 1.65 (1.0-4.6) Absolute Monos (auto) 0.39 (0.0-1.3) Lymphocytes % 37.5 (24.0-44.0) % Monocytes % 8.9 (0.0-12.0) % Eosinophils % 4.1 (0.00-5.0) % Basophils % 0.2 (0.0-0.4) % Absolute Granulocytes 2.17 (1.4-6.9) Basophils # 0.01 (0-0.4) Sodium 135 L (137-145) mmol/L Potassium 4.2 (3.5-5.1) mmol/L Chloride 107 (98-107) mmol/L Carbon Dioxide 22 (22-30) mmol/L Anion Gap 11.1 (5-15) MEQ/L BUN 15 (7-17) mg/dL Creatinine 0.77 (0.52-1.04) mg/dL Estimated GFR > 60.0 ML/MIN Glucose 145 H (74-106) mg/dL Calcium 8.6 (8.4-10.2) mg/dL Slides for Path Review YES Assessment/Plan (1) Seroma after procedure Current Visit: Yes Status: Acute Assessment & Plan: at mastectomy site. Surgery evaluated yesterday, thank you. Not planning to drain it. Code(s): [id number] - (2) Cellulitis Current Visit: Yes Status: Acute Onset Date: ~03/20/18 Qualifiers: Site of cellulitis: trunk Site of cellulitis of trunk: chest wall Qualified Code(s): L03.313 - Cellulitis of chest wall Assessment & Plan: On vancomycin and zosyn day #3; however since there is not an abscess, I will d/ c the zosyn and stay with the vancomycin. 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: unspecified assisted insulin use status Diabetes mellitus complication status : with skin complications Diabetes mellitus complication detail: with other skin complication Qualified Code(s): E11.628 - Type 2 diabetes mellitus with other skin complications Assessment & Plan: BS mid 100s Code(s): E11.9 - TYPE 2 DIABETES MELLITUS WITHOUT COMPLICATIONS (6) HX: breast cancer Current Visit: No Status: Chronic Onset Date: ~03/22/18 Code(s): Z85.3 - PERSONAL HISTORY OF MALIGNANT NEOPLASM OF BREAST (7) Hx of bilateral mastectomy Current Visit: No Status: Chronic Onset Date: ~03/22/18 Assessment & Plan: she is going to f/u withDr. De Jesus for probable revision. Code(s): Z90.13 - ACQUIRED ABSENCE OF BILATERAL BREASTS AND NIPPLES
[2018-10-01] MEDS ORDERED: TROUGH DRUG LEVELS IJ ONE (09:30)
[2018-10-01] MEDS: Sodium Chloride 0.9% 1000 ML 1,000 ML IV SCH (11:19)
[2018-10-01] MEDS: VANCOCIN 1 GM VIAL*** 1.25 GM in Sodium Chloride 0.9% 250 ML 250 ML IV SCH ×2 (11:38→21:48)
[2018-10-01] MEDS: NORCO 5/325 MG PO PRN ×2 (17:02→23:27)
[2018-10-01] MEDS: Lantus Insulin SQ SCH (21:29)
[2018-10-01] MEDS: Paxil 20 MG PO SCH (21:30)
[2018-10-01] MEDS: Imdur 30 MG PO SCH (21:30)
[2018-10-02] MEDS: MORPHINE SULFATE IV SCH (06:07)
[2018-10-02] MEDS: SODIUM CHLORIDE 0.9% IV SCH (06:07)
[2018-10-02] MEDS: NORCO 5/325 MG PO PRN (06:15)
[2018-10-02] MEDS: NovoLOG Insulin SQ SCH ×3 (07:55→16:40)
[2018-10-02] MEDS: NovoLOG Insulin SQ PRN ×2 (07:56→16:40)
[2018-10-02] MEDS: VANCOCIN 1 GM VIAL*** 1.25 GM in Sodium Chloride 0.9% 250 ML 250 ML IV SCH ×2 (10:06→22:05)
[2018-10-02] MEDS: NORVASC 5 MG PO SCH (10:06)
[2018-10-02] MEDS: NEURONTIN 300 MG PO SCH ×3 (10:07→21:21)
[2018-10-02] MEDS: BETAMETHASONE DIPROPIONATE TOP SCH ×2 (10:07→21:21)
[2018-10-02] MEDS: PATIENT OWN MEDICATION PO SCH (10:08)
[2018-10-02] MEDS ORDERED: DILAUDID 2 MG INJECTION IV PRN (11:20)
--- NOTE | 2018-10-02 11:25 | PCM.NOTE ---
Date and Time: 10/02/18 1120 Subjective Assessment: She is still having pain, currently rating it 10/10, she is due to get pain medicine in her IV. She is kyree po. She is sitting up in bed talking with me. She c/o trouble swallowing liquids, solids, and pills for the past 2 mo. she c/o LUE paesthesia, described as constant tingling in her whole hand up to her elbow, for the past 1 mo. She does have neck pain. Does c/o cough that is worse at night. - Review of Systems Constitutional: No Fever Skin: Cellulitis Objective Exam General Appearance: no apparent distress, alert Neurologic Exam: oriented x 3, cooperative, normal mood/affect Skin Exam: other (L chest with erythema, macular, unchanged from yesterday. warm.) Respiratory Exam: normal breath sounds, lungs clear, No crackles/rales, No rhonchi, No wheezing Cardiovascular Exam: regular rate/rhythm, normal heart sounds, No murmur OBJECTIVE DATA Vital Signs: Vital Signs - 24 hr Temp Pulse Resp BP Pulse Ox 10/02/18 07:30 97.5 F 67 20 115/54 98 10/02/18 07:11 96 10/02/18 05:00 98.3 F 67 14 117/61 96 10/02/18 00:05 98.3 F 74 14 124/59 91 L 10/01/18 20:06 92 L 10/01/18 20:00 98.4 F 69 12 130/58 94 L 10/01/18 17:02 97.8 F 78 20 120/64 97 10/01/18 13:07 97.9 F 78 20 115/57 96 10/01/18 12:48 98 F 78 20 97 Oxygen-Last 24 hours O2 Percentage 3 Liters = 32% O2 Percentage 3 Liters = 32% O2 Percentage 2 Liters = 28% O2 Percentage 2 Liters = 28% Pain Assessment - Last Documented Pain Intensity [Chest] 10 Pain Intensity 6 Pain Scale Used 0-10 Pain Scale Intake and Output: Intake & Output 09/29/18 09/30/18 10/01/18 10/02/18 11:59 11:59 11:59 11:59 Intake Total 2641 4471 4129 Output Total 7072 1425 2100 Balance 444 950 0422 Weight 104.6 kg 106 kg 103.1 kg Lab Results: Accuchecks Date 10/02/18 Date 10/01/18 Date 10/01/18 Date 10/01/18 Time 07:30 Time 22:00 Time 16:30 Time 11:30 Accucheck Value: 217 Accucheck Value: 289 Accucheck Value: 126 Accucheck Value: 120 Assessment/Plan (1) Seroma after procedure Current Visit: Yes Status: Acute Code(s): [id number] - (2) Cellulitis Current Visit: Yes Status: Acute Onset Date: ~03/20/18 Qualifiers: Site of cellulitis: trunk Site of cellulitis of trunk: chest wall Qualified Code(s): L03.313 - Cellulitis of chest wall Code(s): L03.90 - CELLULITIS, UNSPECIFIED (3) HTN (hypertension) Current Visit: No Status: Acute Qualifiers: Hypertension type: essential hypertension Qualified Code(s): I10 - Essential (primary) hypertension Code(s): I10 - ESSENTIAL (PRIMARY) HYPERTENSION (4) Diabetes mellitus Current Visit: No Status: Chronic Qualifiers: Diabetes mellitus type: type 2 Diabetes mellitus long-term insulin use: unspecified 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 Diabetes mellitus complication status : with skin complications Diabetes mellitus complication detail: with other skin complication Qualified Code(s): E11.628 - Type 2 diabetes mellitus with other skin complications Code(s): E11.9 - TYPE 2 DIABETES MELLITUS WITHOUT COMPLICATIONS (5) HX: breast cancer Current Visit: No Status: Chronic Onset Date: ~03/22/18 Code(s): Z85.3 - PERSONAL HISTORY OF MALIGNANT NEOPLASM OF BREAST (6) Hx of bilateral mastectomy Current Visit: No Status: Chronic Onset Date: ~03/22/18 Code(s): Z90.13 - ACQUIRED ABSENCE OF BILATERAL BREASTS AND NIPPLES (7) Dysphagia Current Visit: Yes Status: Acute Qualifiers: Dysphagia type: unspecified Qualified Code(s): R13.10 - Dysphagia, unspecified Assessment & Plan: Needs EGD, unsure if she can get if IP or outpatient. Likely with Dr. De Jesus as he already assessed her mastectomy site. Code(s): R13.10 - DYSPHAGIA, UNSPECIFIED (8) Neck pain Current Visit: Yes Status: Chronic Assessment & Plan: check xr. may be contributing to paresthesia. Code(s): M54.2 - CERVICALGIA (9) Cough Current Visit: Yes Status: Acute Assessment & Plan: CXR. add duonebs QID. Code(s): R05 - COUGH (10) Paresthesia and pain of left extremity Current Visit: Yes Status: Acute Assessment & Plan: from hand to elbow. Start with XR neck. May need ct or mri, and if neg would refer for EMG outpatient. Code(s): M79.609 - PAIN IN UNSPECIFIED LIMB; R20.2 - PARESTHESIA OF SKIN
[2018-10-02] MEDS: DUONEB 0.5-3 MG/3 ml Neb IH SCH ×2 (12:36→19:20)
[2018-10-02] MEDS: OXYCODONE-ACETAMINOPHEN 10-325 PO PRN ×3 (13:07→21:20)
[2018-10-02] MEDS: Sodium Chloride 0.9% 1000 ML 1,000 ML IV SCH (13:07)
[2018-10-02] MEDS: Paxil 20 MG PO SCH (21:21)
[2018-10-02] MEDS: Imdur 30 MG PO SCH (21:21)
--- NOTE | 2018-10-02 21:21 | XRAY ---
Indication: Cough. Comparison: April 20, 2018. PA/lateral chest again demonstrates chronic lung markings without focal infiltrate, consolidation, or large effusion. Heart is not enlarged. Bony thorax intact again with mild degenerative changes and left axilla surgical clips. Impression: Stable nonacute chest with chronic features.
--- NOTE | 2018-10-02 21:21 | XRAY ---
Indication: Neck pain. No known injury. Comparison: None 3 views of the cervical spine demonstrates normal alignment with vertebral body heights/disc spaces maintained and minimal C4-C6 degenerative endplate spurring. No other bony, articular, or soft tissue abnormalities. Patient is edentulous.
[2018-10-02] MEDS: Lantus Insulin SQ SCH (21:22)
[2018-10-02] MEDS ORDERED: TROUGH DRUG LEVELS IJ ONE (21:30)
[2018-10-02] MEDS: Miralax Powder 17GM PACKET PO PRN (21:40)
[2018-10-03] MEDS: DUONEB 0.5-3 MG/3 ml Neb IH SCH ×4 (00:59→19:17)
[2018-10-03] MEDS: OXYCODONE-ACETAMINOPHEN 10-325 PO PRN ×5 (02:41→22:11)
[2018-10-03] MEDS: NovoLOG Insulin SQ SCH ×3 (07:43→17:22)
[2018-10-03] MEDS: NORVASC 5 MG PO SCH (09:27)
[2018-10-03] MEDS: NEURONTIN 300 MG PO SCH ×3 (09:27→22:07)
[2018-10-03] MEDS: PATIENT OWN MEDICATION PO SCH (09:28)
[2018-10-03] MEDS: ENOXAPARIN SODIUM SQ SCH (09:45)
[2018-10-03] MEDS: BETAMETHASONE DIPROPIONATE TOP SCH ×2 (10:22→22:09)
[2018-10-03] MEDS: VANCOCIN 1 GM VIAL*** 1.25 GM in Sodium Chloride 0.9% 250 ML 250 ML IV SCH ×2 (10:47→22:17)
[2018-10-03] MEDS: NovoLOG Insulin SQ PRN ×3 (11:43→22:10)
[2018-10-03] MEDS: Miralax Powder 17GM PACKET PO PRN (12:36)
--- NOTE | 2018-10-03 13:02 | PCM.NOTE ---
Date and Time: 10/03/18 1255 Subjective Assessment: She started having LE edema and pain bilat yesterday. Her pain is much better, down to 6/10. Still c/o tingling in LUE. Became tearful during the interview; she is stressed and sad about her sister's sudden a few months ago and her mom's declining health. Denies suicidal or homicidal ideation. - Review of Systems Constitutional: No Fever Cardiac: Edema Abdominal/Gastrointestinal: No Vomiting Objective Exam General Appearance: no apparent distress, alert, obese Neurologic Exam: oriented x 3, cooperative Skin Exam: other (decreased erythema of L chest, with decreased warmth from yesterday. does have 2 irregular abrasions on R chest that were present previously as well) Respiratory Exam: normal breath sounds, lungs clear, No crackles/rales, No rhonchi, No wheezing Cardiovascular Exam: regular rate/rhythm, normal heart sounds, No murmur Extremity Exam: swelling (1+ pretibial edema bilat) OBJECTIVE DATA Vital Signs: Vital Signs - 24 hr Temp Pulse Resp BP Pulse Ox 10/03/18 11:47 98.1 F 75 20 143/74 92 L 10/03/18 07:50 98.1 F 76 20 147/68 93 L 10/03/18 06:31 70 18 94 L 10/03/18 04:20 98.1 F 73 20 140/63 94 L 10/03/18 01:03 71 18 96 10/02/18 23:40 98.6 F 74 18 116/56 97 10/02/18 20:00 98.2 F 68 18 133/68 96 10/02/18 19:23 70 16 97 10/02/18 16:30 97.7 F 71 16 134/64 98 10/02/18 15:00 97.7 F 71 16 134/64 98 Oxygen-Last 24 hours O2 Percentage 2 Liters = 28% O2 Percentage 2 Liters = 28% O2 Percentage 2 Liters = 28% Pain Assessment - Last Documented Pain Intensity [Chest] 10 Pain Intensity 7 Pain Scale Used 0-10 Pain Scale Intake and Output: Intake & Output 10/01/18 10/02/18 10/03/18 10/04/18 11:59 11:59 11:59 11:59 Intake Total 9957 7210 3574 Output Total 2215 2100 1525 Balance 366 2029 3619 Weight 106 kg 103.1 kg 107.3 kg Lab Results: Accuchecks Date 10/03/18 Date 10/03/18 Date 10/02/18 Date 10/02/18 Time 11:30 Time 07:51 Time 22:00 Time 16:30 Accucheck Value: 245 Accucheck Value: 187 Accucheck Value: 200 Accucheck Value: 211 Lab Results-Last 24 Hours 10/02/18 Range/Units 21:55 Vancomycin Trough 18.31 (10-20) ug/mL Radiology Exams: Radiology Procedures Category Date Time Status CERVICAL SPINE (2 OR 3 VIEW) Routine Exams 10/02/18 14:06 Completed CHEST 2 VIEWS (PA AND LAT) Routine Exams 10/02/18 14:07 Completed VENOUS BILATERAL EXTREMITY [US] Stat Exams 10/03/18 Ordered Assessment/Plan (1) Cellulitis Current Visit: Yes Status: Acute Onset Date: ~03/20/18 Qualifiers: Site of cellulitis: trunk Site of cellulitis of trunk: chest wall Qualified Code(s): L03.313 - Cellulitis of chest wall Assessment & Plan: Improving! on day #5 of vancomycin. Code(s): L03.90 - CELLULITIS, UNSPECIFIED (2) Leg edema Current Visit: Yes Status: Acute Assessment & Plan: bilat; with elevated d-dimer on admission. Will order u/s LE bilat. 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 long-term insulin use status Diabetes mellitus complication status : with skin complications Diabetes mellitus complication detail: with other skin complication Qualified Code(s): E11.628 - Type 2 diabetes mellitus with other skin complications Code(s): E11.9 - TYPE 2 DIABETES MELLITUS WITHOUT COMPLICATIONS (6) HX: breast cancer Current Visit: No Status: Chronic Onset Date: ~03/22/18 Code(s): Z85.3 - PERSONAL HISTORY OF MALIGNANT NEOPLASM OF BREAST (7) Hx of bilateral mastectomy Current Visit: No Status: Chronic Onset Date: ~03/22/18 Code(s): Z90.13 - ACQUIRED ABSENCE OF BILATERAL BREASTS AND NIPPLES (8) Dysphagia Current Visit: Yes Status: Acute Qualifiers: Dysphagia type: unspecified Qualified Code(s): R13.10 - Dysphagia, unspecified Assessment & Plan: Will plan to do EGD outpatient. Code(s): R13.10 - DYSPHAGIA, UNSPECIFIED (9) Neck pain Current Visit: Yes Status: Chronic Code(s): M54.2 - CERVICALGIA (10) Cough Current Visit: Yes Status: Acute Assessment & Plan: much better on nebs! Code(s): R05 - COUGH (11) Paresthesia and pain of left extremity Current Visit: Yes Status: Chronic Assessment & Plan: discussed that I will order EMG outpatient in [place]. Code(s): M79.609 - PAIN IN UNSPECIFIED LIMB; R20.2 - PARESTHESIA OF SKIN (12) DVT prophylaxis Current Visit: Yes Status: Acute Assessment & Plan: started pt on Lovenox this morning. Code(s): Z29.9 - ENCOUNTER FOR PROPHYLACTIC MEASURES, UNSPECIFIED
[2018-10-03] MEDS: Sodium Chloride 0.9% 1000 ML 1,000 ML IV SCH (15:03)
--- NOTE | 2018-10-03 20:14 | XRAY ---
Indication: Lower extremity swelling. Two-dimensional sonogram and color Doppler imaging of the major venous vessels of the left and right leg was performed. Comparison: None No thrombus seen in the examined deep venous vessels of the left and right leg including greater saphenous vein. Veins demonstrate normal compressibility. Venous waveforms are normal with and without augmentation. Impression: Left and right legs negative for DVT. Comment: Preliminary report was given.
[2018-10-03] MEDS ORDERED: Paxil 20 MG PO SCH (22:00)
[2018-10-03] MEDS: Imdur 30 MG PO SCH (22:05)
[2018-10-03] MEDS: Paxil 20 MG PO SCH (22:06)
[2018-10-03] MEDS: Lantus Insulin SQ SCH (22:09)
[2018-10-04] MEDS: DUONEB 0.5-3 MG/3 ml Neb IH SCH ×2 (01:11→06:52)
[2018-10-04 04:00] VITALS: O2SAT 95
[2018-10-04 07:00] VITALS: PULSE 77
[2018-10-04] MEDS: OXYCODONE-ACETAMINOPHEN 10-325 PO PRN (07:32)
[2018-10-04] MEDS: NovoLOG Insulin SQ SCH (07:32)
[2018-10-04] MEDS ORDERED: TORAdol 30 mg Injection IV PRN (08:58)
[2018-10-04] MEDS ORDERED: Ativan 0.5 MG PO PRN (08:58)
--- NOTE | 2018-10-04 09:03 | PCM.NOTE ---
Date and Time: 10/04/18 0858 Subjective Assessment: Pt had a good day yesterday but has been anxious today. Increased pain last night and today of L chest - up to 8/10 this morning. Worse with movement. Gladys po. C/o areas on her arms, "feels like bugs," and she picks at them. U/S neg for DVT in legs bilat, but she is still swollen. - Review of Systems Constitutional: No Fever Abdominal/Gastrointestinal: No Vomiting Objective Exam General Appearance: mild distress, alert Neurologic Exam: oriented x 3, cooperative Skin Exam: other (mild erythema to L chest with some warmth and TTP.) Respiratory Exam: normal breath sounds, lungs clear, No crackles/rales, No rhonchi, No wheezing Cardiovascular Exam: regular rate/rhythm, normal heart sounds, No murmur Extremity Exam: swelling (1+ LE edema bilat) Back Exam: normal inspection, No rash OBJECTIVE DATA Vital Signs: Vital Signs - 24 hr Temp Pulse Resp BP Pulse Ox 10/04/18 06:56 77 18 95 10/04/18 03:58 98.4 F 83 16 171/85 95 10/04/18 01:13 85 16 96 10/04/18 00:00 98.9 F 77 20 128/58 93 L 10/03/18 20:05 72 18 94 L 10/03/18 20:00 98.2 F 84 18 138/89 96 10/03/18 16:00 98.6 F 78 20 163/88 93 L 10/03/18 13:02 87 16 97 10/03/18 11:47 98.1 F 75 20 143/74 92 L Pain Assessment - Last Documented Pain Intensity [Chest] 10 Pain Intensity 8 Pain Scale Used 0-10 Pain Scale Intake and Output: Intake & Output 10/01/18 10/02/18 10/03/18 10/04/18 11:59 11:59 11:59 11:59 Intake Total 3785 7535 1053 2920 Output Total 5968 2100 1525 Balance 366 5843 2770 2921 Weight 106 kg 103.1 kg 107.3 kg 109.3 kg Lab Results: Accuchecks Date 10/04/18 Date 10/03/18 Date 10/03/18 Date 10/03/18 Time 07:34 Time 21:00 Time 16:30 Time 11:30 Accucheck Value: 183 Accucheck Value: 264 Accucheck Value: 318 Accucheck Value: 245 Radiology Exams: Radiology Procedures Category Date Time Status CERVICAL SPINE (2 OR 3 VIEW) Routine Exams 10/02/18 14:06 Completed CHEST 2 VIEWS (PA AND LAT) Routine Exams 10/02/18 14:07 Completed VENOUS BILATERAL EXTREMITY [US] Stat Exams 10/03/18 14:58 Completed Assessment/Plan (1) Cellulitis Current Visit: Yes Status: Acute Onset Date: ~03/20/18 Qualifiers: Site of cellulitis: trunk Site of cellulitis of trunk: chest wall Qualified Code(s): L03.313 - Cellulitis of chest wall Assessment & Plan: On day #6 vancomycin; has improved, but slowly. Will need 14d antibiotics total. If she made consistent progress would be able to switch her to po antibiotics. Try adding toradol for pain ctrl. Code(s): L03.90 - CELLULITIS, UNSPECIFIED (2) Leg edema Current Visit: Yes Status: Acute Assessment & Plan: echo. try lasix. Code(s): R60.0 - LOCALIZED EDEMA (3) Seroma after procedure Current Visit: Yes Status: Acute Code(s): [id number] - (4) HTN (hypertension) Current Visit: No Status: Chronic Qualifiers: Hypertension type: essential hypertension Qualified Code(s): I10 - Essential (primary) hypertension Assessment & Plan: May have been elevated more due to pain and anxiety - her lowest bp to 120s so instead of adding another antihypertensive, will add ativan. 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: unspecified terminal carman insulin use status Diabetes mellitus complication status : with skin complications Diabetes mellitus complication detail: with other skin complication Qualified Code(s): E11.628 - Type 2 diabetes mellitus with other skin complications Code(s): E11.9 - TYPE 2 DIABETES MELLITUS WITHOUT COMPLICATIONS (6) HX: breast cancer Current Visit: No Status: Chronic Onset Date: ~03/22/18 Code(s): Z85.3 - PERSONAL HISTORY OF MALIGNANT NEOPLASM OF BREAST (7) Hx of bilateral mastectomy Current Visit: No Status: Chronic Onset Date: ~03/22/18 Code(s): Z90.13 - ACQUIRED ABSENCE OF BILATERAL BREASTS AND NIPPLES (8) Dysphagia Current Visit: Yes Status: Acute Qualifiers: Dysphagia type: unspecified Qualified Code(s): R13.10 - Dysphagia, unspecified Assessment & Plan: OP EGD Code(s): R13.10 - DYSPHAGIA, UNSPECIFIED (9) Neck pain Current Visit: Yes Status: Chronic Code(s): M54.2 - CERVICALGIA (10) Cough Current Visit: Yes Status: Acute Code(s): R05 - COUGH (11) Paresthesia and pain of left extremity Current Visit: Yes Status: Chronic Assessment & Plan: OP EMG Code(s): M79.609 - PAIN IN UNSPECIFIED LIMB; R20.2 - PARESTHESIA OF SKIN (12) DVT prophylaxis Current Visit: Yes Status: Acute Assessment & Plan: on lovenox 40mg SQ daily. Code(s): Z29.9 - ENCOUNTER FOR PROPHYLACTIC MEASURES, UNSPECIFIED (13) Anxiety Current Visit: Yes Status: Chronic Assessment & Plan: Did increase her SSRI yesterday. Adding some ativan today; I did let her know that this is only for use in the hospital, for her. Code(s): F41.9 - ANXIETY DISORDER, UNSPECIFIED (14) Skin lesion Current Visit: Yes Status: Chronic Assessment & Plan: multiple; may be due to anxiety or may be inflammatory - adding doxycycline. Code(s): L98.9 - DISORDER OF THE SKIN AND SUBCUTANEOUS TISSUE, UNSPECIFIED
[2018-10-04] MEDS: NEURONTIN 300 MG PO SCH (09:05)
[2018-10-04] MEDS: NORVASC 5 MG PO SCH (09:05)
[2018-10-04] MEDS: VANCOCIN 1 GM VIAL*** 1.25 GM in Sodium Chloride 0.9% 250 ML 250 ML IV SCH (09:05)
[2018-10-04] MEDS: PATIENT OWN MEDICATION PO SCH (09:05)
[2018-10-04] MEDS: ENOXAPARIN SODIUM SQ SCH (09:06)
[2018-10-04] MEDS: BETAMETHASONE DIPROPIONATE TOP SCH (09:07)
[2018-10-04 09:14] LABS: Hematocrit 34.7 % (35-47); Hemoglobin 10.9 gm/dl (12.0-16.0); Mean Cell Volume 105.2 fl (78-100); Mean Corpuscular Hgb Concent. 31.4 g/dl (32-36); Mean Platelet Volume 10.5 fl (6-9.5); Platelet Count 161 K/mm3 (150-450); Red Cell Distribution Width 14.9 % (11.5-14.0); White Blood Count 3.7 K/mm3 (4.0-10.5)
[2018-10-04 09:15] VITALS: BP 171/93
[2018-10-04] MEDS: Miralax Powder 17GM PACKET PO PRN (09:15)
[2018-10-04 09:30] LABS: ANION GAP 11.1 MEQ/L (5-15); Calcium 9.5 mg/dL (8.4-10.2); Creatinine 1 1.11 mg/dL (0.52-1.04); Potassium 4.3 mmol/L (3.5-5.1)
[2018-10-04] MEDS ORDERED: Vibramycin 100 MG PO SCH (10:00)
[2018-10-04] MEDS ORDERED: LASIX 20 MG PO SCH (10:00)
== END 2018-10-04 10:15 | disposition swing bed (61) | DRG 603 ==
LOC: ED 05:03 → MED SURG 09:13 → OBSVTOIN 09-30 09:22
PROVIDERS: ADMIT Family Medicine; ATTEND Family Medicine
DX: L02.213 Cutaneous abscess of chest wall (principal); L03.313 Cellulitis of chest wall; E11.9 Type 2 diabetes mellitus without complications; Z90.13 Acquired absence of bilateral breasts and nipples; N28.9 Disorder of kidney and ureter, unspecified; R42 Dizziness and giddiness; I10 Essential (primary) hypertension; Z85.3 Personal history of malignant neoplasm of breast; R13.10 Dysphagia, unspecified; M54.2 Cervicalgia; R05 Cough; R20.2 Paresthesia of skin; M79.622 Pain in left upper arm; R60.0 Localized edema; F41.9 Anxiety disorder, unspecified; L98.9 Disorder of the skin and subcutaneous tissue, unspecified; Z79.899 Other long term (current) drug therapy
CPT/HCPCS: 36000; 36415; 71046; 71260; 72040; 80048; 80053; 80202; 81001; 82150; 82962; 83605; 83690; 84484; 85025; 85027; 85379; 87040; 87086; 93005; 93306; 93970; 94150; 94640; 94760; 94762; 96360; 96365; 96367; 96374; 96375; 96376; 99285; G0378; J1170; J1650; J1885; J2270; J2405; J2543; J3370; A9270-GY

== ENCOUNTER 2018-10-04 10:15 | Inpatient (IN) | payer MEDICARE ==
[2018-10-04] MEDS ORDERED: Miralax Powder 17GM PACKET PO PRN (10:29)
[2018-10-04] MEDS ORDERED: TYLENOL 325 MG PO PRN (10:29)
[2018-10-04] MEDS ORDERED: Zofran 4 MG/2 ML VIAL IV PRN (10:29)
[2018-10-04] MEDS ORDERED: DILAUDID 2 MG INJECTION IV PRN (10:29)
[2018-10-04] MEDS ORDERED: Aplisol ID ONE (10:29)
[2018-10-04] MEDS: Acidophilus TABLET PO SCH (11:46)
[2018-10-04] MEDS: OXYCODONE-ACETAMINOPHEN 10-325 PO PRN ×3 (11:47→20:22)
[2018-10-04] MEDS: NovoLOG Insulin SQ SCH ×2 (11:48→16:58)
[2018-10-04] MEDS: DUONEB 0.5-3 MG/3 ml Neb IH SCH ×2 (12:53→18:53)
[2018-10-04] MEDS: Sodium Chloride 0.9% 1000 ML 1,000 ML IV SCH (13:58)
[2018-10-04] MEDS: NEURONTIN 300 MG PO SCH ×3 (16:47→20:20)
[2018-10-04] MEDS: TORAdol 30 mg Injection IV PRN (16:58)
[2018-10-04] MEDS: NovoLOG Insulin SQ PRN ×2 (17:00→21:42)
[2018-10-04] MEDS: Imdur 30 MG PO SCH (20:20)
[2018-10-04] MEDS: Vibramycin 100 MG PO SCH (20:20)
[2018-10-04] MEDS: Lantus Insulin SQ SCH (20:21)
[2018-10-04] MEDS: Ativan 0.5 MG PO PRN (20:21)
[2018-10-04] MEDS: BETAMETHASONE DIPROPIONATE TOP SCH (20:23)
[2018-10-04] MEDS: Paxil 20 MG PO SCH ×2 (20:23→20:24)
[2018-10-04] MEDS: VANCOCIN 1 GM VIAL*** 1.25 GM in Sodium Chloride 0.9% 250 ML 250 ML IV SCH (20:28)
[2018-10-05] MEDS: OXYCODONE-ACETAMINOPHEN 10-325 PO PRN ×4 (00:11→21:21)
[2018-10-05] MEDS: DUONEB 0.5-3 MG/3 ml Neb IH SCH ×4 (01:15→19:14)
[2018-10-05] MEDS: NovoLOG Insulin SQ SCH ×3 (07:52→16:34)
[2018-10-05] MEDS: NovoLOG Insulin SQ PRN ×2 (07:53→21:23)
[2018-10-05] MEDS: TORAdol 30 mg Injection IV PRN ×2 (07:54→13:26)
[2018-10-05] MEDS: Sodium Chloride 0.9% 1000 ML 1,000 ML IV SCH (07:54)
[2018-10-05] MEDS: Acidophilus TABLET PO SCH (09:41)
[2018-10-05] MEDS: ENOXAPARIN SODIUM SQ SCH (09:42)
[2018-10-05] MEDS: NEURONTIN 300 MG PO SCH ×3 (09:42→21:20)
[2018-10-05] MEDS: LASIX 20 MG PO SCH (09:42)
[2018-10-05] MEDS: NORVASC 5 MG PO SCH (09:43)
[2018-10-05] MEDS: Vibramycin 100 MG PO SCH ×2 (09:43→21:20)
[2018-10-05] MEDS: BETAMETHASONE DIPROPIONATE TOP SCH ×2 (09:44→21:22)
[2018-10-05] MEDS: PATIENT OWN MEDICATION PO SCH (09:44)
[2018-10-05] MEDS: VANCOCIN 1 GM VIAL*** 1.25 GM in Sodium Chloride 0.9% 250 ML 250 ML IV SCH ×2 (09:45→21:20)
[2018-10-05] MEDS: Ativan 0.5 MG PO PRN ×2 (11:39→21:21)
[2018-10-05] MEDS: Paxil 20 MG PO SCH ×2 (21:20)
[2018-10-05] MEDS: Imdur 30 MG PO SCH (21:21)
[2018-10-05] MEDS: Lantus Insulin SQ SCH (21:21)
[2018-10-06] MEDS: DUONEB 0.5-3 MG/3 ml Neb IH SCH ×4 (00:45→19:08)
[2018-10-06] MEDS: Sodium Chloride 0.9% 1000 ML 1,000 ML IV SCH (04:58)
[2018-10-06] MEDS: OXYCODONE-ACETAMINOPHEN 10-325 PO PRN ×4 (04:58→20:21)
[2018-10-06] MEDS: NovoLOG Insulin SQ SCH ×3 (08:22→17:02)
[2018-10-06] MEDS: TORAdol 30 mg Injection IV PRN ×2 (08:27→21:51)
[2018-10-06] MEDS ORDERED: TROUGH DRUG LEVELS IJ ONE (09:30)
[2018-10-06] MEDS: VANCOCIN 1 GM VIAL*** 1.25 GM in Sodium Chloride 0.9% 250 ML 250 ML IV SCH (09:50)
[2018-10-06] MEDS: LASIX 20 MG PO SCH (09:52)
[2018-10-06] MEDS: Acidophilus TABLET PO SCH (09:52)
[2018-10-06] MEDS: NORVASC 5 MG PO SCH (09:52)
[2018-10-06] MEDS: Vibramycin 100 MG PO SCH ×2 (09:52→22:31)
[2018-10-06] MEDS: NEURONTIN 300 MG PO SCH ×3 (09:52→22:30)
[2018-10-06] MEDS: BETAMETHASONE DIPROPIONATE TOP SCH ×2 (09:53→22:32)
[2018-10-06] MEDS: PATIENT OWN MEDICATION PO SCH (09:54)
[2018-10-06] MEDS: ENOXAPARIN SODIUM SQ SCH (09:58)
[2018-10-06 11:55] LABS: Creatinine 1 1.22 mg/dL (0.52-1.04)
[2018-10-06] MEDS: Ativan 0.5 MG PO PRN (21:52)
[2018-10-06] MEDS ORDERED: VANCOCIN 1 GM VIAL*** 1.5 GM in Sodium Chloride 0.9% 500 ML 500 ML IV SCH (22:00)
[2018-10-06] MEDS: Lantus Insulin SQ SCH (22:29)
[2018-10-06] MEDS: NovoLOG Insulin SQ PRN (22:30)
[2018-10-06] MEDS: Paxil 20 MG PO SCH ×2 (22:31)
[2018-10-06] MEDS: Imdur 30 MG PO SCH (22:31)
[2018-10-06] MEDS: Lopressor 25MG Tab PO SCH (23:00)
[2018-10-07] MEDS: DUONEB 0.5-3 MG/3 ml Neb IH SCH ×2 (01:10→06:39)
[2018-10-07 06:20] LABS: Creatinine 1 1.29 mg/dL (0.52-1.04)
[2018-10-07] MEDS: OXYCODONE-ACETAMINOPHEN 10-325 PO PRN (07:02)
[2018-10-07] MEDS: NovoLOG Insulin SQ SCH (07:38)
[2018-10-07 08:30] LABS: Hematocrit 36.3 % (35-47); Hemoglobin 11.3 gm/dl (12.0-16.0); Mean Cell Volume 105.2 fl (78-100); Mean Corpuscular Hgb Concent. 31.1 g/dl (32-36); Mean Platelet Volume 10.6 fl (6-9.5); Platelet Count 177 K/mm3 (150-450); Red Blood Count 3.45 M/mm3 (4.1-5.4); White Blood Count 3.5 K/mm3 (4.0-10.5)
[2018-10-07 08:33] LABS: Mean Corpuscular Hemoglobin 32.7 pg (26-32)
--- NOTE | 2018-10-07 09:13 | PCM.DS ---
Discharge Summary Date of Admission: 10/04/18 10:15 Admitting Physician: JOLANTA MEDEIROS Primary Care Provider: JOLANTA MEDEIROS Allergies Allergies pregabalin [From Lyrica] Allergy (Severe, Verified 09/29/18 05:19) Swelling methadone [Methadone] Allergy (Mild, Verified 09/29/18 05:19) Hives oxycodone HCl [From OxyContin] Allergy (Verified 09/29/18 05:19) Hospital Summary - Hospital Course Hospital Course: Pt is a 63 yo pt of mine from [facility] with hx breast cancer with double mastectomy who was admitted to swing bed after acute stay for cellulitis of the L chest. She also had a large area visible on CT on the R that was thought by surgery to be a seroma. She was put on IV vancomyin and has remained on that through her stay. She had in increase in her SSRI dose during her stay due to tearfulness, crying and stress over the deaths of her mother and sister. Today the L chest is no longer erythematous! It is still painful, "stinging" she says. Will go home and finish a course of doxycycline and resume steroid lotion to her chest (only if it seems to be helping). F/u with me in 1 week. - Vitals & Intake/Output Vital Signs: Vital Signs Temperature 97.6 F 10/06/18 19:32 Pulse Rate 78 10/07/18 06:42 Respiratory Rate 16 10/07/18 06:42 Blood Pressure 184/81 10/06/18 22:45 O2 Sat by Pulse Oximetry 94 L 10/07/18 06:42 Intake & Output: Intake & Output 10/04/18 10/05/18 10/06/18 10/07/18 11:59 11:59 11:59 11:59 Intake Total 3116 1595 848 Output Total 404 0 Balance 2712 1595 848 Weight 109.3 kg 109.3 kg - Lab Result Diagrams: 10/07/18 06:00 10/07/18 06:00 Lab Results-Last 24 Hrs: Accuchecks Date 10/06/18 Date 10/06/18 Date 10/06/18 Time 02:01 Time 17:41 Time 11:30 Accucheck Value: 201 Accucheck Value: 122 Accucheck Value: 149 Lab Results-Last 24 Hours 10/06/18 10/06/18 10/07/18 Range/Units 09:55 09:55 06:00 WBC (4.0-10.5) K/mm3 RBC (4.1-5.4) M/mm3 Hgb (12.0-16.0) gm/dl Hct (35-47) % MCV (78-100) fl MCH (26-32) pg MCHC (32-36) g/dl RDW (11.5-14.0) % Plt Count (150-450) K/mm3 MPV (6-9.5) fl Creatinine 1.22 H 1.29 H (0.52-1.04) mg/dL Estimated GFR 47.6 44.7 ML/MIN Vancomycin Trough 27.76 H (10-20) ug/mL 10/07/18 Range/Units 06:00 WBC 3.5 L (4.0-10.5) K/mm3 RBC 3.45 L (4.1-5.4) M/mm3 Hgb 11.3 L (12.0-16.0) gm/dl Hct 36.3 (35-47) % MCV 105.2 H (78-100) fl MCH 32.7 H (26-32) pg MCHC 31.1 L (32-36) g/dl RDW 15.0 H (11.5-14.0) % Plt Count 177 (150-450) K/mm3 MPV 10.6 H (6-9.5) fl Creatinine (0.52-1.04) mg/dL Estimated GFR ML/MIN Vancomycin Trough (10-20) ug/mL Micro Results-Entire Visit: Accuchecks Date 10/06/18 Date 10/06/18 Date 10/06/18 Time 02:01 Time 17:41 Time 11:30 Accucheck Value: 201 Accucheck Value: 122 Accucheck Value: 149 - Procedures and Test Procedures and Tests throughout Hospitalization: Therapy Orders & Screens 10/04/18 10:29 Oxygen NASAL CANNULA 2 lpm Comment: Diagnosis: cellulitis; intrathoracic fluid collection Peak Expiratory Flow Rate ONCE Comment: Reason For Exam: Diagnosis: cellulitis; intrathoracic fluid collection Respiratory Therapy Assessment DAILY Comment: Diagnosis: cellulitis; intrathoracic fluid collection Discharge Exam General Appearance: no apparent distress, alert Neurologic Exam: oriented x 3, cooperative Eye Exam: eyes nml inspection Respiratory Exam: normal breath sounds, lungs clear, No crackles/rales, No rhonchi, No wheezing Cardiovascular Exam: regular rate/rhythm, normal heart sounds, No murmur Gastrointestinal/Abdomen Exam: soft, normal bowel sounds, No tenderness Skin Exam: normal color, dry, No rash Wound Assessment: Skin/Wound Assessment Wound/Incision Assessment Start: 10/04/18 10: 42 Text: Status: Active Freq: Q6H Protocol: Document 10/07/18 02:00 (Rec: 10/07/18 02:16 [email or web address]) Wound/Incision Assessment Right Upper Anterior Chest Wound Assessment Shift Assessment Wound Type cellulitis Wound Stage Non Pressure Wound Drainage Amount None Drainage Odor None/Absent General Appearance Open to air Surrounding Tissue Bright Red Topical Solution/Irrigant Medicated Ointment Comment cellulitis Wound Photo Photo Taken No Final Diagnosis/Problem List - Final Discharge Diagnosis/Problem (1) Cellulitis Current Visit: No Status: Acute Onset Date: ~03/20/18 Assessment & Plan: Much improved. Home on doxycycline for the next 5d. Code(s): L03.90 - CELLULITIS, UNSPECIFIED (2) Seroma after procedure Current Visit: No Status: Chronic Code(s): [id number] - (3) Anxiety Current Visit: No Status: Chronic Code(s): F41.9 - ANXIETY DISORDER, UNSPECIFIED (4) Depressed Current Visit: No Status: Chronic Assessment & Plan: increased SSRI dose Code(s): F32.9 - MAJOR DEPRESSIVE DISORDER, SINGLE EPISODE, UNSPECIFIED (5) Diabetes mellitus Current Visit: No Status: Chronic Code(s): E11.9 - TYPE 2 DIABETES MELLITUS WITHOUT COMPLICATIONS (6) HTN (hypertension) Current Visit: No Status: Chronic Assessment & Plan: added toprol yesterday for elevated BPs. Code(s): I10 - ESSENTIAL (PRIMARY) HYPERTENSION (7) Hx of bilateral mastectomy Current Visit: No Status: Chronic Onset Date: ~03/22/18 Code(s): Z90.13 - ACQUIRED ABSENCE OF BILATERAL BREASTS AND NIPPLES (8) Renal insufficiency Current Visit: No Status: Resolved Onset Date: ~03/22/18 Assessment & Plan: recheck today prior to discharge - Discharge Disposition: Home, Self-Care Condition: Stable Prescriptions: New Lactobacillus Acidophilus [Acidophilus TABLET] 1 tab PO DAILY #0 tablet Betamethasone Dipropionate 1 gm TOP BID #30 oint...g. Albuterol/Ipratropium 3ml Neb* [DUONEB 0.5-3 MG/3 ml Neb] 3 ml IH Q6HRT PRN #30 ampul.neb PRN Reason: Cough Furosemide 20 mg [Lasix 20 mg] 20 mg PO DAILY #30 tablet Metoprolol Tartrate 25 mg [Lopressor 25MG Tab] 25 mg PO BID #60 tab Polyethylene Glycol 3350 17 gm [Miralax Powder 17GM PACKET] 17 gm PO QDP PRN packet PRN Reason: Constipation PARoxetine HCl [Paroxetine HCl] 40 mg PO DAILY #30 tablet Doxycycline Hyclate 100 mg [Vibramycin 100 MG] 100 mg PO BID #12 tab Continue Insulin Lispro [Humalog] 10 unit SQ TIDWMEALS Insulin Glargine [Lantus Insulin] 50 units SL HS Letrozole 2.5 mg PO HS Hydrocodone Bit/Acetaminophen [Hydrocodon-Acetaminophen 5-325] 1 each PO Q8H PRN PRN PRN Reason: Pain Amlodipine Besylate 10 mg PO DAILY Gabapentin [Neurontin] 300 mg PO TID Isosorbide Mononitrate 30 mg [Imdur 30 MG] 30 mg PO HS Discontinued Paroxetine HCl 20 mg [Paxil 20 MG] 20 mg PO HS Follow up with: JOLANTA MEDEIROS [Primary Care Provider] - 10/14/18 10:15 am
[2018-10-07] MEDS ORDERED: DIFLUCAN PO ONE (09:15)
[2018-10-07] MEDS: ENOXAPARIN SODIUM SQ SCH (09:19)
[2018-10-07] MEDS: Acidophilus TABLET PO SCH (09:21)
[2018-10-07] MEDS: NORVASC 5 MG PO SCH (09:21)
[2018-10-07] MEDS: Vibramycin 100 MG PO SCH (09:21)
[2018-10-07] MEDS: NEURONTIN 300 MG PO SCH (09:22)
[2018-10-07] MEDS: Lopressor 25MG Tab PO SCH (09:22)
[2018-10-07] MEDS: LASIX 20 MG PO SCH (09:22)
[2018-10-07] MEDS: BETAMETHASONE DIPROPIONATE TOP SCH (09:24)
[2018-10-07] MEDS: PATIENT OWN MEDICATION PO SCH (09:25)
[2018-10-07 09:32] VITALS: BP 137/71; PULSE 80; O2SAT 90
[2018-10-07 11:05] LABS: ANION GAP 13.4 MEQ/L (5-15); Calcium 9.2 mg/dL (8.4-10.2); Creatinine 1 1.29 mg/dL (0.52-1.04); Potassium 4.4 mmol/L (3.5-5.1)
[2018-10-08] MEDS ORDERED: TROUGH DRUG LEVELS IJ ONE (21:30)
== END 2018-10-07 10:01 | disposition home or self-care (01) | DRG 603 ==
LOC: MED SURG 10:15
PROVIDERS: ADMIT Family Medicine; ATTEND Family Medicine
DX: L03.313 Cellulitis of chest wall (principal); E11.9 Type 2 diabetes mellitus without complications; I10 Essential (primary) hypertension; Z85.3 Personal history of malignant neoplasm of breast; Z90.13 Acquired absence of bilateral breasts and nipples; F41.9 Anxiety disorder, unspecified; F32.9 Major depressive disorder, single episode, unspecified; N28.9 Disorder of kidney and ureter, unspecified; Z79.899 Other long term (current) drug therapy
CPT/HCPCS: 36415; 80048; 80202; 82565; 82962; 85027; 94150; 94640; 94760; J1650; J1885; J3370; A9270-GY

== ENCOUNTER 2018-10-18 05:56 | Day surgery (SDC) | payer MEDICARE ==
[2018-10-18] MEDS ORDERED: Lactated Ringers 1,000 ML IV SCH (06:30)
[2018-10-18] MEDS ORDERED: DIPRIVAN 200 MG/20 ML IV ONE (07:49)
[2018-10-18 08:54] VITALS: BP 153/71; PULSE 67; O2SAT 98
--- NOTE | 2018-10-18 09:15 | OP ---
AMENDED REPORT: SURGERY DATE/TIME: 10/18/2018 0747 PREOPERATIVE DIAGNOSIS: Dysphagia, epigastric pain. POSTOPERATIVE DIAGNOSES: 1) ANTRAL ULCERATIONS. 2) MODERATE GASTRITIS. 3) ESOPHAGEAL ULCERATION AT GASTROESOPHAGEAL JUNCTION. PROCEDURE: Esophagogastroduodenoscopy with cold forceps biopsy. SURGEON: Dr. Canela. ANESTHESIA: Medications were given by the anesthesia department. BRIEF HISTORY: The patient is a 63 year old white female presenting now for dysphagia and epigastric pain. She reports this has been going on for the past year but worse in the last six months. The patient was felt to need to have endoscopic evaluation. She was appraised of the risks of the procedure including the risk of perforation, phlebitis, untoward reaction to medication, bleeding and missed lesions. The patient verbalized her understanding and desired to have the procedure performed. DESCRIPTION OF PROCEDURE: The patient was given the medications by the anesthesia department. She had continuous pulse oximetry, ECG monitoring, intermittent blood pressure monitoring and tidal CO2 monitoring during the examination. She was placed in the left lateral decubitus position. A bite block was placed and the flexible Olympus gastroscope was used to intubate the oropharynx. The scope was easily introduced in the esophagus which appeared to be normal to the gastroesophageal junction where there appeared to be small ulceration. The scope was passed in the stomach where normal gastric rugal folds were seen and these distended nicely with insufflation of air. The scope was passed along the greater curvature of the stomach to the antrum where there appeared to be streaks of erythema and three small ulcerated areas surrounding the pylorus. The pylorus was encountered and intubated. The duodenum inspected and found to be essentially normal. The scope is withdrawn towards the stomach. A retroflex view was obtained of the lesser curvature, fundus and cardia regions of the stomach and these appeared to be essentially normal. The scope was then redirected towards the gastric antrum and biopsies were obtained to rule out the presence of Helicobacter pylori-type organisms. The scope was then removed from the patient who tolerated the procedure well and was sent back to the hospital no in good condition.
== END 2018-10-18 09:00 | disposition home or self-care (01) ==
LOC: SDC 05:56
PROVIDERS: ATTEND Family Medicine
DX: K25.9 Gastric ulcer, unspecified as acute or chronic, without hemorrhage or perforation (principal); K22.10 Ulcer of esophagus without bleeding; K29.70 Gastritis, unspecified, without bleeding; E11.9 Type 2 diabetes mellitus without complications; I10 Essential (primary) hypertension; M06.9 Rheumatoid arthritis, unspecified
CPT/HCPCS: 82962; J2704

== ENCOUNTER 2018-11-01 07:26 | Emergency (ER) | payer MEDICARE ==
[2018-11-01] MEDS ORDERED: Hydromorphone 1 mg/ml Ampule IV ONE (07:52)
[2018-11-01] MEDS ORDERED: Zofran 4 MG/2 ML VIAL IV ONE (07:54)
[2018-11-01] MEDS ORDERED: Zofran 4 MG/2 ML VIAL ONE (07:58)
--- NOTE | 2018-11-01 07:58 | ERPHSYRPT ---
- History of Present Illness Time Seen by Provider: 11/01/18 07:45 Source: patient Exam Limitations: clinical condition (hyperventilating, crying (pain hips)) Patient Subjective Stated Complaint: Pt came into the ER with complaints of shortness of breath and then once in the ER stated that was not the issue but it was pain in her right lower back/hip area, woke up having the pain, rates pain 10/10, denies falling Triage Nursing Assessment: Vitals wnl, pulses normal, lungs clear, rates pain 10 /10 in right back/hip, bowel sounds heard in all 4 Physician History: Crying with pain - points to right hip/buttocks area but says other side also hurts...."so bad I can't stand it" Was due for wound care/wound vac care in [place] today but says does not want to go back there. Very anxious - hyperventilating. Notedthat she crosses and uncrosses her right leg over the left leg without difficulty. Allergies/Adverse Reactions: pregabalin [From Lyrica] Allergy (Severe, Verified 11/01/18 07:46) Swelling methadone [Methadone] Allergy (Mild, Verified 11/01/18 07:46) Hives oxycodone HCl [From OxyContin] Allergy (Verified 11/01/18 07:46) Home Medications: Insulin Glargine [Lantus Insulin] 10 units SL 11/05/16 [History] Insulin Lispro [Humalog] 8 unit SQ TIDWMEALS 11/05/16 [History] Letrozole 2.5 mg PO DAILY 03/19/18 [History] Amlodipine Besylate 10 mg PO DAILY 09/29/18 [History] Gabapentin [Neurontin] 300 mg PO TID 09/29/18 [History] Hydrocodone Bit/Acetaminophen [Hydrocodon-Acetaminophen 5-325] 1 each PO Q8H PRN PRN 09/29/18 [History] Isosorbide Mononitrate 30 mg [Imdur 30 MG] 30 mg PO HS 09/29/18 [History] Hx Tetanus, Diphtheria Vaccination/Date Given: Yes Hx Influenza Vaccination/Date Given: No Hx Pneumococcal Vaccination/Date Given: No - Review of Systems Constitutional: Malaise Musculoskeletal: Back Pain, Other (Right hip pain) Skin: Skin Lesions (secondary to bilateral mastectomies; wound vac in place - drainage present across chest) Psychological: Other (Anxiety apparent) All Other Systems: Reviewed and Negative - Past Medical History Pertinent Past Medical History: Yes Neurological History: Migraines, Peripheral Neuropathy ENT History: No Pertinent History Cardiac History: No Pertinent History, Hypertension Respiratory History: No Pertinent History Endocrine Medical History: Diabetes Type II Musculoskeletal History: Fibromyalgia, Rheumatoid Arthritis GI Medical History: No Pertinent History History: No Pertinent History Psycho-Social History: Anxiety, Depression Female Reproductive Disorders: Breast Cancer Other Medical History: breast CA DX 2017 - Past Surgical History Past Surgical History: Yes Neuro Surgical History: No Pertinent History Cardiac: No Pertinent History Respiratory: No Pertinent History Gastrointestinal: Hernia Repair Genitourinary: No Pertinent History Musculoskeletal: Orthopedic Surgery Female Surgical History: No Pertinent History Other Surgical History: muscle stimulator 02/04-REMOVED 2013. back surgery hip surgery. double masectomy july 2017 - Social History Smoking Status: Never smoker Exposure to second hand smoke: No Drug Use: none Patient Lives Alone: No - Female History Hx Now: No - Nursing Vital Signs Nursing Vital Signs: Initial Vital Signs Pulse Rate 98 H 11/01/18 07:34 Blood Pressure 141/77 11/01/18 07:34 O2 Sat by Pulse Oximetry 99 11/01/18 07:34 Pain Scale Pain Intensity 10 - Physical Exam General Appearance: severe distress (Crying, almost hysterial, hyperventilating) Eye Exam: eyes nml inspection Ears, Nose, Throat Exam: pharynx normal, moist mucous membranes Neck Exam: normal inspection, non-tender, supple Respiratory Exam: normal breath sounds, lungs clear, airway intact, No respiratory distress Cardiovascular Exam: regular rate/rhythm, normal heart sounds, normal peripheral pulses Gastrointestinal/Abdomen Exam: normal bowel sounds, No tenderness Extremity Exam: normal inspection, normal range of motion (voluntarily crosses and uncrosses R leg over her L leg when roling to left side to demonstrate area of pain in hip/buttocks. No ecchymosis noted; denied falls or other injuries to area), pelvis stable, No calf tenderness, No roberto's sign Neurologic Exam: alert, oriented x 3, cooperative SpO2 Interpretation: normal SpO2: 99 O2 Delivery: Room Air - Course Nursing assessment & vital signs reviewed: Yes Ordered Tests: Active Orders 24 hr Category Date Time Status CBC W DIFF Stat Lab 11/01/18 08:12 Completed CMP Stat Lab 11/01/18 08:12 Completed Manual Differential NC Stat Lab 11/01/18 08:12 Completed Medication Summary Discontinued Medications Generic Name Dose Route Start Last Admin Trade Name Heladio PRN Reason Stop Dose Admin Hydromorphone HCl 1 mg 11/01/18 07:52 11/01/18 08:07 Hydromorphone 1 Mg/Ml Ampule IV 11/01/18 07:53 1 mg STAT ONE Administration Hydromorphone HCl Confirm 11/01/18 08:04 Hydromorphone 1 Mg/Ml Ampule Administered 11/01/18 08:05 Dose 1 mg .ROUTE .STK-MED ONE Lorazepam 1 mg 11/01/18 08:57 11/01/18 09:17 Ativan 2 Mg/1 Ml Vial IV 11/01/18 08:58 1 mg STAT ONE Administration Lorazepam Confirm 11/01/18 09:16 Ativan 2 Mg/1 Ml Vial Administered 11/01/18 09:17 Dose 2 mg .ROUTE .STK-MED ONE Ondansetron HCl 4 mg 11/01/18 07:54 11/01/18 08:07 Zofran 4 Mg/2 Ml Vial IV 11/01/18 07:55 4 mg STAT ONE Administration Ondansetron HCl Confirm 11/01/18 07:58 Zofran 4 Mg/2 Ml Vial Administered 11/01/18 07:59 Dose 4 mg .ROUTE .STK-MED ONE Lab/Rad Data: Laboratory Result Diagrams 11/01/18 08:12 11/01/18 08:12 Laboratory Results 11/01/18 11/01/18 Range/Units 08:12 08:12 WBC 14.3 H (4.0-10.5) K/mm3 RBC 4.03 L (4.1-5.4) M/mm3 Hgb 13.4 (12.0-16.0) gm/dl Hct 40.5 (35-47) % MCV 100.5 H (78-100) fl MCH 33.2 H (26-32) pg MCHC 33.1 (32-36) g/dl RDW 14.7 H (11.5-14.0) % Plt Count 159 (150-450) K/mm3 MPV 10.3 H (6-9.5) fl Segmented Neutrophils 80 H (36.0-66.0) % Band Neutrophils 8 H (0.0-2.0) % Lymphocytes (Manual) 10 L (24-44) % Monocytes (Manual) 2 (0.0-12.0) % Platelet Estimate NORMAL (NORMAL) RBC Morphology NORMAL Sodium 136 L (137-145) mmol/L Potassium 4.4 (3.5-5.1) mmol/L Chloride 102 (98-107) mmol/L Carbon Dioxide 20 L (22-30) mmol/L Anion Gap 18.3 H (5-15) MEQ/L BUN 23 H (7-17) mg/dL Creatinine 0.97 (0.52-1.04) mg/dL Estimated GFR > 60.0 ML/MIN Glucose 262 H (74-106) mg/dL Calcium 9.5 (8.4-10.2) mg/dL Total Bilirubin 0.90 (0.2-1.3) mg/dL AST 48 H (14-36) U/L ALT 59 H (0-35) U/L Alkaline Phosphatase 97 (38-126) U/L Serum Total Protein 8.1 (6.3-8.2) g/dL Albumin 4.2 (3.5-5.0) g/dL - Progress Progress: improved Progress Note: 11/01/18 10:43 Resting peacefully after dilaudid, zofran and ativan. Has had PT down and wound vac care. Pain in back, r hip and l hip not further evaluated given her very favorable response to pain medication and voluntary movement of R leg and rolling towards left when demonstrating the muscular areas of pain on the right hip, buttoccks and back. - Departure Departure Disposition: Home Clinical Impression: Encounter for management of wound VAC Hip pain, chronic Qualifiers: Laterality: bilateral Qualified Code(s): M25.551 - Pain in right hip; M25.552 - Pain in left hip; G89.29 - Other chronic pain Condition: Stable Critical Care Time: Yes Critical Care Time(excluding separately billable procedures): Critical 30-74 mins Referrals: JOLANTA MEDEIROS [Primary Care Provider] - Additional Instructions: Resume usual pain management and regular medical treatment. Wound vac management is up to you as far as wether you want to continue care at [place] or switch to care in [place].
[2018-11-01] MEDS ORDERED: Hydromorphone 1 mg/ml Ampule ONE (08:04)
[2018-11-01 08:15] LABS: Hematocrit 40.5 % (35-47); Hemoglobin 13.4 gm/dl (12.0-16.0); Mean Cell Volume 100.5 fl (78-100); Mean Corpuscular Hgb Concent. 33.1 g/dl (32-36); Mean Platelet Volume 10.3 fl (6-9.5); Platelet Count 159 K/mm3 (150-450); Red Blood Count 4.03 M/mm3 (4.1-5.4); Red Cell Distribution Width 14.7 % (11.5-14.0); White Blood Count 14.3 K/mm3 (4.0-10.5)
[2018-11-01 08:17] LABS: Mean Corpuscular Hemoglobin 33.2 pg (26-32)
[2018-11-01 08:34] LABS: ALBUMIN 4.2 g/dL (3.5-5.0); ALKALINE PHOSPHATASE 97 U/L (38-126); ANION GAP 18.3 MEQ/L (5-15); BAND 8 % (0.0-2.0); BLOOD UREA NITROGEN 23 mg/dL (7-17); CHLORIDE 102 mmol/L (98-107); Calcium 9.5 mg/dL (8.4-10.2); Carbon Dioxide 20 mmol/L (22-30); Creatinine 1 0.97 mg/dL (0.52-1.04); Glucose 262 mg/dL (74-106); Lymphocytes 10 % (24-44); Monocyte 2 % (0.0-12.0); Neutrophils 80 % (36.0-66.0); Platelet Estimate NORMAL (NORMAL); Potassium 4.4 mmol/L (3.5-5.1); SGOT/AST 48 U/L (14-36); SGPT/ALT 59 U/L (0-35); SODIUM 136 mmol/L (137-145); Total Cells Counted 100; Total Protein 8.1 g/dL (6.3-8.2)
[2018-11-01] MEDS ORDERED: Ativan 2 MG/1 ML VIAL IV ONE (08:57)
[2018-11-01] MEDS ORDERED: Ativan 2 MG/1 ML VIAL ONE (09:16)
[2018-11-01 11:30] VITALS: BP 110/78; PULSE 74; O2SAT 96
== END 2018-11-01 11:20 | disposition home or self-care (01) ==
LOC: ED 07:26
DX: Z48.00 Encounter for change or removal of nonsurgical wound dressing (principal); M25.551 Pain in right hip; M25.552 Pain in left hip; G89.29 Other chronic pain; I10 Essential (primary) hypertension; Z79.899 Other long term (current) drug therapy; G62.9 Polyneuropathy, unspecified; E11.9 Type 2 diabetes mellitus without complications; M06.9 Rheumatoid arthritis, unspecified; F41.9 Anxiety disorder, unspecified; F32.9 Major depressive disorder, single episode, unspecified; Z85.3 Personal history of malignant neoplasm of breast
CPT/HCPCS: 36000; 36415; 80053; 85025; 96374; 96375; 99284; 99291; J1170; J2060; J2405

== ENCOUNTER 2019-06-29 09:09 | Day surgery (SDC) | payer MEDICARE ==
[2012-02-24 11:27] VITALS: BP 118/69
[2019-06-29] MEDS ORDERED: Lactated Ringers 1,000 ML IV ONE (13:48)
== END 2019-06-29 09:40 | disposition home or self-care (01) ==
LOC: SDC-PAIN 09:09
PROVIDERS: ATTEND Psychiatry & Neurology Pain Medicine
DX: Z53.09 Procedure and treatment not carried out because of other contraindication (principal); E11.9 Type 2 diabetes mellitus without complications; I10 Essential (primary) hypertension; G62.9 Polyneuropathy, unspecified; Z79.899 Other long term (current) drug therapy
CPT/HCPCS: 82962

== ENCOUNTER 2019-09-11 14:59 | Emergency (ER) | payer MEDICARE ==
[2019-09-11] MEDS ORDERED: Rocephin 1000 MG INJ IM ONE (15:24)
[2019-09-11] MEDS ORDERED: Rocephin 1000 MG INJ ONE (15:29)
[2019-09-11] MEDS ORDERED: XYLOCAINE 1% HCL 20 ML MDV ONE (15:29)
--- NOTE | 2019-09-11 15:33 | ERPHSYRPT ---
- History of Present Illness Time Seen by Provider: 09/11/19 15:28 Source: patient Patient Subjective Stated Complaint: I have a historyof breast cancer. have an infection in left arm pit area and has been draining for 3 wks. Had lymph nodes removed from left axillary area 2 yrs ago. My blood sugar today was 500. Triage Nursing Assessment: aaox3, walked in, Dr Hernandez examining wound at this time. C/o wound to left axilla worsening and noticed large hole in area rece ntly. Worse today states patient. Afebrile, Physician History: Is a 64-year-old white female with a remote history of breast cancer who recently had a biopsy done at the end of the left lateral incision from her mastectomy. This was done by Dr. De Jesus it appears that the wound has dehisced although it may have been left open for healing by secondary intention. However apparently it opened up and has drained some fluid each foul-smelling material. She was sent in by home health for evaluation of the wound. She has already been seen at the wound care clinic. And they are planning on starting packing and treatment this week. Is all according to the patient. Quality: painful Severity: mild Location: axillary (L) Allergies/Adverse Reactions: pregabalin [From Lyrica] Allergy (Severe, Verified 11/01/18 07:46) Swelling methadone [Methadone] Allergy (Mild, Verified 11/01/18 07:46) Hives oxycodone HCl [From OxyContin] Allergy (Verified 11/01/18 07:46) Home Medications: Insulin Lispro [Humalog] 14 unit SQ TIDWMEALS 11/05/16 [History] Letrozole 2.5 mg PO DAILY 03/19/18 [History] Amlodipine Besylate 10 mg PO DAILY 09/29/18 [History] Hydrocodone Bit/Acetaminophen [Hydrocodon-Acetaminophen 5-325] 1 each PO Q8H PRN PRN 09/29/18 [History] Isosorbide Mononitrate 30 mg [Imdur 30 MG] 30 mg PO HS 09/29/18 [History] Cyanocobalamin (Vitamin B-12) [Vitamin B12] 2,500 mcg PO DAILY 05/03/19 [History] Lisinopril 20 mg [Zestril 20 MG] 20 mg PO DAILY 05/03/19 [History] Mv,Willie,Iron,Mn/Folic Acid/Chol [Hair, Skin and Nails Capsule] 1 each PO DAILY 05/03/19 [History] Oxybutynin Chloride [Oxybutynin Chloride ER] 10 mg PO DAILY 05/03/19 [History] Potassium Chloride 10 Meq Tab* [Klor Con 10 MEQ] 10 meq PO DAILY 05/03/19 [History] Venlafaxine HCl [Venlafaxine HCl ER] 150 mg PO DAILY 05/03/19 [History] Hx Tetanus, Diphtheria Vaccination/Date Given: No Hx Influenza Vaccination/Date Given: No Hx Pneumococcal Vaccination/Date Given: No Travel Risk - International Travel Have you traveled outside of the country in past 3 weeks: No - Coronavirus Screening Are you exhibiting any of the following symptoms?: No Close contact with a COVID-19 positive Pt in past 14-21 Days: No - Review of Systems Constitutional: No Fever, No Chills Eyes: No Symptoms Ears, Nose, & Throat: No Symptoms Respiratory: No Cough, No Dyspnea Cardiac: No Chest Pain, No Edema, No Syncope Abdominal/Gastrointestinal: No Abdominal Pain, No Nausea, No Vomiting, No Diarrhea Genitourinary Symptoms: No Dysuria Musculoskeletal: No Back Pain, No Neck Pain Skin: No Rash Neurological: No Dizziness, No Focal Weakness, No Sensory Changes Psychological: No Symptoms Endocrine: No Symptoms All Other Systems: Reviewed and Negative - Past Medical History Pertinent Past Medical History: Yes Neurological History: Alzheimer's Disease ENT History: No Pertinent History Cardiac History: No Pertinent History, Hypertension Respiratory History: No Pertinent History Endocrine Medical History: Diabetes Type II Musculoskeletal History: Fibromyalgia, Rheumatoid Arthritis GI Medical History: No Pertinent History History: No Pertinent History Psycho-Social History: Anxiety, Depression Female Reproductive Disorders: Breast Cancer Other Medical History: breast CA DX 2018 - Past Surgical History Past Surgical History: Yes Neuro Surgical History: No Pertinent History Cardiac: No Pertinent History Respiratory: No Pertinent History Gastrointestinal: Hernia Repair Genitourinary: No Pertinent History Musculoskeletal: Orthopedic Surgery Female Surgical History: No Pertinent History Other Surgical History: muscle stimulator 02/04-REMOVED 2013. back surgery hip surgery. double masectomy july 2017 - Social History Smoking Status: Never smoker Exposure to second hand smoke: No Drug Use: none Patient Lives Alone: No - Female History Hx Now: No - Nursing Vital Signs Nursing Vital Signs: Initial Vital Signs Temperature 98.3 F 09/11/19 15:09 Pulse Rate 96 H 09/11/19 15:09 Respiratory Rate 20 09/11/19 15:09 Blood Pressure 144/79 09/11/19 15:09 O2 Sat by Pulse Oximetry 96 09/11/19 15:09 Pain Scale Pain Intensity 6 - Physical Exam General Appearance: no apparent distress, alert Eye Exam: PERRL/EOMI, eyes nml inspection Ears, Nose, Throat Exam: normal ENT inspection, pharynx normal, moist mucous membranes Neck Exam: normal inspection, non-tender, supple, full range of motion Respiratory Exam: normal breath sounds, lungs clear, No respiratory distress Cardiovascular Exam: regular rate/rhythm, normal heart sounds Gastrointestinal/Abdomen Exam: soft, mass, No tenderness Back Exam: normal inspection, normal range of motion, No CVA tenderness, No vertebral tenderness Extremity Exam: normal inspection, normal range of motion Neurologic Exam: alert, oriented x 3, cooperative, normal mood/affect, sensation nml, No motor deficits Skin Exam: other (In the left axilla at the lateral end of the mastectomy scar which appeals remote and well-healed there is an area with an incision approximately 6 cm long which is gaping in the middle by about 3 to 4 cm and draining what appears to be clear fluid.) SpO2 Interpretation: normal SpO2: 96 O2 Delivery: Room Air - Course Nursing assessment & vital signs reviewed: Yes Ordered Tests: Active Orders 24 hr Category Date Time Status Dressing Care ROUTINE Care 09/11/19 15:27 Ordered CULTURE,WOUND Stat Lab 09/11/19 15:24 Ordered Medication Summary Discontinued Medications Generic Name Dose Route Start Last Admin Trade Name Heladio PRN Reason Stop Dose Admin Ceftriaxone Sodium 1,000 mg 09/11/19 15:24 Rocephin 1000 Mg Inj IM 09/11/19 15:25 STAT ONE - Progress Progress: unchanged - Departure Departure Disposition: Home Clinical Impression: Wound dehiscence Condition: Stable Critical Care Time: No Referrals: JOLANTA MEDEIROS [Primary Care Provider] - Instructions: Wound Infection Additional Instructions: All the wound center for an appointment as soon as possible tomorrow Prescriptions: Cephalexin Mh 500 mg [Keflex 500 mg] 500 mg PO QID #40 capsule
[2019-09-11 15:36] VITALS: BP 149/76; PULSE 90; O2SAT 97
== END 2019-09-11 16:04 | disposition home or self-care (01) ==
LOC: ED 14:59
DX: T81.30XA Disruption of wound, unspecified, initial encounter (principal); L04.2 Acute lymphadenitis of upper limb; Z98.890 Other specified postprocedural states; Z85.3 Personal history of malignant neoplasm of breast; Z79.899 Other long term (current) drug therapy; G30.9 Alzheimer's disease, unspecified; F02.80 Dementia in other diseases classified elsewhere, unspecified severity, without behavioral disturbance, psychotic disturbance, mood disturbance, and anxiety; I10 Essential (primary) hypertension; E11.9 Type 2 diabetes mellitus without complications; M79.7 Fibromyalgia; M06.9 Rheumatoid arthritis, unspecified
CPT/HCPCS: 87070; 96372; 99284; J0696

== ENCOUNTER 2019-12-27 12:08 | Observation (INO) | payer MEDICARE ==
[2019-12-27] MEDS ORDERED: Zofran 4 MG/2 ML VIAL IV ONE (12:25)
[2019-12-27] MEDS ORDERED: Sodium Chloride 0.9% 1000 ML 1,000 ML IV STA (12:25)
[2019-12-27] MEDS ORDERED: Pepcid 20 MG VIAL IV ONE ×2 (12:28→12:56)
[2019-12-27] MEDS ORDERED: Sodium Chloride 0.9% 1000 ML 1,000 ML ONE (12:56)
[2019-12-27] MEDS ORDERED: Zofran 4 MG/2 ML VIAL ONE (12:56)
[2019-12-27 13:00] LABS: INR 1.2 (0.8-3.0); PROTIME 13.6 SECONDS (9.95-12.35)
[2019-12-27 13:06] LABS: Absolute Neutrophil Ct (ANC) 1.15 (1.4-6.9); BASOPHIL % 0.4 % (0.0-0.4); Basophil (Absolute #) 0.01 (0-0.4); Eosinophil % 4.2 % (0.00-5.0); Eosinophil (Absolute #) 0.12 (0-0.5); Hematocrit 39.5 % (35-47); Hemoglobin 12.5 gm/dl (12.0-16.0); Lymphocyte (Absolute #) 1.39 (1.0-4.6); Lymphocytes % 48.8 % (24.0-44.0); Mean Cell Volume 102.6 fl (78-100); Mean Corpuscular Hemoglobin 32.5 pg (26-32); Mean Corpuscular Hgb Concent. 31.6 g/dl (32-36); Mean Platelet Volume 11.5 fl (7.5-11.0); Monocyte (Absolute #) 0.18 (0.0-1.3); Monocytes % 6.3 % (0.0-12.0); Neutrophil % 40.3 % (36.0-66.0); Platelet Count 136 K/mm3 (150-450); Red Blood Count 3.85 M/mm3 (4.1-5.4); Red Cell Distribution Width 14.7 % (11.5-14.0); White Blood Count 2.9 K/mm3 (4.0-10.5)
[2019-12-27 13:15] LABS: ALBUMIN 3.9 g/dL (3.5-5.0); ALKALINE PHOSPHATASE 127 U/L (38-126); ANION GAP 10.8 MEQ/L (5-15); BLOOD UREA NITROGEN 7 mg/dL (7-17); CHLORIDE 109 mmol/L (98-107); Carbon Dioxide 24 mmol/L (22-30); Creatinine 1 0.59 mg/dL (0.52-1.04); EST GLOMERULAR FILTRATION RATE > 60.0 ML/MIN; Glucose 329 mg/dL (74-106); LIPASE 115 U/L (23-300); NT PRO BNP 90.2 pg/mL (0-900); Potassium 3.7 mmol/L (3.5-5.1); SGOT/AST 99 U/L (14-36); SGPT/ALT 86 U/L (0-35); SODIUM 140 mmol/L (137-145); Total Protein 8.1 g/dL (6.3-8.2)
--- NOTE | 2019-12-27 13:23 | ERPHSYRPT ---
- History of Present Illness Time Seen by Provider: 12/27/19 12:11 Source: patient Exam Limitations: no limitations Patient Subjective Stated Complaint: Pt states "I tested positive for covid on thursday and I have not been able to keep anything down for the past week and now I am coughing up blood and it is even coming out of my nose." Triage Nursing Assessment: Pt presented alert and oriented X 3, skin pwd Pt able to speak in clear full sentences pt in no apparent respiratory distress. PT has slight blood coming out of nose, pt has intermittant cough, pt intermittantly crying. Physician History: Patient here with cough, shortness of breath, coughing up blood. Patient states that she tested positive for Covid yesterday. Since that time she had increasing shortness, cough, feeling worse. Patient does have remote history of breast cancer. She does not believe that she is vomiting blood. Timing/Duration: today Severity: moderate Modifying Factors: Improves With: other (Coughing) Associated Symptoms: shortness of breath, cough Allergies/Adverse Reactions: pregabalin [From Lyrica] Allergy (Severe, Verified 11/01/18 07:46) Swelling methadone [Methadone] Allergy (Mild, Verified 11/01/18 07:46) Hives oxycodone HCl [From OxyContin] Allergy (Verified 11/01/18 07:46) Home Medications: Insulin Lispro [Humalog] 14 unit SQ TIDWMEALS 11/05/16 [History] Letrozole 2.5 mg PO DAILY 03/19/18 [History] Amlodipine Besylate 10 mg PO DAILY 09/29/18 [History] Hydrocodone Bit/Acetaminophen [Hydrocodon-Acetaminophen 5-325] 1 each PO Q8H PRN PRN 09/29/18 [History] Isosorbide Mononitrate 30 mg [Imdur 30 MG] 30 mg PO HS 09/29/18 [History] Cyanocobalamin (Vitamin B-12) [Vitamin B12] 2,500 mcg PO DAILY 05/03/19 [History] Lisinopril 20 mg [Zestril 20 MG] 20 mg PO DAILY 05/03/19 [History] Mv,Willie,Iron,Mn/Folic Acid/Chol [Hair, Skin and Nails Capsule] 1 each PO DAILY 05/03/19 [History] Oxybutynin Chloride [Oxybutynin Chloride ER] 10 mg PO DAILY 05/03/19 [History] Potassium Chloride 10 Meq Tab* [Klor Con 10 MEQ] 10 meq PO DAILY 05/03/19 [History] Venlafaxine HCl [Venlafaxine HCl ER] 150 mg PO DAILY 05/03/19 [History] Metformin HCl 500 mg [Glucophage 500 MG] 500 mg PO BIDWM 12/27/19 [History] Oxybutynin Chloride [Oxybutynin Chloride ER] 10 mg PO DAILY 12/27/19 [History] Hx Tetanus, Diphtheria Vaccination/Date Given: No Hx Influenza Vaccination/Date Given: No Hx Pneumococcal Vaccination/Date Given: No Immunizations Up to Date: Yes Travel Risk - International Travel Have you traveled outside of the country in past 3 weeks: No - Coronavirus Screening Are you exhibiting any of the following symptoms?: Yes Symptoms: Cough: New Onset, Shortness of Breath Close contact with a COVID-19 positive Pt in past 14-21 Days: No - Review of Systems Constitutional: No Fever, No Chills Eyes: No Symptoms Ears, Nose, & Throat: No Symptoms Respiratory: Cough, Dyspnea, Other (Coughing up blood) Cardiac: No Chest Pain, No Edema, No Syncope Abdominal/Gastrointestinal: No Abdominal Pain, No Nausea, No Vomiting, No Diarrhea Genitourinary Symptoms: No Dysuria Musculoskeletal: No Back Pain, No Neck Pain Skin: No Rash Neurological: No Dizziness, No Focal Weakness, No Sensory Changes Psychological: No Symptoms Endocrine: No Symptoms All Other Systems: Reviewed and Negative - Past Medical History Pertinent Past Medical History: Yes Neurological History: Alzheimer's Disease ENT History: No Pertinent History Cardiac History: No Pertinent History, Hypertension Respiratory History: No Pertinent History Endocrine Medical History: Diabetes Type II Musculoskeletal History: Fibromyalgia, Rheumatoid Arthritis GI Medical History: No Pertinent History History: No Pertinent History Psycho-Social History: Anxiety, Depression Female Reproductive Disorders: Breast Cancer Other Medical History: breast CA DX 2018. covid + on 12/26/2019 - Past Surgical History Past Surgical History: Yes Neuro Surgical History: No Pertinent History Cardiac: No Pertinent History Respiratory: No Pertinent History Gastrointestinal: Hernia Repair Genitourinary: No Pertinent History Musculoskeletal: Orthopedic Surgery Female Surgical History: No Pertinent History Other Surgical History: muscle stimulator 02/04-REMOVED 2013. back surgery hip surgery. double masectomy july 2017 - Social History Smoking Status: Never smoker Exposure to second hand smoke: No Drug Use: none Patient Lives Alone: No - Female History Hx Now: No - Nursing Vital Signs Nursing Vital Signs: Initial Vital Signs Temperature 98.1 F 12/27/19 12:11 Pulse Rate 85 12/27/19 12:11 Respiratory Rate 19 12/27/19 12:11 Blood Pressure 154/69 12/27/19 12:11 O2 Sat by Pulse Oximetry 98 12/27/19 12:11 Pain Scale Pain Intensity 0 - Physical Exam General Appearance: no apparent distress, alert Eye Exam: PERRL/EOMI, eyes nml inspection Ears, Nose, Throat Exam: normal ENT inspection, TMs normal, pharynx normal, moist mucous membranes Neck Exam: normal inspection, non-tender, supple, full range of motion Respiratory Exam: normal breath sounds, lungs clear, other (Crackles.), No respiratory distress Cardiovascular Exam: regular rate/rhythm, normal heart sounds, normal peripheral pulses Gastrointestinal/Abdomen Exam: soft, normal bowel sounds, No tenderness, No mass Back Exam: normal inspection, normal range of motion, No CVA tenderness, No vertebral tenderness Extremity Exam: normal inspection, normal range of motion, pelvis stable Neurologic Exam: alert, oriented x 3, cooperative, normal mood/affect, nml cerebellar function, nml station & gait, sensation nml, No motor deficits Skin Exam: normal color, warm, dry, No rash Lymphatic Exam: No adenopathy SpO2 Interpretation: normal SpO2: 98 Comments: 12/27/19 13:25 No trismus, able to fully extend neck, normal range of motion of neck without pain. Uvula is midline, no swelling of the mouth, noraml oropharynx. No exudate, no signs of meningitis, no floor of mouth swelling, no hot potato voice on exam. No buccal swelling, no gum bleeding, no signs of tooth abscess/infection. No obvious deformity, sensation intact, 2+ capillary refill, 2 point tactile discrimination intact. 5 out of 5 strength. Full range of motion without pain. Compartments are soft, nontender. Overlying skin shows no tenting, bruising, ecchymosis. Ordered Tests: Active Orders 24 hr Category Date Time Status Check Totaler STAT Care 12/27/19 12:26 Active Code Status Order ROUTINE Care 12/27/19 13:59 Active EKG-ER Only STAT Care 12/27/19 12:25 Active IV Care Q6H Care 12/27/19 13:59 Active IV Insertion STAT Care 12/27/19 12:[address] in Observation ROUTINE Care 12/27/19 13:59 Active ABDOMEN WITH CONTRAST [CT] Stat Exams 12/27/19 12:27 Completed CHEST WITH CONTRAST [CT] Stat Exams 12/27/19 12:26 Completed CBC W DIFF AM.LAB Lab 12/28/19 04:00 Ordered CBC W DIFF Stat Lab 12/27/19 12:54 Completed CMP AM.LAB Lab 12/28/19 04:00 Ordered CMP Stat Lab 12/27/19 12:54 Completed LIPASE Stat Lab 12/27/19 12:54 Completed NT PRO BNP Stat Lab 12/27/19 12:54 Completed PROTIME WITH INR Stat Lab 12/27/19 12:54 Completed PTT Stat Lab 12/27/19 12:54 Completed TROPONIN Q3H Lab 12/27/19 12:54 Completed TROPONIN Q3H Lab 12/27/19 15:30 Ordered TROPONIN Q3H Lab 12/27/19 18:30 Ordered TROPONIN Q3H Lab 12/27/19 21:30 Ordered TROPONIN Q3H Lab 12/28/19 00:30 Ordered Medication Summary Generic Name Dose Route Start Last Admin Trade Name Freq PRN Reason Stop Dose Admin Non-Formulary Medication 1 each 12/28/19 10:00 Hold Metformin Products For 48 Hours 12/30/19 10:01 DAILY REECE Ondansetron HCl 2 mg 12/27/19 15:07 Zofran 4 Mg/2 Ml Vial IV 01/26/20 15:06 Q6H PRN PRN NAUSEA/VOMITING Oxymetazoline HCl 2 ml 12/27/19 15:11 Afrin Nasal [place] NS 01/26/20 15:14 Q1H PRN nose bleed Discontinued Medications Generic Name Dose Route Start Last Admin Trade Name Freq PRN Reason Stop Dose Admin Famotidine 20 mg 12/27/19 12:28 12/27/19 12:57 Pepcid 20 Mg Vial IV 12/27/19 12:29 20 mg STAT ONE Administration Famotidine Confirm 12/27/19 12:56 Pepcid 20 Mg Vial Administered 12/27/19 12:57 Dose 20 mg IV .STK-MED ONE Sodium Chloride 1,000 mls @ 999 mls/hr 12/27/19 12:25 12/27/19 14:21 Sodium Chloride 0.9% 1000 Ml IV 12/27/19 13:25 Infused .Q1H1M STA Infusion Sodium Chloride Confirm 12/27/19 12:56 Sodium Chloride 0.9% 1000 Ml Administered 12/27/19 12:57 Dose 1,000 mls @ ud .ROUTE .STK-MED ONE Ondansetron HCl 4 mg 12/27/19 12:25 12/27/19 12:57 Zofran 4 Mg/2 Ml Vial IV 12/27/19 12:26 4 mg STAT ONE Administration Ondansetron HCl Confirm 12/27/19 12:56 Zofran 4 Mg/2 Ml Vial Administered 12/27/19 12:57 Dose 4 mg .ROUTE .STK-MED ONE Lab/Rad Data: Laboratory Result Diagrams 12/27/19 12:54 12/27/19 12:54 Laboratory Results 12/27/19 12/27/19 12/27/19 Range/Units 12:54 12:54 12:54 WBC (4.0-10.5) K/mm3 RBC (4.1-5.4) M/mm3 Hgb (12.0-16.0) gm/dl Hct (35-47) % MCV (78-100) fl MCH (26-32) pg MCHC (32-36) g/dl RDW (11.5-14.0) % Plt Count (150-450) K/mm3 MPV (7.5-11.0) fl Gran % (36.0-66.0) % Eos # (Auto) (0-0.5) Absolute Lymphs (auto) (1.0-4.6) Absolute Monos (auto) (0.0-1.3) Lymphocytes % (24.0-44.0) % Monocytes % (0.0-12.0) % Eosinophils % (0.00-5.0) % Basophils % (0.0-0.4) % Absolute Granulocytes (1.4-6.9) Basophils # (0-0.4) PT 13.6 H (9.95-12.35) SECONDS INR 1.20 (0.8-3.0) APTT 32.0 (25.3-37.0) SECONDS Sodium 140 (137-145) mmol/L Potassium 3.7 (3.5-5.1) mmol/L Chloride 109 H (98-107) mmol/L Carbon Dioxide 24 (22-30) mmol/L Anion Gap 10.8 (5-15) MEQ/L BUN 7 (7-17) mg/dL Creatinine 0.59 (0.52-1.04) mg/dL Estimated GFR > 60.0 ML/MIN Glucose 329 H (74-106) mg/dL Calcium 9.0 (8.4-10.2) mg/dL Total Bilirubin 0.90 (0.2-1.3) mg/dL AST 99 H (14-36) U/L ALT 86 H (0-35) U/L Alkaline Phosphatase 127 H (38-126) U/L Troponin I < 0.012 (0.000-0.034) ng/mL NT-Pro-B Natriuret Pep 90.2 (0-900) pg/mL Serum Total Protein 8.1 (6.3-8.2) g/dL Albumin 3.9 (3.5-5.0) g/dL Lipase 115 (23-300) U/L 12/27/19 Range/Units 12:54 WBC 2.9 L (4.0-10.5) K/mm3 RBC 3.85 L (4.1-5.4) M/mm3 Hgb 12.5 (12.0-16.0) gm/dl Hct 39.5 (35-47) % MCV 102.6 H (78-100) fl MCH 32.5 H (26-32) pg MCHC 31.6 L (32-36) g/dl RDW 14.7 H (11.5-14.0) % Plt Count 136 L (150-450) K/mm3 MPV 11.5 H (7.5-11.0) fl Gran % 40.3 (36.0-66.0) % Eos # (Auto) 0.12 (0-0.5) Absolute Lymphs (auto) 1.39 (1.0-4.6) Absolute Monos (auto) 0.18 (0.0-1.3) Lymphocytes % 48.8 H (24.0-44.0) % Monocytes % 6.3 (0.0-12.0) % Eosinophils % 4.2 (0.00-5.0) % Basophils % 0.4 (0.0-0.4) % Absolute Granulocytes 1.15 L (1.4-6.9) Basophils # 0.01 (0-0.4) PT (9.95-12.35) SECONDS INR (0.8-3.0) APTT (25.3-37.0) SECONDS Sodium (137-145) mmol/L Potassium (3.5-5.1) mmol/L Chloride (98-107) mmol/L Carbon Dioxide (22-30) mmol/L Anion Gap (5-15) MEQ/L BUN (7-17) mg/dL Creatinine (0.52-1.04) mg/dL Estimated GFR ML/MIN Glucose (74-106) mg/dL Calcium (8.4-10.2) mg/dL Total Bilirubin (0.2-1.3) mg/dL AST (14-36) U/L ALT (0-35) U/L Alkaline Phosphatase (38-126) U/L Troponin I (0.000-0.034) ng/mL NT-Pro-B Natriuret Pep (0-900) pg/mL Serum Total Protein (6.3-8.2) g/dL Albumin (3.5-5.0) g/dL Lipase (23-300) U/L - Progress Progress: improved Progress Note: 12/27/19 13:25 We will obtain basic labs, CT chest abdomen pelvis looking for possible source of bleed, fluids, Pepcid, Zofran. 12/27/19 13:58 CT findings are consistent with Covid pneumonia. Patient does need to be admitted to the hospital at this point time. Discussed over the phone with on- call physician, Dr. Carvalho. We discussed the case in detail. He did accept the patient for admission. After reviewing labs, appropriate imaging, discussion with patient and family. We decided the patient should be admitted to the hospital. I called the inpatient team discussed history, physical and results with them in detail. We decided on the plan of action and admission to [facility]. We agreed on appropriate consults and who would call them. Discussed with : Other (Deven) Will see patient in: hospital (observation) - Departure Departure Disposition: Observation Clinical Impression: Pneumonia due to COVID-19 virus Condition: Stable Critical Care Time: Yes Critical Care Time(excluding separately billable procedures): Critical 30-74 mins
--- NOTE | 2019-12-27 13:52 | XRAY ---
Indication: Hemoptysis. Positive Covid 19. Multiple contiguous axial images obtained through the chest using 100 cc Isovue 370 contrast. Comparison: October 09, 2018. Lungs demonstrates new bilateral multifocal patchy groundglass airspace opacities greatest in both upper lobes. Several opacities are peripheral. No consolidation or effusion. Stable bilateral midlung subpleural fibrosis/scarring. Heart is now enlarged. Aorta is normal in course and caliber. No pathologic mediastinal/hilar lymphadenopathy. Stable small hiatal hernia. Bony thorax intact again with mild degenerative changes throughout the spine, bilateral mastectomy, and left axilla abhay dissection. Previous right chest wall fluid collection has cleared. CT abdomen/pelvis reported separately. Impression: 1. New bilateral patchy airspace disease without consolidation/effusion. Commonly reported imaging features of Covid 19 pneumonia are present. Other processes such as influenza pneumonia and organizing pneumonia, as can be seen with drug toxicity and connective tissue disease, can cause a similar imaging pattern. 2. New cardiomegaly. 3. Again incidental small hiatal hernia, bilateral mastectomy, and left axilla node dissection.
--- NOTE | 2019-12-27 13:55 | XRAY ---
Indication: Vomiting blood. Positive Covid 19. Multiple contiguous axial images obtained through the abdomen only using 100 cc Isovue 370 contrast. Comparison: March 19, 2018. CT chest reported separately. Noncontrasted stomach and visualized bowel loops are nonobstructed. Liver now demonstrates micronodular margins favoring cirrhosis. Spleen remains enlarged today measuring 15 cm, previously 14.2 cm. New 1.1 cm peripheral splenic hemangioma. No free fluid/air. Remaining gallbladder, pancreas, adrenal glands, kidneys, proximal ureters, and aorta are unremarkable. No pathologic retroperitoneal lymphadenopathy. Osseous structures intact again with mild degenerative changes throughout the spine and L5 spondylolysis with minimal grade 1 spondylolisthesis. Impression: 1. New cirrhotic appearing liver with worsening splenomegaly. No ascites. 2. New small splenic hemangioma. 3. Stable chronic bony findings. 4. Remaining CT abdomen with contrast exam is negative.
[2019-12-27] MEDS: AFRIN NASAL SPRAY NS PRN (15:00)
[2019-12-27] MEDS ORDERED: Zofran 4 MG/2 ML VIAL IV PRN (15:07)
[2019-12-27] MEDS ORDERED: AFRIN NASAL SPRAY NS PRN (15:11)
[2019-12-27] MEDS: Ativan 2 MG/1 ML VIAL IV PRN ×2 (17:30→22:08)
[2019-12-27] MEDS ORDERED: REMDESIVIR 200 MG in Sodium Chloride 0.9% 250 ML 250 ML IV ONE (17:30)
[2019-12-27] MEDS ORDERED: MEDICATION INTERVENTION MC SCH (17:30)
[2019-12-27] MEDS: HUMALOG SQ SCH (18:09)
[2019-12-27] MEDS: Decadron 4 MG INJ IV SCH (18:14)
[2019-12-27] MEDS: NORCO 5/325 MG PO PRN (22:07)
[2019-12-27] MEDS: Lopressor 25MG Tab PO SCH (22:07)
[2019-12-27] MEDS: Imdur 30 MG PO SCH (22:08)
[2019-12-27] MEDS ORDERED: BACIGUENT PACKET ONE (22:08)
[2019-12-27] MEDS: HUMALOG SQ PRN (22:19)
[2019-12-27] MEDS ORDERED: Ativan 2 MG/1 ML VIAL IV ONE (23:33)
[2019-12-27] MEDS ORDERED: Ativan 2 MG/1 ML VIAL IV PRN (23:35)
[2019-12-28] MEDS: Bactroban OINTMENT TP SCH ×2 (04:47→10:59)
[2019-12-28] MEDS: Decadron 4 MG INJ IV SCH (05:45)
[2019-12-28 06:01] LABS: Basophil (Absolute #) 0 (0-0.4); Eosinophil % 0.4 % (0.00-5.0); Eosinophil (Absolute #) 0.01 (0-0.5); Hematocrit 30.3 % (35-47); Hemoglobin 9.7 gm/dl (12.0-16.0); Lymphocyte (Absolute #) 0.81 (1.0-4.6); Lymphocytes % 30.9 % (24.0-44.0); Mean Cell Volume 102.7 fl (78-100); Mean Corpuscular Hemoglobin 32.9 pg (26-32); Mean Platelet Volume 11.3 fl (7.5-11.0); Monocytes % 3.8 % (0.0-12.0); Neutrophil % 64.9 % (36.0-66.0); Platelet Count 123 K/mm3 (150-450); Red Blood Count 2.95 M/mm3 (4.1-5.4); Red Cell Distribution Width 14.4 % (11.5-14.0); White Blood Count 2.6 K/mm3 (4.0-10.5)
[2019-12-28 06:23] LABS: ALBUMIN 3.2 g/dL (3.5-5.0); ALKALINE PHOSPHATASE 91 U/L (38-126); ANION GAP 11.3 MEQ/L (5-15); BLOOD UREA NITROGEN 19 mg/dL (7-17); CHLORIDE 109 mmol/L (98-107); Calcium 8.4 mg/dL (8.4-10.2); Carbon Dioxide 20 mmol/L (22-30); Creatinine 1 0.54 mg/dL (0.52-1.04); EST GLOMERULAR FILTRATION RATE > 60.0 ML/MIN; Glucose 369 mg/dL (74-106); Potassium 4.4 mmol/L (3.5-5.1); SGOT/AST 72 U/L (14-36); SGPT/ALT 71 U/L (0-35); SODIUM 136 mmol/L (137-145); Total Protein 6.8 g/dL (6.3-8.2)
[2019-12-28] MEDS: HUMALOG SQ SCH ×3 (07:35→16:54)
[2019-12-28] MEDS: NORCO 5/325 MG PO PRN ×2 (07:39→16:52)
[2019-12-28] MEDS: HUMALOG SQ PRN ×4 (07:39→22:01)
[2019-12-28] MEDS ORDERED: NON-FORMULARY ITEM (Insulin Lispro 14 UNIT) SQ SCH (08:00)
[2019-12-28] MEDS ORDERED: NON-FORMULARY ITEM (Amlodipine Besylate [Amlodipine Besylate] 10 MG) PO SCH (10:00)
[2019-12-28] MEDS ORDERED: [UNRECOGNIZED DRUG - OTHER] PO SCH (10:00)
[2019-12-28] MEDS ORDERED: MV CAL IRON MN PO SCH (10:00)
[2019-12-28] MEDS ORDERED: FOLIC ACID PO SCH (10:00)
[2019-12-28] MEDS ORDERED: NON-FORMULARY ITEM (Venlafaxine Hcl [Venlafaxine Hcl Er] 150 MG) PO SCH (10:00)
[2019-12-28] MEDS ORDERED: NON-FORMULARY ITEM (Oxybutynin Chloride [Oxybutynin Chloride Er] 10 MG) PO SCH (10:00)
[2019-12-28] MEDS ORDERED: CHOL PO SCH (10:00)
[2019-12-28] MEDS ORDERED: NON-FORMULARY ITEM (Cyanocobalamin (Vitamin B-12) [Vitamin B12] 2,500 MCG) PO SCH (10:00)
[2019-12-28] MEDS ORDERED: FLUZONE QUAD 2020-2021 SYRINGE IM ONE (10:15)
--- NOTE | 2019-12-28 10:55 | HP ---
CHIEF COMPLAINT: Vomiting, unable to hold food down for one week and coughing up blood now. HISTORY OF PRESENT ILLNESS: Per the history from mother actually shows that she was vomiting blood at least the day of admission. In the emergency room there was not any evidence of a nosebleed but by the time she got back to the COVID unit she had copious bleeding from the right side of her nose. This took quite a while to get under control. She said just feeling tired, wore out, aching and some nausea, not eating food for two days. She got the COVID test and is now being admitted. She lives with her mother who is very demented and there are no other family members really to help take care of them. I am not for sure where she got the COVID. Apparently family members do come in. She does not know of any of them being positive. MEDICATIONS: Humalog 14 before meals, Letrozole 2.5 mg q.d., Norvasc 10 q.d., hydrocodone 5/325 mg 1 every 8 hours PRN pain, isosorbide 30, Imdur 30 mg 1 q.d., B12 2,500 units q.d., Lisinopril 20 q.d., calcium/minerals 1 q.d., oxybutynin 10 mg in the morning, KCL 10 q.d., Effexor Extended Release 150 q.d., Metformin 500 mg b.i.d., oxybutynin extended release 10 mg q.d. ALLERGIES: LYRICA. METHADONE. OXYCODONE. IMMUNIZATIONS: She thinks her immunizations are up-to-date. History of influenza vaccine: No. History of pneumococcal vaccine: No. TRAVEL RISK: She has not left the house really for two or three weeks, does not travel anywhere. PAST MEDICAL HISTORY: Diabetes mellitus, coronary artery disease, abdominal pain, back pain, hypertension, spastic bladder, depression. PAST SURGICAL HISTORY: The patient had a muscle stimulator for low back pain but was removed in 2013 after one year. She has had back surgery, broken hip, double mastectomy July 2017. REVIEW OF SYSTEMS: CONSTITUTIONAL: No fever. No chills. Just aching and weakness. HEENT: Eyes no problems. CHEST: A little bit short of breath. She said she is coughing up blood later on it turned out to be a nosebleed. CVS: No chest pain. No edema. She had heart attack several years ago. ABDOMEN: No complaints. : Has spastic bladder, frequent urination. She is on medication for that. MUSCULOSKELETAL: Occasional back pain. NEUROLOGIC: The patient has spastic bladder and some depression and takes Effexor for. The emergency room doctor put down Alzheimer's disease. She has been alert, orientated, given a reasonable history pretty well. She functions and takes her mother who is very demented. She was brought in later in the night. ENDOCRINE: Diabetes mellitus taking insulin for and Metformin which has been stopped secondary to having a CT with contrast which was normal. SHOE PACKER: The patient has had breast cancer numerous years ago. She still has radiation burn which has never healed on her left side. SOCIAL HISTORY: Never smoked, does not drink. Lives with her demented mother to take care of her mother. PHYSICAL EXAMINATION: VITAL SIGNS: Temperature 98F, pulse 80, respirations 20, blood pressure 160/80. Pulse ox 98% on room air. GENERAL APPEARANCE: The patient is kind of agitated because she has a bad nosebleed and before that she was not in any distress and was alert. HEENT: Pupils equal and reactive to light. Shortly after the exam she started bleeding profusely from the right side of her nose. NECK: Supple without adenopathy. CHEST: Clear. CVS: No murmurs or gallops. ABDOMEN: No tenderness. No masses. EXTREMITIES: Normal range of motion of the arms and legs. SKIN: There is an open area on the left side from radiation years ago. LAB DATA AND TESTS: Her chest x-ray and CT scan were okay. Hemoglobin 12.5, white count 2.9, PLT count was 136,000 so little bit low. IMPRESSION: 1) The patient does have COVID with secondary malaise, achiness and problem with nausea. 2) The patient had a severe nosebleed which took multiple attempts at placing a [employer] first the right side which was bleeding and then on the left to give it something to push against and with that we controlled the bleeding. She removed this seven or eight hours after admission overnight and she is being observed now without it. She has not eaten anything so we are going to feed her something to see if she can hold food down. HOSPITAL COURSE: Expected to go well unless the nosebleed reoccurs since she has removed the nose packing.
[2019-12-28] MEDS: Zestril 20 MG PO SCH (10:57)
[2019-12-28] MEDS: Vitamin B-12 500 MCG PO SCH (10:57)
[2019-12-28] MEDS: Klor Con 10 MEQ PO SCH (10:58)
[2019-12-28] MEDS: Effexor XR 75 MG PO SCH (10:58)
[2019-12-28] MEDS: LASIX 20 MG PO SCH (10:58)
[2019-12-28] MEDS: Lopressor 25MG Tab PO SCH ×3 (10:59→22:41)
[2019-12-28] MEDS: Ditropan XL 5 MG PO SCH (10:59)
[2019-12-28] MEDS: AFRIN NASAL SPRAY NS PRN (10:59)
[2019-12-28] MEDS: NORVASC 5 MG PO SCH (11:00)
[2019-12-28] MEDS: HOLD METFORMIN PRODUCTS FOR 48 HOURS MC SCH (11:00)
[2019-12-28] MEDS: Ativan 1 MG PO PRN ×3 (11:03→22:00)
[2019-12-28] MEDS ORDERED: ZOFRAN ODT 4 MG PO PRN (16:17)
[2019-12-28] MEDS ORDERED: REMDESIVIR 100 MG in Sodium Chloride 0.9% 100 ML IVPB 100 ML IV SCH (17:00)
[2019-12-28] MEDS: Imdur 30 MG PO SCH (22:00)
[2019-12-29 05:49] LABS: Hematocrit 30.6 % (35-47); Hemoglobin 9.8 gm/dl (12.0-16.0); Mean Corpuscular Hemoglobin 32.7 pg (26-32); Mean Platelet Volume 11.1 fl (7.5-11.0); Platelet Count 161 K/mm3 (150-450); Red Cell Distribution Width 14.6 % (11.5-14.0); White Blood Count 6.3 K/mm3 (4.0-10.5)
[2019-12-29 07:57] VITALS: O2SAT 97
[2019-12-29] MEDS: HUMALOG SQ PRN ×2 (07:59→12:08)
[2019-12-29] MEDS: HUMALOG SQ SCH ×2 (08:00→12:08)
[2019-12-29] MEDS: Bactroban OINTMENT TP SCH (09:39)
[2019-12-29] MEDS: Effexor XR 75 MG PO SCH (09:41)
[2019-12-29] MEDS: Ditropan XL 5 MG PO SCH (09:41)
[2019-12-29] MEDS: HOLD METFORMIN PRODUCTS FOR 48 HOURS MC SCH (09:42)
[2019-12-29] MEDS: Lopressor 25MG Tab PO SCH (09:42)
[2019-12-29] MEDS: LASIX 20 MG PO SCH (09:42)
[2019-12-29] MEDS: Klor Con 10 MEQ PO SCH (09:42)
[2019-12-29] MEDS: NORVASC 5 MG PO SCH (09:42)
[2019-12-29] MEDS: Zestril 20 MG PO SCH (09:43)
[2019-12-29] MEDS: Vitamin B-12 500 MCG PO SCH (09:43)
[2019-12-29 12:20] VITALS: BP 134/82; PULSE 78
[2019-12-30] MEDS ORDERED: Glucophage 500 MG PO SCH (10:15)
== END 2019-12-29 13:50 | disposition home or self-care (01) ==
LOC: ED 12:08 → MED SURG 14:40
PROVIDERS: ADMIT Family Medicine; ATTEND Family Medicine
DX: U07.1 COVID-19 (principal); R04.0 Epistaxis; E11.9 Type 2 diabetes mellitus without complications; I10 Essential (primary) hypertension; R53.81 Other malaise; I25.10 Atherosclerotic heart disease of native coronary artery without angina pectoris; F32.9 Major depressive disorder, single episode, unspecified; Z79.899 Other long term (current) drug therapy; Z23 Encounter for immunization; Z79.4 Long term (current) use of insulin; Z85.3 Personal history of malignant neoplasm of breast
CPT/HCPCS: 36415; 71260; 74160; 80053; 82947; 83036; 83690; 83880; 84484; 85025; 85027; 85610; 85730; 93005; 93041; 93268; 94762; 96360; 96374; 96375; 99291; G0008; G0378; 90686; 99285; J1100; J1817; J2060; J2405; Q0162; A9270-GY

== ENCOUNTER 2020-01-09 16:13 | Emergency (ER) | payer MEDICARE ==
[2020-01-09 17:18] LABS: Absolute Neutrophil Ct (ANC) 2.53 (1.4-6.9); BASOPHIL % 0.4 % (0.0-0.4); Basophil (Absolute #) 0.02 (0-0.4); Eosinophil % 1.8 % (0.00-5.0); Eosinophil (Absolute #) 0.08 (0-0.5); Hematocrit 31.9 % (35-47); Hemoglobin 10.6 gm/dl (12.0-16.0); Lymphocyte (Absolute #) 1.61 (1.0-4.6); Lymphocytes % 35.4 % (24.0-44.0); Mean Cell Volume 101.9 fl (78-100); Mean Corpuscular Hemoglobin 33.9 pg (26-32); Mean Corpuscular Hgb Concent. 33.2 g/dl (32-36); Mean Platelet Volume 11.7 fl (7.5-11.0); Monocyte (Absolute #) 0.31 (0.0-1.3); Monocytes % 6.8 % (0.0-12.0); Neutrophil % 55.6 % (36.0-66.0); Platelet Count 157 K/mm3 (150-450); Red Blood Count 3.13 M/mm3 (4.1-5.4); Red Cell Distribution Width 14.8 % (11.5-14.0); White Blood Count 4.6 K/mm3 (4.0-10.5)
--- NOTE | 2020-01-09 17:26 | XRAY ---
Indication: Cough and headache. Positive COVID 19. Comparison: December 23, 2019. Portable chest is clear. Heart is not enlarged. Bony thorax intact again with mild degenerative changes and left axilla abhay dissection. Impression: Nonacute chest with chronic features.
[2020-01-09 17:32] LABS: ALBUMIN 4.1 g/dL (3.5-5.0); ALKALINE PHOSPHATASE 203 U/L (38-126); ANION GAP 15.1 MEQ/L (5-15); BLOOD UREA NITROGEN 11 mg/dL (7-17); CHLORIDE 102 mmol/L (98-107); Calcium 10.1 mg/dL (8.4-10.2); Carbon Dioxide 20 mmol/L (22-30); Creatinine 1 0.63 mg/dL (0.52-1.04); EST GLOMERULAR FILTRATION RATE > 60.0 ML/MIN; Potassium 4.3 mmol/L (3.5-5.1); SGOT/AST 81 U/L (14-36); SGPT/ALT 66 U/L (0-35); SODIUM 132 mmol/L (137-145); Total Protein 8.7 g/dL (6.3-8.2)
--- NOTE | 2020-01-09 17:35 | ERPHSYRPT ---
- History of Present Illness Source: patient Patient Subjective Stated Complaint: " I have the COVID and I was positive a c ouple weeks ago and I'm not any better. I hurt all over, I have had diarrhea, weakess, fever, shortness of breath, cough, and headache. I was recently discharged from hospital." Triage Nursing Assessment: Pt presents to ER with complaints of symptoms of Covid-19. Complains of shortness of breath, cough, fever, weakness, all over body aches, headache. States has had fever and diarrhea also. Pt is alert and oriented x 3. Appears anxious and respirations slighly labored. Breath sounds clear and equal throughout. - . Pt skin is pale, warm, and dry. Pt states had had three episodes of diarrhea and vomited x 1 today. States recently dx positive covid-19 and recent discharge from hospital. Pt ambulates with slightly unsteady gait. Physician History: 64 yo wf who tested + for Covid19 in late November presents w NIEVES/diarrhea/N/V/fever/cough/lethargy. Timing/Duration: other (10-14 days) Severity: moderate Modifying Factors: Worsens With: cold therapy, eating, immobilization, movement, rest, acetaminophen, ibuprofen Associated Symptoms: nausea, vomiting, shortness of breath, cough, fever, headaches, loss of appetite Allergies/Adverse Reactions: pregabalin [From Lyrica] Allergy (Severe, Verified 01/09/20 17:12) Swelling methadone [Methadone] Allergy (Mild, Verified 01/09/20 17:12) Hives oxycodone HCl [From OxyContin] Allergy (Verified 01/09/20 17:12) Home Medications: Insulin Lispro [Humalog] 14 unit SQ TIDWMEALS 11/05/16 [History] Letrozole 2.5 mg PO DAILY 03/19/18 [History] Amlodipine Besylate 10 mg PO DAILY 09/29/18 [History] Hydrocodone Bit/Acetaminophen [Hydrocodon-Acetaminophen 5-325] 1 each PO Q8H PRN PRN 09/29/18 [History] Isosorbide Mononitrate 30 mg [Imdur 30 MG] 30 mg PO HS 09/29/18 [History] Cyanocobalamin (Vitamin B-12) [Vitamin B12] 2,500 mcg PO DAILY 05/03/19 [History] Lisinopril 20 mg [Zestril 20 MG] 20 mg PO DAILY 05/03/19 [History] Mv,Willie,Iron,Mn/Folic Acid/Chol [Hair, Skin and Nails Capsule] 1 each PO DAILY 05/03/19 [History] Oxybutynin Chloride [Oxybutynin Chloride ER] 10 mg PO DAILY 05/03/19 [History] Potassium Chloride 10 Meq Tab* [Klor Con 10 MEQ] 10 meq PO DAILY 05/03/19 [History] Venlafaxine HCl [Venlafaxine HCl ER] 150 mg PO DAILY 05/03/19 [History] Metformin HCl 500 mg [Glucophage 500 MG] 500 mg PO BIDWM 12/27/19 [History] Oxybutynin Chloride [Oxybutynin Chloride ER] 10 mg PO DAILY 12/27/19 [History] Hx Tetanus, Diphtheria Vaccination/Date Given: Yes Hx Influenza Vaccination/Date Given: Yes Hx Pneumococcal Vaccination/Date Given: Yes Immunizations Up to Date: Yes Travel Risk - International Travel Have you traveled outside of the country in past 3 weeks: No - Coronavirus Screening Are you exhibiting any of the following symptoms?: Yes Symptoms: Fever, Cough: New Onset, Vomiting/Diarrhea, Headaches/Body Aches/Fatigue - Review of Systems Constitutional: Fever, Chills, Fatigue, Weakness Eyes: No Symptoms Ears, Nose, & Throat: No Symptoms Respiratory: Cough, Dyspnea Cardiac: No Symptoms Abdominal/Gastrointestinal: No Symptoms, Nausea, Vomiting, Diarrhea Genitourinary Symptoms: No Symptoms Musculoskeletal: No Symptoms Skin: No Symptoms Neurological: No Symptoms Psychological: No Symptoms Endocrine: No Symptoms Hematologic/Lymphatic: No Symptoms Immunological/Allergic: No Symptoms - Past Medical History Pertinent Past Medical History: Yes Neurological History: Alzheimer's Disease ENT History: No Pertinent History Cardiac History: No Pertinent History, Hypertension Respiratory History: No Pertinent History Endocrine Medical History: Diabetes Type II Musculoskeletal History: Fibromyalgia, Rheumatoid Arthritis GI Medical History: No Pertinent History History: No Pertinent History Psycho-Social History: Anxiety, Depression Female Reproductive Disorders: Breast Cancer Other Medical History: breast CA DX 2018. covid + on 12/26/2019 - Past Surgical History Past Surgical History: Yes Neuro Surgical History: No Pertinent History Cardiac: No Pertinent History Respiratory: No Pertinent History Gastrointestinal: Hernia Repair Genitourinary: No Pertinent History Musculoskeletal: Orthopedic Surgery Female Surgical History: No Pertinent History Other Surgical History: muscle stimulator 02/04-REMOVED 2013. back surgery hip surgery. double masectomy july 2017 - Social History Smoking Status: Never smoker Exposure to second hand smoke: No Drug Use: marijuana Patient Lives Alone: No - Female History Hx Now: No - Nursing Vital Signs Nursing Vital Signs: Initial Vital Signs Temperature 98.6 F 01/09/20 16:23 Pulse Rate 94 H 01/09/20 16:23 Respiratory Rate 22 01/09/20 16:23 O2 Sat by Pulse Oximetry 92 L 01/09/20 16:23 Pain Scale Pain Intensity 3 - Physical Exam General Appearance: no apparent distress Eye Exam: PERRL/EOMI, eyes nml inspection Ears, Nose, Throat Exam: normal ENT inspection, TMs normal, pharynx normal, moist mucous membranes Neck Exam: normal inspection, non-tender, supple, full range of motion, No meningismus, No mass, No Brudzinski, No Kernig's, No carotid bruit Respiratory Exam: normal breath sounds, lungs clear, airway intact, No respiratory distress Cardiovascular Exam: regular rate/rhythm, normal heart sounds, normal peripheral pulses, No murmur Gastrointestinal/Abdomen Exam: soft, normal bowel sounds, No tenderness Pelvic Exam: not done Back Exam: normal inspection, normal range of motion Extremity Exam: normal inspection, normal range of motion Neurologic Exam: alert, oriented x 3, cooperative, 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 tested, n ormal mood/affect, sensation nml, No motor deficits, No sensory deficit Skin Exam: normal color, warm, dry, No rash Lymphatic Exam: No adenopathy SpO2 Interpretation: normal SpO2: 96 O2 Delivery: Room Air - Course Nursing assessment & vital signs reviewed: Yes - Radiology Exams Chest X-ray Interpretation: Discussed w/ radiologist (NAD) Ordered Tests: Active Orders 24 hr Category Date Time Status EKG-ER Only STAT Care 01/09/20 16:43 Completed CHEST 1 VIEW (PORTABLE) Stat Exams 01/09/20 17:06 Completed CBC W DIFF Stat Lab 01/09/20 17:00 Completed CMP Stat Lab 01/09/20 17:00 Completed ETHYL ALCOHOL Stat Lab 01/09/20 17:00 Completed Lactic Acid Stat Lab 01/09/20 17:02 Completed POCT GLUCOSE Stat Lab 01/09/20 17:10 Completed POCT GLUCOSE Stat Lab 01/09/20 19:27 Completed TROPONIN Q3H Lab 01/09/20 17:00 Completed UA W/RFX UR CULTURE Stat Lab 01/09/20 17:34 Completed Urine Triage Profile Stat Lab 01/09/20 17:34 Completed Medication Summary Discontinued Medications Generic Name Dose Route Start Last Admin Trade Name Freq PRN Reason Stop Dose Admin Sodium Chloride 1,000 mls @ 999 mls/hr 01/09/20 17:54 01/09/20 19:30 Sodium Chloride 0.9% 1000 Ml IV 01/09/20 18:54 Infused .Q1H1M STA Infusion Sodium Chloride Confirm 01/09/20 18:03 Sodium Chloride 0.9% 1000 Ml Administered 01/09/20 18:04 Dose 1,000 mls @ ud .ROUTE .Opicos ONE Insulin Human Regular 10 unit 01/09/20 17:54 01/09/20 18:04 Humulin R IV 01/09/20 17:55 10 unit STAT ONE Administration Insulin Human Regular 10 unit 01/09/20 17:55 01/09/20 18:05 Humulin R SQ 01/09/20 17:56 10 unit STAT ONE Administration Insulin Human Regular Confirm 01/09/20 18:03 Humulin R Administered 01/09/20 18:04 Dose 20 unit .ROUTE .STK-MED ONE Lab/Rad Data: Laboratory Result Diagrams 01/09/20 17:00 01/09/20 17:00 Laboratory Results 01/09/20 01/09/20 01/09/20 Range/Units 19:27 17:34 17:34 WBC (4.0-10.5) K/mm3 RBC (4.1-5.4) M/mm3 Hgb (12.0-16.0) gm/dl Hct (35-47) % MCV (78-100) fl MCH (26-32) pg MCHC (32-36) g/dl RDW (11.5-14.0) % Plt Count (150-450) K/mm3 MPV (7.5-11.0) fl Gran % (36.0-66.0) % Eos # (Auto) (0-0.5) Absolute Lymphs (auto) (1.0-4.6) Absolute Monos (auto) (0.0-1.3) Lymphocytes % (24.0-44.0) % Monocytes % (0.0-12.0) % Eosinophils % (0.00-5.0) % Basophils % (0.0-0.4) % Absolute Granulocytes (1.4-6.9) Basophils # (0-0.4) Sodium (137-145) mmol/L Potassium (3.5-5.1) mmol/L Chloride (98-107) mmol/L Carbon Dioxide (22-30) mmol/L Anion Gap (5-15) MEQ/L BUN (7-17) mg/dL Creatinine (0.52-1.04) mg/dL Estimated GFR ML/MIN Glucose (74-106) mg/dL POC Glucometer 291 H (74 to 106) mg/dL Lactic Acid (0.4-2.0) Calcium (8.4-10.2) mg/dL Total Bilirubin (0.2-1.3) mg/dL AST (14-36) U/L ALT (0-35) U/L Alkaline Phosphatase (38-126) U/L Troponin I (0.000-0.034) ng/mL Serum Total Protein (6.3-8.2) g/dL Albumin (3.5-5.0) g/dL Urine Color STRAW (YELLOW) Urine Appearance CLEAR (CLEAR) Urine pH 5.0 (5-6) Ur Specific [place] 1.032 (1.005-1.025) Urine Protein NEGATIVE (Negative) Urine Ketones TRACE (NEGATIVE) Urine Blood NEGATIVE (0-5) Mookie/ul Urine Nitrite NEGATIVE (NEGATIVE) Urine Bilirubin NEGATIVE (NEGATIVE) Urine Urobilinogen NEGATIVE (0-1) mg/dL Ur Leukocyte Esterase NEGATIVE (NEGATIVE) Urine WBC (Auto) NONE (0-5) /HPF Urine RBC (Auto) NONE (0-2) /HPF U Epithel Cells (Auto) NONE (FEW) /HPF Urine Bacteria (Auto) NONE (NEGATIVE) /HPF Urine Mucus (Auto) SLIGHT (NEGATIVE) /HPF Urine Culture Reflexed NO (NO) Urine Glucose >=500 (NEGATIVE) mg/dL Urine Opiates Level NEGATIVE (NEGATIVE) Ur Methadone NEGATIVE (NEGATIVE) Urine Barbiturates NEGATIVE (NEGATIVE) Ur Phencyclidine (PCP) NEGATIVE (NEGATIVE) Urine Amphetamine NEGATIVE (NEGATIVE) U Benzodiazepine Level NEGATIVE (NEGATIVE) Urine Cocaine NEGATIVE (NEGATIVE) Urine Marijuana (THC) NEGATIVE (NEGATIVE) Ethyl Alcohol (0-10) mg/dL 01/09/20 01/09/20 01/09/20 Range/Units 17:10 17:02 17:00 WBC (4.0-10.5) K/mm3 RBC (4.1-5.4) M/mm3 Hgb (12.0-16.0) gm/dl Hct (35-47) % MCV (78-100) fl MCH (26-32) pg MCHC (32-36) g/dl RDW (11.5-14.0) % Plt Count (150-450) K/mm3 MPV (7.5-11.0) fl Gran % (36.0-66.0) % Eos # (Auto) (0-0.5) Absolute Lymphs (auto) (1.0-4.6) Absolute Monos (auto) (0.0-1.3) Lymphocytes % (24.0-44.0) % Monocytes % (0.0-12.0) % Eosinophils % (0.00-5.0) % Basophils % (0.0-0.4) % Absolute Granulocytes (1.4-6.9) Basophils # (0-0.4) Sodium (137-145) mmol/L Potassium (3.5-5.1) mmol/L Chloride (98-107) mmol/L Carbon Dioxide (22-30) mmol/L Anion Gap (5-15) MEQ/L BUN (7-17) mg/dL Creatinine (0.52-1.04) mg/dL Estimated GFR ML/MIN Glucose (74-106) mg/dL POC Glucometer 447 H (74 to 106) mg/dL Lactic Acid 2.1 H (0.4-2.0) Calcium (8.4-10.2) mg/dL Total Bilirubin (0.2-1.3) mg/dL AST (14-36) U/L ALT (0-35) U/L Alkaline Phosphatase (38-126) U/L Troponin I < 0.012 (0.000-0.034) ng/mL Serum Total Protein (6.3-8.2) g/dL Albumin (3.5-5.0) g/dL Urine Color (YELLOW) Urine Appearance (CLEAR) Urine pH (5-6) Ur Specific [place] (1.005-1.025) Urine Protein (Negative) Urine Ketones (NEGATIVE) Urine Blood (0-5) Mookie/ul Urine Nitrite (NEGATIVE) Urine Bilirubin (NEGATIVE) Urine Urobilinogen (0-1) mg/dL Ur Leukocyte Esterase (NEGATIVE) Urine WBC (Auto) (0-5) /HPF Urine RBC (Auto) (0-2) /HPF U Epithel Cells (Auto) (FEW) /HPF Urine Bacteria (Auto) (NEGATIVE) /HPF Urine Mucus (Auto) (NEGATIVE) /HPF Urine Culture Reflexed (NO) Urine Glucose (NEGATIVE) mg/dL Urine Opiates Level (NEGATIVE) Ur Methadone (NEGATIVE) Urine Barbiturates (NEGATIVE) Ur Phencyclidine (PCP) (NEGATIVE) Urine Amphetamine (NEGATIVE) U Benzodiazepine Level (NEGATIVE) Urine Cocaine (NEGATIVE) Urine Marijuana (THC) (NEGATIVE) Ethyl Alcohol (0-10) mg/dL 01/09/20 01/09/20 Range/Units 17:00 17:00 WBC 4.6 (4.0-10.5) K/mm3 RBC 3.13 L (4.1-5.4) M/mm3 Hgb 10.6 L (12.0-16.0) gm/dl Hct 31.9 L (35-47) % MCV 101.9 H (78-100) fl MCH 33.9 H (26-32) pg MCHC 33.2 (32-36) g/dl RDW 14.8 H (11.5-14.0) % Plt Count 157 (150-450) K/mm3 MPV 11.7 H (7.5-11.0) fl Gran % 55.6 (36.0-66.0) % Eos # (Auto) 0.08 (0-0.5) Absolute Lymphs (auto) 1.61 (1.0-4.6) Absolute Monos (auto) 0.31 (0.0-1.3) Lymphocytes % 35.4 (24.0-44.0) % Monocytes % 6.8 (0.0-12.0) % Eosinophils % 1.8 (0.00-5.0) % Basophils % 0.4 (0.0-0.4) % Absolute Granulocytes 2.53 (1.4-6.9) Basophils # 0.02 (0-0.4) Sodium 132 L (137-145) mmol/L Potassium 4.3 (3.5-5.1) mmol/L Chloride 102 (98-107) mmol/L Carbon Dioxide 20 L (22-30) mmol/L Anion Gap 15.1 H (5-15) MEQ/L BUN 11 (7-17) mg/dL Creatinine 0.63 (0.52-1.04) mg/dL Estimated GFR > 60.0 ML/MIN Glucose 523 H* (74-106) mg/dL POC Glucometer (74 to 106) mg/dL Lactic Acid (0.4-2.0) Calcium 10.1 (8.4-10.2) mg/dL Total Bilirubin 0.90 (0.2-1.3) mg/dL AST 81 H (14-36) U/L ALT 66 H (0-35) U/L Alkaline Phosphatase 203 H (38-126) U/L Troponin I (0.000-0.034) ng/mL Serum Total Protein 8.7 H (6.3-8.2) g/dL Albumin 4.1 (3.5-5.0) g/dL Urine Color (YELLOW) Urine Appearance (CLEAR) Urine pH (5-6) Ur Specific [place] (1.005-1.025) Urine Protein (Negative) Urine Ketones (NEGATIVE) Urine Blood (0-5) Mookie/ul Urine Nitrite (NEGATIVE) Urine Bilirubin (NEGATIVE) Urine Urobilinogen (0-1) mg/dL Ur Leukocyte Esterase (NEGATIVE) Urine WBC (Auto) (0-5) /HPF Urine RBC (Auto) (0-2) /HPF U Epithel Cells (Auto) (FEW) /HPF Urine Bacteria (Auto) (NEGATIVE) /HPF Urine Mucus (Auto) (NEGATIVE) /HPF Urine Culture Reflexed (NO) Urine Glucose (NEGATIVE) mg/dL Urine Opiates Level (NEGATIVE) Ur Methadone (NEGATIVE) Urine Barbiturates (NEGATIVE) Ur Phencyclidine (PCP) (NEGATIVE) Urine Amphetamine (NEGATIVE) U Benzodiazepine Level (NEGATIVE) Urine Cocaine (NEGATIVE) Urine Marijuana (THC) (NEGATIVE) Ethyl Alcohol < 10 (0-10) mg/dL - Progress Progress Note: 01/09/20 18:[address] ab-pelvis 12/27/19 w cirrhosis/splenomegaly/CT chest 12/27/19 w Covid19 01/09/20 19:29 1L NS bolus/10u sq reg insulin-10u iv insulin w decrease in glucose to 291. Counseled pt/family regarding: lab results, diagnosis, need for follow-up, rad results - Departure Departure Disposition: Home Clinical Impression: COVID-19, Cirrhosis, Hyperglycemia Condition: Stable Critical Care Time: No Referrals: JOLANTA QUINTANILLA [Primary Care Provider] - Instructions: Cirrhosis, Hyperglycemia, Adult (DC), Coronavirus Disease 2019 (COVID-19) (DC) Additional Instructions: Fluids Watch glucose closely Follow up with family MD about cirrhosis Return to ER for oxygen saturation less than 91(get a pulse oximeter and monitor oxyen saturation)
[2020-01-09 17:41] LABS: Appearance CLEAR (CLEAR); Bilirubin NEGATIVE (NEGATIVE); Blood NEGATIVE Ery/ul (0-5); Glucose >=500 mg/dL (NEGATIVE); Ketones TRACE (NEGATIVE); Leukocyte Esterase NEGATIVE (NEGATIVE); Mucus SLIGHT /HPF (NEGATIVE); Nitrite NEGATIVE (NEGATIVE); Protein,Urine Dip NEGATIVE (Negative); Specific Gravity 1.032 (1.005-1.025); Urobilinogen NEGATIVE mg/dL (0-1)
[2020-01-09 17:43] LABS: ETHYL ALCOHOL < 10 mg/dL (0-10); Glucose 523 mg/dL (74-106)
[2020-01-09] MEDS ORDERED: Sodium Chloride 0.9% 1000 ML 1,000 ML IV STA (17:54)
[2020-01-09] MEDS ORDERED: HUMULIN R IV ONE (17:54)
[2020-01-09 17:55] LABS: Amphetamine,Urine NEGATIVE (NEGATIVE); Barbiturate,Urine NEGATIVE (NEGATIVE); Benzodiazepine,Urine NEGATIVE (NEGATIVE); Cocaine,Urine NEGATIVE (NEGATIVE); Methadone,Urine NEGATIVE (NEGATIVE); Opiate,Urine NEGATIVE (NEGATIVE); PCP,Urine NEGATIVE (NEGATIVE); THC,Urine NEGATIVE (NEGATIVE)
[2020-01-09] MEDS ORDERED: HUMULIN R SQ ONE (17:55)
[2020-01-09] MEDS ORDERED: Sodium Chloride 0.9% 1000 ML 1,000 ML ONE (18:03)
[2020-01-09] MEDS ORDERED: HUMULIN R ONE (18:03)
[2020-01-09 19:32] VITALS: BP 137/73; PULSE 80
[2020-01-09 19:33] VITALS: O2SAT 96
== END 2020-01-09 19:54 | disposition home or self-care (01) ==
LOC: ED 16:13
DX: U07.1 COVID-19 (principal); K74.60 Unspecified cirrhosis of liver; Z79.899 Other long term (current) drug therapy; R50.9 Fever, unspecified; I10 Essential (primary) hypertension; E11.9 Type 2 diabetes mellitus without complications; M06.9 Rheumatoid arthritis, unspecified; F41.9 Anxiety disorder, unspecified; F32.9 Major depressive disorder, single episode, unspecified; Z85.3 Personal history of malignant neoplasm of breast
CPT/HCPCS: 36415; 71045; 80053; 80307; 81001; 82947; 83605; 84484; 85025; 93005; 96360; 96372; 99284; G0480; J1815

== ENCOUNTER 2020-05-14 08:46 | Emergency (ER) | payer MEDICARE ==
[2020-05-14 09:26] LABS: Absolute Neutrophil Ct (ANC) 3.13 (1.4-6.9); BASOPHIL % 0.4 % (0.0-0.4); Basophil (Absolute #) 0.02 (0-0.4); Eosinophil % 3.3 % (0.00-5.0); Eosinophil (Absolute #) 0.17 (0-0.5); Hematocrit 39.3 % (35-47); Hemoglobin 12.2 gm/dl (12.0-16.0); Lymphocyte (Absolute #) 1.46 (1.0-4.6); Lymphocytes % 28.7 % (24.0-44.0); Mean Cell Volume 96.3 fl (78-100); Mean Corpuscular Hemoglobin 29.9 pg (26-32); Mean Platelet Volume 10.5 fl (7.5-11.0); Monocyte (Absolute #) 0.31 (0.0-1.3); Monocytes % 6.1 % (0.0-12.0); Neutrophil % 61.5 % (36.0-66.0); Platelet Count 183 K/mm3 (150-450); Red Blood Count 4.08 M/mm3 (4.1-5.4); Red Cell Distribution Width 16.6 % (11.5-14.0); White Blood Count 5.1 K/mm3 (4.0-10.5)
--- NOTE | 2020-05-14 09:26 | ERPHSYRPT ---
- History of Present Illness Source: patient, EMS Patient Subjective Stated Complaint: Nosebleed Triage Nursing Assessment: Patient brought to ED via EMS and transferred to bed with assist of 2. Patient A+O X3. Patient's skin pink, warm and dry. Patient complains of nosebleed that started at 0500 this am out of hailey nares. Patient not actively bleeding at this time. Patient denies any recent trauma or injuries. Patient denies pain or discomfort. Physician History: 65 yo wf w L epistaxis x 4 hours. Bleeding stopped by EMS w ice/pressure. Pt denies h/o epistaxis/ASA/coumadin/trauma/plavix. Timing/Duration: abrupt onset Severity: mild ENT Location: nose Prearrival Treatment: squeezing nostrils Modifying Factors: Improves With: rest Associated Symptoms: epistaxis, No ear pain (R), No ear pain (L), No cough, No fever, No chills, No change in hearing, No dizziness, No drooling, No ear drainage, No facial pain/swelling, No headache, No hearing loss, No jaw pain, No malaise, No motion sickness, No nasal congestion/drainage, No nasal foreign body, No neck pain, No poor fluid intake, No poor solids intake, No ringing of ears, No swollen glands, No sinus infection, No sore throat, No tooth pain, No difficulty swallowing Allergies/Adverse Reactions: pregabalin [From Lyrica] Allergy (Severe, Verified 05/14/20 08:50) Swelling methadone [Methadone] Allergy (Mild, Verified 05/14/20 08:50) Hives oxycodone HCl [From OxyContin] Allergy (Verified 05/14/20 08:50) Home Medications: Insulin Lispro [Humalog] 14 unit SQ TIDWMEALS 11/05/16 [History] Letrozole 2.5 mg PO DAILY 03/19/18 [History] Amlodipine Besylate 10 mg PO DAILY 09/29/18 [History] Hydrocodone Bit/Acetaminophen [Hydrocodon-Acetaminophen 5-325] 1 each PO Q8H PRN PRN 09/29/18 [History] Isosorbide Mononitrate 30 mg [Imdur 30 MG] 30 mg PO HS 09/29/18 [History] Cyanocobalamin (Vitamin B-12) [Vitamin B12] 2,500 mcg PO DAILY 05/03/19 [History] Lisinopril 20 mg [Zestril 20 MG] 20 mg PO DAILY 05/03/19 [History] Mv,Willie,Iron,Mn/Folic Acid/Chol [Hair, Skin and Nails Capsule] 1 each PO DAILY 05/03/19 [History] Oxybutynin Chloride [Oxybutynin Chloride ER] 10 mg PO DAILY 05/03/19 [History] Potassium Chloride 10 Meq Tab* [Klor Con 10 MEQ] 10 meq PO DAILY 05/03/19 [History] Venlafaxine HCl [Venlafaxine HCl ER] 150 mg PO DAILY 05/03/19 [History] Metformin HCl 500 mg [Glucophage 500 MG] 500 mg PO BIDWM 12/27/19 [History] Oxybutynin Chloride [Oxybutynin Chloride ER] 10 mg PO DAILY 12/27/19 [History] Hx Tetanus, Diphtheria Vaccination/Date Given: Yes Hx Influenza Vaccination/Date Given: Yes Hx Pneumococcal Vaccination/Date Given: Yes Immunizations Up to Date: Yes Travel Risk - International Travel Have you traveled outside of the country in past 3 weeks: No - Coronavirus Screening Are you exhibiting any of the following symptoms?: No Close contact with a COVID-19 positive Pt in past 14-21 Days: No - Review of Systems Constitutional: No Symptoms Eyes: No Symptoms Ears, Nose, & Throat: Epistaxis, No Ear Pain, No Ear Discharge, No Hearing Changes, No Tinnitus, No Nose Pain, No Nose Congestion, No Nose Discharge, No Sinus Drainage, No Mouth Pain, No Mouth Swelling, No Loose Teeth, No Throat Pain, No Throat Swelling, No Hoarse, No Painful Swallowing, No Snoring, No Stridor Respiratory: No Symptoms Cardiac: No Symptoms Abdominal/Gastrointestinal: No Symptoms Genitourinary Symptoms: No Symptoms Musculoskeletal: No Symptoms Skin: No Symptoms Neurological: No Symptoms Psychological: No Symptoms Endocrine: No Symptoms Hematologic/Lymphatic: No Symptoms Immunological/Allergic: No Symptoms - Past Medical History Pertinent Past Medical History: Yes Neurological History: Alzheimer's Disease ENT History: No Pertinent History Cardiac History: No Pertinent History, Hypertension Respiratory History: No Pertinent History Endocrine Medical History: Diabetes Type II Musculoskeletal History: Fibromyalgia, Rheumatoid Arthritis GI Medical History: No Pertinent History History: No Pertinent History Psycho-Social History: Anxiety, Depression Female Reproductive Disorders: Breast Cancer Other Medical History: breast CA DX 2018. covid + on 12/26/2019 - Past Surgical History Past Surgical History: Yes Neuro Surgical History: No Pertinent History Cardiac: No Pertinent History Respiratory: No Pertinent History Gastrointestinal: Hernia Repair Genitourinary: No Pertinent History Musculoskeletal: Orthopedic Surgery Female Surgical History: No Pertinent History Other Surgical History: muscle stimulator 02/04-REMOVED 2013. back surgery hip surgery. double masectomy july 2017 - Social History Smoking Status: Never smoker Exposure to second hand smoke: No Drug Use: none Patient Lives Alone: No Significant Family History: no pertinent family hx - Female History Hx Now: No - Nursing Vital Signs Nursing Vital Signs: Initial Vital Signs Temperature 99.0 F 05/14/20 08:50 Pulse Rate 95 H 05/14/20 08:50 Respiratory Rate 18 05/14/20 08:50 Blood Pressure 125/69 05/14/20 08:50 O2 Sat by Pulse Oximetry 96 05/14/20 08:50 Pain Scale Pain Intensity 3 - Physical Exam General Appearance: anxiety Eye Exam: bilateral eye: normal inspection, PERRL, EOMI Ear Exam: bilateral ear: auricle normal, canal normal, TM normal Nasal Exam: active bleeding (Mild active bleeding L nostril) Throat Exam: normal Neck Exam: normal inspection Cardiovascular/Respiratory Exam: normal breath sounds, regular rate/rhythm, heart sounds normal Abdominal Exam: non-tender, soft, No guarding, No tenderness Neurologic Exam: alert, oriented x 3, cooperative, jig grinder II-XII nml as tested, nor mal mood/affect, sensation nml, No motor deficits, No sensory deficit Skin Exam: normal color, warm, dry, No rash SpO2 Interpretation: normal SpO2: 96 O2 Delivery: Room Air - Course Nursing assessment & vital signs reviewed: Yes Ordered Tests: Active Orders 24 hr Category Date Time Status CBC W DIFF Stat Lab 05/14/20 09:12 Completed PROTIME WITH INR Stat Lab 05/14/20 09:12 Completed PTT Stat Lab 05/14/20 09:12 Completed Medication Summary Discontinued Medications Generic Name Dose Route Start Last Admin Trade Name Freq PRN Reason Stop Dose Admin Fentanyl Citrate 50 mcg 05/14/20 13:00 05/14/20 13:03 Sublimaze 100 Mcg/2 Ml IV 05/14/20 13:01 50 mcg STAT ONE Administration Fentanyl Citrate Confirm 05/14/20 13:00 Sublimaze 100 Mcg/2 Ml Administered 05/14/20 13:01 Dose 100 mcg .ROUTE .STK-MED ONE Lorazepam 1 mg 05/14/20 09:40 05/14/20 09:49 Ativan 2 Mg/1 Ml Vial IV 05/14/20 09:41 1 mg STAT ONE Administration Lorazepam Confirm 05/14/20 09:49 Ativan 2 Mg/1 Ml Vial Administered 05/14/20 09:50 Dose 2 mg .ROUTE .STK-MED ONE Ondansetron HCl 2 mg 05/14/20 13:00 05/14/20 13:02 Zofran 4 Mg/2 Ml Vial IV 06/13/20 12:59 2 mg Q6H PRN PRN Administration NAUSEA/VOMITING Ondansetron HCl Confirm 05/14/20 13:00 Zofran 4 Mg/2 Ml Vial Administered 05/14/20 13:01 Dose 4 mg .ROUTE .STK-MED ONE Phenylephrine HCl Confirm 05/14/20 09:31 Neosynephrine 0.5% Nasal [place]/Drops Administered 05/14/20 09:32 Dose 15 ml .ROUTE .STK-MED ONE Phenylephrine HCl 15 ml 05/14/20 10:00 05/14/20 10:00 Neosynephrine 0.5% Nasal [place]/Drops NS 05/14/20 10:01 15 ml STAT ONE Administration Lab/Rad Data: Laboratory Result Diagrams 05/14/20 09:12 Laboratory Results 05/14/20 05/14/20 Range/Units 09:12 09:12 WBC 5.1 (4.0-10.5) K/mm3 RBC 4.08 L (4.1-5.4) M/mm3 Hgb 12.2 (12.0-16.0) gm/dl Hct 39.3 (35-47) % MCV 96.3 (78-100) fl MCH 29.9 (26-32) pg MCHC 31.0 L (32-36) g/dl RDW 16.6 H (11.5-14.0) % Plt Count 183 (150-450) K/mm3 MPV 10.5 (7.5-11.0) fl Gran % 61.5 (36.0-66.0) % Eos # (Auto) 0.17 (0-0.5) Absolute Lymphs (auto) 1.46 (1.0-4.6) Absolute Monos (auto) 0.31 (0.0-1.3) Lymphocytes % 28.7 (24.0-44.0) % Monocytes % 6.1 (0.0-12.0) % Eosinophils % 3.3 (0.00-5.0) % Basophils % 0.4 (0.0-0.4) % Absolute Granulocytes 3.13 (1.4-6.9) Basophils # 0.02 (0-0.4) PT 14.3 H (9.95-12.35) SECONDS INR 1.26 (0.8-3.0) APTT 33.3 (25.3-37.0) SECONDS - Progress Progress: improved Progress Note: 05/14/20 14:34 Bleeding initially responded to nasal clip and ice but started to bleed again, so balloon epistaxis catheter placed L nostril. Pt very anxious and continued to rub her nose and complain of pain. After an extensive observation, pt given 50umg IV Fentanyl-4mg IV Zofran w good response to pain. Bleeding abated, and pt discharged w epistaxis catheter in place. Counseled pt/family regarding: need for follow-up - Departure Departure Disposition: Home Clinical Impression: Epistaxis Condition: Stable Critical Care Time: No Referrals: JOLANTA QUINTANILLA [Primary Care Provider] - Instructions: Nosebleeds (DC) Additional Instructions: No not blow or rub nose Return to ER or follow up with family MD to have device removed from nose on Thursday Return to ER if bleeding restarts
[2020-05-14] MEDS ORDERED: NEOSYNEPHRINE 0.5% NASAL SPRAY/DROPS ONE (09:31)
[2020-05-14] MEDS ORDERED: Ativan 2 MG/1 ML VIAL IV ONE (09:40)
[2020-05-14 09:43] LABS: INR 1.26 (0.8-3.0); PROTIME 14.3 SECONDS (9.95-12.35)
[2020-05-14] MEDS ORDERED: Ativan 2 MG/1 ML VIAL ONE (09:49)
[2020-05-14 09:58] LABS: PTT 33.3 SECONDS (25.3-37.0)
[2020-05-14] MEDS ORDERED: NEOSYNEPHRINE 0.5% NASAL SPRAY/DROPS NS ONE (10:00)
[2020-05-14] MEDS ORDERED: SUBLIMAZE 100 MCG/2 ML ONE (13:00)
[2020-05-14] MEDS ORDERED: Zofran 4 MG/2 ML VIAL IV PRN (13:00)
[2020-05-14] MEDS ORDERED: Zofran 4 MG/2 ML VIAL ONE (13:00)
[2020-05-14] MEDS ORDERED: SUBLIMAZE 100 MCG/2 ML IV ONE (13:00)
[2020-05-14 15:09] VITALS: BP 164/79; PULSE 104
[2020-05-14 20:50] VITALS: O2SAT 96
== END 2020-05-14 16:00 | disposition home or self-care (01) ==
LOC: ED 08:46
DX: R04.0 Epistaxis (principal); Z79.899 Other long term (current) drug therapy; G30.9 Alzheimer's disease, unspecified; F02.80 Dementia in other diseases classified elsewhere, unspecified severity, without behavioral disturbance, psychotic disturbance, mood disturbance, and anxiety; E11.9 Type 2 diabetes mellitus without complications; I10 Essential (primary) hypertension; M06.9 Rheumatoid arthritis, unspecified; F41.8 Other specified anxiety disorders; Z85.3 Personal history of malignant neoplasm of breast
CPT/HCPCS: 36000; 36415; 85025; 85610; 85730; 96374; 96375; 99284; J2060; J2405; J3010; A9270-GY

== ENCOUNTER 2020-06-01 10:58 | Inpatient (IN) | payer MEDICARE ==
--- NOTE | 2020-06-01 11:07 | ERPHSYRPT ---
- History of Present Illness Time Seen by Provider: 06/01/20 11:07 Source: patient Exam Limitations: no limitations Physician History: This is a 65-year-old female patient of Dr. Dhillon who was diagnosed with breast cancer in 2018 and underwent a bilateral modified radical mastectomy and chemo radiation treatments. Patient presented to her primary care physician's office this morning complaining of chest pain abdominal pain as well as leg pain. She hurts all over. Patient has a mild cough as well. This patient has history of COPD, rheumatoid arthritis, Alzheimer dementia, hypertension, COPD, diabetes, fibromyalgia, anxiety and depression. Dr. Dhillon reviewed this patient with me and we discussed the plan of work-up. Dr. Dhillon's plan is to admit this patient into the hospital for further evaluation once the emergency work-up has been completed. Patient arrives very anxious into the emergency room. Timing/Duration: day(s) (Several days) Severity: moderate Associated Symptoms: abdominal pain, chest pain, other (Hurts all over especially in bilateral lower extremities.), No shortness of breath Allergies/Adverse Reactions: pregabalin [From Lyrica] Allergy (Severe, Verified 05/14/20 08:50) Swelling methadone [Methadone] Allergy (Mild, Verified 05/14/20 08:50) Hives oxycodone HCl [From OxyContin] Allergy (Verified 05/14/20 08:50) Home Medications: Insulin Lispro [Humalog] 14 unit SQ TIDWMEALS 11/05/16 [History] Letrozole 2.5 mg PO DAILY 03/19/18 [History] Amlodipine Besylate 10 mg PO DAILY 09/29/18 [History] Hydrocodone Bit/Acetaminophen [Hydrocodon-Acetaminophen 5-325] 1 each PO Q8H PRN PRN 09/29/18 [History] Isosorbide Mononitrate 30 mg [Imdur 30 MG] 30 mg PO HS 09/29/18 [History] Cyanocobalamin (Vitamin B-12) [Vitamin B12] 2,500 mcg PO DAILY 05/03/19 [History] Lisinopril 20 mg [Zestril 20 MG] 20 mg PO DAILY 05/03/19 [History] Mv,Willie,Iron,Mn/Folic Acid/Chol [Hair, Skin and Nails Capsule] 1 each PO DAILY 05/03/19 [History] Oxybutynin Chloride [Oxybutynin Chloride ER] 10 mg PO DAILY 05/03/19 [History] Venlafaxine HCl [Venlafaxine HCl ER] 150 mg PO DAILY 05/03/19 [History] Metformin HCl 500 mg [Glucophage 500 MG] 500 mg PO BIDWM 12/27/19 [History] Oxybutynin Chloride [Oxybutynin Chloride ER] 10 mg PO DAILY 12/27/19 [History] Hx Tetanus, Diphtheria Vaccination/Date Given: Yes Hx Influenza Vaccination/Date Given: Yes Hx Pneumococcal Vaccination/Date Given: Yes Travel Risk - International Travel Have you traveled outside of the country in past 3 weeks: No - Coronavirus Screening Are you exhibiting any of the following symptoms?: No Close contact with a COVID-19 positive Pt in past 14-21 Days: No - Vaccine Status Have you recieved a Covid-19 vaccination: Yes - Review of Systems Constitutional: No Symptoms Eyes: No Symptoms Ears, Nose, & Throat: No Symptoms Respiratory: Cough Cardiac: Chest Pain (Mild) Abdominal/Gastrointestinal: Abdominal Pain (Mild generalized) Genitourinary Symptoms: No Symptoms Musculoskeletal: Arthralgias, Myalgias Skin: No Symptoms Neurological: No Symptoms Psychological: No Symptoms Endocrine: No Symptoms Hematologic/Lymphatic: No Symptoms Immunological/Allergic: No Symptoms All Other Systems: Reviewed and Negative - Past Medical History Pertinent Past Medical History: Yes Neurological History: Alzheimer's Disease ENT History: No Pertinent History Cardiac History: No Pertinent History, Hypertension Respiratory History: No Pertinent History Endocrine Medical History: Diabetes Type II Musculoskeletal History: Fibromyalgia, Rheumatoid Arthritis GI Medical History: No Pertinent History History: No Pertinent History Psycho-Social History: Anxiety, Depression Female Reproductive Disorders: Breast Cancer Other Medical History: breast CA DX 2018. covid + on 12/26/2019 - Past Surgical History Past Surgical History: Yes Neuro Surgical History: No Pertinent History Cardiac: No Pertinent History Respiratory: No Pertinent History Gastrointestinal: Hernia Repair Genitourinary: No Pertinent History Musculoskeletal: Orthopedic Surgery Female Surgical History: No Pertinent History Other Surgical History: muscle stimulator 02/04-REMOVED 2013. back surgery hip surgery. double masectomy july 2017 - Social History Smoking Status: Never smoker Exposure to second hand smoke: No Drug Use: none Patient Lives Alone: No Significant Family History: no pertinent family hx - Nursing Vital Signs Nursing Vital Signs: Initial Vital Signs Temperature 98.2 F 06/01/20 10:58 Pulse Rate 90 06/01/20 10:58 Respiratory Rate 22 06/01/20 10:58 Blood Pressure 173/73 06/01/20 10:58 O2 Sat by Pulse Oximetry 98 06/01/20 10:58 Pain Scale Pain Intensity 4 - Physical Exam General Appearance: no apparent distress, alert, anxiety, other (Tearful) Eye Exam: PERRL/EOMI, eyes nml inspection Ears, Nose, Throat Exam: normal ENT inspection, moist mucous membranes Neck Exam: normal inspection, non-tender, supple, full range of motion Respiratory Exam: normal breath sounds, chest tenderness, lungs clear, airway intact, No respiratory distress Cardiovascular Exam: regular rate/rhythm, normal heart sounds, normal peripheral pulses Gastrointestinal/Abdomen Exam: soft, normal bowel sounds, tenderness (Mild diffuse), No guarding, No rebound Pelvic Exam: not done Rectal Exam: not done Back Exam: normal inspection, normal range of motion, No CVA tenderness, No vertebral tenderness Extremity Exam: normal inspection, normal range of motion, pelvis stable Neurologic Exam: alert, oriented x 3, cooperative, supervisor functional testing II-XII nml as tested, normal mood/affect, nml cerebellar function, nml station & gait, sensation nml Skin Exam: normal color, warm, dry Lymphatic Exam: No adenopathy SpO2 Interpretation: normal O2 Delivery: Room Air - Course Nursing assessment & vital signs reviewed: Yes EKG Interpreted by Me: RATE (97), Sinus Rhythm, NORMAL AXIS, NORMAL QRS, NORMAL ST-T, Other (Prolonged AR interval. No acute ischemic changes on today's EKG. No significant change from comparison EKG dated 01/09/2020) Ordered Tests: Active Orders 24 hr Category Date Time Status Respiratory Care Technician STAT Care 06/01/20 11:19 Active EKG-ER Only STAT Care 06/01/20 11:17 Active IV Insertion STAT Care 06/01/20 11:17 Active IV Insertion-2nd Peripheral STAT Care 06/01/20 12:06 Active Oxygen-ED Only Nasal Cannula 2 lpm Care 06/01/20 12:06 Active Pulse Oximetry (ED) STAT Care 06/01/20 11:17 Active CHEST 1 VIEW (PORTABLE) Stat Exams 06/01/20 11:30 Completed AMYLASE Stat Lab 06/01/20 11:29 Completed CBC W DIFF Stat Lab 06/01/20 11:29 Completed CBC W DIFF Stat Lab 06/01/20 12:15 Completed CMP Stat Lab 06/01/20 11:29 Completed D-DIMER QUANTITATIVE Stat Lab 06/01/20 11:29 Completed LIPASE Stat Lab 06/01/20 11:29 Completed Lactic Acid Stat Lab 06/01/20 11:17 Completed Lactic Acid Stat Lab 06/01/20 13:50 Received NT PRO BNP Stat Lab 06/01/20 11:29 Completed Occult Blood Stool [FECAL OCCULT BLOOD - SCREENING] Lab 06/01/20 12:25 Ordered Stat TROPONIN Q3H Lab 06/01/20 11:29 Completed TROPONIN Q3H Lab 06/01/20 14:30 Ordered TROPONIN Q3H Lab 06/01/20 17:30 Ordered TROPONIN Q3H Lab 06/01/20 20:30 Ordered TROPONIN Q3H Lab 06/01/20 23:30 Ordered UA W/RFX UR CULTURE Stat Lab 06/01/20 11:22 Completed Transfer Order Routine Transfer 06/01/20 Ordered Medication Summary Discontinued Medications Generic Name Dose Route Start Last Admin Trade Name Freq PRN Reason Stop Dose Admin Sodium Chloride 500 mls @ 500 mls/hr 06/01/20 12:15 06/01/20 13:33 Sodium Chloride 0.9% 500 Ml IV 06/01/20 13:14 Infused .Q1H ONE Infusion Sodium Chloride Confirm 06/01/20 12:16 Sodium Chloride 0.9% 500 Ml Administered 06/01/20 12:17 Dose 500 mls @ ud IV .STK-MED ONE Insulin Human Regular 18 unit 06/01/20 13:36 06/01/20 13:39 Humulin R IV 06/01/20 13:37 18 unit STAT ONE Administration Insulin Human Regular Confirm 06/01/20 13:39 Humulin R Administered 06/01/20 13:40 Dose 18 unit .ROUTE .STK-MED ONE Lorazepam 1 mg 06/01/20 11:19 06/01/20 11:25 Ativan 2 Mg/1 Ml Vial IV 06/01/20 11:20 1 mg STAT ONE Administration Lorazepam Confirm 06/01/20 11:24 Ativan 2 Mg/1 Ml Vial Administered 06/01/20 11:25 Dose 2 mg .ROUTE .STK-MED ONE Morphine Sulfate 4 mg 06/01/20 11:51 06/01/20 11:57 Morphine Sulfate 4 Mg Inj IV 06/01/20 11:52 4 mg STAT ONE Administration Morphine Sulfate Confirm 06/01/20 11:54 Morphine Sulfate 4 Mg Inj Administered 06/01/20 11:55 Dose 4 mg .ROUTE .STK-MED ONE Ondansetron HCl 4 mg 06/01/20 11:51 06/01/20 11:56 Zofran 4 Mg/2 Ml Vial IV 06/01/20 11:52 4 mg STAT ONE Administration Ondansetron HCl Confirm 06/01/20 11:53 Zofran 4 Mg/2 Ml Vial Administered 06/01/20 11:54 Dose 4 mg .ROUTE .STK-MED ONE Lab/Rad Data: Laboratory Result Diagrams 06/01/20 12:15 06/01/20 11:29 Laboratory Results 06/01/20 06/01/20 06/01/20 Range/Units 12:15 12:05 12:05 WBC 2.5 L (4.0-10.5) K/mm3 RBC 2.40 L (4.1-5.4) M/mm3 Hgb 6.6 L* (12.0-16.0) gm/dl Hct 23.8 L (35-47) % MCV 99.2 (78-100) fl MCH 27.5 (26-32) pg MCHC 27.7 L (32-36) g/dl RDW 16.7 H (11.5-14.0) % Plt Count 150 (150-450) K/mm3 MPV 11.6 H (7.5-11.0) fl Gran % 46.9 (36.0-66.0) % Eos # (Auto) 0.10 (0-0.5) Absolute Lymphs (auto) 1.00 (1.0-4.6) Absolute Monos (auto) 0.19 (0.0-1.3) Lymphocytes % 40.8 (24.0-44.0) % Monocytes % 7.8 (0.0-12.0) % Eosinophils % 4.1 (0.00-5.0) % Basophils % 0.4 (0.0-0.4) % Absolute Granulocytes 1.15 L (1.4-6.9) Basophils # 0.01 (0-0.4) D-Dimer (215-500) ng/mL Sodium (137-145) mmol/L Potassium (3.5-5.1) mmol/L Chloride (98-107) mmol/L Carbon Dioxide (22-30) mmol/L Anion Gap (5-15) MEQ/L BUN (7-17) mg/dL Creatinine (0.52-1.04) mg/dL Estimated GFR ML/MIN Glucose (74-106) mg/dL Lactic Acid (0.4-2.0) Calcium (8.4-10.2) mg/dL Total Bilirubin (0.2-1.3) mg/dL AST (14-36) U/L ALT (0-35) U/L Alkaline Phosphatase (38-126) U/L Troponin I (0.000-0.034) ng/mL NT-Pro-B Natriuret Pep (0-900) pg/mL Serum Total Protein (6.3-8.2) g/dL Albumin (3.5-5.0) g/dL Amylase (30-110) U/L Lipase (23-300) U/L Urine Color (YELLOW) Urine Appearance (CLEAR) Urine pH (5-6) Ur Specific [place] (1.005-1.025) Urine Protein (Negative) Urine Ketones (NEGATIVE) Urine Blood (0-5) Mookie/ul Urine Nitrite (NEGATIVE) Urine Bilirubin (NEGATIVE) Urine Urobilinogen (0-1) mg/dL Ur Leukocyte Esterase (NEGATIVE) Urine WBC (Auto) (0-5) /HPF Urine RBC (Auto) (0-2) /HPF U Epithel Cells (Auto) (FEW) /HPF Urine Bacteria (Auto) (NEGATIVE) /HPF Urine Culture Reflexed (NO) Urine Glucose (NEGATIVE) mg/dL Influenza Type A Ag (NEGATIVE) Influenza Type B Ag (NEGATIVE) RSV (PCR) (Negative) SARS-CoV-2 (PCR) (NEGATIVE) Slides for Path Review ABO Group Rh Factor Antibody Screen (NEGATIVE) Crossmatch COMPATIBLE COMPATIBLE (COMPATIBLE) 06/01/20 06/01/20 06/01/20 Range/Units 12:05 11:42 11:29 WBC (4.0-10.5) K/mm3 RBC (4.1-5.4) M/mm3 Hgb (12.0-16.0) gm/dl Hct (35-47) % MCV (78-100) fl MCH (26-32) pg MCHC (32-36) g/dl RDW (11.5-14.0) % Plt Count (150-450) K/mm3 MPV (7.5-11.0) fl Gran % (36.0-66.0) % Eos # (Auto) (0-0.5) Absolute Lymphs (auto) (1.0-4.6) Absolute Monos (auto) (0.0-1.3) Lymphocytes % (24.0-44.0) % Monocytes % (0.0-12.0) % Eosinophils % (0.00-5.0) % Basophils % (0.0-0.4) % Absolute Granulocytes (1.4-6.9) Basophils # (0-0.4) D-Dimer (215-500) ng/mL Sodium (137-145) mmol/L Potassium (3.5-5.1) mmol/L Chloride (98-107) mmol/L Carbon Dioxide (22-30) mmol/L Anion Gap (5-15) MEQ/L BUN (7-17) mg/dL Creatinine (0.52-1.04) mg/dL Estimated GFR ML/MIN Glucose (74-106) mg/dL Lactic Acid (0.4-2.0) Calcium (8.4-10.2) mg/dL Total Bilirubin (0.2-1.3) mg/dL AST (14-36) U/L ALT (0-35) U/L Alkaline Phosphatase (38-126) U/L Troponin I < 0.012 (0.000-0.034) ng/mL NT-Pro-B Natriuret Pep (0-900) pg/mL Serum Total Protein (6.3-8.2) g/dL Albumin (3.5-5.0) g/dL Amylase (30-110) U/L Lipase (23-300) U/L Urine Color (YELLOW) Urine Appearance (CLEAR) Urine pH (5-6) Ur Specific [place] (1.005-1.025) Urine Protein (Negative) Urine Ketones (NEGATIVE) Urine Blood (0-5) Mookie/ul Urine Nitrite (NEGATIVE) Urine Bilirubin (NEGATIVE) Urine Urobilinogen (0-1) mg/dL Ur Leukocyte Esterase (NEGATIVE) Urine WBC (Auto) (0-5) /HPF Urine RBC (Auto) (0-2) /HPF U Epithel Cells (Auto) (FEW) /HPF Urine Bacteria (Auto) (NEGATIVE) /HPF Urine Culture Reflexed (NO) Urine Glucose (NEGATIVE) mg/dL Influenza Type A Ag NEGATIVE (NEGATIVE) Influenza Type B Ag NEGATIVE (NEGATIVE) RSV (PCR) NEGATIVE (Negative) SARS-CoV-2 (PCR) NEGATIVE (NEGATIVE) Slides for Path Review ABO Group O Rh Factor POSITIVE Antibody Screen NEGATIVE (NEGATIVE) Crossmatch COMPATIBLE (COMPATIBLE) 06/01/20 06/01/20 06/01/20 Range/Units 11:29 11:29 11:29 WBC 2.8 L (4.0-10.5) K/mm3 RBC 2.40 L (4.1-5.4) M/mm3 Hgb 6.7 L* (12.0-16.0) gm/dl Hct 23.9 L (35-47) % MCV 99.6 (78-100) fl MCH 27.9 (26-32) pg MCHC 28.0 L (32-36) g/dl RDW 16.8 H (11.5-14.0) % Plt Count 167 (150-450) K/mm3 MPV 11.8 H (7.5-11.0) fl Gran % 45.4 (36.0-66.0) % Eos # (Auto) 0.11 (0-0.5) Absolute Lymphs (auto) 1.20 (1.0-4.6) Absolute Monos (auto) 0.22 (0.0-1.3) Lymphocytes % 42.3 (24.0-44.0) % Monocytes % 7.7 (0.0-12.0) % Eosinophils % 3.9 (0.00-5.0) % Basophils % 0.7 (0.0-0.4) % Absolute Granulocytes 1.29 L (1.4-6.9) Basophils # 0.02 (0-0.4) D-Dimer 852 H* (215-500) ng/mL Sodium 132 L (137-145) mmol/L Potassium 4.1 (3.5-5.1) mmol/L Chloride 99 (98-107) mmol/L Carbon Dioxide 22 (22-30) mmol/L Anion Gap 15.7 H (5-15) MEQ/L BUN 11 (7-17) mg/dL Creatinine 0.74 (0.52-1.04) mg/dL Estimated GFR > 60.0 ML/MIN Glucose 717 H* (74-106) mg/dL Lactic Acid (0.4-2.0) Calcium 9.0 (8.4-10.2) mg/dL Total Bilirubin 0.50 (0.2-1.3) mg/dL AST 72 H (14-36) U/L ALT 39 H (0-35) U/L Alkaline Phosphatase 229 H (38-126) U/L Troponin I (0.000-0.034) ng/mL NT-Pro-B Natriuret Pep 86.8 (0-900) pg/mL Serum Total Protein 7.9 (6.3-8.2) g/dL Albumin 3.7 (3.5-5.0) g/dL Amylase 95 (30-110) U/L Lipase 291 (23-300) U/L Urine Color (YELLOW) Urine Appearance (CLEAR) Urine pH (5-6) Ur Specific [place] (1.005-1.025) Urine Protein (Negative) Urine Ketones (NEGATIVE) Urine Blood (0-5) Mookie/ul Urine Nitrite (NEGATIVE) Urine Bilirubin (NEGATIVE) Urine Urobilinogen (0-1) mg/dL Ur Leukocyte Esterase (NEGATIVE) Urine WBC (Auto) (0-5) /HPF Urine RBC (Auto) (0-2) /HPF U Epithel Cells (Auto) (FEW) /HPF Urine Bacteria (Auto) (NEGATIVE) /HPF Urine Culture Reflexed (NO) Urine Glucose (NEGATIVE) mg/dL Influenza Type A Ag (NEGATIVE) Influenza Type B Ag (NEGATIVE) RSV (PCR) (Negative) SARS-CoV-2 (PCR) (NEGATIVE) Slides for Path Review ABO Group Rh Factor Antibody Screen (NEGATIVE) Crossmatch (COMPATIBLE) 06/01/20 06/01/20 Range/Units 11:22 11:17 WBC (4.0-10.5) K/mm3 RBC (4.1-5.4) M/mm3 Hgb (12.0-16.0) gm/dl Hct (35-47) % MCV (78-100) fl MCH (26-32) pg MCHC (32-36) g/dl RDW (11.5-14.0) % Plt Count (150-450) K/mm3 MPV (7.5-11.0) fl Gran % (36.0-66.0) % Eos # (Auto) (0-0.5) Absolute Lymphs (auto) (1.0-4.6) Absolute Monos (auto) (0.0-1.3) Lymphocytes % (24.0-44.0) % Monocytes % (0.0-12.0) % Eosinophils % (0.00-5.0) % Basophils % (0.0-0.4) % Absolute Granulocytes (1.4-6.9) Basophils # (0-0.4) D-Dimer (215-500) ng/mL Sodium (137-145) mmol/L Potassium (3.5-5.1) mmol/L Chloride (98-107) mmol/L Carbon Dioxide (22-30) mmol/L Anion Gap (5-15) MEQ/L BUN (7-17) mg/dL Creatinine (0.52-1.04) mg/dL Estimated GFR ML/MIN Glucose (74-106) mg/dL Lactic Acid 3.1 H (0.4-2.0) Calcium (8.4-10.2) mg/dL Total Bilirubin (0.2-1.3) mg/dL AST (14-36) U/L ALT (0-35) U/L Alkaline Phosphatase (38-126) U/L Troponin I (0.000-0.034) ng/mL NT-Pro-B Natriuret Pep (0-900) pg/mL Serum Total Protein (6.3-8.2) g/dL Albumin (3.5-5.0) g/dL Amylase (30-110) U/L Lipase (23-300) U/L Urine Color COLORLESS (YELLOW) Urine Appearance CLEAR (CLEAR) Urine pH 6.0 (5-6) Ur Specific [place] 1.024 (1.005-1.025) Urine Protein NEGATIVE (Negative) Urine Ketones NEGATIVE (NEGATIVE) Urine Blood NEGATIVE (0-5) Mookie/ul Urine Nitrite NEGATIVE (NEGATIVE) Urine Bilirubin NEGATIVE (NEGATIVE) Urine Urobilinogen NEGATIVE (0-1) mg/dL Ur Leukocyte Esterase NEGATIVE (NEGATIVE) Urine WBC (Auto) NONE (0-5) /HPF Urine RBC (Auto) NONE (0-2) /HPF U Epithel Cells (Auto) NONE (FEW) /HPF Urine Bacteria (Auto) NONE SEEN (NEGATIVE) /HPF Urine Culture Reflexed NO (NO) Urine Glucose >=500 (NEGATIVE) mg/dL Influenza Type A Ag (NEGATIVE) Influenza Type B Ag (NEGATIVE) RSV (PCR) (Negative) SARS-CoV-2 (PCR) (NEGATIVE) Slides for Path Review ABO Group Rh Factor Antibody Screen (NEGATIVE) Crossmatch (COMPATIBLE) - Progress Progress: improved, pain not gone completely, re-examined Progress Note: 06/01/20 13:43 Chest x-ray shows no acute cardiopulmonary process. Medical decision making: This patient has multiple issues. She is anemic, she has hyperglycemia, she has mild left axillary cellulitis, she has elevated D- dimer. I spoke with her primary care physician, Dr. Dhillon. We are going to admit the patient to the floor. The patient will receive 3 units of packed red blood cells. While on the floor, she will also have the CT a of the chest performed to evaluate for pulmonary emboli. Patient is currently anemic with a hemoglobin of 6.7. We will hold on the anticoagulation therapy at this time. We will start the patient on Rocephin and Zithromax intravenously. Patient will also have a venous Doppler of the bilateral lower extremities performed while on the floor. Discussed with : Tello Will see patient in: hospital (full admit) Counseled pt/family regarding: lab results, diagnosis, rad results - Departure Departure Disposition: In-patient Admission Clinical Impression: Anemia, Hyperglycemia, Elevated d-dimer, Cellulitis of axillary region Condition: Stable Critical Care Time: Yes Critical Care Time(excluding separately billable procedures): Critical 30-74 mins Referrals: JOLANTA DHILLON [Primary Care Provider] -
[2020-06-01] MEDS ORDERED: Ativan 2 MG/1 ML VIAL IV ONE (11:19)
[2020-06-01] MEDS ORDERED: Ativan 2 MG/1 ML VIAL ONE (11:24)
[2020-06-01 11:31] LABS: Absolute Neutrophil Ct (ANC) 1.29 (1.4-6.9); BASOPHIL % 0.7 % (0.0-0.4); Basophil (Absolute #) 0.02 (0-0.4); Eosinophil % 3.9 % (0.00-5.0); Eosinophil (Absolute #) 0.11 (0-0.5); Hematocrit 23.9 % (35-47); Lymphocytes % 42.3 % (24.0-44.0); Mean Cell Volume 99.6 fl (78-100); Mean Corpuscular Hemoglobin 27.9 pg (26-32); Mean Platelet Volume 11.8 fl (7.5-11.0); Monocyte (Absolute #) 0.22 (0.0-1.3); Monocytes % 7.7 % (0.0-12.0); Neutrophil % 45.4 % (36.0-66.0); Platelet Count 167 K/mm3 (150-450); Red Cell Distribution Width 16.8 % (11.5-14.0); White Blood Count 2.8 K/mm3 (4.0-10.5)
[2020-06-01 11:37] LABS: Appearance CLEAR (CLEAR); Bilirubin NEGATIVE (NEGATIVE); Blood NEGATIVE Ery/ul (0-5); Glucose >=500 mg/dL (NEGATIVE); Ketones NEGATIVE (NEGATIVE); Leukocyte Esterase NEGATIVE (NEGATIVE); Nitrite NEGATIVE (NEGATIVE); Protein,Urine Dip NEGATIVE (Negative); Specific Gravity 1.024 (1.005-1.025); Urobilinogen NEGATIVE mg/dL (0-1)
[2020-06-01 11:37] LABS: Hemoglobin 6.7 gm/dl (12.0-16.0)
[2020-06-01 11:40] LABS: Bacteria NONE SEEN /HPF (NEGATIVE)
--- NOTE | 2020-06-01 11:41 | XRAY ---
Indication: Chest pain. Bilateral mastectomy. Comparison: January 09, 2020. Portable chest remains clear. Heart borderline enlarged. Bony thorax intact again with mild degenerative changes and left axillary abhay dissection. Impression: Continued nonacute chest with chronic features.
[2020-06-01] MEDS ORDERED: MORPHINE SULFATE 4 MG INJ IV ONE (11:51)
[2020-06-01] MEDS ORDERED: Zofran 4 MG/2 ML VIAL IV ONE (11:51)
[2020-06-01] MEDS ORDERED: Zofran 4 MG/2 ML VIAL ONE (11:53)
[2020-06-01] MEDS ORDERED: MORPHINE SULFATE 4 MG INJ ONE (11:54)
[2020-06-01] MEDS ORDERED: Sodium Chloride 0.9% 500 ML 500 ML IV ONE ×2 (12:15→12:16)
[2020-06-01 12:21] LABS: Absolute Neutrophil Ct (ANC) 1.15 (1.4-6.9); BASOPHIL % 0.4 % (0.0-0.4); Basophil (Absolute #) 0.01 (0-0.4); Eosinophil % 4.1 % (0.00-5.0); Hematocrit 23.8 % (35-47); Lymphocytes % 40.8 % (24.0-44.0); Mean Cell Volume 99.2 fl (78-100); Mean Corpuscular Hemoglobin 27.5 pg (26-32); Mean Corpuscular Hgb Concent. 27.7 g/dl (32-36); Mean Platelet Volume 11.6 fl (7.5-11.0); Monocyte (Absolute #) 0.19 (0.0-1.3); Monocytes % 7.8 % (0.0-12.0); Neutrophil % 46.9 % (36.0-66.0); Platelet Count 150 K/mm3 (150-450); Red Cell Distribution Width 16.7 % (11.5-14.0); White Blood Count 2.5 K/mm3 (4.0-10.5)
[2020-06-01 12:24] LABS: Hemoglobin 6.6 gm/dl (12.0-16.0)
[2020-06-01 12:42] LABS: INFLUENZA A NEGATIVE (NEGATIVE); INFLUENZA B NEGATIVE (NEGATIVE); RESPIRATORY SYNCTIAL VIRUS NEGATIVE (Negative)
[2020-06-01 13:24] LABS: ALBUMIN 3.7 g/dL (3.5-5.0); ALKALINE PHOSPHATASE 229 U/L (38-126); AMYLASE 95 U/L (30-110); ANION GAP 15.7 MEQ/L (5-15); BLOOD UREA NITROGEN 11 mg/dL (7-17); CHLORIDE 99 mmol/L (98-107); Carbon Dioxide 22 mmol/L (22-30); Creatinine 1 0.74 mg/dL (0.52-1.04); EST GLOMERULAR FILTRATION RATE > 60.0 ML/MIN; LIPASE 291 U/L (23-300); NT PRO BNP 86.8 pg/mL (0-900); Potassium 4.1 mmol/L (3.5-5.1); SGOT/AST 72 U/L (14-36); SGPT/ALT 39 U/L (0-35); SODIUM 132 mmol/L (137-145); Total Protein 7.9 g/dL (6.3-8.2)
[2020-06-01 13:30] LABS: Glucose 717 mg/dL (74-106)
[2020-06-01] MEDS ORDERED: HUMULIN R IV ONE (13:36)
[2020-06-01] MEDS ORDERED: HUMULIN R ONE (13:39)
[2020-06-01 13:42] LABS: ABO TYPING O; Antibody Screen NEGATIVE (NEGATIVE); RH TYPING POSITIVE
[2020-06-01 13:43] LABS: CROSS MATCH (PRBC) COMPATIBLE (COMPATIBLE)
[2020-06-01] MEDS ORDERED: Zofran 4 MG/2 ML VIAL IV PRN (13:54)
[2020-06-01] MEDS: Sodium Chloride 0.9% 1000 ML 1,000 ML IV SCH ×2 (14:29→16:17)
[2020-06-01] MEDS: ROCEPHIN 1 Gm-D5w 50 ml Bag** 1 G/50 ML IVPB IV SCH (14:30)
[2020-06-01] MEDS: Ativan 2 MG/1 ML VIAL IV PRN (15:01)
--- NOTE | 2020-06-01 15:06 | XRAY ---
Indication: Bilateral leg pain. 2-dimensional sonogram and color Doppler imaging of the major venous vessels of the left and right leg was performed. Comparison: October 03, 2018. No thrombus seen in the examined deep venous vessels of the left and right leg including greater saphenous vein. Veins demonstrate normal compressibility. Venous waveforms are normal with and without augmentation. Impression: Left and right legs continue to be negative for DVT.
[2020-06-01] MEDS: Zithromax 500 MG/ 250 ML NaCl Premix 500 MG/250 ML IVPB IV SCH (15:30)
[2020-06-01] MEDS ORDERED: HOLD METFORMIN PRODUCTS FOR 48 HOURS MC SCH (15:45)
--- NOTE | 2020-06-01 15:51 | XRAY ---
Indication: Elevated d-dimer. Multiple contiguous axial images obtained through the chest using 100 cc Isovue 370 contrast and PE protocol. Comparison: December 27, 2019. There is good opacification of the pulmonary arteries. However respiration artifact limits evaluation of the more distal lobar and segmental branches. No central pulmonary embolus. Heart remains enlarged. Aorta is normal in course and caliber. No pathologic mediastinal/hilar lymphadenopathy. Stable small hiatal hernia. Lungs demonstrates new diffuse bilateral groundglass airspace opacities greatest in both lower lobes. No consolidation or effusion. Bony thorax intact again with mild degenerative changes throughout the spine, bilateral mastectomy, and left axilla abhay dissection. Limited upper abdomen again cirrhotic liver. Spleen remains enlarged today measuring 15.2 cm. Impression: 1. Pulmonary embolus evaluation limited due to respiration artifact. No obvious central pulmonary embolus. 2. New diffuse bilateral groundglass airspace disease. 3. Again incidental cardiomegaly, small hiatal hernia cirrhotic liver, and splenomegaly.
[2020-06-01] MEDS: HUMULIN R SQ PRN ×2 (16:42→21:46)
[2020-06-01] MEDS ORDERED: MEDICATION INTERVENTION PO SCH (17:00)
[2020-06-01] MEDS ORDERED: NON-FORMULARY ITEM (Insulin Lispro 14 UNIT) SQ SCH (17:00)
[2020-06-01] MEDS: MORPHINE SULFATE 4 MG INJ IV PRN (17:10)
[2020-06-01] MEDS: HUMALOG SQ SCH (17:30)
[2020-06-01] MEDS: Lopressor 25MG Tab PO SCH (21:45)
[2020-06-01] MEDS: NORCO 5/325 MG PO PRN (21:45)
[2020-06-01] MEDS: Imdur 30 MG PO SCH (21:45)
[2020-06-02] MEDS: Ativan 2 MG/1 ML VIAL IV PRN ×2 (00:05→09:13)
[2020-06-02 03:53] LABS: ALBUMIN 3.3 g/dL (3.5-5.0); ALKALINE PHOSPHATASE 131 U/L (38-126); ANION GAP 10.5 MEQ/L (5-15); BLOOD UREA NITROGEN 10 mg/dL (7-17); CHLORIDE 106 mmol/L (98-107); Calcium 8.6 mg/dL (8.4-10.2); Carbon Dioxide 24 mmol/L (22-30); EST GLOMERULAR FILTRATION RATE > 60.0 ML/MIN; Glucose 331 mg/dL (74-106); Potassium 4.1 mmol/L (3.5-5.1); SGOT/AST 63 U/L (14-36); SGPT/ALT 37 U/L (0-35); SODIUM 136 mmol/L (137-145); Total Protein 7.4 g/dL (6.3-8.2)
[2020-06-02 03:54] LABS: Absolute Neutrophil Ct (ANC) 1.56 (1.4-6.9); BASOPHIL % 0.6 % (0.0-0.4); Basophil (Absolute #) 0.02 (0-0.4); Eosinophil % 5.8 % (0.00-5.0); Eosinophil (Absolute #) 0.21 (0-0.5); Hematocrit 30.2 % (35-47); Hemoglobin 9.1 gm/dl (12.0-16.0); Lymphocyte (Absolute #) 1.58 (1.0-4.6); Lymphocytes % 43.8 % (24.0-44.0); Mean Cell Volume 91.8 fl (78-100); Mean Corpuscular Hemoglobin 27.7 pg (26-32); Mean Corpuscular Hgb Concent. 30.1 g/dl (32-36); Mean Platelet Volume 11.9 fl (7.5-11.0); Monocyte (Absolute #) 0.24 (0.0-1.3); Monocytes % 6.6 % (0.0-12.0); Neutrophil % 43.2 % (36.0-66.0); Platelet Count 151 K/mm3 (150-450); Red Blood Count 3.29 M/mm3 (4.1-5.4); Red Cell Distribution Width 18.2 % (11.5-14.0)
[2020-06-02 04:54] LABS: White Blood Count 3.6 K/mm3 (4.0-10.5)
[2020-06-02] MEDS: MORPHINE SULFATE 4 MG INJ IV PRN (06:52)
[2020-06-02] MEDS: HUMALOG SQ SCH ×3 (07:46→16:58)
[2020-06-02] MEDS: ROCEPHIN 1 Gm-D5w 50 ml Bag** 1 G/50 ML IVPB IV SCH (09:08)
[2020-06-02] MEDS: NORVASC 5 MG PO SCH (09:08)
[2020-06-02] MEDS: Zithromax 500 MG/ 250 ML NaCl Premix 500 MG/250 ML IVPB IV SCH (09:08)
[2020-06-02] MEDS: Lopressor 25MG Tab PO SCH ×2 (09:08→22:04)
[2020-06-02] MEDS: Effexor XR 75 MG PO SCH (09:09)
[2020-06-02] MEDS: LASIX 20 MG PO SCH (09:09)
[2020-06-02] MEDS: Zestril 20 MG PO SCH (09:09)
[2020-06-02] MEDS ORDERED: NON-FORMULARY ITEM (Amlodipine Besylate [Amlodipine Besylate] 10 MG) PO SCH (10:00)
[2020-06-02] MEDS ORDERED: NON-FORMULARY ITEM (Venlafaxine Hcl [Venlafaxine Hcl Er] 150 MG) PO SCH (10:00)
[2020-06-02] MEDS: TYLENOL 325 MG PO PRN ×2 (10:38→22:04)
--- NOTE | 2020-06-02 10:47 | PCM.HP ---
History of Present Illness - Chief Complaint Chief Complaint: c/o generalised malaise, pain all over body for 2-3 days History of Present Illness: is a 65 year old female.who was diagnosed with breast cancer in 2018 and underwent a bilateral modified radical mastectomy and chemo radiation treatments. Patient presented to her primary care physician's office this morning complaining of chest pain abdominal pain as well as leg pain. She hurts all over. Patient has a mild cough as well. This patient has history of COPD, rheumatoid arthritis, Alzheimer dementia, hypertension, COPD, diabetes, fibromyalgia, anxiety and depression. Dr. Dhillon reviewed this patient with me and we discussed the plan of work-up. Dr. Dhillon's plan is to admit this patient into the hospital for further evaluation once the emergency work-up has been completed. Patient arrives very anxious into the emergency room. Timing/Duration: day(s) (Several days) Severity: moderate Associated Symptoms: abdominal pain, chest pain, other (Hurts all over especially in bilateral lower extremities.), No shortness of breath - Review of Systems Constitutional: Fatigue, Lethargy, Malaise, Weakness, No Fever, No Chills Eyes: No Symptoms Ears, Nose, & Throat: No Symptoms Respiratory: No Cough, No Short Of Breath Cardiac: No Chest Pain, No Edema, No Syncope Abdominal/Gastrointestinal: No Abdominal Pain, No Nausea, No Vomiting, No Diarrhea Genitourinary Symptoms: No Dysuria Musculoskeletal: No Back Pain, No Neck Pain Skin: No Rash Neurological: No Dizziness, No Focal Weakness, No Sensory Changes Psychological: No Symptoms Endocrine: No Symptoms Hematologic/Lymphatic: No Symptoms Immunological/Allergic: No Symptoms Medications & Allergies Home Medications: Home Medication List Insulin Lispro [Humalog] 14 unit SQ TIDWMEALS 11/05/16 [History Confirmed 06/01/20] Letrozole 2.5 mg PO DAILY 03/19/18 [History Confirmed 06/01/20] Amlodipine Besylate 10 mg PO DAILY 09/29/18 [History Confirmed 06/01/20] Hydrocodone Bit/Acetaminophen [Hydrocodon-Acetaminophen 5-325] 1 each PO Q8H PRN PRN 09/29/18 [History Confirmed 06/01/20] Isosorbide Mononitrate 30 mg [Imdur 30 MG] 30 mg PO HS 09/29/18 [History Confirmed 06/01/20] Furosemide 20 mg [Lasix 20 mg] 20 mg PO DAILY #30 tablet 10/07/18 [Rx Confirmed 06/01/20] Metoprolol Tartrate 25 mg [Lopressor 25MG Tab] 25 mg PO BID #60 tab 10/07/18 [Rx Confirmed 06/01/20] Cyanocobalamin (Vitamin B-12) [Vitamin B12] 2,500 mcg PO DAILY 05/03/19 [History Confirmed 06/01/20] Lisinopril 20 mg [Zestril 20 MG] 20 mg PO DAILY 05/03/19 [History Confirmed 06/01/20] Mv,Willie,Iron,Mn/Folic Acid/Chol [Hair, Skin and Nails Capsule] 1 each PO DAILY 05/03/19 [History Confirmed 06/01/20] Oxybutynin Chloride [Oxybutynin Chloride ER] 10 mg PO DAILY 05/03/19 [History Confirmed 06/01/20] Venlafaxine HCl [Venlafaxine HCl ER] 150 mg PO DAILY 05/03/19 [History Confirmed 06/01/20] Metformin HCl 500 mg [Glucophage 500 MG] 500 mg PO BIDWM 12/27/19 [History Confirmed 06/01/20] Oxybutynin Chloride [Oxybutynin Chloride ER] 10 mg PO DAILY 12/27/19 [History Confirmed 06/01/20] Allergies/Adverse Reactions: Allergies Allergy/AdvReac Type Severity Reaction Status Date / Time pregabalin [From Lyrica] Allergy Severe Swelling Verified 05/14/20 08:50 methadone [Methadone] Allergy Mild Hives Verified 05/14/20 08:50 oxycodone HCl Allergy Verified 05/14/20 08:50 [From OxyContin] - Past Medical History Past Medical History: Yes Neurological History: Alzheimer's Disease ENT History: No Pertinent History Cardiac History: No Pertinent History, Hypertension Respiratory History: No Pertinent History Endocrine Medical History: Diabetes Type II, Liver Disease Musculoskelatal History: Fibromyalgia, Rheumatoid Arthritis GI Medical History: No Pertinent History History: No Pertinent History Pyscho-Social History: Anxiety, Depression Reproductive Disorders: Breast Cancer Comment: breast CA DX 2018. covid + on 12/26/2019 - Female History Are you now?: No - Past Surgical History Past Surgical History: Yes Neuro Surgical History: No Pertinent History Cardiac History: No Pertinent History Respiratory Surgery: No Pertinent History GI Surgical History: Hernia Repair Genitourinary Surgical Hx: No Pertinent History Musculskeletal Surgical Hx: Orthopedic Surgery Female Surgical History: Mastectomy Other Surgical History: muscle stimulator 02/04-REMOVED 2013. back surgery hip surgery. double masectomy july 2017 - Social History Smoking Status: Former smoker Exposure to second hand smoke: No Alcohol: None Drug Use: none Significant Family History: no pertinent family hx - Physical Exam Vital Signs: Vital Signs - 24 hr Temp Pulse Pulse Resp BP BP BP 06/02/20 07:19 97.1 F 76 18 180/88 06/02/20 04:10 98.7 F 70 18 135/58 06/02/20 00:06 98.4 F 69 18 119/59 06/01/20 19:10 98.3 F 91 H 20 138/61 136/66 06/01/20 19:07 98.3 F 91 H 20 138/61 06/01/20 16:00 84 20 136/66 06/01/20 15:30 98.2 F 96 H 16 145/67 06/01/20 13:59 20 145/67 06/01/20 13:54 94 H 20 145/67 06/01/20 13:31 90 15 164/78 06/01/20 12:07 92 H 18 163/70 06/01/20 11:50 100 H 22 06/01/20 11:22 06/01/20 10:58 98.2 F 95 H 90 22 173/73 Pulse Ox 06/02/20 07:19 95 06/02/20 04:10 97 06/02/20 00:06 96 06/01/20 19:10 96 06/01/20 19:07 96 06/01/20 16:00 97 06/01/20 15:30 97 06/01/20 13:59 97 06/01/20 13:54 97 06/01/20 13:31 99 06/01/20 12:07 98 06/01/20 11:50 96 06/01/20 11:22 99 06/01/20 10:58 98 General Appearance: mild distress, alert, lethargy Neurologic Exam: alert, oriented x 3, cooperative, normal mood/affect, nml cerebellar function, nml station & gait, sensation nml, No motor deficits Eye Exam: PERRL/EOMI, eyes nml inspection Ears, Nose, Throat Exam: normal ENT inspection, TMs normal, pharynx normal, moist mucous membranes Neck Exam: normal inspection, non-tender, supple, full range of motion Respiratory Exam: normal breath sounds, lungs clear, No respiratory distress Cardiovascular Exam: regular rate/rhythm, normal heart sounds, normal peripheral pulses Gastrointestinal/Abdomen Exam: soft, normal bowel sounds, No tenderness, No mass Back Exam: normal inspection, normal range of motion, No CVA tenderness, No vertebral tenderness Extremity Exam: normal inspection, normal range of motion, pelvis stable Skin Exam: normal color, warm, dry, No rash Lymphatic Exam: No adenopathy Results - Labs Lab/Micro Results: Lab Results-Last 24 Hours 06/01/20 06/01/20 06/01/20 Range/Units 11:17 11:22 11:29 WBC 2.8 L (4.0-10.5) K/mm3 RBC 2.40 L (4.1-5.4) M/mm3 Hgb 6.7 L* (12.0-16.0) gm/dl Hct 23.9 L (35-47) % MCV 99.6 (78-100) fl MCH 27.9 (26-32) pg MCHC 28.0 L (32-36) g/dl RDW 16.8 H (11.5-14.0) % Plt Count 167 (150-450) K/mm3 MPV 11.8 H (7.5-11.0) fl Gran % 45.4 (36.0-66.0) % Eos # (Auto) 0.11 (0-0.5) Absolute Lymphs (auto) 1.20 (1.0-4.6) Absolute Monos (auto) 0.22 (0.0-1.3) Lymphocytes % 42.3 (24.0-44.0) % Monocytes % 7.7 (0.0-12.0) % Eosinophils % 3.9 (0.00-5.0) % Basophils % 0.7 (0.0-0.4) % Absolute Granulocytes 1.29 L (1.4-6.9) Basophils # 0.02 (0-0.4) D-Dimer (215-500) ng/mL Sodium (137-145) mmol/L Potassium (3.5-5.1) mmol/L Chloride (98-107) mmol/L Carbon Dioxide (22-30) mmol/L Anion Gap (5-15) MEQ/L BUN (7-17) mg/dL Creatinine (0.52-1.04) mg/dL Estimated GFR ML/MIN Glucose (74-106) mg/dL POC Glucometer (74 to 106) mg/dL Hemoglobin A1c (4.5-6.0) % Lactic Acid 3.1 H (0.4-2.0) Calcium (8.4-10.2) mg/dL Total Bilirubin (0.2-1.3) mg/dL AST (14-36) U/L ALT (0-35) U/L Alkaline Phosphatase (38-126) U/L Troponin I (0.000-0.034) ng/mL NT-Pro-B Natriuret Pep (0-900) pg/mL Serum Total Protein (6.3-8.2) g/dL Albumin (3.5-5.0) g/dL Amylase (30-110) U/L Lipase (23-300) U/L Urine Color COLORLESS (YELLOW) Urine Appearance CLEAR (CLEAR) Urine pH 6.0 (5-6) Ur Specific [place] 1.024 (1.005-1.025) Urine Protein NEGATIVE (Negative) Urine Ketones NEGATIVE (NEGATIVE) Urine Blood NEGATIVE (0-5) Mookie/ul Urine Nitrite NEGATIVE (NEGATIVE) Urine Bilirubin NEGATIVE (NEGATIVE) Urine Urobilinogen NEGATIVE (0-1) mg/dL Ur Leukocyte Esterase NEGATIVE (NEGATIVE) Urine WBC (Auto) NONE (0-5) /HPF Urine RBC (Auto) NONE (0-2) /HPF U Epithel Cells (Auto) NONE (FEW) /HPF Urine Bacteria (Auto) NONE SEEN (NEGATIVE) /HPF Urine Culture Reflexed NO (NO) Urine Glucose >=500 (NEGATIVE) mg/dL Influenza Type A Ag (NEGATIVE) Influenza Type B Ag (NEGATIVE) RSV (PCR) (Negative) SARS-CoV-2 (PCR) (NEGATIVE) Slides for Path Review ABO Group Rh Factor Antibody Screen (NEGATIVE) Crossmatch (COMPATIBLE) 06/01/20 06/01/2006/01/21 Range/Units 11:29 11:29 11:29 WBC (4.0-10.5) K/mm3 RBC (4.1-5.4) M/mm3 Hgb (12.0-16.0) gm/dl Hct (35-47) % MCV (78-100) fl MCH (26-32) pg MCHC (32-36) g/dl RDW (11.5-14.0) % Plt Count (150-450) K/mm3 MPV (7.5-11.0) fl Gran % (36.0-66.0) % Eos # (Auto) (0-0.5) Absolute Lymphs (auto) (1.0-4.6) Absolute Monos (auto) (0.0-1.3) Lymphocytes % (24.0-44.0) % Monocytes % (0.0-12.0) % Eosinophils % (0.00-5.0) % Basophils % (0.0-0.4) % Absolute Granulocytes (1.4-6.9) Basophils # (0-0.4) D-Dimer 852 H* (215-500) ng/mL Sodium 132 L (137-145) mmol/L Potassium 4.1 (3.5-5.1) mmol/L Chloride 99 (98-107) mmol/L Carbon Dioxide 22 (22-30) mmol/L Anion Gap 15.7 H (5-15) MEQ/L BUN 11 (7-17) mg/dL Creatinine 0.74 (0.52-1.04) mg/dL Estimated GFR > 60.0 ML/MIN Glucose 717 H* (74-106) mg/dL POC Glucometer (74 to 106) mg/dL Hemoglobin A1c (4.5-6.0) % Lactic Acid (0.4-2.0) Calcium 9.0 (8.4-10.2) mg/dL Total Bilirubin 0.50 (0.2-1.3) mg/dL AST 72 H (14-36) U/L ALT 39 H (0-35) U/L Alkaline Phosphatase 229 H (38-126) U/L Troponin I < 0.012 (0.000-0.034) ng/mL NT-Pro-B Natriuret Pep 86.8 (0-900) pg/mL Serum Total Protein 7.9 (6.3-8.2) g/dL Albumin 3.7 (3.5-5.0) g/dL Amylase 95 (30-110) U/L Lipase 291 (23-300) U/L Urine Color (YELLOW) Urine Appearance (CLEAR) Urine pH (5-6) Ur Specific [place] (1.005-1.025) Urine Protein (Negative) Urine Ketones (NEGATIVE) Urine Blood (0-5) Mookie/ul Urine Nitrite (NEGATIVE) Urine Bilirubin (NEGATIVE) Urine Urobilinogen (0-1) mg/dL Ur Leukocyte Esterase (NEGATIVE) Urine WBC (Auto) (0-5) /HPF Urine RBC (Auto) (0-2) /HPF U Epithel Cells (Auto) (FEW) /HPF Urine Bacteria (Auto) (NEGATIVE) /HPF Urine Culture Reflexed (NO) Urine Glucose (NEGATIVE) mg/dL Influenza Type A Ag (NEGATIVE) Influenza Type B Ag (NEGATIVE) RSV (PCR) (Negative) SARS-CoV-2 (PCR) (NEGATIVE) Slides for Path Review ABO Group Rh Factor Antibody Screen (NEGATIVE) Crossmatch (COMPATIBLE) 06/01/20 06/01/20 06/01/20 Range/Units 11:42 12:05 12:05 WBC (4.0-10.5) K/mm3 RBC (4.1-5.4) M/mm3 Hgb (12.0-16.0) gm/dl Hct (35-47) % MCV (78-100) fl MCH (26-32) pg MCHC (32-36) g/dl RDW (11.5-14.0) % Plt Count (150-450) K/mm3 MPV (7.5-11.0) fl Gran % (36.0-66.0) % Eos # (Auto) (0-0.5) Absolute Lymphs (auto) (1.0-4.6) Absolute Monos (auto) (0.0-1.3) Lymphocytes % (24.0-44.0) % Monocytes % (0.0-12.0) % Eosinophils % (0.00-5.0) % Basophils % (0.0-0.4) % Absolute Granulocytes (1.4-6.9) Basophils # (0-0.4) D-Dimer (215-500) ng/mL Sodium (137-145) mmol/L Potassium (3.5-5.1) mmol/L Chloride (98-107) mmol/L Carbon Dioxide (22-30) mmol/L Anion Gap (5-15) MEQ/L BUN (7-17) mg/dL Creatinine (0.52-1.04) mg/dL Estimated GFR ML/MIN Glucose (74-106) mg/dL POC Glucometer (74 to 106) mg/dL Hemoglobin A1c (4.5-6.0) % Lactic Acid (0.4-2.0) Calcium (8.4-10.2) mg/dL Total Bilirubin (0.2-1.3) mg/dL AST (14-36) U/L ALT (0-35) U/L Alkaline Phosphatase (38-126) U/L Troponin I (0.000-0.034) ng/mL NT-Pro-B Natriuret Pep (0-900) pg/mL Serum Total Protein (6.3-8.2) g/dL Albumin (3.5-5.0) g/dL Amylase (30-110) U/L Lipase (23-300) U/L Urine Color (YELLOW) Urine Appearance (CLEAR) Urine pH (5-6) Ur Specific [place] (1.005-1.025) Urine Protein (Negative) Urine Ketones (NEGATIVE) Urine Blood (0-5) Mookie/ul Urine Nitrite (NEGATIVE) Urine Bilirubin (NEGATIVE) Urine Urobilinogen (0-1) mg/dL Ur Leukocyte Esterase (NEGATIVE) Urine WBC (Auto) (0-5) /HPF Urine RBC (Auto) (0-2) /HPF U Epithel Cells (Auto) (FEW) /HPF Urine Bacteria (Auto) (NEGATIVE) /HPF Urine Culture Reflexed (NO) Urine Glucose (NEGATIVE) mg/dL Influenza Type A Ag NEGATIVE (NEGATIVE) Influenza Type B Ag NEGATIVE (NEGATIVE) RSV (PCR) NEGATIVE (Negative) SARS-CoV-2 (PCR) NEGATIVE (NEGATIVE) Slides for Path Review ABO Group O Rh Factor POSITIVE Antibody Screen NEGATIVE (NEGATIVE) Crossmatch COMPATIBLE COMPATIBLE (COMPATIBLE) 06/01/20 06/01/20 06/01/20 Range/Units 12:05 12:15 12:15 WBC 2.5 L (4.0-10.5) K/mm3 RBC 2.40 L (4.1-5.4) M/mm3 Hgb 6.6 L* (12.0-16.0) gm/dl Hct 23.8 L (35-47) % MCV 99.2 (78-100) fl MCH 27.5 (26-32) pg MCHC 27.7 L (32-36) g/dl RDW 16.7 H (11.5-14.0) % Plt Count 150 (150-450) K/mm3 MPV 11.6 H (7.5-11.0) fl Gran % 46.9 (36.0-66.0) % Eos # (Auto) 0.10 (0-0.5) Absolute Lymphs (auto) 1.00 (1.0-4.6) Absolute Monos (auto) 0.19 (0.0-1.3) Lymphocytes % 40.8 (24.0-44.0) % Monocytes % 7.8 (0.0-12.0) % Eosinophils % 4.1 (0.00-5.0) % Basophils % 0.4 (0.0-0.4) % Absolute Granulocytes 1.15 L (1.4-6.9) Basophils # 0.01 (0-0.4) D-Dimer (215-500) ng/mL Sodium (137-145) mmol/L Potassium (3.5-5.1) mmol/L Chloride (98-107) mmol/L Carbon Dioxide (22-30) mmol/L Anion Gap (5-15) MEQ/L BUN (7-17) mg/dL Creatinine (0.52-1.04) mg/dL Estimated GFR ML/MIN Glucose (74-106) mg/dL POC Glucometer (74 to 106) mg/dL Hemoglobin A1c > 14.00 H (4.5-6.0) % Lactic Acid (0.4-2.0) Calcium (8.4-10.2) mg/dL Total Bilirubin (0.2-1.3) mg/dL AST (14-36) U/L ALT (0-35) U/L Alkaline Phosphatase (38-126) U/L Troponin I (0.000-0.034) ng/mL NT-Pro-B Natriuret Pep (0-900) pg/mL Serum Total Protein (6.3-8.2) g/dL Albumin (3.5-5.0) g/dL Amylase (30-110) U/L Lipase (23-300) U/L Urine Color (YELLOW) Urine Appearance (CLEAR) Urine pH (5-6) Ur Specific [place] (1.005-1.025) Urine Protein (Negative) Urine Ketones (NEGATIVE) Urine Blood (0-5) Mookie/ul Urine Nitrite (NEGATIVE) Urine Bilirubin (NEGATIVE) Urine Urobilinogen (0-1) mg/dL Ur Leukocyte Esterase (NEGATIVE) Urine WBC (Auto) (0-5) /HPF Urine RBC (Auto) (0-2) /HPF U Epithel Cells (Auto) (FEW) /HPF Urine Bacteria (Auto) (NEGATIVE) /HPF Urine Culture Reflexed (NO) Urine Glucose (NEGATIVE) mg/dL Influenza Type A Ag (NEGATIVE) Influenza Type B Ag (NEGATIVE) RSV (PCR) (Negative) SARS-CoV-2 (PCR) (NEGATIVE) Slides for Path Review ABO Group Rh Factor Antibody Screen (NEGATIVE) Crossmatch COMPATIBLE (COMPATIBLE) 06/01/20 06/01/20 06/01/20 Range/Units 13:50 15:09 15:12 WBC (4.0-10.5) K/mm3 RBC (4.1-5.4) M/mm3 Hgb (12.0-16.0) gm/dl Hct (35-47) % MCV (78-100) fl MCH (26-32) pg MCHC (32-36) g/dl RDW (11.5-14.0) % Plt Count (150-450) K/mm3 MPV (7.5-11.0) fl Gran % (36.0-66.0) % Eos # (Auto) (0-0.5) Absolute Lymphs (auto) (1.0-4.6) Absolute Monos (auto) (0.0-1.3) Lymphocytes % (24.0-44.0) % Monocytes % (0.0-12.0) % Eosinophils % (0.00-5.0) % Basophils % (0.0-0.4) % Absolute Granulocytes (1.4-6.9) Basophils # (0-0.4) D-Dimer (215-500) ng/mL Sodium (137-145) mmol/L Potassium (3.5-5.1) mmol/L Chloride (98-107) mmol/L Carbon Dioxide (22-30) mmol/L Anion Gap (5-15) MEQ/L BUN (7-17) mg/dL Creatinine (0.52-1.04) mg/dL Estimated GFR ML/MIN Glucose (74-106) mg/dL POC Glucometer 407 H (74 to 106) mg/dL Hemoglobin A1c (4.5-6.0) % Lactic Acid 3.2 H (0.4-2.0) Calcium (8.4-10.2) mg/dL Total Bilirubin (0.2-1.3) mg/dL AST (14-36) U/L ALT (0-35) U/L Alkaline Phosphatase (38-126) U/L Troponin I < 0.012 (0.000-0.034) ng/mL NT-Pro-B Natriuret Pep (0-900) pg/mL Serum Total Protein (6.3-8.2) g/dL Albumin (3.5-5.0) g/dL Amylase (30-110) U/L Lipase (23-300) U/L Urine Color (YELLOW) Urine Appearance (CLEAR) Urine pH (5-6) Ur Specific [place] (1.005-1.025) Urine Protein (Negative) Urine Ketones (NEGATIVE) Urine Blood (0-5) Mookie/ul Urine Nitrite (NEGATIVE) Urine Bilirubin (NEGATIVE) Urine Urobilinogen (0-1) mg/dL Ur Leukocyte Esterase (NEGATIVE) Urine WBC (Auto) (0-5) /HPF Urine RBC (Auto) (0-2) /HPF U Epithel Cells (Auto) (FEW) /HPF Urine Bacteria (Auto) (NEGATIVE) /HPF Urine Culture Reflexed (NO) Urine Glucose (NEGATIVE) mg/dL Influenza Type A Ag (NEGATIVE) Influenza Type B Ag (NEGATIVE) RSV (PCR) (Negative) SARS-CoV-2 (PCR) (NEGATIVE) Slides for Path Review ABO Group Rh Factor Antibody Screen (NEGATIVE) Crossmatch (COMPATIBLE) 06/01/20 06/01/20 06/01/20 Range/Units 16:32 18:12 20:15 WBC (4.0-10.5) K/mm3 RBC (4.1-5.4) M/mm3 Hgb (12.0-16.0) gm/dl Hct (35-47) % MCV (78-100) fl MCH (26-32) pg MCHC (32-36) g/dl RDW (11.5-14.0) % Plt Count (150-450) K/mm3 MPV (7.5-11.0) fl Gran % (36.0-66.0) % Eos # (Auto) (0-0.5) Absolute Lymphs (auto) (1.0-4.6) Absolute Monos (auto) (0.0-1.3) Lymphocytes % (24.0-44.0) % Monocytes % (0.0-12.0) % Eosinophils % (0.00-5.0) % Basophils % (0.0-0.4) % Absolute Granulocytes (1.4-6.9) Basophils # (0-0.4) D-Dimer (215-500) ng/mL Sodium (137-145) mmol/L Potassium (3.5-5.1) mmol/L Chloride (98-107) mmol/L Carbon Dioxide (22-30) mmol/L Anion Gap (5-15) MEQ/L BUN (7-17) mg/dL Creatinine (0.52-1.04) mg/dL Estimated GFR ML/MIN Glucose (74-106) mg/dL POC Glucometer 358 H (74 to 106) mg/dL Hemoglobin A1c (4.5-6.0) % Lactic Acid (0.4-2.0) Calcium (8.4-10.2) mg/dL Total Bilirubin (0.2-1.3) mg/dL AST (14-36) U/L ALT (0-35) U/L Alkaline Phosphatase (38-126) U/L Troponin I < 0.012 < 0.012 (0.000-0.034) ng/mL NT-Pro-B Natriuret Pep (0-900) pg/mL Serum Total Protein (6.3-8.2) g/dL Albumin (3.5-5.0) g/dL Amylase (30-110) U/L Lipase (23-300) U/L Urine Color (YELLOW) Urine Appearance (CLEAR) Urine pH (5-6) Ur Specific [place] (1.005-1.025) Urine Protein (Negative) Urine Ketones (NEGATIVE) Urine Blood (0-5) Mookie/ul Urine Nitrite (NEGATIVE) Urine Bilirubin (NEGATIVE) Urine Urobilinogen (0-1) mg/dL Ur Leukocyte Esterase (NEGATIVE) Urine WBC (Auto) (0-5) /HPF Urine RBC (Auto) (0-2) /HPF U Epithel Cells (Auto) (FEW) /HPF Urine Bacteria (Auto) (NEGATIVE) /HPF Urine Culture Reflexed (NO) Urine Glucose (NEGATIVE) mg/dL Influenza Type A Ag (NEGATIVE) Influenza Type B Ag (NEGATIVE) RSV (PCR) (Negative) SARS-CoV-2 (PCR) (NEGATIVE) Slides for Path Review ABO Group Rh Factor Antibody Screen (NEGATIVE) Crossmatch (COMPATIBLE) 06/01/20 06/01/20 06/02/20 Range/Units 21:03 23:20 03:30 WBC 3.6 L (4.0-10.5) K/mm3 RBC 3.29 L (4.1-5.4) M/mm3 Hgb 9.1 L D (12.0-16.0) gm/dl Hct 30.2 L (35-47) % MCV 91.8 D (78-100) fl MCH 27.7 (26-32) pg MCHC 30.1 L (32-36) g/dl RDW 18.2 H (11.5-14.0) % Plt Count 151 (150-450) K/mm3 MPV 11.9 H (7.5-11.0) fl Gran % 43.2 (36.0-66.0) % Eos # (Auto) 0.21 (0-0.5) Absolute Lymphs (auto) 1.58 (1.0-4.6) Absolute Monos (auto) 0.24 (0.0-1.3) Lymphocytes % 43.8 (24.0-44.0) % Monocytes % 6.6 (0.0-12.0) % Eosinophils % 5.8 H (0.00-5.0) % Basophils % 0.6 (0.0-0.4) % Absolute Granulocytes 1.56 (1.4-6.9) Basophils # 0.02 (0-0.4) D-Dimer (215-500) ng/mL Sodium (137-145) mmol/L Potassium (3.5-5.1) mmol/L Chloride (98-107) mmol/L Carbon Dioxide (22-30) mmol/L Anion Gap (5-15) MEQ/L BUN (7-17) mg/dL Creatinine (0.52-1.04) mg/dL Estimated GFR ML/MIN Glucose (74-106) mg/dL POC Glucometer 292 H (74 to 106) mg/dL Hemoglobin A1c (4.5-6.0) % Lactic Acid (0.4-2.0) Calcium (8.4-10.2) mg/dL Total Bilirubin (0.2-1.3) mg/dL AST (14-36) U/L ALT (0-35) U/L Alkaline Phosphatase (38-126) U/L Troponin I < 0.012 (0.000-0.034) ng/mL NT-Pro-B Natriuret Pep (0-900) pg/mL Serum Total Protein (6.3-8.2) g/dL Albumin (3.5-5.0) g/dL Amylase (30-110) U/L Lipase (23-300) U/L Urine Color (YELLOW) Urine Appearance (CLEAR) Urine pH (5-6) Ur Specific [place] (1.005-1.025) Urine Protein (Negative) Urine Ketones (NEGATIVE) Urine Blood (0-5) Mookie/ul Urine Nitrite (NEGATIVE) Urine Bilirubin (NEGATIVE) Urine Urobilinogen (0-1) mg/dL Ur Leukocyte Esterase (NEGATIVE) Urine WBC (Auto) (0-5) /HPF Urine RBC (Auto) (0-2) /HPF U Epithel Cells (Auto) (FEW) /HPF Urine Bacteria (Auto) (NEGATIVE) /HPF Urine Culture Reflexed (NO) Urine Glucose (NEGATIVE) mg/dL Influenza Type A Ag (NEGATIVE) Influenza Type B Ag (NEGATIVE) RSV (PCR) (Negative) SARS-CoV-2 (PCR) (NEGATIVE) Slides for Path Review ABO Group Rh Factor Antibody Screen (NEGATIVE) Crossmatch (COMPATIBLE) 06/02/20 06/02/20 06/02/20 Range/Units 03:30 03:47 07:10 WBC (4.0-10.5) K/mm3 RBC (4.1-5.4) M/mm3 Hgb (12.0-16.0) gm/dl Hct (35-47) % MCV (78-100) fl MCH (26-32) pg MCHC (32-36) g/dl RDW (11.5-14.0) % Plt Count (150-450) K/mm3 MPV (7.5-11.0) fl Gran % (36.0-66.0) % Eos # (Auto) (0-0.5) Absolute Lymphs (auto) (1.0-4.6) Absolute Monos (auto) (0.0-1.3) Lymphocytes % (24.0-44.0) % Monocytes % (0.0-12.0) % Eosinophils % (0.00-5.0) % Basophils % (0.0-0.4) % Absolute Granulocytes (1.4-6.9) Basophils # (0-0.4) D-Dimer (215-500) ng/mL Sodium 136 L (137-145) mmol/L Potassium 4.1 (3.5-5.1) mmol/L Chloride 106 (98-107) mmol/L Carbon Dioxide 24 (22-30) mmol/L Anion Gap 10.5 (5-15) MEQ/L BUN 10 (7-17) mg/dL Creatinine 0.70 (0.52-1.04) mg/dL Estimated GFR > 60.0 ML/MIN Glucose 331 H (74-106) mg/dL POC Glucometer 316 H (74 to 106) mg/dL Hemoglobin A1c (4.5-6.0) % Lactic Acid 1.4 (0.4-2.0) Calcium 8.6 (8.4-10.2) mg/dL Total Bilirubin 0.80 (0.2-1.3) mg/dL AST 63 H (14-36) U/L ALT 37 H (0-35) U/L Alkaline Phosphatase 131 H (38-126) U/L Troponin I (0.000-0.034) ng/mL NT-Pro-B Natriuret Pep (0-900) pg/mL Serum Total Protein 7.4 (6.3-8.2) g/dL Albumin 3.3 L (3.5-5.0) g/dL Amylase (30-110) U/L Lipase (23-300) U/L Urine Color (YELLOW) Urine Appearance (CLEAR) Urine pH (5-6) Ur Specific [place] (1.005-1.025) Urine Protein (Negative) Urine Ketones (NEGATIVE) Urine Blood (0-5) Mookie/ul Urine Nitrite (NEGATIVE) Urine Bilirubin (NEGATIVE) Urine Urobilinogen (0-1) mg/dL Ur Leukocyte Esterase (NEGATIVE) Urine WBC (Auto) (0-5) /HPF Urine RBC (Auto) (0-2) /HPF U Epithel Cells (Auto) (FEW) /HPF Urine Bacteria (Auto) (NEGATIVE) /HPF Urine Culture Reflexed (NO) Urine Glucose (NEGATIVE) mg/dL Influenza Type A Ag (NEGATIVE) Influenza Type B Ag (NEGATIVE) RSV (PCR) (Negative) SARS-CoV-2 (PCR) (NEGATIVE) Slides for Path Review ABO Group Rh Factor Antibody Screen (NEGATIVE) Crossmatch (COMPATIBLE) Accuchecks Date 06/02/20 - Radiology Impressions Radiology Exams & Impressions: Radiology Procedures Category Date Time Status CHEST 1 VIEW (PORTABLE) Stat Exams 06/01/20 11:30 Completed CHEST WITH CONTRAST [CT] Routine Exams 06/01/20 15:31 Completed VENOUS BILATERAL EXTREMITY [US] Stat Exams 06/01/20 13:54 Completed Assessment/Plan (1) Anemia Current Visit: Yes Status: Acute Qualifiers: Anemia type: unspecified type Qualified Code(s): D64.9 - Anemia, unspecified Code(s): D64.9 - ANEMIA, UNSPECIFIED (2) Cellulitis of axillary region Current Visit: Yes Status: Acute Code(s): L03.119 - CELLULITIS OF UNSPECIFIED PART OF LIMB (3) Elevated d-dimer Current Visit: Yes Status: Acute Code(s): R79.89 - OTHER SPECIFIED ABNORMAL FINDINGS OF BLOOD CHEMISTRY (4) Diabetes mellitus Current Visit: No Status: Chronic Qualifiers: Diabetes mellitus type: type 2 Diabetes mellitus assisted insulin use: unspecified assisted insulin use status Diabetes mellitus complication status: with skin complications Diabetes mellitus complication detail: with other skin complication Qualified Code(s): E11.628 - Type 2 diabetes mellitus with other skin complications Code(s): E11.9 - TYPE 2 DIABETES MELLITUS WITHOUT COMPLICATIONS (5) HTN (hypertension) Current Visit: No Status: Chronic Qualifiers: Hypertension type: essential hypertension Qualified Code(s): I10 - Essential (primary) hypertension Code(s): I10 - ESSENTIAL (PRIMARY) HYPERTENSION (6) HX: breast cancer Current Visit: No Status: Chronic Onset Date: ~03/22/18 Code(s): Z85.3 - PERSONAL HISTORY OF MALIGNANT NEOPLASM OF BREAST (7) Hx of bilateral mastectomy Current Visit: No Status: Chronic Onset Date: ~03/22/18 Code(s): Z90.13 - ACQUIRED ABSENCE OF BILATERAL BREASTS AND NIPPLES
[2020-06-02] MEDS: Seroquel 25 MG PO SCH ×2 (13:03→22:04)
[2020-06-02] MEDS: HUMULIN R SQ PRN ×2 (13:04→16:58)
[2020-06-02] MEDS: Imdur 30 MG PO SCH (22:04)
[2020-06-03] MEDS: TYLENOL 325 MG PO PRN ×3 (03:36→23:04)
[2020-06-03] MEDS: HUMULIN R SQ PRN ×4 (08:10→21:16)
[2020-06-03] MEDS: HUMALOG SQ SCH ×4 (08:10→17:15)
--- NOTE | 2020-06-03 08:20 | PCM.NOTE ---
Date and Time: 06/03/20813 Subjective Assessment: doing little better today, denies any pain. - Review of Systems Constitutional: No Fever, No Chills Eyes: No Symptoms Ears, Nose, & Throat: No Symptoms Respiratory: No Cough, No Short Of Breath Cardiac: No Chest Pain, No Edema, No Syncope Abdominal/Gastrointestinal: No Abdominal Pain, No Nausea, No Vomiting, No Diarrhea Genitourinary Symptoms: No Dysuria Musculoskeletal: No Back Pain, No Neck Pain Skin: No Rash Neurological: No Dizziness, No Focal Weakness, No Sensory Changes Psychological: No Symptoms Endocrine: No Symptoms Hematologic/Lymphatic: No Symptoms, Adenopathy (axillary) Immunological/Allergic: No Symptoms Objective Exam General Appearance: no apparent distress, alert Neurologic Exam: alert, oriented x 3, cooperative, normal mood/affect, nml cerebellar function, sensation nml, No motor deficits Skin Exam: normal color, warm, dry Eye Exam: PERRL, EOMI, eyes nml inspection Ears, Nose, Throat Exam: normal ENT inspection, pharynx normal, moist mucous membranes Neck Exam: normal inspection, non-tender, supple, full range of motion Lymphatic Exam: axilla node tender (L), axilla node tender (R) Respiratory Exam: normal breath sounds, lungs clear, No respiratory distress Cardiovascular Exam: regular rate/rhythm, normal heart sounds Gastrointestinal/Abdomen Exam: soft, No tenderness, No mass Extremity Exam: normal inspection, normal range of motion Back Exam: normal inspection, normal range of motion, No CVA tenderness, No vertebral tenderness Pelvic Exam: deferred Rectal Exam: deferred OBJECTIVE DATA Vital Signs: Vital Signs - 24 hr Temp Pulse Resp BP Pulse Ox 06/03/20 07:49 97.9 F 64 16 84/44 91 L 06/03/20 04:00 98.1 F 60 18 97/50 95 06/02/20 23:34 98.3 F 71 16 117/57 96 06/02/20 19:24 98.2 F 67 18 105/51 96 06/02/20 16:00 98.1 F 68 18 95/51 90 L 06/02/20 12:00 98.6 F 74 18 188/96 95 Pain Assessment - Last Documented Pain Intensity 7 Pain Scale Used FLACC Intake and Output: Intake & Output 05/31/20 06/01/20 06/02/20 06/03/20 11:59 11:59 11:59 11:59 Intake Total 3765 1621 Output Total 500 Balance 3765 1121 Weight 91.4 kg 94.5 kg 94.2 kg Lab Results: Lab Results-Last 24 Hours 06/02/20 06/02/20 06/03/20 Range/Units 12:01 20:56 07:26 POC Glucometer 395 H 150 H 261 H (74 to 106) mg/dL Radiology Exams: Radiology Procedures Category Date Time Status CHEST 1 VIEW (PORTABLE) Stat Exams 06/01/20 11:30 Completed CHEST WITH CONTRAST [CT] Routine Exams 06/01/20 15:31 Completed VENOUS BILATERAL EXTREMITY [US] Stat Exams 06/01/20 13:[address]/CHEST WITH CONTRAST Indication: Elevated d-dimer. Multiple contiguous axial images obtained through the chest using 100 cc Isovue 370 contrast and PE protocol. Comparison: December 27, 2019. There is good opacification of the pulmonary arteries. However respiration artifact limits evaluation of the more distal lobar and segmental branches. No central pulmonary embolus. Heart remains enlarged. Aorta is normal in course and caliber. No pathologic mediastinal/hilar lymphadenopathy. Stable small hiatal hernia. Lungs demonstrates new diffuse bilateral groundglass airspace opacities greatest in both lower lobes. No consolidation or effusion. Bony thorax intact again with mild degenerative changes throughout the spine, bilateral mastectomy, and left axilla abhay dissection. Limited upper abdomen again cirrhotic liver. Spleen remains enlarged today measuring 15.2 cm. Impression: 1. Pulmonary embolus evaluation limited due to respiration artifact. No obvious central pulmonary embolus. 2. New diffuse bilateral groundglass airspace disease. 3. Again incidental cardiomegaly, small hiatal hernia cirrhotic liver, and splenomegaly. US/VENOUS BILATERAL EXTREMITY Indication: Bilateral leg pain. 2-dimensional sonogram and color Doppler imaging of the major venous vessels of the left and right leg was performed. Comparison: October 03, 2018. No thrombus seen in the examined deep venous vessels of the left and right leg including greater saphenous vein. Veins demonstrate normal compressibility. Venous waveforms are normal with and without augmentation. Impression: Left and right legs continue to be negative for DVT. Multi-Disciplinary Progress Notes: Last Vital Signs Temp 97.9 F 06/03/20 07:49 Pulse 64 06/03/20 07:49 Resp 16 06/03/20 07:49 BP 84/44 06/03/20 07:49 Pulse Ox 91 L 06/03/20 07:49 Allergies pregabalin [From Lyrica] Allergy (Severe, Verified 05/14/20 08:50) Swelling methadone [Methadone] Allergy (Mild, Verified 05/14/20 08:50) Hives oxycodone HCl [From OxyContin] Allergy (Verified 05/14/20 08:50) Active Medications Acetaminophen (Tylenol 325 Mg) 650 mg PO Q4H PRN PRN PRN Reason: PAIN, FEVER, HEADACHE Stop: 07/01/20 13:53 Last Admin: 06/03/20 03:36 Dose: 650 mg Documented by: Hydrocodone Bitart/Acetaminophen ([place] 5/325 Mg) 1 tab PO Q8H PRN PRN PRN Reason: PAIN Stop: 06/06/20 16:52 Last Admin: 06/01/20 21:45 Dose: 1 tab Documented by: Amlodipine Besylate (Norvasc 5 Mg) 10 mg PO DAILY REECE Stop: 07/02/20 09:59 Last Admin: 06/02/20 09:08 Dose: 10 mg Documented by: Furosemide (Lasix 20 Mg) 20 mg PO DAILY REECE Stop: 07/02/20 09:59 Last Admin: 06/02/20 09:09 Dose: 20 mg Documented by: Ceftriaxone Sodium/Dextrose (Rocephin 1 Gm-D5w 50 Ml Bag) 1 g in 50 mls @ 100 mls/hr IV Q24H10 [facility] Stop: 06/04/20 14:59 Last Admin: 06/02/20 09:08 Dose: 100 mls/hr Documented by: Azithromycin (Zithromax 500 Mg/ 250 Ml Nacl Premix) 500 mg in 250 mls @ 250 mls/hr IV Q24H10 [facility] Stop: 07/01/20 14:59 Last Admin: 06/02/20 09:08 Dose: 250 mls/hr Documented by: Insulin Human Lispro (Humalog) 14 unit SQ TIDWMEALS REECE Stop: 07/01/20 16:59 Last Admin: 06/03/20 08:12 Dose: 14 unit Documented by: Insulin Human Regular (Humulin R) 0 unit SQ UD PRN PRN Reason: HYPERGLYCEMIA Stop: 07/01/20 13:53 Last Admin: 06/03/20 08:10 Dose: 7 unit Documented by: Isosorbide Mononitrate (Imdur 30 Mg) 30 mg PO HS [facility] Stop: 07/01/20 21:59 Last Admin: 06/02/20 22:04 Dose: 30 mg Documented by: Lisinopril (Zestril 20 Mg) 20 mg PO DAILY REECE Stop: 07/02/20 09:59 Last Admin: 06/02/20 09:09 Dose: 20 mg Documented by: Lorazepam (Ativan 2 Mg/1 Ml Vial) 0.5 mg IV Q4H PRN PRN PRN Reason: ANXIETY Stop: 07/01/20 13:53 Last Admin: 06/02/20 09:13 Dose: 0.5 mg Documented by: Metoprolol Tartrate (Lopressor 25mg Tab) 25 mg PO BID REECE Stop: 07/01/20 21:59 Last Admin: 06/02/20 22:04 Dose: 25 mg Documented by: Miscellaneous Information (Medication Intervention) 1 each PO .RN TO CHECK ON REECE Stop: 07/01/20 16:59 Morphine Sulfate (Morphine Sulfate 4 Mg Inj) 4 mg IV Q4H PRN PRN PRN Reason: PAIN Stop: 06/06/20 13:53 Last Admin: 06/02/20 06:52 Dose: 4 mg Documented by: Non-Formulary Medication (Hold Metformin Products For 48 Hours) 1 each [facility] Stop: 06/03/20 15:44 Ondansetron HCl (Zofran 4 Mg/2 Ml Vial) 4 mg IV Q6H PRN PRN PRN Reason: NAUSEA/VOMITING Stop: 07/01/20 13:53 Quetiapine Fumarate (Seroquel 25 Mg) 50 mg PO BID [facility] Stop: 07/02/20 12:24 Last Admin: 06/02/20 22:04 Dose: 50 mg Documented by: Venlafaxine HCl (Effexor Xr 75 Mg) 150 mg PO DAILY [facility] Stop: 07/02/20 09:59 Last Admin: 06/02/20 09:09 Dose: 150 mg Documented by: Intake & Output 06/02/20 06/03/20 11:59 11:59 Intake Total 3765 1621 Output Total 500 Balance 3765 1121 Weight 94.5 kg 94.2 kg Orders 06/02/20 12:25 Quetiapine Fumarate 25 mg [Seroquel 25 MG] 50 mg PO BID Lab Tests 06/02/20 06/02/20 06/03/20 12:01 20:56 07:26 POC Glucometer 395 H 150 H 261 H Pain Assessment - Last Documented Pain Intensity 7 Pain Scale Used [facility] Assessment/Plan (1) Anemia Current Visit: Yes Status: Acute Qualifiers: Anemia type: unspecified type Qualified Code(s): D64.9 - Anemia, unspecified Assessment & Plan: doing better today Code(s): D64.9 - ANEMIA, UNSPECIFIED (2) Cellulitis of axillary region Current Visit: Yes Status: Acute Code(s): L03.119 - CELLULITIS OF UNSPECIFIED PART OF LIMB (3) Elevated d-dimer Current Visit: Yes Status: Acute Code(s): R79.89 - OTHER SPECIFIED ABNORMAL FINDINGS OF BLOOD CHEMISTRY (4) Diabetes mellitus Current Visit: No Status: Chronic Qualifiers: Diabetes mellitus type: type 2 Diabetes mellitus snf insulin use: 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 Diabetes mellitus complication status: with skin complications Diabetes mellitus complication detail: with other skin complication Qualified Code(s): E11.628 - Type 2 diabetes mellitus with other skin complications Code(s): E11.9 - TYPE 2 DIABETES MELLITUS WITHOUT COMPLICATIONS (5) HTN (hypertension) Current Visit: No Status: Chronic Qualifiers: Hypertension type: essential hypertension Qualified Code(s): I10 - Essential (primary) hypertension Code(s): I10 - ESSENTIAL (PRIMARY) HYPERTENSION (6) HX: breast cancer Current Visit: No Status: Chronic Onset Date: ~03/22/18 Code(s): Z85.3 - PERSONAL HISTORY OF MALIGNANT NEOPLASM OF BREAST (7) Hx of bilateral mastectomy Current Visit: No Status: Chronic Onset Date: ~03/22/18 Code(s): Z90.13 - ACQUIRED ABSENCE OF BILATERAL BREASTS AND NIPPLES
[2020-06-03] MEDS: ROCEPHIN 1 Gm-D5w 50 ml Bag** 1 G/50 ML IVPB IV SCH (10:34)
[2020-06-03] MEDS: Zithromax 500 MG/ 250 ML NaCl Premix 500 MG/250 ML IVPB IV SCH (10:36)
[2020-06-03] MEDS: NORVASC 5 MG PO SCH (10:36)
[2020-06-03] MEDS: Effexor XR 75 MG PO SCH (10:36)
[2020-06-03] MEDS: Neurontin 100 MG PO SCH ×3 (10:36→21:15)
[2020-06-03] MEDS: Zestril 20 MG PO SCH (10:36)
[2020-06-03] MEDS: Seroquel 25 MG PO SCH ×2 (10:36→21:15)
[2020-06-03] MEDS: LASIX 20 MG PO SCH (10:36)
[2020-06-03] MEDS: Lopressor 25MG Tab PO SCH ×2 (10:36→21:15)
[2020-06-03 11:24] LABS: Hematocrit 30.9 % (35-47); Hemoglobin 9.5 gm/dl (12.0-16.0); Mean Cell Volume 92.5 fl (78-100); Mean Corpuscular Hemoglobin 28.4 pg (26-32); Mean Corpuscular Hgb Concent. 30.7 g/dl (32-36); Mean Platelet Volume 10.8 fl (7.5-11.0); Platelet Count 154 K/mm3 (150-450); Red Blood Count 3.34 M/mm3 (4.1-5.4); Red Cell Distribution Width 19.1 % (11.5-14.0); White Blood Count 2.9 K/mm3 (4.0-10.5)
[2020-06-03 11:41] LABS: ALBUMIN 3.1 g/dL (3.5-5.0); ALKALINE PHOSPHATASE 93 U/L (38-126); ANION GAP 11.1 MEQ/L (5-15); BLOOD UREA NITROGEN 20 mg/dL (7-17); CHLORIDE 106 mmol/L (98-107); Calcium 8.2 mg/dL (8.4-10.2); Carbon Dioxide 23 mmol/L (22-30); Creatinine 1 0.97 mg/dL (0.52-1.04); EST GLOMERULAR FILTRATION RATE > 60.0 ML/MIN; Glucose 309 mg/dL (74-106); Potassium 4.1 mmol/L (3.5-5.1); SGOT/AST 64 U/L (14-36); SGPT/ALT 35 U/L (0-35); SODIUM 136 mmol/L (137-145)
[2020-06-03 12:23] LABS: Neutrophil % 45.9 % (36.0-66.0)
[2020-06-03 12:24] LABS: Absolute Neutrophil Ct (ANC) 1.37 (1.4-6.9); BASOPHIL % 0.7 % (0.0-0.4); Basophil (Absolute #) 0.02 (0-0.4); Eosinophil (Absolute #) 0.12 (0-0.5); Lymphocyte (Absolute #) 1.28 (1.0-4.6); Monocyte (Absolute #) 0.19 (0.0-1.3); Monocytes % 6.4 % (0.0-12.0)
[2020-06-03] MEDS: Colace 100 MG PO SCH ×2 (12:50→21:15)
[2020-06-03] MEDS: Imdur 30 MG PO SCH (21:15)
[2020-06-03] MEDS: Ativan 2 MG/1 ML VIAL IV PRN (21:15)
[2020-06-04] MEDS: NORCO 5/325 MG PO PRN (01:56)
[2020-06-04 05:37] LABS: Absolute Neutrophil Ct (ANC) 1.09 (1.4-6.9); BASOPHIL % 0.3 % (0.0-0.4); Basophil (Absolute #) 0.01 (0-0.4); Eosinophil % 5.3 % (0.00-5.0); Eosinophil (Absolute #) 0.17 (0-0.5); Hematocrit 29.8 % (35-47); Hemoglobin 8.9 gm/dl (12.0-16.0); Lymphocyte (Absolute #) 1.66 (1.0-4.6); Lymphocytes % 52.2 % (24.0-44.0); Mean Cell Volume 93.1 fl (78-100); Mean Corpuscular Hemoglobin 27.8 pg (26-32); Mean Corpuscular Hgb Concent. 29.9 g/dl (32-36); Mean Platelet Volume 11.7 fl (7.5-11.0); Monocyte (Absolute #) 0.25 (0.0-1.3); Monocytes % 7.9 % (0.0-12.0); Neutrophil % 34.3 % (36.0-66.0); Platelet Count 156 K/mm3 (150-450); Red Cell Distribution Width 18.8 % (11.5-14.0); White Blood Count 3.2 K/mm3 (4.0-10.5)
[2020-06-04 05:47] LABS: ALKALINE PHOSPHATASE 102 U/L (38-126); ANION GAP 10.6 MEQ/L (5-15); BLOOD UREA NITROGEN 25 mg/dL (7-17); CHLORIDE 109 mmol/L (98-107); Calcium 8.3 mg/dL (8.4-10.2); Carbon Dioxide 23 mmol/L (22-30); Creatinine 1 0.83 mg/dL (0.52-1.04); EST GLOMERULAR FILTRATION RATE > 60.0 ML/MIN; Glucose 225 mg/dL (74-106); SGOT/AST 52 U/L (14-36); SGPT/ALT 31 U/L (0-35); SODIUM 138 mmol/L (137-145); Total Protein 6.9 g/dL (6.3-8.2)
[2020-06-04] MEDS: HUMULIN R SQ PRN ×4 (07:42→21:38)
[2020-06-04] MEDS: HUMALOG SQ SCH ×3 (07:42→16:56)
[2020-06-04] MEDS: Seroquel 25 MG PO SCH ×2 (09:05→21:37)
[2020-06-04] MEDS: Effexor XR 75 MG PO SCH (09:05)
--- NOTE | 2020-06-04 09:05 | PCM.DS ---
Discharge Summary Date of Admission: 06/01/20 13:50 Admitting Physician: JOLANTA QUINTANILLA Primary Care Provider: JOLANTA QUINTANILLA Allergies Allergies pregabalin [From Lyrica] Allergy (Severe, Verified 05/14/20 08:50) Swelling methadone [Methadone] Allergy (Mild, Verified 05/14/20 08:50) Hives oxycodone HCl [From OxyContin] Allergy (Verified 05/14/20 08:50) Hospital Summary - Hospital Course Hospital Course: Pt is 65 yo female pt of mine from [facility] with COPD, DM, HTN, hx breast ca who was seen in office on 06/01/20 and sent to ER due to generalized pain, CP, leg pain, cough, and cellulitis of axilla. Her hgb was found to be 6.6 so she was transfused 3 units PRBC. She was started on rocephin for axillary cellulitis, and zithromax was added for possible COPD exacerbation. She was tearful the next day as well, and was started on seroquel and neurontin. Her mood seemed to improve quite a bit after that per RN. When I spoke to the patient this morning, I learned that she had apparently abruptly stopped her neurontin 3 days before - she was on 800mg po TID per our records. She will be sent home on po keflex, with seroquel and neurontin as well. Change effexor to prozac. Do hemoccult. Recheck CBC at the end of this week. F/u with me in 1 week. Will get pt in to outpatient psychiatry; she has failed multiple antidepressants. - Vitals & Intake/Output Vital Signs: Vital Signs Temperature 98.4 F 06/04/20 07:17 Pulse Rate 60 06/04/20 07:17 Respiratory Rate 20 06/04/20 07:17 Blood Pressure 95/50 06/04/20 07:17 O2 Sat by Pulse Oximetry 97 06/04/20 07:17 Intake & Output: Intake & Output 06/01/20 06/02/20 06/03/20 06/04/20 11:59 11:59 11:59 11:59 Intake Total 3765 1981 1840 Output Total 723 1650 Balance 3765 1256 190 Weight 91.4 kg 94.5 kg 94.2 kg 94.1 kg - Lab Result Diagrams: 06/04/20 04:52 06/04/20 04:52 Lab Results-Last 24 Hrs: Lab Results-Last 24 Hours 06/03/20 06/03/20 06/03/20 Range/Units 11:10 11:10 11:31 WBC 2.9 L (4.0-10.5) K/mm3 RBC 3.34 L (4.1-5.4) M/mm3 Hgb 9.5 L (12.0-16.0) gm/dl Hct 30.9 L (35-47) % MCV 92.5 (78-100) fl MCH 28.4 (26-32) pg MCHC 30.7 L (32-36) g/dl RDW 19.1 H (11.5-14.0) % Plt Count 154 (150-450) K/mm3 MPV 10.8 (7.5-11.0) fl Gran % 45.9 (36.0-66.0) % Eos # (Auto) 0.12 (0-0.5) Absolute Lymphs (auto) 1.28 (1.0-4.6) Absolute Monos (auto) 0.19 (0.0-1.3) Lymphocytes % 43.0 (24.0-44.0) % Monocytes % 6.4 (0.0-12.0) % Eosinophils % 4.0 (0.00-5.0) % Basophils % 0.7 (0.0-0.4) % Absolute Granulocytes 1.37 L (1.4-6.9) Basophils # 0.02 (0-0.4) Sodium 136 L (137-145) mmol/L Potassium 4.1 (3.5-5.1) mmol/L Chloride 106 (98-107) mmol/L Carbon Dioxide 23 (22-30) mmol/L Anion Gap 11.1 (5-15) MEQ/L BUN 20 H (7-17) mg/dL Creatinine 0.97 (0.52-1.04) mg/dL Estimated GFR > 60.0 ML/MIN Glucose 309 H (74-106) mg/dL POC Glucometer 275 H (74 to 106) mg/dL Calcium 8.2 L (8.4-10.2) mg/dL Total Bilirubin 0.40 (0.2-1.3) mg/dL AST 64 H (14-36) U/L ALT 35 (0-35) U/L Alkaline Phosphatase 93 (38-126) U/L Serum Total Protein 7.0 (6.3-8.2) g/dL Albumin 3.1 L (3.5-5.0) g/dL Slides for Path Review Cancelled 06/03/20 06/03/20 06/04/20 Range/Units 16:16 21:01 04:52 WBC 3.2 L (4.0-10.5) K/mm3 RBC 3.20 L (4.1-5.4) M/mm3 Hgb 8.9 L (12.0-16.0) gm/dl Hct 29.8 L (35-47) % MCV 93.1 (78-100) fl MCH 27.8 (26-32) pg MCHC 29.9 L (32-36) g/dl RDW 18.8 H (11.5-14.0) % Plt Count 156 (150-450) K/mm3 MPV 11.7 H (7.5-11.0) fl Gran % 34.3 L (36.0-66.0) % Eos # (Auto) 0.17 (0-0.5) Absolute Lymphs (auto) 1.66 (1.0-4.6) Absolute Monos (auto) 0.25 (0.0-1.3) Lymphocytes % 52.2 H (24.0-44.0) % Monocytes % 7.9 (0.0-12.0) % Eosinophils % 5.3 H (0.00-5.0) % Basophils % 0.3 (0.0-0.4) % Absolute Granulocytes 1.09 L (1.4-6.9) Basophils # 0.01 (0-0.4) Sodium (137-145) mmol/L Potassium (3.5-5.1) mmol/L Chloride (98-107) mmol/L Carbon Dioxide (22-30) mmol/L Anion Gap (5-15) MEQ/L BUN (7-17) mg/dL Creatinine (0.52-1.04) mg/dL Estimated GFR ML/MIN Glucose (74-106) mg/dL POC Glucometer 276 H 310 H (74 to 106) mg/dL Calcium (8.4-10.2) mg/dL Total Bilirubin (0.2-1.3) mg/dL AST (14-36) U/L ALT (0-35) U/L Alkaline Phosphatase (38-126) U/L Serum Total Protein (6.3-8.2) g/dL Albumin (3.5-5.0) g/dL Slides for Path Review 06/04/20 06/04/20 Range/Units 04:52 06:54 WBC (4.0-10.5) K/mm3 RBC (4.1-5.4) M/mm3 Hgb (12.0-16.0) gm/dl Hct (35-47) % MCV (78-100) fl MCH (26-32) pg MCHC (32-36) g/dl RDW (11.5-14.0) % Plt Count (150-450) K/mm3 MPV (7.5-11.0) fl Gran % (36.0-66.0) % Eos # (Auto) (0-0.5) Absolute Lymphs (auto) (1.0-4.6) Absolute Monos (auto) (0.0-1.3) Lymphocytes % (24.0-44.0) % Monocytes % (0.0-12.0) % Eosinophils % (0.00-5.0) % Basophils % (0.0-0.4) % Absolute Granulocytes (1.4-6.9) Basophils # (0-0.4) Sodium 138 (137-145) mmol/L Potassium 4.0 (3.5-5.1) mmol/L Chloride 109 H (98-107) mmol/L Carbon Dioxide 23 (22-30) mmol/L Anion Gap 10.6 (5-15) MEQ/L BUN 25 H (7-17) mg/dL Creatinine 0.83 (0.52-1.04) mg/dL Estimated GFR > 60.0 ML/MIN Glucose 225 H (74-106) mg/dL POC Glucometer 215 H (74 to 106) mg/dL Calcium 8.3 L (8.4-10.2) mg/dL Total Bilirubin 0.30 (0.2-1.3) mg/dL AST 52 H (14-36) U/L ALT 31 (0-35) U/L Alkaline Phosphatase 102 (38-126) U/L Serum Total Protein 6.9 (6.3-8.2) g/dL Albumin 3.0 L (3.5-5.0) g/dL Slides for Path Review Micro Results-Entire Visit: Accuchecks Date 06/03/20 Date 06/03/20 Discharge Exam General Appearance: no apparent distress, alert, obese Neurologic Exam: oriented x 3, cooperative Eye Exam: eyes nml inspection Ears, Nose, Throat Exam: moist mucous membranes Neck Exam: normal inspection Respiratory Exam: normal breath sounds, lungs clear, No crackles/rales, No rhonchi, No wheezing Cardiovascular Exam: regular rate/rhythm, normal heart sounds, No murmur Extremity Exam: normal inspection, No pedal edema, No swelling Skin Exam: warm, dry, other (L axilla, decreased erythema. Lesions appear to be healing.) Final Diagnosis/Problem List - Final Discharge Diagnosis/Problem (1) Anemia Current Visit: Yes Status: Acute Assessment & Plan: Check hemoccult. recheck cbc end of this week. Code(s): D64.9 - ANEMIA, UNSPECIFIED (2) Cellulitis of axillary region Current Visit: Yes Status: Acute Assessment & Plan: home on keflex to finish 7d of antibiotics. Code(s): L03.119 - CELLULITIS OF UNSPECIFIED PART OF LIMB (3) Elevated d-dimer Current Visit: Yes Status: Acute Code(s): R79.89 - OTHER SPECIFIED ABNORMAL FINDINGS OF BLOOD CHEMISTRY (4) Cough Current Visit: No Status: Chronic Code(s): R05 - COUGH (5) Anxiety Current Visit: No Status: Chronic Code(s): F41.9 - ANXIETY DISORDER, UNSPECIFIED (6) Depressed Current Visit: No Status: Chronic Assessment & Plan: No suicidal ideation. Will work to get her into psychiatry. In the past she has failed the following: amitriptyline (up to 50mg at hs), doxepin, wellbutrin, cymbalta, buspar, lexapro, klonopin, oxcarbazepine, pristiq, paxil, risperdal, hydroxyine, trazodone, and trintellix. Home on seroquel and will start prozac. Code(s): F32.9 - MAJOR DEPRESSIVE DISORDER, SINGLE EPISODE, UNSPECIFIED (7) HTN (hypertension) Current Visit: No Status: Chronic Assessment & Plan: Has had some low bp in the past 24 hours (to 84 systolic, appears to be when pt was sleeping). I suspect she eats much more (including much more salt) at home. Hold bp meds as needed. Otherwise she is entirely stable. Code(s): I10 - ESSENTIAL (PRIMARY) HYPERTENSION (8) HX: breast cancer Current Visit: No Status: Chronic Onset Date: ~03/22/18 Code(s): Z85.3 - PERSONAL HISTORY OF MALIGNANT NEOPLASM OF BREAST (9) Fibromyalgia Current Visit: Yes Status: Chronic Assessment & Plan: Will send pt home on po gabapentin. Stopping the 800mg TID gabapentin abruptly could be causing pain. She is allergic to lyrica and failed cymbalta in the past. (10) Diabetes type 2, uncontrolled Current Visit: Yes Status: Chronic Assessment & Plan: A1c >14. Resume home lantus. Needs to keep log of BS at home, QID, and bring to next office visit. Code(s): E11.65 - TYPE 2 DIABETES MELLITUS WITH HYPERGLYCEMIA - Discharge Disposition: Home, Self-Care Condition: Stable Prescriptions: New Docusate Sodium 100 mg [Colace 100 MG] 100 mg PO BID capsule Gabapentin 100 mg PO TID #90 capsule Cephalexin Mh 500 mg [Keflex 500 mg] 500 mg PO QID #20 capsule Fluoxetine HCl 20 mg [Prozac 20 MG] 20 mg PO DAILY #30 cap Continue Insulin Lispro [Humalog] 14 unit SQ TIDWMEALS Letrozole 2.5 mg PO DAILY Hydrocodone Bit/Acetaminophen [Hydrocodon-Acetaminophen 5-325] 1 each PO Q8H PRN PRN PRN Reason: Pain Amlodipine Besylate 10 mg PO DAILY Isosorbide Mononitrate 30 mg [Imdur 30 MG] 30 mg PO HS Furosemide 20 mg [Lasix 20 mg] 20 mg PO DAILY #30 tablet Metoprolol Tartrate 25 mg [Lopressor 25MG Tab] 25 mg PO BID #60 tab Cyanocobalamin (Vitamin B-12) [Vitamin B12] 2,500 mcg PO DAILY Lisinopril 20 mg [Zestril 20 MG] 20 mg PO DAILY Oxybutynin Chloride [Oxybutynin Chloride ER] 10 mg PO DAILY Mv,Willie,Iron,Mn/Folic Acid/Chol [Hair, Skin and Nails Capsule] 1 each PO DAILY Metformin HCl 500 mg [Glucophage 500 MG] 500 mg PO BIDWM Oxybutynin Chloride [Oxybutynin Chloride ER] 10 mg PO DAILY Quetiapine Fumarate 50 mg PO BID Discontinued Venlafaxine HCl [Venlafaxine HCl ER] 150 mg PO DAILY Follow up with: JOLANTA QUINTANILLA [Primary Care Provider] -
[2020-06-04] MEDS: Lopressor 25MG Tab PO SCH ×2 (09:06→21:37)
[2020-06-04] MEDS: ROCEPHIN 1 Gm-D5w 50 ml Bag** 1 G/50 ML IVPB IV SCH (09:06)
[2020-06-04] MEDS: NORVASC 5 MG PO SCH (09:06)
[2020-06-04] MEDS: Zestril 20 MG PO SCH (09:06)
[2020-06-04] MEDS: LASIX 20 MG PO SCH (09:06)
[2020-06-04] MEDS: Colace 100 MG PO SCH ×2 (09:06→21:37)
[2020-06-04] MEDS: Neurontin 100 MG PO SCH ×3 (09:06→21:37)
[2020-06-04] MEDS ORDERED: Sodium Chloride 0.9% 500 ML 500 ML IV ONE ×2 (15:09→15:10)
[2020-06-04] MEDS: TYLENOL 325 MG PO PRN (16:54)
[2020-06-04] MEDS ORDERED: Neurontin 100 MG ONE (21:26)
[2020-06-04] MEDS: Imdur 30 MG PO SCH (21:37)
[2020-06-04] MEDS: Lantus Insulin SQ SCH (21:37)
[2020-06-05] MEDS: NORCO 5/325 MG PO PRN ×2 (03:26→23:15)
[2020-06-05 08:01] LABS: Hematocrit 32.5 % (35-47); Hemoglobin 9.8 gm/dl (12.0-16.0); Mean Cell Volume 93.1 fl (78-100); Mean Corpuscular Hemoglobin 28.1 pg (26-32); Mean Corpuscular Hgb Concent. 30.2 g/dl (32-36); Platelet Count 162 K/mm3 (150-450); Red Blood Count 3.49 M/mm3 (4.1-5.4); Red Cell Distribution Width 18.8 % (11.5-14.0); White Blood Count 3.5 K/mm3 (4.0-10.5)
[2020-06-05] MEDS: HUMALOG SQ SCH ×3 (08:45→17:02)
[2020-06-05] MEDS: HUMULIN R SQ PRN ×2 (08:45→12:38)
[2020-06-05 09:00] LABS: ANION GAP 10.8 MEQ/L (5-15); BLOOD UREA NITROGEN 23 mg/dL (7-17); CHLORIDE 110 mmol/L (98-107); Calcium 8.6 mg/dL (8.4-10.2); Carbon Dioxide 22 mmol/L (22-30); Creatinine 1 0.73 mg/dL (0.52-1.04); EST GLOMERULAR FILTRATION RATE > 60.0 ML/MIN; Glucose 248 mg/dL (74-106); Potassium 4.3 mmol/L (3.5-5.1); SODIUM 139 mmol/L (137-145)
--- NOTE | 2020-06-05 09:14 | PCM.NOTE ---
Date and Time: 06/05/20 09 Subjective Assessment: Pt continued to have low BPs, with a low into the 70s systolic. She was lying in bed and asymptomatic. Her norvasc and lisinopril were held yesterday. Actually feeling much better today. Had BP of 85/45 and 95/51 this morning. Pt states that for the past 2 weeks when she goes out to the mailbox, sometimes her legs go out from under her. Said she had a BM here with "lots of" blood in it. Has also been coughing up blood - unsure if it's from her stomach or chest. - Review of Systems Constitutional: Fatigue Respiratory: Other (hemoptysis?) Objective Exam General Appearance: no apparent distress, alert, obese Neurologic Exam: oriented x 3, cooperative Skin Exam: normal color, warm, dry, No rash Eye Exam: eyes nml inspection Ears, Nose, Throat Exam: moist mucous membranes Neck Exam: normal inspection Respiratory Exam: normal breath sounds, lungs clear, No crackles/rales, No rhonchi, No wheezing Cardiovascular Exam: regular rate/rhythm, normal heart sounds, No murmur Extremity Exam: normal inspection, No pedal edema, No swelling Back Exam: normal inspection, No rash OBJECTIVE DATA Vital Signs: Vital Signs - 24 hr Temp Pulse Resp BP BP Pulse Ox 06/05/20 07:42 98.1 F 66 16 104/51 94 L 06/05/20 04:00 98.1 F 63 18 95/51 96 06/05/20 00:00 97.3 F 64 16 85/45 93 L 06/04/20 22:00 98.7 F 69 117/57 06/04/20 21:00 69 117/57 06/04/20 19:44 98.7 F 65 18 101/55 93 L 06/04/20 19:00 98.7 F 65 18 101/55 93 L 06/04/20 17:51 111/66 06/04/20 17:45 101/56 06/04/20 17:30 111/63 06/04/20 17:15 100/62 06/04/20 17:00 99/56 06/04/20 16:45 103/68 06/04/20 16:30 98/59 06/04/20 16:15 100/62 06/04/20 16:00 96 H 20 99/56 96 06/04/20 15:45 72 100/60 06/04/20 15:32 68 20 99/53 97 06/04/20 15:05 60 20 79/38 97 06/04/20 12:00 98.3 F 78 20 96/52 96 Pain Assessment - Last Documented Pain Intensity 4 Pain Scale Used 0-10 Pain Scale Intake and Output: Intake & Output 06/02/20 06/03/20 06/04/20 06/05/20 11:59 11:59 11:59 11:59 Intake Total 3765 1981 2080 1140 Output Total 725 1650 400 Balance 3765 1256 430 740 Weight 94.5 kg 94.2 kg 94.1 kg Lab Results: Lab Results-Last 24 Hours 06/01/20 06/04/20 06/04/20 Range/Units 22:04 11:26 16:05 WBC (4.0-10.5) K/mm3 RBC (4.1-5.4) M/mm3 Hgb (12.0-16.0) gm/dl Hct (35-47) % MCV (78-100) fl MCH (26-32) pg MCHC (32-36) g/dl RDW (11.5-14.0) % Plt Count (150-450) K/mm3 MPV (7.5-11.0) fl Sodium (137-145) mmol/L Potassium (3.5-5.1) mmol/L Chloride (98-107) mmol/L Carbon Dioxide (22-30) mmol/L Anion Gap (5-15) MEQ/L BUN (7-17) mg/dL Creatinine (0.52-1.04) mg/dL Estimated GFR ML/MIN Glucose (74-106) mg/dL POC Glucometer 271 H 314 H (74 to 106) mg/dL Calcium (8.4-10.2) mg/dL Stool Occult Blood POSITIVE A (NEGATIVE) 06/04/20 06/05/20 06/05/20 Range/Units 20:09 07:23 07:50 WBC 3.5 L (4.0-10.5) K/mm3 RBC 3.49 L (4.1-5.4) M/mm3 Hgb 9.8 L (12.0-16.0) gm/dl Hct 32.5 L (35-47) % MCV 93.1 (78-100) fl MCH 28.1 (26-32) pg MCHC 30.2 L (32-36) g/dl RDW 18.8 H (11.5-14.0) % Plt Count 162 (150-450) K/mm3 MPV 11.0 (7.5-11.0) fl Sodium (137-145) mmol/L Potassium (3.5-5.1) mmol/L Chloride (98-107) mmol/L Carbon Dioxide (22-30) mmol/L Anion Gap (5-15) MEQ/L BUN (7-17) mg/dL Creatinine (0.52-1.04) mg/dL Estimated GFR ML/MIN Glucose (74-106) mg/dL POC Glucometer 222 H 228 H (74 to 106) mg/dL Calcium (8.4-10.2) mg/dL Stool Occult Blood (NEGATIVE) 06/05/20 Range/Units 07:50 WBC (4.0-10.5) K/mm3 RBC (4.1-5.4) M/mm3 Hgb (12.0-16.0) gm/dl Hct (35-47) % MCV (78-100) fl MCH (26-32) pg MCHC (32-36) g/dl RDW (11.5-14.0) % Plt Count (150-450) K/mm3 MPV (7.5-11.0) fl Sodium 139 (137-145) mmol/L Potassium 4.3 (3.5-5.1) mmol/L Chloride 110 H (98-107) mmol/L Carbon Dioxide 22 (22-30) mmol/L Anion Gap 10.8 (5-15) MEQ/L BUN 23 H (7-17) mg/dL Creatinine 0.73 (0.52-1.04) mg/dL Estimated GFR > 60.0 ML/MIN Glucose 248 H (74-106) mg/dL POC Glucometer (74 to 106) mg/dL Calcium 8.6 (8.4-10.2) mg/dL Stool Occult Blood (NEGATIVE) Multi-Disciplinary Progress Notes: Multi-Disciplinary Progress Notes 06/05/20 08:58 Case Management Note by Yamel Alfonso PATIENT CONTINUES TO DENY ANY NEW NEEDS REGARDING DC AT THIS TIME. SHE PLANS TO RETURN HOME TO HER PRIOR LEVEL OF FUNCTIONING AT TIME OF DC Initialized on 06/05/20 08:58 - END OF NOTE Assessment/Plan (1) GI bleed Current Visit: Yes Status: Acute Qualifiers: GI bleed type/associated pathology: unspecified gastrointestinal hemorrhage type Qualified Code(s): K92.2 - Gastrointestinal hemorrhage, unspecified Assessment & Plan: EGD and colonoscopy tomorrow. Code(s): K92.2 - GASTROINTESTINAL HEMORRHAGE, UNSPECIFIED (2) Hemoptysis Current Visit: Yes Status: Acute Assessment & Plan: probable. CT chest. Code(s): R04.2 - HEMOPTYSIS (3) Anemia Current Visit: Yes Status: Acute Qualifiers: Anemia type: unspecified type Qualified Code(s): D64.9 - Anemia, unspecified Assessment & Plan: Appears she is having GI losses - EGD and colonoscopy tomorrow. Code(s): D64.9 - ANEMIA, UNSPECIFIED (4) Cellulitis of axillary region Current Visit: Yes Status: Acute Code(s): L03.119 - CELLULITIS OF UNSPECIFIED PART OF LIMB (5) Elevated d-dimer Current Visit: Yes Status: Acute Code(s): R79.89 - OTHER SPECIFIED ABNORMAL FINDINGS OF BLOOD CHEMISTRY (6) Cough Current Visit: No Status: Chronic Code(s): R05 - COUGH (7) Anxiety Current Visit: No Status: Chronic Code(s): F41.9 - ANXIETY DISORDER, UNSPECIFIED (8) Depressed Current Visit: No Status: Chronic Qualifiers: Depression Type: major depressive disorder Major depression recurrence: recurrent Active/Remission status: currently active Major depression episode severity: moderate Qualified Code(s): F33.1 - Major depressive disorder, recurrent, moderate Code(s): F32.9 - MAJOR DEPRESSIVE DISORDER, SINGLE EPISODE, UNSPECIFIED (9) HTN (hypertension) Current Visit: No Status: Chronic Qualifiers: Hypertension type: essential hypertension Qualified Code(s): I10 - Essential (primary) hypertension Code(s): I10 - ESSENTIAL (PRIMARY) HYPERTENSION (10) HX: breast cancer Current Visit: No Status: Chronic Onset Date: ~03/22/18 Code(s): Z85.3 - PERSONAL HISTORY OF MALIGNANT NEOPLASM OF BREAST (11) Fibromyalgia Current Visit: Yes Status: Chronic (12) Diabetes type 2, uncontrolled Current Visit: Yes Status: Chronic Qualifiers: Glycemic state: with hyperglycemia Qualified Code(s): E11.65 - Type 2 diabetes mellitus with hyperglycemia Code(s): E11.65 - TYPE 2 DIABETES MELLITUS WITH HYPERGLYCEMIA
[2020-06-05] MEDS: Colace 100 MG PO SCH ×2 (10:36→21:24)
[2020-06-05] MEDS: Neurontin 100 MG PO SCH ×3 (10:36→21:26)
[2020-06-05] MEDS: Prozac 20 MG PO SCH (10:36)
[2020-06-05] MEDS: Seroquel 25 MG PO SCH ×2 (10:36→21:27)
[2020-06-05] MEDS: NORVASC 5 MG PO SCH (10:37)
[2020-06-05] MEDS: KEFLEX 500 MG PO SCH ×4 (10:37→21:26)
[2020-06-05] MEDS: LASIX 20 MG PO SCH (10:37)
[2020-06-05] MEDS: Lopressor 25MG Tab PO SCH ×2 (10:37→21:26)
[2020-06-05] MEDS: Zestril 20 MG PO SCH (10:37)
[2020-06-05] MEDS ORDERED: HOLD METFORMIN PRODUCTS FOR 48 HOURS MC SCH (11:20)
--- NOTE | 2020-06-05 12:25 | XRAY ---
Indication: Left breast pain. Hemoptysis. History of breast cancer with bilateral mastectomy. Multiple contiguous axial images obtained through the chest using 80 cc Isovue 370 contrast. Comparison: June 01, 2020. Lungs demonstrates moderate clearing of previous bilateral airspace disease with minimal residual in the mid to lower lung gomez bilaterally. No consolidation/effusion. Incidental mild bibasilar fibrosis/scarring. Heart remains enlarged. Aorta is normal in course and caliber. No pathologic mediastinal/hilar lymphadenopathy. Stable small hiatal hernia. Bony thorax intact again with mild degenerative changes throughout the spine, bilateral mastectomy, and left axilla abhay dissection. Limited upper abdomen again demonstrates cirrhotic liver and 14.6 cm splenomegaly. Impression: 1. Moderate clearing of previous bilateral airspace disease with minimal residual. 2. No new cardiopulmonary abnormalities. 3. Stable incidental cardiomegaly, small hiatal hernia, cirrhotic liver, and splenomegaly.
[2020-06-05] MEDS ORDERED: Golytely Solution 4000 ML PO ONE (14:00)
[2020-06-05] MEDS ORDERED: Lactated Ringers 1,000 ML IV SCH (16:30)
[2020-06-05] MEDS: Imdur 30 MG PO SCH (21:26)
[2020-06-05] MEDS: TYLENOL 325 MG PO PRN (21:34)
[2020-06-05] MEDS: Lantus Insulin SQ SCH (21:46)
[2020-06-05] MEDS ORDERED: CITROMA 296 ML PO ONE (23:22)
[2020-06-05] MEDS ORDERED: DULCOLAX 5 MG PO PRN (23:24)
[2020-06-05] MEDS ORDERED: DULCOLAX 5 MG PO ONE (23:25)
--- NOTE | 2020-06-06 09:08 | PCM.DS ---
Discharge Summary Date of Admission: 06/01/20 13:50 Admitting Physician: JOLANTA QUINTANILLA Consults: Consults on Case 06/05/20 09:14 Consult Surgery ROUTINE 06/06/20 07:00 Consult Surgery ROUTINE Primary Care Provider: JOLANTA QUINTANILLA Allergies Allergies pregabalin [From Lyrica] Allergy (Severe, Verified 05/14/20 08:50) Swelling methadone [Methadone] Allergy (Mild, Verified 05/14/20 08:50) Hives oxycodone HCl [From OxyContin] Allergy (Verified 05/14/20 08:50) Hospital Summary - Hospital Course Hospital Course: Pt is 65 yo female pt of mine from [facility] with COPD, DM, HTN, hx breast ca who was seen in office on 06/01/20 and sent to ER due to generalized pain, CP, leg pain, cough, and cellulitis of axilla. Her hgb was found to be 6.6 so she was transfused 3 units PRBC. She was started on rocephin for axillary cellulitis, and zithromax was added for possible COPD exacerbation. She was tearful the next day as well, and was started on seroquel and neurontin. Her mood seemed to improve quite a bit after that per RN. Pt had apparently abruptly stopped her neurontin 3 days prior to admission - she was on 800mg po T ID per our records. Pt had hypotension, down to 70s systolic at one point, and her amlodipine and l isinopril were held. She last had hypotension yesterday around noon. She has been feeling much better. At home apparently x 2 weeks she had episodes of her "legs giving out" that may have been hypotensive. If her BP remains in normal or hypertensive range, would discharge to home after noon today. She had hematochezia yesterday so EGD and colonoscopy were scheduled for today; her prep did not produce results in time, however, so she will be scheduled for outpatient EGD/colonoscopy with general surgery. She has been changed to po keflex, and will be sent home on seroquel and neurontin as well. Changed effexor to prozac. Recheck CBC next week. F/u with me in 1 week. Will get pt in to outpatient psychiatry; she has failed multiple antidepressants. - Vitals & Intake/Output Vital Signs: Vital Signs Temperature 97.1 F 04/14/21 07:33 Pulse Rate 60 06/06/20 07:33 Respiratory Rate 16 06/06/20 07:33 Blood Pressure 124/58 06/06/20 07:33 O2 Sat by Pulse Oximetry 95 06/06/20 07:33 Intake & Output: Intake & Output 06/03/20 06/04/20 06/05/20 06/06/20 11:59 11:59 11:59 11:59 Intake Total 1980 2080 1320 5240 Output Total 725 1650 400 1 Balance 1256 507 823 5630 Weight 94.2 kg 94.1 kg 94.9 kg 94.9 kg - Lab Result Diagrams: 06/05/20 07:50 06/05/20 07:50 Lab Results-Last 24 Hrs: Lab Results-Last 24 Hours 06/01/20 06/05/20 06/05/20 Range/Units 11:29 07:50 12:02 WBC 2.8 L (4.0-10.5) K/mm3 RBC 2.40 L (4.1-5.4) M/mm3 Hgb 6.7 L* (12.0-16.0) gm/dl Hct 23.9 L (35-47) % MCV 99.6 (78-100) fl MCH 27.9 (26-32) pg MCHC 28.0 L (32-36) g/dl RDW 16.8 H (11.5-14.0) % Plt Count 167 (150-450) K/mm3 MPV 11.8 H (7.5-11.0) fl Gran % 45.4 (36.0-66.0) % Eos # (Auto) 0.11 (0-0.5) Absolute Lymphs (auto) 1.20 (1.0-4.6) Absolute Monos (auto) 0.22 (0.0-1.3) Lymphocytes % 42.3 (24.0-44.0) % Monocytes % 7.7 (0.0-12.0) % Eosinophils % 3.9 (0.00-5.0) % Basophils % 0.7 (0.0-0.4) % Absolute Granulocytes 1.29 L (1.4-6.9) Basophils # 0.02 (0-0.4) Smear Path Review Sodium 139 (137-145) mmol/L Potassium 4.3 (3.5-5.1) mmol/L Chloride 110 H (98-107) mmol/L Carbon Dioxide 22 (22-30) mmol/L Anion Gap 10.8 (5-15) MEQ/L BUN 23 H (7-17) mg/dL Creatinine 0.73 (0.52-1.04) mg/dL Estimated GFR > 60.0 ML/MIN Glucose 248 H (74-106) mg/dL POC Glucometer 218 H (74 to 106) mg/dL Calcium 8.6 (8.4-10.2) mg/dL Slides for Path Review 06/05/20 06/05/20 06/06/20 Range/Units 16:16 20:52 07:14 WBC (4.0-10.5) K/mm3 RBC (4.1-5.4) M/mm3 Hgb (12.0-16.0) gm/dl Hct (35-47) % MCV (78-100) fl MCH (26-32) pg MCHC (32-36) g/dl RDW (11.5-14.0) % Plt Count (150-450) K/mm3 MPV (7.5-11.0) fl Gran % (36.0-66.0) % Eos # (Auto) (0-0.5) Absolute Lymphs (auto) (1.0-4.6) Absolute Monos (auto) (0.0-1.3) Lymphocytes % (24.0-44.0) % Monocytes % (0.0-12.0) % Eosinophils % (0.00-5.0) % Basophils % (0.0-0.4) % Absolute Granulocytes (1.4-6.9) Basophils # (0-0.4) Smear Path Review Sodium (137-145) mmol/L Potassium (3.5-5.1) mmol/L Chloride (98-107) mmol/L Carbon Dioxide (22-30) mmol/L Anion Gap (5-15) MEQ/L BUN (7-17) mg/dL Creatinine (0.52-1.04) mg/dL Estimated GFR ML/MIN Glucose (74-106) mg/dL POC Glucometer 123 H 111 H 175 H (74 to 106) mg/dL Calcium (8.4-10.2) mg/dL Slides for Path Review Micro Results-Entire Visit: Accuchecks Date 06/06/20 Date 06/05/20 Date 06/05/20 Time 16:43 Time 12:03 - Radiology Exams Ordered Rad Exams-Entire Visit: Radiology Procedures Category Date Time Status CHEST WITH CONTRAST [CT] Routine Exams 06/05/20 11:20 Completed Discharge Exam General Appearance: no apparent distress, alert, obese Neurologic Exam: oriented x 3, cooperative, normal mood/affect Eye Exam: eyes nml inspection Ears, Nose, Throat Exam: moist mucous membranes Neck Exam: normal inspection Respiratory Exam: normal breath sounds, lungs clear, No crackles/rales, No rhonchi, No wheezing Cardiovascular Exam: regular rate/rhythm, normal heart sounds, No murmur Gastrointestinal/Abdomen Exam: soft, normal bowel sounds, tenderness (LUQ), No mass, No guarding, No rebound Extremity Exam: normal inspection, No pedal edema, No swelling Skin Exam: normal color, warm, dry, No rash Final Diagnosis/Problem List - Final Discharge Diagnosis/Problem (1) GI bleed Current Visit: Yes Status: Acute Assessment & Plan: Appears stable, with Hgb increased yesterday. Home today with plans to f/u with surgery in hopes that outpatient prep would be more successful than inpatient prep. Code(s): K92.2 - GASTROINTESTINAL HEMORRHAGE, UNSPECIFIED (2) Hemoptysis Current Visit: Yes Status: Acute Assessment & Plan: CT chest with contrast was wnl. Code(s): R04.2 - HEMOPTYSIS (3) Anemia Current Visit: Yes Status: Acute Assessment & Plan: recheck CBC next week. Code(s): D64.9 - ANEMIA, UNSPECIFIED (4) Cellulitis of axillary region Current Visit: Yes Status: Acute Assessment & Plan: finish po keflex Code(s): L03.119 - CELLULITIS OF UNSPECIFIED PART OF LIMB (5) Elevated d-dimer Current Visit: Yes Status: Acute Code(s): R79.89 - OTHER SPECIFIED ABNORMAL FINDINGS OF BLOOD CHEMISTRY (6) Cough Current Visit: No Status: Chronic Code(s): R05 - COUGH (7) Anxiety Current Visit: No Status: Chronic Code(s): F41.9 - ANXIETY DISORDER, UNSPECIFIED (8) Depressed Current Visit: No Status: Chronic Code(s): F32.9 - MAJOR DEPRESSIVE DISORDER, SINGLE EPISODE, UNSPECIFIED (9) HTN (hypertension) Current Visit: No Status: Chronic Assessment & Plan: Holding several BP meds Code(s): I10 - ESSENTIAL (PRIMARY) HYPERTENSION (10) HX: breast cancer Current Visit: No Status: Chronic Onset Date: ~03/22/18 Code(s): Z85.3 - PERSONAL HISTORY OF MALIGNANT NEOPLASM OF BREAST (11) Fibromyalgia Current Visit: Yes Status: Chronic (12) Diabetes type 2, uncontrolled Current Visit: Yes Status: Chronic Code(s): E11.65 - TYPE 2 DIABETES MELLITUS WITH HYPERGLYCEMIA - Discharge Disposition: Home, Self-Care Condition: Stable Prescriptions: New Docusate Sodium 100 mg [Colace 100 MG] 100 mg PO BID capsule Gabapentin 100 mg PO TID #90 capsule Cephalexin Mh 500 mg [Keflex 500 mg] 500 mg PO QID #20 capsule Fluoxetine HCl 20 mg [Prozac 20 MG] 20 mg PO DAILY #30 cap Continue Insulin Lispro [Humalog] 14 unit SQ TIDWMEALS Letrozole 2.5 mg PO DAILY Hydrocodone Bit/Acetaminophen [Hydrocodon-Acetaminophen 5-325] 1 each PO Q8H PRN PRN PRN Reason: Pain Amlodipine Besylate 10 mg PO DAILY Isosorbide Mononitrate 30 mg [Imdur 30 MG] 30 mg PO HS Furosemide 20 mg [Lasix 20 mg] 20 mg PO DAILY #30 tablet Metoprolol Tartrate 25 mg [Lopressor 25MG Tab] 25 mg PO BID #60 tab Cyanocobalamin (Vitamin B-12) [Vitamin B12] 2,500 mcg PO DAILY Lisinopril 20 mg [Zestril 20 MG] 20 mg PO DAILY Oxybutynin Chloride [Oxybutynin Chloride ER] 10 mg PO DAILY Mv,Willie,Iron,Mn/Folic Acid/Chol [Hair, Skin and Nails Capsule] 1 each PO DAILY Metformin HCl 500 mg [Glucophage 500 MG] 500 mg PO BIDWM Oxybutynin Chloride [Oxybutynin Chloride ER] 10 mg PO DAILY Quetiapine Fumarate 50 mg PO BID Discontinued Venlafaxine HCl [Venlafaxine HCl ER] 150 mg PO DAILY Outpatient Orders: CBC Time Frame: 3 Days, Facility: [facility], Location: LABORATORY FECAL OCCULT BLOOD - SCREENING Time Frame: 1 Day, Facility: [facility], Location: LABORATORY Instructions: Anemia of Chronic Disease, Fecal Occult Blood Test, Calorie Counting Diet, Cephalexin, Docusate, Fluoxetine, Gabapentin Follow up with: JOLANTA QUINTANILLA [Primary Care Provider] - 06/11/20 12:00 pm Forms: Discharge Instructions
[2020-06-06] MEDS: Colace 100 MG PO SCH (10:18)
[2020-06-06] MEDS: Prozac 20 MG PO SCH (10:19)
[2020-06-06] MEDS: LASIX 20 MG PO SCH (10:19)
[2020-06-06] MEDS: Neurontin 100 MG PO SCH (10:19)
[2020-06-06] MEDS: KEFLEX 500 MG PO SCH ×2 (10:19→13:08)
[2020-06-06] MEDS: NORVASC 5 MG PO SCH (10:21)
[2020-06-06] MEDS: Lopressor 25MG Tab PO SCH ×2 (10:21→13:08)
[2020-06-06] MEDS: Zestril 20 MG PO SCH (10:21)
[2020-06-06] MEDS: HUMALOG SQ SCH ×2 (10:21→12:59)
[2020-06-06] MEDS: Seroquel 25 MG PO SCH (10:57)
[2020-06-06 11:48] VITALS: BP 148/65; PULSE 59; O2SAT 97
== END 2020-06-06 13:30 | disposition home or self-care (01) | DRG 378 ==
LOC: ED 10:58 → MED SURG 13:50 → OBSVTOIN 13:50
PROVIDERS: ADMIT Family Medicine; ATTEND Family Medicine
DX: K92.2 Gastrointestinal hemorrhage, unspecified (principal); R04.2 Hemoptysis; L03.112 Cellulitis of left axilla; D64.9 Anemia, unspecified; R07.9 Chest pain, unspecified; K92.1 Melena; E11.65 Type 2 diabetes mellitus with hyperglycemia; Z85.3 Personal history of malignant neoplasm of breast; Z90.13 Acquired absence of bilateral breasts and nipples; I10 Essential (primary) hypertension; J44.9 Chronic obstructive pulmonary disease, unspecified; R10.9 Unspecified abdominal pain; Z79.899 Other long term (current) drug therapy; R79.89 Other specified abnormal findings of blood chemistry; F32.9 Major depressive disorder, single episode, unspecified; M79.7 Fibromyalgia; I95.9 Hypotension, unspecified; F41.9 Anxiety disorder, unspecified; M79.605 Pain in left leg; M79.604 Pain in right leg
CPT/HCPCS: 0241U; 36000; 36415; 36430; 71045; 71260; 80048; 80053; 81001; 82150; 82947; 83036; 83605; 83690; 83880; 84484; 85025; 85027; 85379; 86850; 86900; 86901; 86922; 93005; 93041; 93970; 94760; 96374; 96375; 99285; 99291; G0328; P9016; 82274; J0456; J0696; J1815; J1817; J2060; J2270; J2405; A9270-GY

== ENCOUNTER 2020-11-08 13:27 | Emergency (ER) | payer MEDICARE ==
[2020-11-08 14:14] VITALS: PULSE 106; O2SAT 100
[2020-11-08] MEDS ORDERED: MORPHINE SULFATE 4 MG INJ IM ONE (14:19)
[2020-11-08] MEDS ORDERED: MORPHINE SULFATE 4 MG INJ ONE (14:34)
[2020-11-08 15:25] VITALS: BP 140/67
--- NOTE | 2020-11-08 15:29 | ERPHSYRPT ---
- History of Present Illness Time Seen by Provider: 11/08/20 14:02 Source: patient Exam Limitations: no limitations Patient Subjective Stated Complaint: superficial pain to skin on bilateral upper legs and lower back Triage Nursing Assessment: pt to ED c/o pain to skin on bilateral upper legs and lower back, tearful on arrival to ED. rates 10/10 pain. no relief at home from meds or any OTC meds. has seen Dr Dhillon for these complaints over last 2 months with no relief so far reported by pt. ambulatory with [facility] Physician History: 65 years old female with multiple medical problems including fibromyalgia, diabetes mellitus with diabetic neuropathy, hypertension, hyperlipidemia on multiple medications in the past for bilateral thigh skin increased sensitivity/burning pain moderate to severe which is aggravated with touching and no skin changes or bony pains. Patient has been taking Neurontin with no significant relief and has tried multiple medications in the past. Denies any fall or trauma. It is only in the thighs and not in the lower legs. No weakness. No loss of bowel or bladder control. Has chronic back pain which is not any worse than usual. Timing/Duration: week(s), constant, gradual onset, worse Severity: moderate, severe Associated Symptoms: denies symptoms Allergies/Adverse Reactions: pregabalin [From Lyrica] Allergy (Severe, Verified 11/08/20 14:06) Swelling methadone [Methadone] Allergy (Mild, Verified 11/08/20 14:06) Hives oxycodone HCl [From OxyContin] Allergy (Verified 11/08/20 14:06) Home Medications: Letrozole 2.5 mg PO DAILY 03/19/18 [History] Isosorbide Mononitrate 30 mg [Imdur 30 MG] 30 mg PO HS 09/29/18 [History] Metformin HCl 500 mg [Glucophage 500 MG] 500 mg PO BIDWM 12/27/19 [History] Quetiapine Fumarate 100 mg PO HS 06/02/20 [History] Insulin Aspart [Novolog] 10 unit SQ TIDWMEALS 06/18/20 [History] Hx Tetanus, Diphtheria Vaccination/Date Given: Yes Hx Influenza Vaccination/Date Given: Yes Hx Pneumococcal Vaccination/Date Given: Yes Immunizations Up to Date: Yes Travel Risk - International Travel Have you traveled outside of the country in past 3 weeks: No - Coronavirus Screening Are you exhibiting any of the following symptoms?: No Close contact with a COVID-19 positive Pt in past 14-21 Days: No - Vaccine Status Have you recieved a Covid-19 vaccination: No - Review of Systems Constitutional: No Symptoms Ears, Nose, & Throat: No Symptoms Respiratory: No Symptoms Cardiac: No Symptoms Abdominal/Gastrointestinal: No Symptoms Genitourinary Symptoms: No Symptoms Musculoskeletal: Arthralgias, Back Pain Skin: No Symptoms Neurological: Parasthesia, Sensory Changes Psychological: Anxiety Endocrine: No Symptoms Hematologic/Lymphatic: No Symptoms Immunological/Allergic: No Symptoms - Past Medical History Pertinent Past Medical History: Yes Neurological History: Alzheimer's Disease ENT History: No Pertinent History Cardiac History: No Pertinent History, Hypertension Respiratory History: No Pertinent History Endocrine Medical History: Diabetes Type II, Liver Disease Musculoskeletal History: Arthritis, Fibromyalgia, Rheumatoid Arthritis GI Medical History: No Pertinent History History: No Pertinent History Psycho-Social History: Anxiety, Depression Female Reproductive Disorders: Breast Cancer Other Medical History: breast CA DX 2018. covid + on 12/26/2019 - Past Surgical History Past Surgical History: Yes Neuro Surgical History: No Pertinent History Cardiac: No Pertinent History Respiratory: No Pertinent History Gastrointestinal: Hernia Repair Genitourinary: No Pertinent History Musculoskeletal: Orthopedic Surgery Female Surgical History: Mastectomy Other Surgical History: muscle stimulator 02/04-REMOVED 2013. back surgery hip surgery. double masectomy july 2017 - Social History Smoking Status: Never smoker Exposure to second hand smoke: No Drug Use: none Patient Lives Alone: No Significant Family History: no pertinent family hx - Female History Hx Now: No - Nursing Vital Signs Nursing Vital Signs: Initial Vital Signs Temperature 98.0 F 11/08/20 14:07 Pulse Rate 106 H 11/08/20 14:07 Respiratory Rate 20 11/08/20 14:07 Blood Pressure 138/77 11/08/20 14:07 O2 Sat by Pulse Oximetry 100 11/08/20 14:07 Pain Scale Pain Intensity [Upper Anterior 10 Thigh] Pain Intensity 10 - Physical Exam General Appearance: no apparent distress Eye Exam: PERRL/EOMI Neck Exam: normal inspection, full range of motion Respiratory Exam: normal breath sounds, lungs clear Cardiovascular Exam: regular rate/rhythm, normal heart sounds Gastrointestinal/Abdomen Exam: soft, normal bowel sounds, No tenderness Back Exam: normal inspection, normal range of motion Extremity Exam: normal inspection, normal range of motion, pelvis stable Neurologic Exam: alert, oriented x 3, cooperative, 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 No skin changes suggesting cellulitis. No increased temperature. No bony tenderness.), No normal mood/affect (Anxious), No motor deficits Skin Exam: normal color SpO2 Interpretation: normal SpO2: 100 O2 Delivery: Room Air Ordered Tests: Active Orders 24 hr Category Date Time Status UA W/RFX UR CULTURE Stat Lab 11/08/20 15:01 Ordered Medication Summary Discontinued Medications Generic Name Dose Route Start Last Admin Trade Name Freq PRN Reason Stop Dose Admin Morphine Sulfate 4 mg 11/08/20 14:19 11/08/20 14:37 Morphine Sulfate 4 Mg Inj IM 11/08/20 14:20 4 mg STAT ONE Administration Morphine Sulfate Confirm 11/08/20 14:34 Morphine Sulfate 4 Mg Inj Administered 11/08/20 14:35 Dose 4 mg .ROUTE .STeventuosity-MED ONE - Progress Progress: improved Progress Note: 11/08/20 15:25 She is given morphine for symptomatic relief. Does not have any bony tenderness. No signs of cellulitis. I believe she has a neuropathic pain with some element of fibromyalgia. I have discussed with Dr. Dhillon and patient would be given a short course of oral pain medications and she would follow-up outpatient with Dr. Dhillon early next week. Do not think she needs any imaging or work-up and is stable for discharge Discussed with .: Tello Counseled pt/family regarding: diagnosis, need for follow-up - Departure Departure Disposition: Home Clinical Impression: Neuropathic pain Condition: Stable Critical Care Time: No Referrals: JOLANTA TEMPLETON [Primary Care Provider] - (Next week as scheduled) Instructions: Chronic Pain (DC), Neuropathic Pain Additional Instructions: Take pain medications only as needed. Follow-up with primary care for reevalua tion as scheduled. Return to ER for worsening pain or if have weakness in lower extremities, loss of bowel or bladder control etc. Prescriptions: Hydrocodone/APAP 5/325 [[place] 5/325 mg] 1 each PO Q6H PRN PRN #10 tablet MDD 4 PRN Reason: Pain
== END 2020-11-08 15:34 | disposition home or self-care (01) ==
LOC: ED 13:27
DX: M79.2 Neuralgia and neuritis, unspecified (principal); E11.9 Type 2 diabetes mellitus without complications; M79.7 Fibromyalgia; I10 Essential (primary) hypertension; E78.5 Hyperlipidemia, unspecified; Z79.899 Other long term (current) drug therapy; K76.9 Liver disease, unspecified
CPT/HCPCS: 96372; 99283; J2270

== ENCOUNTER 2020-11-15 05:22 | Emergency (ER) | payer MEDICARE ==
--- NOTE | 2020-11-15 05:38 | ERPHSYRPT ---
- History of Present Illness Time Seen by Provider: 11/15/20 05:37 Source: patient, EMS Exam Limitations: no limitations Patient Subjective Stated Complaint: pain to bilat legs and lower back Triage Nursing Assessment: pt c/o pain to bilat legs and lower back x3 months which have gotten worse. Pt saw Dr. Dhillon yesterday and started on percocet which pt states is not helping. Pt is tearful and thrashing around the bed. Physician History: This is an overweight 65-year-old white female patient of Dr. Alejo Moore who presents with chronic bilateral anterior thigh pain and back pain for over 3 months. Patient was brought into the emergency department by EMS. She denies any acute traumatic injury. Patient was seen here on 10/29/2020 for the same complaint. Patient has a history of fibromyalgia, diabetes, diabetic neuropathy, hypertension, hyperlipidemia, arthritis and Alzheimer's disease. Patient was seen by her primary care physician yesterday and given a prescription for Percocet per patient report, despite her being allergic to oxycodone. She did not have a allergic reaction to this medication but she states it did not work. She also has an appointment to see Dr. Alejo Moore at 1 PM today. Patient does have a pain specialist that she sees in [facility] but she stated that this patient does not want to give her any medications for pain control. Patient has tried Neurontin with no significant relief of her pain. Patient has no numbness in her feet or legs. She has no loss of bowel or bladder control. Severity: moderate Modifying Factors: Improves With: movement Associated Symptoms: denies symptoms Allergies/Adverse Reactions: pregabalin [From Lyrica] Allergy (Severe, Verified 11/15/20 05:36) Swelling methadone [Methadone] Allergy (Mild, Verified 11/15/20 05:36) Hives oxycodone HCl [From OxyContin] Adverse Reaction (Severe, Verified 11/15/20 05:36) "makes me crazy" Home Medications: Letrozole 2.5 mg PO DAILY 03/19/18 [History] Isosorbide Mononitrate 30 mg [Imdur 30 MG] 30 mg PO HS 09/29/18 [History] Metformin HCl 500 mg [Glucophage 500 MG] 500 mg PO BIDWM 12/27/19 [History] Quetiapine Fumarate 100 mg PO HS 06/02/20 [History] Insulin Aspart [Novolog] 10 unit SQ TIDWMEALS 06/18/20 [History] Hx Tetanus, Diphtheria Vaccination/Date Given: Yes Hx Influenza Vaccination/Date Given: No Hx Pneumococcal Vaccination/Date Given: No Immunizations Up to Date: Yes Travel Risk - International Travel Have you traveled outside of the country in past 3 weeks: No - Coronavirus Screening Are you exhibiting any of the following symptoms?: No Close contact with a COVID-19 positive Pt in past 14-21 Days: No - Vaccine Status Have you recieved a Covid-19 vaccination: No - Review of Systems Constitutional: No Symptoms Eyes: No Symptoms Ears, Nose, & Throat: No Symptoms Respiratory: No Symptoms Cardiac: No Symptoms Abdominal/Gastrointestinal: No Symptoms Genitourinary Symptoms: No Symptoms Musculoskeletal: Back Pain (Chronic), Other (Bilateral anterior thigh pain) Skin: No Symptoms Neurological: No Symptoms Psychological: No Symptoms Endocrine: No Symptoms Hematologic/Lymphatic: No Symptoms Immunological/Allergic: No Symptoms All Other Systems: Reviewed and Negative - Past Medical History Pertinent Past Medical History: Yes Neurological History: Alzheimer's Disease ENT History: No Pertinent History Cardiac History: Hypertension Respiratory History: No Pertinent History Endocrine Medical History: Diabetes Type II, Liver Disease Musculoskeletal History: Arthritis, Fibromyalgia, Rheumatoid Arthritis GI Medical History: No Pertinent History History: No Pertinent History Psycho-Social History: Anxiety, Depression Female Reproductive Disorders: Breast Cancer Other Medical History: breast CA DX 2018. covid + on 12/26/2019 - Past Surgical History Past Surgical History: Yes Neuro Surgical History: No Pertinent History Cardiac: No Pertinent History Respiratory: No Pertinent History Gastrointestinal: Hernia Repair Genitourinary: No Pertinent History Musculoskeletal: Orthopedic Surgery Female Surgical History: Mastectomy Other Surgical History: muscle stimulator 02/04-REMOVED 2013. back surgery hip surgery. double masectomy july 2017 - Social History Smoking Status: Never smoker Exposure to second hand smoke: No Drug Use: none Patient Lives Alone: Yes Significant Family History: no pertinent family hx - Female History Hx Now: No - Nursing Vital Signs Nursing Vital Signs: Initial Vital Signs Temperature 98.4 F 11/15/20 05:23 Pulse Rate 93 H 11/15/20 05:23 Respiratory Rate 20 11/15/20 05:23 Blood Pressure 168/91 11/15/20 05:23 O2 Sat by Pulse Oximetry 97 11/15/20 05:23 Pain Scale Pain Intensity [Calf] 10 Pain Intensity 10 - Physical Exam General Appearance: mild distress (To moderate), alert, anxiety Eye Exam: PERRL/EOMI, eyes nml inspection Ears, Nose, Throat Exam: normal ENT inspection, moist mucous membranes Neck Exam: normal inspection, non-tender, supple, full range of motion Respiratory Exam: normal breath sounds, lungs clear, airway intact, No chest tenderness, No respiratory distress Cardiovascular Exam: regular rate/rhythm, normal heart sounds, normal peripheral pulses Gastrointestinal/Abdomen Exam: soft, normal bowel sounds, No tenderness, No guarding Pelvic Exam: not done Rectal Exam: not done Back Exam: normal inspection, normal range of motion, No CVA tenderness, No vertebral tenderness Extremity Exam: normal inspection, tenderness (Bilateral anterior thighs. No skin changes present) Neurologic Exam: alert, oriented x 3, cooperative, varitypist II-XII nml as tested, other (Patient states that her bilateral anterior thigh pain is too severe to be up and walking in he has associated back pain that also is too severe.) Skin Exam: normal color, warm, dry Lymphatic Exam: No adenopathy SpO2 Interpretation: normal SpO2: 97 O2 Delivery: Room Air - Course Nursing assessment & vital signs reviewed: Yes - Progress Progress: improved, pain not gone completely Counseled pt/family regarding: diagnosis, need for follow-up - Departure Departure Disposition: Home Clinical Impression: Diabetic neuropathy, Fibromyalgia, Chronic back pain, Chronic leg pain Condition: Stable Critical Care Time: No Referrals: JOLANTA TEMPLETON [Primary Care Provider] - Additional Instructions: Keep your appointment with Dr. Alejo Moore at 1 PM today. Take all your medications as prescribed. Follow-up with your pain specialist for outpatient, chronic management of your pain conditions.
[2020-11-15] MEDS ORDERED: Hydromorphone 1 mg/ml Injection IM ONE (05:52)
[2020-11-15] MEDS ORDERED: Ativan 2 MG/1 ML VIAL IM ONE (05:53)
[2020-11-15] MEDS ORDERED: Compazine 10 MG/2 ML IM ONE (05:54)
[2020-11-15 07:04] VITALS: PULSE 98; O2SAT 97
[2020-11-15 08:10] VITALS: BP 165/93
[2020-11-15] MEDS ORDERED: Ativan 2 MG/1 ML VIAL ONE (09:00)
[2020-11-15] MEDS ORDERED: Hydromorphone 1 mg/ml Injection ONE (09:01)
[2020-11-15] MEDS ORDERED: Compazine 10 MG/2 ML ONE (09:01)
== END 2020-11-15 09:26 | disposition home or self-care (01) ==
LOC: ED 05:22
DX: G62.9 Polyneuropathy, unspecified (principal); M79.7 Fibromyalgia; M54.5 Low back pain; I10 Essential (primary) hypertension; M79.605 Pain in left leg; M79.604 Pain in right leg; M79.652 Pain in left thigh; M79.651 Pain in right thigh; E78.5 Hyperlipidemia, unspecified; G30.9 Alzheimer's disease, unspecified; E11.9 Type 2 diabetes mellitus without complications; F02.80 Dementia in other diseases classified elsewhere, unspecified severity, without behavioral disturbance, psychotic disturbance, mood disturbance, and anxiety; Z79.899 Other long term (current) drug therapy
CPT/HCPCS: 96372; 99284; J1170; J2060

== ENCOUNTER 2021-03-17 15:22 | Emergency (ER) | payer MEDICARE ==
[2021-03-17 15:52] VITALS: O2SAT 98
[2021-03-17] MEDS ORDERED: SUBLIMAZE 100 MCG/2 ML IV ONE (15:52)
[2021-03-17] MEDS ORDERED: SUBLIMAZE 100 MCG/2 ML ONE (16:27)
--- NOTE | 2021-03-17 16:31 | ERPHSYRPT ---
- History of Present Illness Time Seen by Provider: 03/17/21 15:55 Source: patient Exam Limitations: no limitations Patient Subjective Stated Complaint: pt here for pain in lower back chronic, but worse since thursday, she states she has not been able to bear wt on legs since dec of last year, no injury Triage Nursing Assessment: pt alert resp easy. skin w/d/p. face mask in place, pt to bed with assist of 2 Physician History: Patient is a 65-year-old female who has a long history of chronic low back pain. However the pain she is experiencing right now has been exceedingly severe since 3 weeks. She had an MRI done on 27 February which basically did not show any spinal stenosis or nerve him entrapment. She also complains of right hip pain and cannot straighten her right leg. The leg is internally rotated. Timing/Duration: week(s) (3) Method of Injury: unknown Quality: burning, radiating, throbbing Back Pain Location: lumbar spine Back Pain Radiation: lower legs Severity of Pain-Max: moderate Severity of Pain-Current: moderate Modifying Factors: Improves With: movement Associated Symptoms: urinary incontinence, loss of bowel control, constipation, weakness, lower back pain, muscle spasms Previous symptoms: same symptoms as today, recently treated Allergies/Adverse Reactions: pregabalin [From Lyrica] Allergy (Severe, Verified 11/15/20 05:36) Swelling methadone [Methadone] Allergy (Mild, Verified 11/15/20 05:36) Hives oxycodone HCl [From OxyContin] Adverse Reaction (Severe, Verified 11/15/20 05:36) "makes me crazy" Home Medications: Letrozole 2.5 mg PO DAILY 03/19/18 [History] Isosorbide Mononitrate 30 mg [Imdur 30 MG] 30 mg PO HS 09/29/18 [History] Metformin HCl 500 mg [Glucophage 500 MG] 500 mg PO BIDWM 12/27/19 [History] Quetiapine Fumarate 100 mg PO HS 06/02/20 [History] Insulin Aspart [Novolog] 10 unit SQ TIDWMEALS 06/18/20 [History] Hx Tetanus, Diphtheria Vaccination/Date Given: No Hx Influenza Vaccination/Date Given: No Hx Pneumococcal Vaccination/Date Given: No Immunizations Up to Date: Yes Travel Risk - International Travel Have you traveled outside of the country in past 3 weeks: No - Coronavirus Screening Are you exhibiting any of the following symptoms?: No Close contact with a COVID-19 positive Pt in past 14-21 Days: No - Vaccine Status Have you recieved a Covid-19 vaccination: No - Review of Systems Constitutional: No Fever, No Chills Eyes: No Symptoms Ears, Nose, & Throat: No Symptoms Respiratory: No Cough, No Dyspnea Cardiac: No Chest Pain, No Edema, No Syncope Abdominal/Gastrointestinal: No Abdominal Pain, No Nausea, No Vomiting, No Diarrhea Genitourinary Symptoms: No Dysuria Musculoskeletal: Back Pain, Other (Straight leg raising positive bilaterally), No Neck Pain Skin: No Rash Neurological: Gait Changes, No Dizziness, No Focal Weakness, No Sensory Changes Psychological: No Symptoms Endocrine: No Symptoms All Other Systems: Reviewed and Negative - Past Medical History Pertinent Past Medical History: Yes Neurological History: Alzheimer's Disease ENT History: No Pertinent History Cardiac History: Hypertension Respiratory History: No Pertinent History Endocrine Medical History: Diabetes Type II, Liver Disease Musculoskeletal History: Arthritis, Fibromyalgia, Rheumatoid Arthritis GI Medical History: No Pertinent History History: No Pertinent History Psycho-Social History: Anxiety, Depression Female Reproductive Disorders: Breast Cancer Other Medical History: breast CA DX 2018. covid + on 12/26/2019 - Past Surgical History Past Surgical History: Yes Neuro Surgical History: No Pertinent History Cardiac: No Pertinent History Respiratory: No Pertinent History Gastrointestinal: Hernia Repair Genitourinary: No Pertinent History Musculoskeletal: Orthopedic Surgery Female Surgical History: Mastectomy Other Surgical History: muscle stimulator 02/04-REMOVED 2013. back surgery hip surgery. double masectomy july 2017 - Social History Smoking Status: Never smoker Exposure to second hand smoke: No Drug Use: none Patient Lives Alone: No Significant Family History: no pertinent family hx - Female History Hx Last Menstrual Period: post - Nursing Vital Signs Nursing Vital Signs: Initial Vital Signs Temperature 98.6 F 03/17/21 15:42 Pulse Rate 107 H 03/17/21 15:42 Respiratory Rate 18 03/17/21 15:42 Blood Pressure 158/82 03/17/21 15:42 O2 Sat by Pulse Oximetry 98 03/17/21 15:42 Pain Scale Pain Intensity [] 10 Pain Intensity 8 - Physical Exam General Appearance: moderate distress Eye Exam: PERRL/EOMI, eyes nml inspection Ears, Nose, Throat Exam: normal ENT inspection Neck Exam: normal inspection, non-tender, supple, full range of motion, No meningismus, No midline tenderness Respiratory Exam: normal breath sounds, lungs clear, No respiratory distress Cardiovascular Exam: regular rate/rhythm, normal heart sounds Gastrointestinal Exam: soft, No tenderness, No mass Back Exam: normal inspection, vertebral tenderness, decreased range of motion, point tenderness Extremity Exam: limited range of motion, swelling, tenderness Neurologic Exam: alert, oriented x 3, agitation, abnormal gait, No nml station & gait Skin Exam: normal color, warm, dry, No rash SpO2 Interpretation: normal SpO2: 98 O2 Delivery: Room Air - Course Nursing assessment & vital signs reviewed: Yes - CT Exams Lumbar Spine CT Interpretation: Other (CT of the lumbar spine shows L5-S1 PLIF dorsal Kurtis thesis with laminectomy broad disc osteophyte complex which may result in mild to moderate lateral foraminal stenosis. No limiting canal or lateral recess stenosis seen) Lower Extremity CT Interpretation: Other (CT scan of the right hip shows no abnormality) Ordered Tests: Active Orders 24 hr Category Date Time Status LOWER EXTREMITY WO CONTRAST [CT] Stat Exams 03/17/21 16:19 Taken LUMBAR SPINE W/O [CT] Stat Exams 03/17/21 16:14 Taken Medication Summary Discontinued Medications Generic Name Dose Route Start Last Admin Trade Name Freq PRN Reason Stop Dose Admin Methylprednisolone Sodium 0 mg 03/17/21 17:45 03/17/21 17:53 Succinate 125 mg/ Sterile IV 03/17/21 17:46 125 mg Water 2 ml STAT ONE Administration Fentanyl Citrate 75 mcg 03/17/21 15:52 03/17/21 16:29 Fentanyl Citrate 100 Mcg/2 Ml* Vial IV 03/17/21 15:53 75 mcg STAT ONE Administration Fentanyl Citrate Confirm 03/17/21 16:27 Fentanyl Citrate 100 Mcg/2 Ml* Vial Administered 03/17/21 16:28 Dose 100 mcg .ROUTE .STK-MED ONE Hydromorphone HCl 1 mg 03/17/21 17:49 03/17/21 17:52 Hydromorphone 1 Mg/1ml Inj 1 Mg/Ml Syringe IV 03/17/21 17:50 1 mg STAT ONE Administration Hydromorphone HCl Confirm 03/17/21 17:51 Hydromorphone 1 Mg/1ml Inj 1 Mg/Ml Syringe Administered 03/17/21 17:52 Dose 1 mg .ROUTE .STK-MED ONE Methylprednisolone Sodium Succinate Confirm 03/17/21 17:51 Methylprednis Sod Succ 125 Mg/2 Ml Vial Administered 03/17/21 17:52 Dose 125 mg .ROUTE .STK-MED ONE Sterile Water Confirm 03/17/21 17:51 Water For Injection,Sterile 10 Ml Vial Administered 03/17/21 17:52 Dose 10 ml IJ .STK-MED ONE - Departure Departure Disposition: Home Clinical Impression: Acute exacerbation of chronic low back pain Condition: Stable Critical Care Time: No Referrals: JOLANTA TEMPLETON [Primary Care Provider] - Follow up/PCP as directed Prescriptions: Hydrocodone/Acetaminophen [Hydrocodone-Acetamin 10-325 mg] 1 each PO Q6H 3 Days #12 tablet MDD 4
[2021-03-17] MEDS ORDERED: solu-MEDROL 125 MG, Sterile H2O 10 ml 2 ML IV ONE ×2 (17:45)
[2021-03-17] MEDS ORDERED: Hydromorphone 1 mg/ml Injection IV ONE (17:49)
[2021-03-17] MEDS ORDERED: Sterile H2O 10 ml IJ ONE (17:51)
[2021-03-17] MEDS ORDERED: solu-MEDROL ONE (17:51)
[2021-03-17] MEDS ORDERED: Hydromorphone 1 mg/ml Injection ONE (17:51)
[2021-03-17] MEDS ORDERED: NORCO 5/325 MG PO ONE (18:00)
[2021-03-17 18:03] VITALS: BP 152/76; PULSE 76
[2021-03-17] MEDS ORDERED: NORCO 5/325 MG ONE (18:07)
--- NOTE | 2021-03-17 19:22 | XRAY ---
Indication: Low back pain and numbness going down right leg. Unable to weight bear. Multiple contiguous axial images obtained through the lumbar spine. Sagittal and coronal reformatted images obtained. Comparison: CT abdomen December 27, 2019. There has been interval L5-S1 laminectomy with posterior fusion. Intact bilateral pedicle screws/rods with intervertebral spacer producing beam artifact limiting these levels. Osseous structures remain demineralized consistent with patient's age. Axial images again demonstrates minimal/mild multilevel endplate spurring, L4-L5 broad-based disc bulge, and mild bilateral L3-L5 degenerative facet arthropathy. Sagittal and coronal reformatted images demonstrate normal lumbar alignment with vertebral body heights/disc spaces maintained. No acute compression fracture or subluxation. Visualized noncontrasted soft tissues are unremarkable. Impression: 1. L5-S1 laminectomy with posterior fusion. Spinal hardware produces beam artifact limiting these levels. 2. Grossly stable multilevel degenerative changes including L4-L5 broad-based disc bulge. 3. See recent MRI exam 2021. Comment: Preliminary interpretation made by [facility]. No critical discrepancy.
--- NOTE | 2021-03-17 19:29 | XRAY ---
Indication: Low back pain and numbness going down right leg. Unable to weight bear. Multiple contiguous axial images obtained through the right hip. Sagittal and coronal reformatted images obtained. Comparison: CT abdomen/pelvis March 19, 2018. Osseous structures demineralized consistent with patient's age. Again right total hip arthroplasty with intact bipolar prosthesis and acetabular screw producing beam artifact limiting exam. Lower lumbar fusion surgery reported separately. No acute fracture, dislocation, or suspicious bony lesions. Visualized noncontrasted soft tissues demonstrates moderate fecal debris in the ascending colon. Impression: 1. Beam artifact from right hip arthroplasty. 2. Osteopenia. 3. Remaining CT right hip is grossly negative. Comment: Preliminary interpretation made by [facility]. No critical discrepancy.
== END 2021-03-17 18:22 | disposition home or self-care (01) ==
LOC: ED 15:22
DX: M54.50 Low back pain, unspecified (principal); G89.29 Other chronic pain; M25.551 Pain in right hip; E11.9 Type 2 diabetes mellitus without complications; Z79.4 Long term (current) use of insulin; Z79.84 Long term (current) use of oral hypoglycemic drugs; I10 Essential (primary) hypertension; Z86.16 Personal history of COVID-19; Z79.891 Long term (current) use of opiate analgesic; Z79.899 Other long term (current) drug therapy
CPT/HCPCS: 36000; 72131; 73700; 96374; 96375; 99284; J1170; J2930; J3010; A9270-GY

== ENCOUNTER 2021-04-03 07:49 | Day surgery (SDC) | payer MEDICARE ==
[2012-02-24 11:27] VITALS: BP 118/69
[2021-04-03] MEDS ORDERED: Depo-Medrol 40 MG/ML IM ONE (07:50)
[2021-04-03] MEDS ORDERED: Sodium Chloride 0.9% 10 ML FLUSH Syringe IJ ONE (07:50)
[2021-04-03] MEDS ORDERED: Xylocaine 1% Vial 30 ML PF IJ ONE (07:50)
[2021-04-03] MEDS ORDERED: DIPRIVAN 200 MG/20 ML IV ONE (10:21)
[2021-04-03] MEDS ORDERED: MORPHINE SULFATE 2 MG INJ ONE (10:41)
[2021-04-03] MEDS ORDERED: Lactated Ringers 1,000 ML IV ONE (11:40)
--- NOTE | 2021-04-03 12:32 | XRAY ---
Indication: Lumbar JUMA. Intraoperative fluoroscopy provided for 27 seconds. 3 digital spot images submitted for interpretation demonstrates midline posterior needle tip projecting posterior to the L3-L4 interspace. Small amount of contrast injected for needle tip placement. Correlate with intraoperative findings/report. Incidental bilateral L5-S1 posterior fusion hardware.
--- NOTE | 2021-04-03 13:41 | XRAY ---
27 seconds fluoroscopy time in surgery for lumbar JUMA.
== END 2021-04-03 10:50 | disposition home or self-care (01) ==
LOC: SDC-PAIN 07:49
PROVIDERS: ATTEND Psychiatry & Neurology Pain Medicine
DX: M54.16 Radiculopathy, lumbar region (principal); I10 Essential (primary) hypertension; E11.9 Type 2 diabetes mellitus without complications; Z79.899 Other long term (current) drug therapy
CPT/HCPCS: 62323; 72100; 77003; 82947; J1030; J2001; J2270; J2704; Q9966

== ENCOUNTER 2021-04-10 20:05 | Emergency (ER) | payer MEDICARE ==
[2021-04-10] MEDS ORDERED: TORAdol 30 mg Injection IM ONE (20:33)
[2021-04-10 20:34] VITALS: O2SAT 98
[2021-04-10] MEDS ORDERED: TORAdol 30 mg Injection ONE (20:35)
--- NOTE | 2021-04-10 20:41 | ERPHSYRPT ---
- History of Present Illness Source: patient Exam Limitations: no limitations Patient Subjective Stated Complaint: C/O burning in legs. States she sees Dr. Boles for this and he completed an "epidural for my pain around 2 weeks ago." Triage Nursing Assessment: Patient brought back to ED in W/C. She required assistance of 2 staff to transfer from the chair to the bed. Patient grabbing at right thigh during assessment. Patient speaking normally during assessment answe ring questions unless asked about her pain level then she starts yelling out about her pain. She can move her BLE WNL. Physician History: 66 yo wf w chronic pain due to diabetic neuropathy for which she sees a pain clinic presents w chronic BLE pain. Pt denies new injury/fever/edema/dyspnea/chest pain. Method of Injury: other (Chronic LE B neuropathy) Occurred: other (Chronic) Quality: aching Severity of Pain-Max: severe Severity of Pain-Current: severe Lower Extremities Pain: leg: bilateral, knee: bilateral, thigh: bilateral, foot: bilateral, ankle: bilateral Modifying Factors: Improves With: nothing Associated Symptoms: none Allergies/Adverse Reactions: pregabalin [From Lyrica] Allergy (Severe, Verified 04/10/21 20:18) Swelling methadone [Methadone] Allergy (Mild, Verified 04/10/21 20:18) Hives oxycodone HCl [From OxyContin] Adverse Reaction (Severe, Verified 04/10/21 20:18) "makes me crazy" Home Medications: Letrozole 2.5 mg PO DAILY 03/19/18 [History] Isosorbide Mononitrate 30 mg [Imdur 30 MG] 30 mg PO HS 09/29/18 [History] Metformin HCl 500 mg [Glucophage 500 MG] 500 mg PO BIDWM 12/27/19 [History] Quetiapine Fumarate 100 mg PO HS 06/02/20 [History] Insulin Aspart [Novolog] 10 unit SQ TIDWMEALS 06/18/20 [History] Gabapentin 600 mg PO TID 04/10/21 [History] Hx Tetanus, Diphtheria Vaccination/Date Given: Yes Hx Influenza Vaccination/Date Given: Yes Hx Pneumococcal Vaccination/Date Given: Yes Immunizations Up to Date: Yes Travel Risk - International Travel Have you traveled outside of the country in past 3 weeks: No - Coronavirus Screening Are you exhibiting any of the following symptoms?: No - Vaccine Status Have you recieved a Covid-19 vaccination: No - Review of Systems Constitutional: No Symptoms Eyes: No Symptoms Ears, Nose, & Throat: No Symptoms Respiratory: No Symptoms Cardiac: No Symptoms Abdominal/Gastrointestinal: No Symptoms Genitourinary Symptoms: No Symptoms Skin: No Symptoms Neurological: No Symptoms Psychological: No Symptoms Endocrine: No Symptoms Hematologic/Lymphatic: No Symptoms Immunological/Allergic: No Symptoms - Past Medical History Pertinent Past Medical History: Yes Neurological History: Alzheimer's Disease ENT History: No Pertinent History Cardiac History: Hypertension Respiratory History: No Pertinent History Endocrine Medical History: Diabetes Type II, Liver Disease Musculoskeletal History: Arthritis, Fibromyalgia, Rheumatoid Arthritis GI Medical History: No Pertinent History History: No Pertinent History Psycho-Social History: Anxiety, Depression Female Reproductive Disorders: Breast Cancer Other Medical History: breast CA DX 2018. covid + on 12/26/2019 - Past Surgical History Past Surgical History: Yes Neuro Surgical History: No Pertinent History Cardiac: No Pertinent History Respiratory: No Pertinent History Gastrointestinal: Hernia Repair Genitourinary: No Pertinent History Musculoskeletal: Orthopedic Surgery, Other Female Surgical History: Mastectomy Other Surgical History: muscle stimulator 02/04-REMOVED 2013. back surgery hip surgery. double masectomy july 2017, Jareth and 2 screws placed in back in 2020 - Social History Smoking Status: Never smoker Exposure to second hand smoke: No Drug Use: none Patient Lives Alone: No (Mother) Significant Family History: no pertinent family hx - Female History Hx Now: No - Nursing Vital Signs Nursing Vital Signs: Initial Vital Signs Temperature 98.2 F 04/10/21 20:19 Pulse Rate 100 H 04/10/21 20:19 Respiratory Rate 20 04/10/21 20:19 Blood Pressure 142/82 04/10/21 20:19 O2 Sat by Pulse Oximetry 98 04/10/21 20:19 Pain Scale Pain Intensity 10 Mild hypertension - Physical Exam General Appearance: no apparent distress Eyes, Ears, Nose, Throat Exam: normal ENT inspection, TMs normal, pharynx normal, moist mucous membranes Neck Exam: normal inspection, non-tender, supple, full range of motion, No Brudzinski, No Kernig's, No meningismus Cardiovascular/Respiratory Exam: normal breath sounds, regular rate/rhythm, heart sounds normal, no respiratory distress, No murmur Gastrointestinal/Abdominal Exam: non-tender, soft, no organomegaly Back Exam: normal inspection, normal range of motion Hips Exam: bilateral: non-tender, normal inspection, normal range of motion, no evidence of injury Legs Exam: bilateral leg: pain (Diffuse TTP/No edema/No erythema/No deformity/Good B pedal pulse and capillary return) Knees Exam: bilateral knee: normal inspection, normal range of motion, no evidence of injury, pain (Diffuse B TTP) Ankle Exam: bilateral ankle: non-tender, normal inspection, normal range of motion, no evidence of injury Foot Exam: bilateral foot: normal inspection, normal range of motion, no evidence of injury, pain (Mild diffuse TTP) DTR - Lower Extremities Exam: knee (R): 2+, knee (L): 2+ Neuro/Tendon Exam: normal sensation, normal motor functions, normal tendon functions, responds to pain, no evidence tendon injury, No motor deficit, No sensory deficit Mental Status Exam: alert, oriented x 3, cooperative Skin Exam: normal color, warm, dry, No rash SpO2 Interpretation: normal SpO2: 98 O2 Delivery: Room Air - Course Nursing assessment & vital signs reviewed: Yes Ordered Tests: Medication Summary Discontinued Medications Generic Name Dose Route Start Last Admin Trade Name Freq PRN Reason Stop Dose Admin Ketorolac Tromethamine 15 mg 04/10/21 20:33 04/10/21 20:36 Ketorolac Tromethamine 30 Mg/Ml Inj IM 04/10/21 20:34 15 mg STAT ONE Administration Ketorolac Tromethamine Confirm 04/10/21 20:35 Ketorolac Tromethamine 30 Mg/Ml Inj Administered 04/10/21 20:36 Dose 30 mg .ROUTE .STK-MED ONE - Progress Progress: improved Progress Note: 04/10/21 20:43 15mg IM Toradol Counseled pt/family regarding: diagnosis, need for follow-up - Departure Departure Disposition: Home Clinical Impression: Diabetic neuropathy Condition: Stable Critical Care Time: No Referrals: JOLANTA TEMPLETON [Primary Care Provider] - Follow up/PCP as directed Instructions: Peripheral Neuropathy, Diabetic Neuropathy (DC) Additional Instructions: Follow up with your pain or family physician Return to ER as needed
[2021-04-10 20:50] VITALS: BP 130/80; PULSE 90
== END 2021-04-10 20:50 | disposition home or self-care (01) ==
LOC: ED 20:05
DX: E11.42 Type 2 diabetes mellitus with diabetic polyneuropathy (principal); G89.29 Other chronic pain; Z79.4 Long term (current) use of insulin; I10 Essential (primary) hypertension; Z86.16 Personal history of COVID-19; Z79.899 Other long term (current) drug therapy
CPT/HCPCS: 96372; 99283; J1885

== ENCOUNTER 2021-05-11 15:49 | Emergency (ER) | payer MEDICARE ==
[2021-05-11 16:28] LABS: Absolute Neutrophil Ct (ANC) 2.69 (1.4-6.9); Basophil (Absolute #) 0.02 (0-0.4); Eosinophil % 1.5 % (0.00-5.0); Eosinophil (Absolute #) 0.07 (0-0.5); Hematocrit 40.5 % (35-47); Hemoglobin 13.1 gm/dl (12.0-16.0); Lymphocyte (Absolute #) 1.52 (1.0-4.6); Lymphocytes % 32.2 % (24.0-44.0); Mean Cell Volume 95.1 fl (78-100); Mean Corpuscular Hemoglobin 30.8 pg (26-32); Mean Corpuscular Hgb Concent. 32.3 g/dl (32-36); Mean Platelet Volume 9.6 fl (7.5-11.0); Monocyte (Absolute #) 0.42 (0.0-1.3); Monocytes % 8.9 % (0.0-12.0); Platelet Count 155 K/mm3 (150-450); Red Blood Count 4.26 M/mm3 (4.1-5.4); Red Cell Distribution Width 15.7 % (11.5-14.0); White Blood Count 4.7 K/mm3 (4.0-10.5)
--- NOTE | 2021-05-11 16:42 | ERPHSYRPT ---
- History of Present Illness Time Seen by Provider: 05/11/21 16:40 Historian: patient, family Exam Limitations: no limitations Patient Subjective Stated Complaint: PT HERE FOR PAIN TO RIGHT SIDE OF CHEST FOR OVER AN HOUR NOW, STABBING PAIN, Triage Nursing Assessment: PT ALERT, RESP EASY, FACE MASK IN PLACE, SKIN W/D/P. PT HAS BILAT, MASTECTOMY, SHE IS UNABLE TO USE LEGS FOR ABOUT 6 MONTHS Physician History: Patient is 66-year-old female with significant past medical history of diabetes and history of bilateral mastectomy started having right-sided chest pain 1 hour ago so she came to the emergency room in the emergency room she was feeling heaviness on the right side of the chest but she denies any fever chills nausea vomiting or cough or shortness of breath. Timing/Duration: today Activities at Onset: none Quality: stabbing Location: other (right side) Chest Pain Radiation: no radiation Severity of Pain-Max: mild Severity of Pain-Current: mild Modifying Factors: Improves With: nothing Associated Symptoms: denies symptoms Aspirin Treatment Today: no aspirin today Allergies/Adverse Reactions: pregabalin [From Lyrica] Allergy (Severe, Verified 05/11/21 15:58) Swelling methadone [Methadone] Allergy (Mild, Verified 05/11/21 15:58) Hives oxycodone HCl [From OxyContin] Adverse Reaction (Severe, Verified 05/11/21 15:58) "makes me crazy" Home Medications: Letrozole 2.5 mg PO DAILY 03/19/18 [History] Isosorbide Mononitrate 30 mg [Imdur 30 MG] 30 mg PO HS 09/29/18 [History] Metformin HCl 500 mg [Glucophage 500 MG] 500 mg PO BIDWM 12/27/19 [History] Quetiapine Fumarate 100 mg PO HS 06/02/20 [History] Insulin Aspart [Novolog] 10 unit SQ TIDWMEALS 06/18/20 [History] Gabapentin 600 mg PO TID 04/10/21 [History] Hx Tetanus, Diphtheria Vaccination/Date Given: Yes Hx Influenza Vaccination/Date Given: Yes Hx Pneumococcal Vaccination/Date Given: Yes Immunizations Up to Date: Yes Travel Risk - International Travel Have you traveled outside of the country in past 3 weeks: No - Coronavirus Screening Are you exhibiting any of the following symptoms?: No - Vaccine Status Have you recieved a Covid-19 vaccination: No - Review of Systems Constitutional: No Fever, No Chills Eyes: No Symptoms Ears, Nose, & Throat: No Symptoms Respiratory: No Cough, No Dyspnea Cardiac: Chest Pain, No Edema, No Syncope Abdominal/Gastrointestinal: No Abdominal Pain, No Nausea, No Vomiting, No Di arrhea Genitourinary Symptoms: No Dysuria Musculoskeletal: No Back Pain, No Neck Pain Skin: No Rash Neurological: No Dizziness, No Focal Weakness, No Sensory Changes Psychological: No Symptoms Endocrine: No Symptoms All Other Systems: Reviewed and Negative - Past Medical History Pertinent Past Medical History: Yes Neurological History: Alzheimer's Disease ENT History: No Pertinent History Cardiac History: Hypertension Respiratory History: No Pertinent History Endocrine Medical History: Diabetes Type II, Liver Disease Musculoskeletal History: Arthritis, Fibromyalgia, Rheumatoid Arthritis GI Medical History: No Pertinent History History: No Pertinent History Psycho-Social History: Anxiety, Depression Female Reproductive Disorders: Breast Cancer Other Medical History: breast CA DX 2018. covid + on 12/26/2019 - Past Surgical History Past Surgical History: Yes Neuro Surgical History: No Pertinent History Cardiac: No Pertinent History Respiratory: No Pertinent History Gastrointestinal: Hernia Repair Genitourinary: No Pertinent History Musculoskeletal: Orthopedic Surgery, Other Female Surgical History: Mastectomy Other Surgical History: muscle stimulator 02/04-REMOVED 2013. back surgery hip surgery. double masectomy july 2017, Jareth and 2 screws placed in back in 2020 - Social History Smoking Status: Never smoker Exposure to second hand smoke: No Drug Use: none Patient Lives Alone: No (Mother) Significant Family History: no pertinent family hx - Nursing Vital Signs Nursing Vital Signs: Initial Vital Signs Pulse Rate 90 05/11/21 15:56 Pain Scale Pain Intensity 4 - Physical Exam General Appearance: no apparent distress, alert Eye Exam: PERRL/EOMI, eyes nml inspection Ears, Nose, Throat Exam: normal ENT inspection, moist mucous membranes Neck Exam: normal inspection, non-tender, supple, full range of motion Respiratory Exam: normal breath sounds, lungs clear, No respiratory distress Cardiovascular Exam: regular rate/rhythm, normal heart sounds Gastrointestinal/Abdomen Exam: soft, No tenderness, No mass Back Exam: normal inspection, No CVA tenderness, No vertebral tenderness Extremity Exam: normal inspection, normal range of motion Neurologic Exam: alert, oriented x 3, cooperative, normal mood/affect, sensation nml, No motor deficits Skin Exam: normal color, warm, dry - Course Nursing assessment & vital signs reviewed: Yes EKG Interpreted by Me: Sinus Rhythm - Radiology Exams Chest X-ray Interpretation: Reviewed by me, Negative - CT Exams Chest CT Interpretation: Tele-radiologist Report, No PE Ordered Tests: Active Orders 24 hr Category Date Time Status Poured Wall Foreman STAT Care 05/11/21 16:23 Active EKG-ER Only STAT Care 05/11/21 16:22 Active CHEST 2 VIEWS (PA AND LAT) Stat Exams 05/11/21 16:23 Taken CHEST WITH CONTRAST [CT] Stat Exams 05/11/21 17:28 Taken CBC W DIFF Stat Lab 05/11/21 16:26 Completed CMP Stat Lab 05/11/21 16:26 Completed D-DIMER QUANTITATIVE Stat Lab 05/11/21 16:26 Completed NT PRO BNP Stat Lab 05/11/21 16:26 Completed TROPONIN Q3H Lab 05/11/21 16:26 Completed TROPONIN Q3H Lab 05/11/21 19:30 Ordered TROPONIN Q3H Lab 05/11/21 22:30 Ordered TROPONIN Q3H Lab 05/12/21 01:30 Ordered TROPONIN Q3H Lab 05/12/21 04:30 Ordered Medication Summary Discontinued Medications Generic Name Dose Route Start Last Admin Trade Name Freq PRN Reason Stop Dose Admin Hydrocodone Bitart/Acetaminophen 1 tablet 05/11/21 17:11 05/11/21 17:24 Hydrocodone/Acetamin 10-325 Mg Tablet PO 05/11/21 17:12 1 tablet Q4H PRN STA Administration Potassium Bicarbonate 25 meq 05/11/21 17:08 05/11/21 17:23 Potassium Bicarbonate 25 Meq Tab PO 05/11/21 17:09 25 meq STAT ONE Administration Potassium Bicarbonate Confirm 05/11/21 17:23 Potassium Bicarbonate 25 Meq Tab Administered 05/11/21 17:24 Dose 25 meq .ROUTE .STK-MED ONE Lab/Rad Data: Laboratory Result Diagrams 05/11/21 16:26 05/11/21 16:26 Laboratory Results 05/11/21 05/11/21 05/11/21 Range/Units 16:26 16:26 16:26 WBC (4.0-10.5) K/mm3 RBC (4.1-5.4) M/mm3 Hgb (12.0-16.0) gm/dl Hct (35-47) % MCV (78-100) fl MCH (26-32) pg MCHC (32-36) g/dl RDW (11.5-14.0) % Plt Count (150-450) K/mm3 MPV (7.5-11.0) fl Gran % (36.0-66.0) % Eos # (Auto) (0-0.5) Absolute Lymphs (auto) (1.0-4.6) Absolute Monos (auto) (0.0-1.3) Lymphocytes % (24.0-44.0) % Monocytes % (0.0-12.0) % Eosinophils % (0.00-5.0) % Basophils % (0.0-0.4) % Absolute Granulocytes (1.4-6.9) Basophils # (0-0.4) D-Dimer 939 H* (215-500) ng/mL Sodium 140 (137-145) mmol/L Potassium 3.3 L (3.5-5.1) mmol/L Chloride 108 H (98-107) mmol/L Carbon Dioxide 24 (22-30) mmol/L Anion Gap 11.6 (5-15) MEQ/L BUN 13 (7-17) mg/dL Creatinine 0.51 L (0.52-1.04) mg/dL Estimated GFR > 60.0 ML/MIN Glucose 167 H (74-106) mg/dL Calcium 8.9 (8.4-10.2) mg/dL Total Bilirubin 0.60 (0.2-1.3) mg/dL AST 38 H (14-36) U/L ALT 27 (0-35) U/L Alkaline Phosphatase 84 (38-126) U/L Troponin I 0.018 (0.000-0.034) ng/mL NT-Pro-B Natriuret Pep 110 (0-900) pg/mL Serum Total Protein 7.0 (6.3-8.2) g/dL Albumin 3.7 (3.5-5.0) g/dL 05/11/21 Range/Units 16:26 WBC 4.7 (4.0-10.5) K/mm3 RBC 4.26 (4.1-5.4) M/mm3 Hgb 13.1 (12.0-16.0) gm/dl Hct 40.5 (35-47) % MCV 95.1 (78-100) fl MCH 30.8 (26-32) pg MCHC 32.3 (32-36) g/dl RDW 15.7 H (11.5-14.0) % Plt Count 155 (150-450) K/mm3 MPV 9.6 (7.5-11.0) fl Gran % 57.0 (36.0-66.0) % Eos # (Auto) 0.07 (0-0.5) Absolute Lymphs (auto) 1.52 (1.0-4.6) Absolute Monos (auto) 0.42 (0.0-1.3) Lymphocytes % 32.2 (24.0-44.0) % Monocytes % 8.9 (0.0-12.0) % Eosinophils % 1.5 (0.00-5.0) % Basophils % 0.4 (0.0-0.4) % Absolute Granulocytes 2.69 (1.4-6.9) Basophils # 0.02 (0-0.4) D-Dimer (215-500) ng/mL Sodium (137-145) mmol/L Potassium (3.5-5.1) mmol/L Chloride (98-107) mmol/L Carbon Dioxide (22-30) mmol/L Anion Gap (5-15) MEQ/L BUN (7-17) mg/dL Creatinine (0.52-1.04) mg/dL Estimated GFR ML/MIN Glucose (74-106) mg/dL Calcium (8.4-10.2) mg/dL Total Bilirubin (0.2-1.3) mg/dL AST (14-36) U/L ALT (0-35) U/L Alkaline Phosphatase (38-126) U/L Troponin I (0.000-0.034) ng/mL NT-Pro-B Natriuret Pep (0-900) pg/mL Serum Total Protein (6.3-8.2) g/dL Albumin (3.5-5.0) g/dL - Progress Progress: improved Air Movement: good Blood Culture(s) Obtained: No Antibiotics given: No Counseled pt/family regarding: lab results, diagnosis, need for follow-up, rad results - Departure Departure Disposition: Home Clinical Impression: Acute chest wall pain Condition: Stable Critical Care Time: Yes Critical Care Time(excluding separately billable procedures): Critical 30-74 mins Referrals: JOLANTA TEMPLETON [Primary Care Provider] - Follow up/PCP as directed Instructions: Chest Pain (DC) Additional Instructions: Discharge/Care Plan RUMA SHAH was seen on 05/11/21 in the Emergency Room. The patient was counseled regarding Diagnosis,Lab results, Imaging studies, need for follow up and when to return to the Emergency Room. Prescriptions given: Discharge Note I have spoken with the patient and/or caregivers. I have explained the patient's condition, diagnosis and treatment plan based on the information available to me at this time. I have answered the patient's and/or caregiver's questions and addressed any concerns. The patient and/or caregivers have as good understanding of the patient's diagnosis, condition and treatment plan as can be expected at this point. The vital signs have been stable. The patient's condition is stable and appropriate for discharge from the emergency department. The patient will pursue further outpatient evaluation with the primary care physician or other designated or consulting physician as outlined in the discharge instructions. The patient and/or caregivers are agreeable to this plan of care and follow-up instructions have been explained in detail. The patient and/or caregivers have received these instruction. The patient/and or caregivers are aware that any significant change in condition or worsening of symptoms leela uld prompt an immediate return to this or the closest emergency department or call 911. RUMA SHAH was seen on 05/11/21 n the Emergency Room. At that time you were treated for an emergent condition, during your visit Laboratory, Radiology and/or other procedures may have been ordered. It is very important that you follow-up with your Primary Care Physician JOLANTA TEMPLETON within the next 24-48 hours to review your Emergency Room visit and the final results of testing that was ordered. Some test results such as Urine Cultures, Blood Cultures, and other cultures if ordered will not be finalized for 24-48 hours. If you do not have a Primary Care Provider please call the medical records department at [phone] ext [phone] to obtain a copy of your results or you may sign into our patient portal to obtain these results by visiting us @ [email or web address] and completing the following steps: 1. Click on the Patient Portal link 2. Click the Patient Self Enrollment Link to complete the enrollment form and entering your 3. Once the enrollment form is completed you will receive an email with a temporary ID and password at the email address you provided. 4. Next choose a user name and password. Your user name must be at least 4 characters long and your password must be at least 4 characters long. 5. Choose a security question from the list and provide your answer to the question. If you already have signed into the Health Portal you may access your Health Care Information 15/09 by the following steps: 1. Login to our website @ [email or web address] 2. Enter your original user name and password. FAQS The [facility] Health Portal is an online tool that contains your Lab Results, Rad iology Reports, Visit History, Discharge Instructions and Health Summary Lab and Radiology Results will not be available for 72 hours on the portal. The Portal is a secure site, passwords are encryted and URLs are re-written so they cannot be copied and pasted. You and authorized family members are the only ones who can access your Portal. Also there is a timeout feature that protects your information if you leave the Portal page open. If you have technical difficulty please use the Contact Us link on the page this will allow you to submit any questions you have regarding the Portal or you may contact the Medical Record Department at [phone] ext [phone]. Prescriptions: Meloxicam, Submicronized [Meloxicam] 10 mg PO BID #20 cap
[2021-05-11 16:47] LABS: ALBUMIN 3.7 g/dL (3.5-5.0); ALKALINE PHOSPHATASE 84 U/L (38-126); ANION GAP 11.6 MEQ/L (5-15); BLOOD UREA NITROGEN 13 mg/dL (7-17); CHLORIDE 108 mmol/L (98-107); Calcium 8.9 mg/dL (8.4-10.2); Carbon Dioxide 24 mmol/L (22-30); Creatinine 1 0.51 mg/dL (0.52-1.04); EST GLOMERULAR FILTRATION RATE > 60.0 ML/MIN; Glucose 167 mg/dL (74-106); NT PRO BNP 110 pg/mL (0-900); Potassium 3.3 mmol/L (3.5-5.1); SGOT/AST 38 U/L (14-36); SGPT/ALT 27 U/L (0-35); SODIUM 140 mmol/L (137-145)
[2021-05-11] MEDS ORDERED: K-LYTE 25 MEQ PO ONE (17:08)
[2021-05-11] MEDS ORDERED: HYDROCODONE-ACETAMIN 10-325 MG PO STA (17:11)
[2021-05-11] MEDS ORDERED: K-LYTE 25 MEQ ONE (17:23)
[2021-05-11 19:12] VITALS: O2SAT 96
[2021-05-11 19:22] LABS: Appearance SLIGHTLY CLOUDY (CLEAR); Bacteria MODERATE /HPF (NEGATIVE); Bilirubin NEGATIVE (NEGATIVE); Epithelial Cells FEW /HPF (FEW); Glucose NEGATIVE (NEGATIVE); Ketones NEGATIVE (NEGATIVE); Mucus SLIGHT /HPF (NEGATIVE); RBC 0-2 /HPF (0-2)
[2021-05-11 19:23] LABS: Nitrite POSITIVE (NEGATIVE); Protein,Urine Dip NEGATIVE (Negative); RBC NEGATIVE Ery/ul (0-5); Urobilinogen 0.2 mg/dL (0-1)
[2021-05-11 19:29] VITALS: BP 164/93; PULSE 89
--- NOTE | 2021-05-11 19:30 | XRAY ---
Indication: Chest pain and short of breath. Elevated d-dimer. History bilateral breast cancer with mastectomy. Multiple contiguous images obtained through the chest using 80 cc Isovue 370 contrast and PE protocol. Comparison: June 05, 2020. There is good opacification of the pulmonary arteries to include the lobar and segmental branches. No pulmonary embolus. Heart not enlarged. Aorta is normal in course and caliber. No pathologic mediastinal/hilar lymphadenopathy. Lungs are inflated with again minimal scattered peripheral fibrosis/scarring. No suspicious pulmonary mass/nodule, infiltrate, or effusion. Bony thorax intact again with mild osteopenia, mild degenerative changes throughout the spine, bilateral mastectomy, and left axilla abhay dissection. Limited upper abdomen again demonstrates a cirrhotic liver. Impression: 1. Negative pulmonary embolus. No new/acute cardiopulmonary abnormalities. 2. Again incidental cirrhotic liver and chronic bony findings. Comment: Preliminary interpretation made by [facility]. No critical discrepancy.
[2021-05-11 19:31] LABS: Dipstick done @ ? MAIN LAB
--- NOTE | 2021-05-11 19:32 | XRAY ---
Indication: Chest pain. Comparison: June 01, 2020. PA/lateral chest remains clear. Heart not enlarged. Bony thorax intact again with mild osteopenia, degenerative changes, and left axillary abhay dissection. New lower cervical fusion hardware. Impression: Continued nonacute chest with chronic features.
== END 2021-05-11 19:39 | disposition home or self-care (01) ==
LOC: ED 15:49
DX: R07.89 Other chest pain (principal); I10 Essential (primary) hypertension; E11.9 Type 2 diabetes mellitus without complications; Z79.4 Long term (current) use of insulin; Z86.16 Personal history of COVID-19; G30.9 Alzheimer's disease, unspecified; F02.80 Dementia in other diseases classified elsewhere, unspecified severity, without behavioral disturbance, psychotic disturbance, mood disturbance, and anxiety; Z79.899 Other long term (current) drug therapy
CPT/HCPCS: 36000; 36415; 71046; 71260; 80053; 81001; 83880; 84484; 85025; 85379; 87077; 87086; 87186; 93005; 93041; 99284; 99291; A9270-GY

== ENCOUNTER 2021-06-02 03:26 | Emergency (ER) | payer MEDICARE ==
--- NOTE | 2021-06-02 03:34 | ERPHSYRPT ---
- History of Present Illness Time Seen by Provider: 06/02/21 03:33 Source: patient, EMS Exam Limitations: no limitations Physician History: This is a 66-year-old white female patient of Dr. Alejo Moore as well as patient of pain specialist Dr. Harris. Patient does not ambulate and uses a wheelchair ever since her back surgery back in December 2020. She has had complaints of bilateral lower extremity pain and swelling that is relatively persistent and constant since March 2021. This is a chronic problem for the patient. She is only on gabapentin for pain. She was seen Dr. Boles, a pain specialist. However, she changed to Dr. Harris when Dr. Boles told her there was nothing else to offer her. Patient was seen by [facility] emergency department approximately 1 week ago. She was seen in our emergency department on 04/10/2021 for the same issue. She was seen by Dr. Boles, pain specialist on 04/11/2021 and 04/16/2021. She saw Dr. Harris at the office this past Thursday prior to arrival to our emergency department. Patient has not suffered any acute traumatic injury or fall. Patient has a history of insulin-dependent diabetes, peripheral neuropathy, Alzheimer's disease, rheumatoid arthritis, anxiety issues and fibromyalgia. Method of Injury: other (No injury) Occurred: other (Chronic) Quality: constant, burning Lower Extremities Pain: leg: bilateral Modifying Factors: Improves With: nothing Associated Symptoms: unable to bear weight (Chronic) Allergies/Adverse Reactions: pregabalin [From Lyrica] Allergy (Severe, Verified 06/02/21 03:32) Swelling methadone [Methadone] Allergy (Mild, Verified 06/02/21 03:32) Hives oxycodone HCl [From OxyContin] Adverse Reaction (Severe, Verified 06/02/21 03:32) "makes me crazy" Home Medications: Metformin HCl 500 mg [Glucophage 500 MG] 500 mg PO BIDWM 12/27/19 [History] Quetiapine Fumarate 100 mg PO HS 06/02/20 [History] Gabapentin 800 mg PO TID 04/10/21 [History] Dapagliflozin Propanediol [Farxiga] 10 mg PO DAILY 06/02/21 [History] Insulin Glargine [Lantus Insulin] 40 unit SQ DAILY 06/02/21 [History] Meloxicam, Submicronized [Meloxicam] 7.5 mg PO BID 06/02/21 [History] Mirabegron [Myrbetriq] 25 mg PO DAILY 06/02/21 [History] Oxcarbazepine 300 mg [Trileptal 300 MG Tablet] 300 mg PO BID 06/02/21 [History] Hx Tetanus, Diphtheria Vaccination/Date Given: Yes Hx Influenza Vaccination/Date Given: Yes Hx Pneumococcal Vaccination/Date Given: Yes Travel Risk - International Travel Have you traveled outside of the country in past 3 weeks: No - Coronavirus Screening Are you exhibiting any of the following symptoms?: No Close contact with a COVID-19 positive Pt in past 14-21 Days: No - Vaccine Status Have you recieved a Covid-19 vaccination: No - Review of Systems Constitutional: No Symptoms Eyes: No Symptoms Ears, Nose, & Throat: No Symptoms Respiratory: No Symptoms Cardiac: No Symptoms Abdominal/Gastrointestinal: No Symptoms Genitourinary Symptoms: No Symptoms Musculoskeletal: Other (Burning pain bilateral lower extremities) Skin: Other (No evidence of cellulitis) Neurological: Parasthesia (With associated burning pain bilateral lower extremities) Psychological: Anxiety Endocrine: No Symptoms Hematologic/Lymphatic: No Symptoms Immunological/Allergic: No Symptoms All Other Systems: Reviewed and Negative - Past Medical History Pertinent Past Medical History: Yes Neurological History: Alzheimer's Disease ENT History: No Pertinent History Cardiac History: Hypertension Respiratory History: No Pertinent History Endocrine Medical History: Diabetes Type II, Liver Disease Musculoskeletal History: Arthritis, Fibromyalgia, Rheumatoid Arthritis GI Medical History: No Pertinent History History: No Pertinent History Psycho-Social History: Anxiety, Depression Female Reproductive Disorders: Breast Cancer Other Medical History: breast CA DX 2018. covid + on 12/26/2019 - Past Surgical History Past Surgical History: Yes Neuro Surgical History: No Pertinent History Cardiac: No Pertinent History Respiratory: No Pertinent History Gastrointestinal: Hernia Repair Genitourinary: No Pertinent History Musculoskeletal: Orthopedic Surgery, Other Female Surgical History: Mastectomy Other Surgical History: muscle stimulator 02/04-REMOVED 2013. back surgery hip surgery. double masectomy july 2017, Jareth and 2 screws placed in back in 2020 - Social History Smoking Status: Never smoker Exposure to second hand smoke: No Drug Use: none Patient Lives Alone: No (Mother) Significant Family History: no pertinent family hx - Nursing Vital Signs Nursing Vital Signs: Initial Vital Signs Temperature 97.8 F 06/02/21 03:36 Pulse Rate 99 H 06/02/21 03:36 Respiratory Rate 18 06/02/21 03:36 Blood Pressure 178/97 06/02/21 03:36 O2 Sat by Pulse Oximetry 98 06/02/21 03:36 Pain Scale Pain Intensity 10 - Physical Exam General Appearance: no apparent distress, alert, anxiety Eyes, Ears, Nose, Throat Exam: normal ENT inspection, moist mucous membranes Neck Exam: normal inspection, non-tender, supple, full range of motion Cardiovascular/Respiratory Exam: chest non-tender, no respiratory distress Gastrointestinal/Abdominal Exam: non-tender Back Exam: normal inspection, decreased range of motion (Konik), No CVA tenderness, No vertebral tenderness Hips Exam: bilateral: non-tender, normal inspection, normal range of motion, no evidence of injury Legs Exam: bilateral leg: no evidence of injury, soft tissue tenderness (Burning) Knees Exam: bilateral knee: non-tender, normal inspection, normal range of motion, no evidence of injury Ankle Exam: bilateral ankle: no evidence of injury, soft tissue tenderness (Burning), swelling (Mild edema) Foot Exam: bilateral foot: normal range of motion, no evidence of injury, soft tissue tenderness (Burning), swelling (Mild bilateral pedal edema) Neuro/Tendon Exam: responds to pain, no evidence tendon injury Mental Status Exam: alert, oriented x 3, cooperative Skin Exam: normal color, warm, dry, other (No evidence of bilateral lower extremity cellulitis) SpO2 Interpretation: normal O2 Delivery: Room Air - Course Nursing assessment & vital signs reviewed: Yes Ordered Tests: Active Orders 24 hr Category Date Time Status D-DIMER QUANTITATIVE Stat Lab 06/02/21 04:10 Completed Medication Summary Discontinued Medications Generic Name Dose Route Start Last Admin Trade Name Freq PRN Reason Stop Dose Admin Amitriptyline HCl 10 mg 06/02/21 04:10 06/02/21 04:25 Amitriptyline Hcl 10 Mg Tablet PO 06/02/21 04:11 10 mg STAT ONE Administration Hydromorphone HCl 0.5 mg 06/02/21 04:09 06/02/21 04:17 Hydromorphone 1 Mg/1ml Inj 1 Mg/Ml Syringe IM 06/02/21 04:10 0.5 mg STAT ONE Administration Hydromorphone HCl Confirm 06/02/21 04:15 Hydromorphone 1 Mg/1ml Inj 1 Mg/Ml Syringe Administered 06/02/21 04:16 Dose 1 mg .ROUTE .STK-MED ONE Ondansetron HCl 4 mg 06/02/21 04:09 06/02/21 04:21 Zofran 4 Mg/Udtablet Orally Disintegrating PO 06/02/21 04:10 4 mg STAT ONE Administration Ondansetron HCl Confirm 06/02/21 04:15 Zofran 4 Mg/Udtablet Orally Disintegrating Administered 06/02/21 04:16 Dose 4 mg .ROUTE .STK-MED ONE Lab/Rad Data: Laboratory Results 06/02/21 Range/Units 04:10 D-Dimer 1184 H* (215-500) ng/mL - Progress Progress: improved, pain not gone completely Progress Note: 06/02/21 04:43 Medical decision making: This patient has chronic bilateral lower extremity pain and swelling. The left lower extremity has more swelling than the right. She does have an elevated D-dimer today. 2 weeks ago, she was seen in this emergency room with elevated D-dimer and a CTA of the chest was performed which was negative for any pulmonary embolus. I do not think she needs a repeat of the CTA of the chest. However, I will provide the patient with a dose of subcutaneous Lovenox and make arrangements for bilateral lower extremity venous Dopplers to be done as an outpatient tomorrow. Counseled pt/family regarding: diagnosis, need for follow-up - Departure Departure Disposition: Home Clinical Impression: Peripheral neuropathy, Bilateral leg and foot pain, Fibromyalgia, Swelling of both lower extremities, Elevated d-dimer Condition: Stable Critical Care Time: No Referrals: JOLANTA TEMPLETON [Primary Care Provider] - Follow up/PCP as directed Additional Instructions: take your medication as prescribed. Call your prescribing pain specialist and your primary care physician for further, outpatient evaluation and management of your chronic pain issues. Return to the hospital radiology department tomorrow at your scheduled venous Doppler time. Follow-up with Dr. Alejo Moore after your venous Doppler has been completed to obtain the results of that study.
[2021-06-02 03:49] VITALS: O2SAT 98
[2021-06-02] MEDS ORDERED: Hydromorphone 1 mg/ml Injection IM ONE (04:09)
[2021-06-02] MEDS ORDERED: ZOFRAN ODT 4 MG PO ONE (04:09)
[2021-06-02] MEDS ORDERED: ELAVIL 10 MG PO ONE (04:10)
[2021-06-02] MEDS ORDERED: ZOFRAN ODT 4 MG ONE (04:15)
[2021-06-02] MEDS ORDERED: Hydromorphone 1 mg/ml Injection ONE (04:15)
[2021-06-02] MEDS ORDERED: ENOXAPARIN SODIUM SQ ONE ×2 (04:42→04:58)
[2021-06-02 05:07] VITALS: BP 167/89; PULSE 87
== END 2021-06-02 05:19 | disposition home or self-care (01) ==
LOC: ED 03:26
DX: M79.605 Pain in left leg (principal); M79.604 Pain in right leg; E11.42 Type 2 diabetes mellitus with diabetic polyneuropathy; M79.7 Fibromyalgia; R60.0 Localized edema; R79.1 Abnormal coagulation profile; R20.2 Paresthesia of skin; G89.29 Other chronic pain; Z99.3 Dependence on wheelchair; I10 Essential (primary) hypertension; Z86.16 Personal history of COVID-19; Z79.4 Long term (current) use of insulin; Z79.899 Other long term (current) drug therapy
CPT/HCPCS: 36415; 85379; 96372; 99284; J1170; J1650; Q0162; A9270-GY

== ENCOUNTER 2021-08-15 21:08 | Observation (INO) | payer MEDICARE ==
[2021-08-15] MEDS ORDERED: Sodium Chloride 0.9% 1000 ML 1,000 ML IV STA (21:52)
[2021-08-15] MEDS ORDERED: Sodium Chloride 0.9% 1000 ML 1,000 ML ONE (21:56)
--- NOTE | 2021-08-15 21:57 | ERPHSYRPT ---
- History of Present Illness Time Seen by Provider: 08/15/21 21:22 Source: patient, family Exam Limitations: clinical condition Patient Subjective Stated Complaint: daughter states "She hasn't ate or drank in a few days." Triage Nursing Assessment: pt came into the er via ambulance; pt is axo x3; c/o failure to thrive; pt denies pain; pt is tearful; daughter states that pt is on hospice but unsure why; mucus membrane pink and moist; hyperactive bowel sounds in all quads; abd is round, soft, nontender; hypertension Physician History: 66 years old female with history of breast cancer status postmastectomy bilateral currently in remission, hypertension, hyperlipidemia, chronic pain, diabetes mellitus is brought in the ER by daughter after she found out patient was on hospice for unknown reasons and has been taking Ativan. Apparently patient denies eating or drinking anything for the last few days and is sleeping most of the times. She was given morphine as well which she has not taken. Does have history of falls almost 2 weeks ago and no new fall today. Patient is unable to recall why she is on hospice. Apparently family was unaware of all this until today. Allergies/Adverse Reactions: pregabalin [From Lyrica] Allergy (Severe, Verified 08/15/21 21:11) Swelling methadone [Methadone] Allergy (Mild, Verified 08/15/21 21:11) Hives oxycodone HCl [From OxyContin] Adverse Reaction (Severe, Verified 08/15/21 21:11) "makes me crazy" Home Medications: Metformin HCl 500 mg [Glucophage 500 MG] 500 mg PO BIDWM 12/27/19 [History] Quetiapine Fumarate 100 mg PO HS 06/02/20 [History] Gabapentin 800 mg PO TID 04/10/21 [History] Dapagliflozin Propanediol [Farxiga] 10 mg PO DAILY 06/02/21 [History] Insulin Glargine [Lantus Insulin] 40 unit SQ DAILY 06/02/21 [History] Meloxicam, Submicronized [Meloxicam] 7.5 mg PO BID 06/02/21 [History] Mirabegron [Myrbetriq] 25 mg PO DAILY 06/02/21 [History] Oxcarbazepine 300 mg [Trileptal 300 MG Tablet] 300 mg PO BID 06/02/21 [History] Hx Tetanus, Diphtheria Vaccination/Date Given: Yes Hx Influenza Vaccination/Date Given: Yes Hx Pneumococcal Vaccination/Date Given: Yes Travel Risk - International Travel Have you traveled outside of the country in past 3 weeks: No - Coronavirus Screening Are you exhibiting any of the following symptoms?: No Close contact with a COVID-19 positive Pt in past 14-21 Days: No - Vaccine Status Have you recieved a Covid-19 vaccination: No - Review of Systems Constitutional: Fatigue Eyes: No Symptoms Ears, Nose, & Throat: No Symptoms Respiratory: No Symptoms Cardiac: No Symptoms Abdominal/Gastrointestinal: No Symptoms Genitourinary Symptoms: No Symptoms Musculoskeletal: Arthralgias Skin: No Symptoms Neurological: No Symptoms Endocrine: No Symptoms Hematologic/Lymphatic: No Symptoms - Past Medical History Pertinent Past Medical History: Yes Neurological History: Alzheimer's Disease, Peripheral Neuropathy ENT History: No Pertinent History Cardiac History: Hypertension Respiratory History: No Pertinent History Endocrine Medical History: Diabetes Type II, Liver Disease Musculoskeletal History: Arthritis, Fibromyalgia, Rheumatoid Arthritis GI Medical History: No Pertinent History History: No Pertinent History Psycho-Social History: Anxiety, Depression Female Reproductive Disorders: Breast Cancer Other Medical History: breast CA DX 2018. covid + on 12/26/2019 - Past Surgical History Past Surgical History: Yes Neuro Surgical History: No Pertinent History Cardiac: No Pertinent History Respiratory: No Pertinent History Gastrointestinal: Hernia Repair Genitourinary: No Pertinent History Musculoskeletal: Orthopedic Surgery, Other Female Surgical History: Mastectomy Other Surgical History: muscle stimulator 02/04-REMOVED 2013. back surgery hip surgery. double masectomy july 2017, Jareth and 2 screws placed in back in 2020 - Social History Smoking Status: Never smoker Exposure to second hand smoke: No Drug Use: none Patient Lives Alone: No (Mother) Significant Family History: no pertinent family hx - Nursing Vital Signs Nursing Vital Signs: Initial Vital Signs Temperature 98.1 F 08/15/21 21:20 Pulse Rate 95 H 08/15/21 21:20 Respiratory Rate 20 08/15/21 21:20 Blood Pressure 161/75 08/15/21 21:20 O2 Sat by Pulse Oximetry 98 08/15/21 21:20 Pain Scale Pain Intensity 4 - Physical Exam General Appearance: no apparent distress, alert Eye Exam: PERRL/EOMI, eyes nml inspection Ears, Nose, Throat Exam: normal ENT inspection, TMs normal, pharynx normal, moist mucous membranes Neck Exam: normal inspection, non-tender, supple, full range of motion Respiratory Exam: normal breath sounds, lungs clear, other (Tender mastectomy scar gaitan) Cardiovascular Exam: regular rate/rhythm, normal heart sounds Gastrointestinal/Abdomen Exam: soft, normal bowel sounds, No tenderness Back Exam: normal inspection Extremity Exam: inflammation, swelling (Left foot dorsum) Neurologic Exam: alert, oriented x 3, cooperative, 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, sensation nml, No normal mood/affect, No motor deficits Skin Exam: normal color SpO2 Interpretation: normal SpO2: 95 O2 Delivery: Room Air Ordered Tests: Active Orders 24 hr Category Date Time Status IV Insertion STAT Care 08/15/21 21:52 Active CHEST 1 VIEW (PORTABLE) Stat Exams 08/15/21 22:22 Taken FOOT (MINIMUM 3 VIEWS) Stat Exams 08/15/21 Taken CBC W DIFF Stat Lab 08/15/21 22:40 Completed CK (IN-HOUSE) [CK-Creatinine Phosphokinase] Stat Lab 08/15/21 22:40 Completed CMP Stat Lab 08/15/21 22:40 Completed Lactic Acid Stat Lab 08/15/21 22:50 Completed MAG [MAGNESIUM] Stat Lab 08/15/21 22:40 Completed UA W/RFX CULTURE Stat Lab 08/15/21 22:56 Completed Urine Triage Profile Stat Lab 08/15/21 22:56 Completed Medication Summary Discontinued Medications Generic Name Dose Route Start Last Admin Trade Name Heladio PRN Reason Stop Dose Admin Sodium Chloride 1,000 mls @ 999 mls/hr 08/15/21 21:52 08/15/21 23:15 Sodium Chloride 0.9% 1000 Ml IV 08/15/21 22:52 Infused .Q1H1M STA Infusion Sodium Chloride Confirm 08/15/21 21:56 Sodium Chloride 0.9% 1000 Ml Administered 08/15/21 21:57 Dose 1,000 mls @ ud .ROUTE .STK-MED ONE Lab/Rad Data: Laboratory Result Diagrams 08/15/21 22:40 08/15/21 22:40 Laboratory Results 08/15/21 08/15/21 08/15/21 Range/Units 22:56 22:56 22:50 WBC (4.0-10.5) x10^3/uL RBC (4.1-5.4) x10^6/uL Hgb (12.0-16.0) g/dL Hct (35-47) % MCV (78-100) fL MCH (26-32) pg MCHC (32-36) g/dL RDW (11.5-14.0) % Plt Count (150-450) x10^3/uL MPV (7.5-11.0) fL Gran % (36.0-66.0) % Immature Gran % (Auto) (0.00-0.4) % Nucleat RBC Rel Count (0.00-0.1) % Eos # (Auto) (0-0.5) x10^3/uL Immature Gran # (Auto) (0.00-0.03) x10^3u/L Absolute Lymphs (auto) (1.0-4.6) x10^3/uL Absolute Monos (auto) (0.0-1.3) x10^3/uL Absolute Nucleated RBC (0.00-0.01) x10^3u/L Lymphocytes % (24.0-44.0) % Monocytes % (0.0-12.0) % Eosinophils % (0.00-5.0) % Basophils % (0.0-0.4) % Absolute Granulocytes (1.4-6.9) x10^3/uL Basophils # (0-0.4) x10^3/uL Sodium (137-145) mmol/L Potassium (3.5-5.1) mmol/L Chloride (98-107) mmol/L Carbon Dioxide (22-30) mmol/L Anion Gap (5-15) MEQ/L BUN (7-17) mg/dL Creatinine (0.52-1.04) mg/dL Estimated GFR ML/MIN Glucose (74-106) mg/dL Lactic Acid 1.3 (0.4-2.0) Calcium (8.4-10.2) mg/dL Magnesium (1.6-2.3) mg/dL Total Bilirubin (0.2-1.3) mg/dL AST (14-36) U/L ALT (0-35) U/L Alkaline Phosphatase (38-126) U/L Creatine Kinase (30-135) U/L Serum Total Protein (6.3-8.2) g/dL Albumin (3.5-5.0) g/dL Urinalys Dipstick Clnc MAIN LAB Urine Color YELLOW (YELLOW) Urine Appearance CLEAR (CLEAR) Urine pH 6.0 (5-6) Ur Specific [place] 1.025 (1.005-1.025) POC Urine Protein Conf NEGATIVE (Negative) Urine Ketones NEGATIVE (NEGATIVE) Urine Nitrite NEGATIVE (NEGATIVE) Urine Bilirubin NEGATIVE (NEGATIVE) Urine Urobilinogen 0.2 (0-1) mg/dL Urine Leukocytes NEGATIVE (NEGATIVE) Urine WBC (Auto) NONE (0-5) /HPF Urine RBC (Auto) 0-2 (0-2) /HPF U Epithel Cells (Auto) RARE (FEW) /HPF Urine Bacteria (Auto) NONE (NEGATIVE) /HPF Urine RBC TRACE-INTACT (0-5) Mookie/ul Urine Mucus (Auto) SLIGHT (NEGATIVE) /HPF Ur Culture Indicated? NO Urine Glucose NEGATIVE (NEGATIVE) mg/dL Urine Opiates Level POSITIVE (NEGATIVE) Ur Methadone NEGATIVE (NEGATIVE) Urine Barbiturates NEGATIVE (NEGATIVE) Ur Phencyclidine (PCP) NEGATIVE (NEGATIVE) Urine Amphetamine NEGATIVE (NEGATIVE) U Benzodiazepine Level NEGATIVE (NEGATIVE) Urine Cocaine NEGATIVE (NEGATIVE) Urine Marijuana (THC) NEGATIVE (NEGATIVE) 08/15/21 08/15/21 08/15/21 Range/Units 22:40 22:40 22:40 WBC 3.6 L (4.0-10.5) x10^3/uL RBC 3.56 L (4.1-5.4) x10^6/uL Hgb 11.0 L (12.0-16.0) g/dL Hct 34.8 L (35-47) % MCV 97.8 (78-100) fL MCH 30.9 (26-32) pg MCHC 31.6 L (32-36) g/dL RDW 14.1 H (11.5-14.0) % Plt Count 136 L (150-450) x10^3/uL MPV 10.4 (7.5-11.0) fL Gran % 47.8 (36.0-66.0) % Immature Gran % (Auto) 0.3 (0.00-0.4) % Nucleat RBC Rel Count 0.0 (0.00-0.1) % Eos # (Auto) 0.15 (0-0.5) x10^3/uL Immature Gran # (Auto) 0.01 (0.00-0.03) x10^3u/L Absolute Lymphs (auto) 1.39 (1.0-4.6) x10^3/uL Absolute Monos (auto) 0.29 (0.0-1.3) x10^3/uL Absolute Nucleated RBC 0.00 (0.00-0.01) x10^3u/L Lymphocytes % 39.0 (24.0-44.0) % Monocytes % 8.1 (0.0-12.0) % Eosinophils % 4.2 (0.00-5.0) % Basophils % 0.6 (0.0-0.4) % Absolute Granulocytes 1.70 (1.4-6.9) x10^3/uL Basophils # 0.02 (0-0.4) x10^3/uL Sodium 137 (137-145) mmol/L Potassium 3.8 (3.5-5.1) mmol/L Chloride 103 (98-107) mmol/L Carbon Dioxide 23 (22-30) mmol/L Anion Gap 14.6 (5-15) MEQ/L BUN 16 (7-17) mg/dL Creatinine 0.49 L (0.52-1.04) mg/dL Estimated GFR > 60.0 ML/MIN Glucose 99 (74-106) mg/dL Lactic Acid (0.4-2.0) Calcium 9.4 (8.4-10.2) mg/dL Magnesium 1.7 (1.6-2.3) mg/dL Total Bilirubin 0.90 (0.2-1.3) mg/dL AST 33 (14-36) U/L ALT 18 (0-35) U/L Alkaline Phosphatase 118 (38-126) U/L Creatine Kinase 68 (30-135) U/L Serum Total Protein 8.1 (6.3-8.2) g/dL Albumin 4.1 (3.5-5.0) g/dL Urinalys Dipstick Clnc Urine Color (YELLOW) Urine Appearance (CLEAR) Urine pH (5-6) Ur Specific [place] (1.005-1.025) POC Urine Protein Conf (Negative) Urine Ketones (NEGATIVE) Urine Nitrite (NEGATIVE) Urine Bilirubin (NEGATIVE) Urine Urobilinogen (0-1) mg/dL Urine Leukocytes (NEGATIVE) Urine WBC (Auto) (0-5) /HPF Urine RBC (Auto) (0-2) /HPF U Epithel Cells (Auto) (FEW) /HPF Urine Bacteria (Auto) (NEGATIVE) /HPF Urine RBC (0-5) Mookie/ul Urine Mucus (Auto) (NEGATIVE) /HPF Ur Culture Indicated? Urine Glucose (NEGATIVE) mg/dL Urine Opiates Level (NEGATIVE) Ur Methadone (NEGATIVE) Urine Barbiturates (NEGATIVE) Ur Phencyclidine (PCP) (NEGATIVE) Urine Amphetamine (NEGATIVE) U Benzodiazepine Level (NEGATIVE) Urine Cocaine (NEGATIVE) Urine Marijuana (THC) (NEGATIVE) - Progress Progress: improved Progress Note: 08/16/21 00:45 66 years old is evaluated for decreased oral intake. She is given fluids. Work-up showed white count of 3.6 with no acute electrolyte abnormalities. No definitive UTI. Chest x-ray reviewed by me did not reveal any acute cardiopulmonary findings. Patient is feeling better on reevaluation. Hospice is called and it was found out that patient has cirrhosis and that is why she was on hospice. Family and patient want to drop off hospice now. Has swelling left foot, x-ray which shows questionable fracture distal fifth metatarsal. Will wait till final reading of x-ray by radiologist before putting splints. Discussed with Dr. Vasquez and patient is being admitted for observation 08/16/21 00:49 Discussed with .: Stanton Will see patient in: hospital (observation) Counseled pt/family regarding: lab results, diagnosis, need for follow-up, rad results - Departure Departure Disposition: Observation Clinical Impression: Generalized weakness Condition: Stable Critical Care Time: No Referrals: JOLANTA TEMPLETON [Primary Care Provider] - Follow up/PCP as directed
[2021-08-15 22:47] LABS: Basophil (Absolute #) 0.02 x10^3/uL (0-0.4); Eosinophil % 4.2 % (0.00-5.0); Eosinophil (Absolute #) 0.15 x10^3/uL (0-0.5); Hematocrit 34.8 % (35-47); Lymphocyte (Absolute #) 1.39 x10^3/uL (1.0-4.6); Mean Cell Volume 97.8 fL (78-100); Mean Corpuscular Hemoglobin 30.9 pg (26-32); Mean Corpuscular Hgb Concent. 31.6 g/dL (32-36); Mean Platelet Volume 10.4 fL (7.5-11.0); Monocyte (Absolute #) 0.29 x10^3/uL (0.0-1.3); Monocytes % 8.1 % (0.0-12.0); Neutrophil % 47.8 % (36.0-66.0); Platelet Count 136 x10^3/uL (150-450); Red Blood Count 3.56 x10^6/uL (4.1-5.4); Red Cell Distribution Width 14.1 % (11.5-14.0); White Blood Count 3.6 x10^3/uL (4.0-10.5)
[2021-08-15 23:07] LABS: MAGNESIUM 1.7 mg/dL (1.6-2.3)
[2021-08-15 23:08] LABS: Appearance CLEAR (CLEAR)
[2021-08-15 23:09] LABS: Bilirubin NEGATIVE (NEGATIVE); Dipstick done @ ? MAIN LAB; Glucose NEGATIVE (NEGATIVE); Ketones NEGATIVE (NEGATIVE); Nitrite NEGATIVE (NEGATIVE); Protein,Urine Dip NEGATIVE (Negative); RBC TRACE-INTACT Ery/ul (0-5); Specific Gravity 1.025 (1.005-1.025); Urobilinogen 0.2 mg/dL (0-1)
[2021-08-15 23:09] LABS: ALBUMIN 4.1 g/dL (3.5-5.0); ALKALINE PHOSPHATASE 118 U/L (38-126); ANION GAP 14.6 MEQ/L (5-15); BLOOD UREA NITROGEN 16 mg/dL (7-17); CHLORIDE 103 mmol/L (98-107); Calcium 9.4 mg/dL (8.4-10.2); Carbon Dioxide 23 mmol/L (22-30); Creatinine 1 0.49 mg/dL (0.52-1.04); EST GLOMERULAR FILTRATION RATE > 60.0 ML/MIN; Glucose 99 mg/dL (74-106); Potassium 3.8 mmol/L (3.5-5.1); SGOT/AST 33 U/L (14-36); SGPT/ALT 18 U/L (0-35); SODIUM 137 mmol/L (137-145); Total Protein 8.1 g/dL (6.3-8.2)
[2021-08-15 23:15] LABS: Epithelial Cells RARE /HPF (FEW); Mucus SLIGHT /HPF (NEGATIVE); RBC 0-2 /HPF (0-2); Urine Cultured Indicated? NO
[2021-08-15 23:24] LABS: Amphetamine,Urine NEGATIVE (NEGATIVE); Barbiturate,Urine NEGATIVE (NEGATIVE); Benzodiazepine,Urine NEGATIVE (NEGATIVE); Cocaine,Urine NEGATIVE (NEGATIVE); Methadone,Urine NEGATIVE (NEGATIVE); Opiate,Urine POSITIVE (NEGATIVE); PCP,Urine NEGATIVE (NEGATIVE); THC,Urine NEGATIVE (NEGATIVE)
[2021-08-16 02:13] LABS: INFLUENZA A NEGATIVE (NEGATIVE); INFLUENZA B NEGATIVE (NEGATIVE); RESPIRATORY SYNCTIAL VIRUS NEGATIVE (Negative); SARS-CoV-2 Xpert Express NEGATIVE (NEGATIVE)
[2021-08-16] MEDS ORDERED: TYLENOL 325 MG PO PRN (02:37)
[2021-08-16] MEDS ORDERED: Zofran 4 MG/2 ML VIAL IV PRN (02:37)
[2021-08-16] MEDS ORDERED: DUONEB 0.5-3 MG/3 ml Neb IH PRN (02:37)
[2021-08-16] MEDS: Sodium Chloride 0.9% 1000 ML 1,000 ML IV SCH ×2 (04:31→14:46)
[2021-08-16 04:42] LABS: Absolute Neutrophil Ct (ANC) 1.63 x10^3/uL (1.4-6.9); Basophil (Absolute #) 0.02 x10^3/uL (0-0.4); Hematocrit 31.6 % (35-47); Hemoglobin 10.1 g/dL (12.0-16.0); Lymphocyte (Absolute #) 1.17 x10^3/uL (1.0-4.6); Lymphocytes % 35.2 % (24.0-44.0); Mean Cell Volume 96.9 fL (78-100); Mean Platelet Volume 10.7 fL (7.5-11.0); Monocyte (Absolute #) 0.29 x10^3/uL (0.0-1.3); Monocytes % 8.7 % (0.0-12.0); Neutrophil % 49.2 % (36.0-66.0); Platelet Count 120 x10^3/uL (150-450); Red Blood Count 3.26 x10^6/uL (4.1-5.4); Red Cell Distribution Width 14.4 % (11.5-14.0); White Blood Count 3.3 x10^3/uL (4.0-10.5)
[2021-08-16 05:03] LABS: ALBUMIN 3.6 g/dL (3.5-5.0); ALKALINE PHOSPHATASE 96 U/L (38-126); ANION GAP 12.7 MEQ/L (5-15); BLOOD UREA NITROGEN 14 mg/dL (7-17); CHLORIDE 105 mmol/L (98-107); Carbon Dioxide 24 mmol/L (22-30); Creatinine 1 0.52 mg/dL (0.52-1.04); EST GLOMERULAR FILTRATION RATE > 60.0 ML/MIN; Glucose 124 mg/dL (74-106); Potassium 3.7 mmol/L (3.5-5.1); SGOT/AST 32 U/L (14-36); SGPT/ALT 16 U/L (0-35); SODIUM 138 mmol/L (137-145); Total Protein 7.3 g/dL (6.3-8.2)
--- NOTE | 2021-08-16 08:53 | XRAY ---
Indication: Pain following fall. Comparison: None 3 nonweightbearing views left foot demonstrates marked osteopenia, tiny heel spurs, tiny spurring/heterotopic ossification base 5th metatarsal, mild 1st MTP degenerative changes, tiny cuboid accessory ossicle, and mild diffuse anterior soft tissue swelling/edema. Query nondisplaced cortical fracture head 5th metatarsal. Remaining foot unremarkable.
--- NOTE | 2021-08-16 08:55 | XRAY ---
Indication: Weakness. Status post fall. Comparison: May 11, 2021. Portable apical lordotic chest less inflated with new minimal bibasilar subsegmental atelectasis/scarring. Heart borderline enlarged. Bony thorax intact again with osteopenia, degenerative changes, lower cervical fusion hardware, and left axillary abhay dissection. Impression: Nonacute underinflated chest with chronic features.
[2021-08-16] MEDS: OXYCODONE-ACETAMINOPHEN 10-325 PO PRN ×3 (09:31→21:34)
[2021-08-16] MEDS: PROTONIX 40 MG IV IV SCH (09:31)
[2021-08-16] MEDS ORDERED: MORPHINE SULFATE 100 MG/5 ML SL PRN (12:11)
[2021-08-16] MEDS ORDERED: LORAZEPAM 2 MG/ML PO SCH (12:15)
[2021-08-16] MEDS: MYRBETRIQ PO SCH (12:22)
[2021-08-16] MEDS: Prozac 20 MG PO SCH (12:22)
[2021-08-16] MEDS: MELOXICAM PO SCH ×2 (12:22→21:35)
[2021-08-16] MEDS: LYRICA 150MG PO SCH ×2 (12:22→21:35)
[2021-08-16] MEDS: Glucophage XR 500 MG PO SCH (12:23)
[2021-08-16] MEDS ORDERED: HUMALOG SQ PRN (12:30)
[2021-08-16] MEDS ORDERED: MEDICATION INTERVENTION MC SCH (13:00)
[2021-08-16] MEDS: Ativan 0.5 MG PO PRN ×2 (13:27→21:35)
[2021-08-16] MEDS: Trileptal 300 MG Tablet PO SCH ×2 (13:27→21:36)
[2021-08-16] MEDS: Lantus Insulin SQ SCH (13:47)
--- NOTE | 2021-08-16 22:11 | PCM.HP ---
History of Present Illness - Chief Complaint Chief Complaint: Generalized weakness History of Present Illness: is a 66 year old female patient of Dr Parks who presented to ER by ambulance in a weakened state. Daughter states she has not been eating or drinking for 2-3 days and requires help with all ADL. Has Hx fall and c/o left foot pain. .Patient had been under [facility] care for decreased ADL but Hospice has been discontinued per patient and daughter's request. The Hospice Nurses is here today to discontinue service ,states the patient did well on Lyrica 150mg bid and [place] 10 325 q 4H. PMHx includes HTN,HLD,DM2,Breast cancer tx bilateral mastectomy 2019 in remission,dementia,cirrhosis(unspecified),RA,fibromyalgia,chronic back pain,neuropathy. - Review of Systems Constitutional: Lethargy, Weakness (sleeps alot) Eyes: No Symptoms Ears, Nose, & Throat: No Symptoms Respiratory: No Symptoms Cardiac: No Symptoms Abdominal/Gastrointestinal: Appetite Changes, Other (cirrhosis,unspecified) Genitourinary Symptoms: Incontinence Musculoskeletal: Arthralgias, Back Pain, Myalgias Neurological: Other (neuropathy) Psychological: Anxiety, Depression, Memory Loss (dementia) Endocrine: No Symptoms Hematologic/Lymphatic: Anemia Medications & Allergies Home Medications: Home Medication List Amoxicillin 500 mg PO TID 08/16/21 [History Confirmed 08/16/21] Fluoxetine HCl 20 mg [Prozac 20 MG] 40 mg PO DAILY 08/16/21 [History Confirmed 08/16/21] Gabapentin [Neurontin ] 600 mg PO TID 08/16/21 [History Confirmed 08/16/21] Insulin Glargine [Lantus Insulin] 40 units SQ DAILY 08/16/21 [History Confirmed 08/16/21] Insulin Lispro [Insulin Lispro Kwikpen U-100] 10 units SQ AC 08/16/21 [History Confirmed 08/16/21] LORazepam [Lorazepam Intensol] 08/16/21 [History] Meloxicam 7.5 mg PO BID 08/16/21 [History Confirmed 08/16/21] Metformin HCl [Metformin HCl ER] 1,000 mg PO DAILY 08/16/21 [History Confirmed 08/16/21] Mirabegron [Myrbetriq] 25 mg PO DAILY 08/16/21 [History Confirmed 08/16/21] Morphine Sulfate 0.5 ml SL Q2H/PRN PRN 08/16/21 [History Confirmed 08/16/21] Oxcarbazepine 300 mg [Trileptal 300 MG Tablet] 300 mg PO BID 08/16/21 [History Confirmed 08/16/21] Allergies/Adverse Reactions: Allergies Allergy/AdvReac Type Severity Reaction Status Date / Time methadone [Methadone] Allergy Mild Hives Verified 08/15/21 21:11 oxycodone HCl AdvReac Severe Verified 08/15/21 21:11 [From OxyContin] - Past Medical History Past Medical History: Yes Neurological History: Alzheimer's Disease, Peripheral Neuropathy ENT History: No Pertinent History Cardiac History: Hypertension Respiratory History: No Pertinent History Endocrine Medical History: Diabetes Type II, Liver Disease Musculoskelatal History: Arthritis, Fibromyalgia, Rheumatoid Arthritis GI Medical History: No Pertinent History History: No Pertinent History Pyscho-Social History: Anxiety, Depression Reproductive Disorders: Breast Cancer Comment: breast CA DX 2018. covid + on 12/26/2019 - Female History Are you now?: No - Past Surgical History Past Surgical History: Yes Neuro Surgical History: No Pertinent History Cardiac History: No Pertinent History Respiratory Surgery: No Pertinent History GI Surgical History: Hernia Repair Genitourinary Surgical Hx: No Pertinent History Musculskeletal Surgical Hx: Orthopedic Surgery, Other Female Surgical History: Mastectomy Other Surgical History: muscle stimulator 02/04-REMOVED 2013. back surgery hip surgery. double masectomy july 2017, Jareth and 2 screws placed in back in 2020 - Social History Smoking Status: Never smoker Exposure to second hand smoke: No Alcohol: None Drug Use: none Significant Family History: no pertinent family hx - Physical Exam Vital Signs: Vital Signs - 24 hr Temp Pulse Resp BP Pulse Ox 08/16/21 19:55 98.4 F 91 H 20 144/61 96 08/16/21 16:00 97.6 F 89 19 149/67 99 08/16/21 12:00 98.9 F 83 21 142/80 98 08/16/21 08:00 98.5 F 82 7 L 156/76 98 08/16/21 02:39 98.4 F 82 18 160/70 97 08/16/21 02:00 75 18 168/79 98 08/16/21 01:06 82 18 158/87 97 08/16/21 00:49 95 08/16/21 00:35 96 H 18 137/74 99 08/15/21 23:15 81 22 156/83 97 08/15/21 22:23 85 152/81 97 General Appearance: mild distress (states needs to have a BM,does not walk,Aid assisted ptn) Neurologic Exam: alert (oriented to person and place) Eye Exam: eyes nml inspection Ears, Nose, Throat Exam: normal ENT inspection Neck Exam: normal inspection Respiratory Exam: normal breath sounds Cardiovascular Exam: regular rate/rhythm Gastrointestinal/Abdomen Exam: distention (not able to fully examine Aid) Pelvic Exam: not done Rectal Exam: not done Back Exam: normal inspection Extremity Exam: tenderness (dorsum left foot), other (DJD) Skin Exam: warm, dry, pale Results - Labs Lab/Micro Results: Lab Results-Last 24 Hours 08/15/21 08/15/21 08/15/21 Range/Units 22:40 22:40 22:40 WBC 3.6 L (4.0-10.5) x10^3/uL RBC 3.56 L (4.1-5.4) x10^6/uL Hgb 11.0 L (12.0-16.0) g/dL Hct 34.8 L (35-47) % MCV 97.8 (78-100) fL MCH 30.9 (26-32) pg MCHC 31.6 L (32-36) g/dL RDW 14.1 H (11.5-14.0) % Plt Count 136 L (150-450) x10^3/uL MPV 10.4 (7.5-11.0) fL Gran % 47.8 (36.0-66.0) % Immature Gran % (Auto) 0.3 (0.00-0.4) % Nucleat RBC Rel Count 0.0 (0.00-0.1) % Eos # (Auto) 0.15 (0-0.5) x10^3/uL Immature Gran # (Auto) 0.01 (0.00-0.03) x10^3u/L Absolute Lymphs (auto) 1.39 (1.0-4.6) x10^3/uL Absolute Monos (auto) 0.29 (0.0-1.3) x10^3/uL Absolute Nucleated RBC 0.00 (0.00-0.01) x10^3u/L Lymphocytes % 39.0 (24.0-44.0) % Monocytes % 8.1 (0.0-12.0) % Eosinophils % 4.2 (0.00-5.0) % Basophils % 0.6 (0.0-0.4) % Absolute Granulocytes 1.70 (1.4-6.9) x10^3/uL Basophils # 0.02 (0-0.4) x10^3/uL Sodium 137 (137-145) mmol/L Potassium 3.8 (3.5-5.1) mmol/L Chloride 103 (98-107) mmol/L Carbon Dioxide 23 (22-30) mmol/L Anion Gap 14.6 (5-15) MEQ/L BUN 16 (7-17) mg/dL Creatinine 0.49 L (0.52-1.04) mg/dL Estimated GFR > 60.0 ML/MIN Glucose 99 (74-106) mg/dL POC Glucometer (74 to 106) mg/dL Hemoglobin A1c (4.5-6.0) % Lactic Acid (0.4-2.0) Calcium 9.4 (8.4-10.2) mg/dL Magnesium 1.7 (1.6-2.3) mg/dL Total Bilirubin 0.90 (0.2-1.3) mg/dL AST 33 (14-36) U/L ALT 18 (0-35) U/L Alkaline Phosphatase 118 (38-126) U/L Creatine Kinase 68 (30-135) U/L Serum Total Protein 8.1 (6.3-8.2) g/dL Albumin 4.1 (3.5-5.0) g/dL Urinalys Dipstick Clnc Urine Color (YELLOW) Urine Appearance (CLEAR) Urine pH (5-6) Ur Specific Simpson (1.005-1.025) POC Urine Protein Conf (Negative) Urine Ketones (NEGATIVE) Urine Nitrite (NEGATIVE) Urine Bilirubin (NEGATIVE) Urine Urobilinogen (0-1) mg/dL Urine Leukocytes (NEGATIVE) Urine WBC (Auto) (0-5) /HPF Urine RBC (Auto) (0-2) /HPF U Epithel Cells (Auto) (FEW) /HPF Urine Bacteria (Auto) (NEGATIVE) /HPF Urine RBC (0-5) Mookie/ul Urine Mucus (Auto) (NEGATIVE) /HPF Ur Culture Indicated? Urine Glucose (NEGATIVE) mg/dL Urine Opiates Level (NEGATIVE) Ur Methadone (NEGATIVE) Urine Barbiturates (NEGATIVE) Ur Phencyclidine (PCP) (NEGATIVE) Urine Amphetamine (NEGATIVE) U Benzodiazepine Level (NEGATIVE) Urine Cocaine (NEGATIVE) Urine Marijuana (THC) (NEGATIVE) Influenza Type A Ag (NEGATIVE) Influenza Type B Ag (NEGATIVE) RSV (PCR) (Negative) SARS-CoV-2 (PCR) (NEGATIVE) 08/15/21 08/15/21 08/15/21 Range/Units 22:50 22:56 22:56 WBC (4.0-10.5) x10^3/uL RBC (4.1-5.4) x10^6/uL Hgb (12.0-16.0) g/dL Hct (35-47) % MCV (78-100) fL MCH (26-32) pg MCHC (32-36) g/dL RDW (11.5-14.0) % Plt Count (150-450) x10^3/uL MPV (7.5-11.0) fL Gran % (36.0-66.0) % Immature Gran % (Auto) (0.00-0.4) % Nucleat RBC Rel Count (0.00-0.1) % Eos # (Auto) (0-0.5) x10^3/uL Immature Gran # (Auto) (0.00-0.03) x10^3u/L Absolute Lymphs (auto) (1.0-4.6) x10^3/uL Absolute Monos (auto) (0.0-1.3) x10^3/uL Absolute Nucleated RBC (0.00-0.01) x10^3u/L Lymphocytes % (24.0-44.0) % Monocytes % (0.0-12.0) % Eosinophils % (0.00-5.0) % Basophils % (0.0-0.4) % Absolute Granulocytes (1.4-6.9) x10^3/uL Basophils # (0-0.4) x10^3/uL Sodium (137-145) mmol/L Potassium (3.5-5.1) mmol/L Chloride (98-107) mmol/L Carbon Dioxide (22-30) mmol/L Anion Gap (5-15) MEQ/L BUN (7-17) mg/dL Creatinine (0.52-1.04) mg/dL Estimated GFR ML/MIN Glucose (74-106) mg/dL POC Glucometer (74 to 106) mg/dL Hemoglobin A1c (4.5-6.0) % Lactic Acid 1.3 (0.4-2.0) Calcium (8.4-10.2) mg/dL Magnesium (1.6-2.3) mg/dL Total Bilirubin (0.2-1.3) mg/dL AST (14-36) U/L ALT (0-35) U/L Alkaline Phosphatase (38-126) U/L Creatine Kinase (30-135) U/L Serum Total Protein (6.3-8.2) g/dL Albumin (3.5-5.0) g/dL Urinalys Dipstick Clnc MAIN LAB Urine Color YELLOW (YELLOW) Urine Appearance CLEAR (CLEAR) Urine pH 6.0 (5-6) Ur Specific Simpson 1.025 (1.005-1.025) POC Urine Protein Conf NEGATIVE (Negative) Urine Ketones NEGATIVE (NEGATIVE) Urine Nitrite NEGATIVE (NEGATIVE) Urine Bilirubin NEGATIVE (NEGATIVE) Urine Urobilinogen 0.2 (0-1) mg/dL Urine Leukocytes NEGATIVE (NEGATIVE) Urine WBC (Auto) NONE (0-5) /HPF Urine RBC (Auto) 0-2 (0-2) /HPF U Epithel Cells (Auto) RARE (FEW) /HPF Urine Bacteria (Auto) NONE (NEGATIVE) /HPF Urine RBC TRACE-INTACT (0-5) Mookie/ul Urine Mucus (Auto) SLIGHT (NEGATIVE) /HPF Ur Culture Indicated? NO Urine Glucose NEGATIVE (NEGATIVE) mg/dL Urine Opiates Level POSITIVE (NEGATIVE) Ur Methadone NEGATIVE (NEGATIVE) Urine Barbiturates NEGATIVE (NEGATIVE) Ur Phencyclidine (PCP) NEGATIVE (NEGATIVE) Urine Amphetamine NEGATIVE (NEGATIVE) U Benzodiazepine Level NEGATIVE (NEGATIVE) Urine Cocaine NEGATIVE (NEGATIVE) Urine Marijuana (THC) NEGATIVE (NEGATIVE) Influenza Type A Ag (NEGATIVE) Influenza Type B Ag (NEGATIVE) RSV (PCR) (Negative) SARS-CoV-2 (PCR) (NEGATIVE) 08/16/21 08/16/21 08/16/21 Range/Units 01:34 04:30 04:30 WBC 3.3 L (4.0-10.5) x10^3/uL RBC 3.26 L (4.1-5.4) x10^6/uL Hgb 10.1 L (12.0-16.0) g/dL Hct 31.6 L (35-47) % MCV 96.9 (78-100) fL MCH 31.0 (26-32) pg MCHC 32.0 (32-36) g/dL RDW 14.4 H (11.5-14.0) % Plt Count 120 L (150-450) x10^3/uL MPV 10.7 (7.5-11.0) fL Gran % 49.2 (36.0-66.0) % Immature Gran % (Auto) 0.3 (0.00-0.4) % Nucleat RBC Rel Count 0.0 (0.00-0.1) % Eos # (Auto) 0.20 (0-0.5) x10^3/uL Immature Gran # (Auto) 0.01 (0.00-0.03) x10^3u/L Absolute Lymphs (auto) 1.17 (1.0-4.6) x10^3/uL Absolute Monos (auto) 0.29 (0.0-1.3) x10^3/uL Absolute Nucleated RBC 0.00 (0.00-0.01) x10^3u/L Lymphocytes % 35.2 (24.0-44.0) % Monocytes % 8.7 (0.0-12.0) % Eosinophils % 6.0 H (0.00-5.0) % Basophils % 0.6 (0.0-0.4) % Absolute Granulocytes 1.63 (1.4-6.9) x10^3/uL Basophils # 0.02 (0-0.4) x10^3/uL Sodium 138 (137-145) mmol/L Potassium 3.7 (3.5-5.1) mmol/L Chloride 105 (98-107) mmol/L Carbon Dioxide 24 (22-30) mmol/L Anion Gap 12.7 (5-15) MEQ/L BUN 14 (7-17) mg/dL Creatinine 0.52 (0.52-1.04) mg/dL Estimated GFR > 60.0 ML/MIN Glucose 124 H (74-106) mg/dL POC Glucometer (74 to 106) mg/dL Hemoglobin A1c (4.5-6.0) % Lactic Acid (0.4-2.0) Calcium 9.0 (8.4-10.2) mg/dL Magnesium (1.6-2.3) mg/dL Total Bilirubin 0.80 (0.2-1.3) mg/dL AST 32 (14-36) U/L ALT 16 (0-35) U/L Alkaline Phosphatase 96 (38-126) U/L Creatine Kinase (30-135) U/L Serum Total Protein 7.3 (6.3-8.2) g/dL Albumin 3.6 (3.5-5.0) g/dL Urinalys Dipstick Clnc Urine Color (YELLOW) Urine Appearance (CLEAR) Urine pH (5-6) Ur Specific Simpson (1.005-1.025) POC Urine Protein Conf (Negative) Urine Ketones (NEGATIVE) Urine Nitrite (NEGATIVE) Urine Bilirubin (NEGATIVE) Urine Urobilinogen (0-1) mg/dL Urine Leukocytes (NEGATIVE) Urine WBC (Auto) (0-5) /HPF Urine RBC (Auto) (0-2) /HPF U Epithel Cells (Auto) (FEW) /HPF Urine Bacteria (Auto) (NEGATIVE) /HPF Urine RBC (0-5) Mookie/ul Urine Mucus (Auto) (NEGATIVE) /HPF Ur Culture Indicated? Urine Glucose (NEGATIVE) mg/dL Urine Opiates Level (NEGATIVE) Ur Methadone (NEGATIVE) Urine Barbiturates (NEGATIVE) Ur Phencyclidine (PCP) (NEGATIVE) Urine Amphetamine (NEGATIVE) U Benzodiazepine Level (NEGATIVE) Urine Cocaine (NEGATIVE) Urine Marijuana (THC) (NEGATIVE) Influenza Type A Ag NEGATIVE (NEGATIVE) Influenza Type B Ag NEGATIVE (NEGATIVE) RSV (PCR) NEGATIVE (Negative) SARS-CoV-2 (PCR) NEGATIVE (NEGATIVE) 08/16/21 08/16/21 08/16/21 Range/Units 07:25 11:16 16:29 WBC (4.0-10.5) x10^3/uL RBC (4.1-5.4) x10^6/uL Hgb (12.0-16.0) g/dL Hct (35-47) % MCV (78-100) fL MCH (26-32) pg MCHC (32-36) g/dL RDW (11.5-14.0) % Plt Count (150-450) x10^3/uL MPV (7.5-11.0) fL Gran % (36.0-66.0) % Immature Gran % (Auto) (0.00-0.4) % Nucleat RBC Rel Count (0.00-0.1) % Eos # (Auto) (0-0.5) x10^3/uL Immature Gran # (Auto) (0.00-0.03) x10^3u/L Absolute Lymphs (auto) (1.0-4.6) x10^3/uL Absolute Monos (auto) (0.0-1.3) x10^3/uL Absolute Nucleated RBC (0.00-0.01) x10^3u/L Lymphocytes % (24.0-44.0) % Monocytes % (0.0-12.0) % Eosinophils % (0.00-5.0) % Basophils % (0.0-0.4) % Absolute Granulocytes (1.4-6.9) x10^3/uL Basophils # (0-0.4) x10^3/uL Sodium (137-145) mmol/L Potassium (3.5-5.1) mmol/L Chloride (98-107) mmol/L Carbon Dioxide (22-30) mmol/L Anion Gap (5-15) MEQ/L BUN (7-17) mg/dL Creatinine (0.52-1.04) mg/dL Estimated GFR ML/MIN Glucose (74-106) mg/dL POC Glucometer 130 H 130 H 96 (74 to 106) mg/dL Hemoglobin A1c (4.5-6.0) % Lactic Acid (0.4-2.0) Calcium (8.4-10.2) mg/dL Magnesium (1.6-2.3) mg/dL Total Bilirubin (0.2-1.3) mg/dL AST (14-36) U/L ALT (0-35) U/L Alkaline Phosphatase (38-126) U/L Creatine Kinase (30-135) U/L Serum Total Protein (6.3-8.2) g/dL Albumin (3.5-5.0) g/dL Urinalys Dipstick Clnc Urine Color (YELLOW) Urine Appearance (CLEAR) Urine pH (5-6) Ur Specific Simpson (1.005-1.025) POC Urine Protein Conf (Negative) Urine Ketones (NEGATIVE) Urine Nitrite (NEGATIVE) Urine Bilirubin (NEGATIVE) Urine Urobilinogen (0-1) mg/dL Urine Leukocytes (NEGATIVE) Urine WBC (Auto) (0-5) /HPF Urine RBC (Auto) (0-2) /HPF U Epithel Cells (Auto) (FEW) /HPF Urine Bacteria (Auto) (NEGATIVE) /HPF Urine RBC (0-5) Mookie/ul Urine Mucus (Auto) (NEGATIVE) /HPF Ur Culture Indicated? Urine Glucose (NEGATIVE) mg/dL Urine Opiates Level (NEGATIVE) Ur Methadone (NEGATIVE) Urine Barbiturates (NEGATIVE) Ur Phencyclidine (PCP) (NEGATIVE) Urine Amphetamine (NEGATIVE) U Benzodiazepine Level (NEGATIVE) Urine Cocaine (NEGATIVE) Urine Marijuana (THC) (NEGATIVE) Influenza Type A Ag (NEGATIVE) Influenza Type B Ag (NEGATIVE) RSV (PCR) (Negative) SARS-CoV-2 (PCR) (NEGATIVE) 08/16/21 08/16/21 08/16/21 Range/Units 16:39 18:03 20:23 WBC (4.0-10.5) x10^3/uL RBC (4.1-5.4) x10^6/uL Hgb (12.0-16.0) g/dL Hct (35-47) % MCV (78-100) fL MCH (26-32) pg MCHC (32-36) g/dL RDW (11.5-14.0) % Plt Count (150-450) x10^3/uL MPV (7.5-11.0) fL Gran % (36.0-66.0) % Immature Gran % (Auto) (0.00-0.4) % Nucleat RBC Rel Count (0.00-0.1) % Eos # (Auto) (0-0.5) x10^3/uL Immature Gran # (Auto) (0.00-0.03) x10^3u/L Absolute Lymphs (auto) (1.0-4.6) x10^3/uL Absolute Monos (auto) (0.0-1.3) x10^3/uL Absolute Nucleated RBC (0.00-0.01) x10^3u/L Lymphocytes % (24.0-44.0) % Monocytes % (0.0-12.0) % Eosinophils % (0.00-5.0) % Basophils % (0.0-0.4) % Absolute Granulocytes (1.4-6.9) x10^3/uL Basophils # (0-0.4) x10^3/uL Sodium (137-145) mmol/L Potassium (3.5-5.1) mmol/L Chloride (98-107) mmol/L Carbon Dioxide (22-30) mmol/L Anion Gap (5-15) MEQ/L BUN (7-17) mg/dL Creatinine (0.52-1.04) mg/dL Estimated GFR ML/MIN Glucose (74-106) mg/dL POC Glucometer 201 H 146 H (74 to 106) mg/dL Hemoglobin A1c 5.96 (4.5-6.0) % Lactic Acid (0.4-2.0) Calcium (8.4-10.2) mg/dL Magnesium (1.6-2.3) mg/dL Total Bilirubin (0.2-1.3) mg/dL AST (14-36) U/L ALT (0-35) U/L Alkaline Phosphatase (38-126) U/L Creatine Kinase (30-135) U/L Serum Total Protein (6.3-8.2) g/dL Albumin (3.5-5.0) g/dL Urinalys Dipstick Clnc Urine Color (YELLOW) Urine Appearance (CLEAR) Urine pH (5-6) Ur Specific Simpson (1.005-1.025) POC Urine Protein Conf (Negative) Urine Ketones (NEGATIVE) Urine Nitrite (NEGATIVE) Urine Bilirubin (NEGATIVE) Urine Urobilinogen (0-1) mg/dL Urine Leukocytes (NEGATIVE) Urine WBC (Auto) (0-5) /HPF Urine RBC (Auto) (0-2) /HPF U Epithel Cells (Auto) (FEW) /HPF Urine Bacteria (Auto) (NEGATIVE) /HPF Urine RBC (0-5) Mookie/ul Urine Mucus (Auto) (NEGATIVE) /HPF Ur Culture Indicated? Urine Glucose (NEGATIVE) mg/dL Urine Opiates Level (NEGATIVE) Ur Methadone (NEGATIVE) Urine Barbiturates (NEGATIVE) Ur Phencyclidine (PCP) (NEGATIVE) Urine Amphetamine (NEGATIVE) U Benzodiazepine Level (NEGATIVE) Urine Cocaine (NEGATIVE) Urine Marijuana (THC) (NEGATIVE) Influenza Type A Ag (NEGATIVE) Influenza Type B Ag (NEGATIVE) RSV (PCR) (Negative) SARS-CoV-2 (PCR) (NEGATIVE) Accuchecks Date 08/16/21 Date 08/16/21 Date 08/16/21 Date 08/16/21 Time 21:00 - Radiology Impressions Radiology Exams & Impressions: Radiology Procedures Category Date Time Status CHEST 1 VIEW (PORTABLE) Stat Exams 08/15/21 22:22 Completed FOOT (MINIMUM 3 VIEWS) Stat Exams 08/15/21 Completed Assessment/Plan (1) Generalized weakness Current Visit: Yes Status: Acute Code(s): R53.1 - WEAKNESS (2) Failure to thrive Current Visit: Yes Status: Acute Code(s): EXX8094 - (3) Dementia Current Visit: Yes Status: Chronic Code(s): F03.90 - UNSPECIFIED DEMENTIA WITHOUT BEHAVIORAL DISTURBANCE (4) Neuropathy Current Visit: Yes Status: Chronic Code(s): G62.9 - POLYNEUROPATHY, UNSPECIFIED (5) Cirrhosis Current Visit: No Status: Chronic Qualifiers: Ascites presence: unspecified (6) HX: breast cancer Current Visit: No Status: Chronic Onset Date: ~03/22/18 Assessment & Plan: s/p bilateral mastectomy 2019 Code(s): Z85.3 - PERSONAL HISTORY OF MALIGNANT NEOPLASM OF BREAST (7) Foot pain Current Visit: Yes Status: Acute Qualifiers: Laterality: left Qualified Code(s): M79.672 - Pain in left foot Assessment & Plan: possible fracture Code(s): M79.673 - PAIN IN UNSPECIFIED FOOT
[2021-08-17] MEDS: Sodium Chloride 0.9% 1000 ML 1,000 ML IV SCH (00:53)
[2021-08-17] MEDS: OXYCODONE-ACETAMINOPHEN 10-325 PO PRN ×5 (03:42→21:39)
[2021-08-17] MEDS: Glucophage XR 500 MG PO SCH (08:02)
[2021-08-17] MEDS ORDERED: NON-FORMULARY ITEM (Metformin Hcl 500 MG Tab.Er.24h) PO SCH (10:00)
[2021-08-17] MEDS: LYRICA 150MG PO SCH ×2 (10:04→21:39)
[2021-08-17] MEDS: MELOXICAM PO SCH ×2 (10:04→21:39)
[2021-08-17] MEDS: Prozac 20 MG PO SCH (10:05)
[2021-08-17] MEDS: PROTONIX 40 MG IV IV SCH (10:05)
[2021-08-17] MEDS: MYRBETRIQ PO SCH (10:05)
[2021-08-17] MEDS: Trileptal 300 MG Tablet PO SCH ×2 (10:06→21:39)
[2021-08-17] MEDS: Lantus Insulin SQ SCH (11:30)
[2021-08-17] MEDS: HOLD METFORMIN PRODUCTS FOR 48 HOURS MC SCH (14:59)
--- NOTE | 2021-08-17 18:46 | XRAY ---
Indication: Left lower extremity paralysis since December 2020. Multiple contiguous axial images obtained through the head prior to and following 50 cc Isovue 370 contrast. Comparison: November 25, 2013. Age-appropriate global atrophy. No acute intracranial hemorrhage, abnormal extra-axial fluid collection, or mass effect. Postcontrast images are negative for abnormal enhancing intra or extra-axial mass. Fourth ventricle is midline without hydrocephalus. Watters-white matter differentiation preserved. Bony calvarium intact. Visualized paranasal sinuses and mastoid air cells are clear. Impression: Negative CT head with and without contrast exam. Comment: Preliminary interpretation made by [facility]. No critical discrepancy.
[2021-08-17] MEDS: Ativan 0.5 MG PO PRN (22:22)
[2021-08-18] MEDS: OXYCODONE-ACETAMINOPHEN 10-325 PO PRN ×4 (02:50→21:21)
[2021-08-18] MEDS: MELOXICAM PO SCH ×2 (10:19→21:22)
[2021-08-18] MEDS: MYRBETRIQ PO SCH (10:19)
[2021-08-18] MEDS: Prozac 20 MG PO SCH (10:19)
[2021-08-18] MEDS: Protonix 40MG Tablet PO SCH (10:19)
[2021-08-18] MEDS: LYRICA 150MG PO SCH ×2 (10:19→21:22)
[2021-08-18] MEDS: Trileptal 300 MG Tablet PO SCH ×2 (10:20→21:21)
[2021-08-18] MEDS: Lantus Insulin SQ SCH (10:21)
[2021-08-18] MEDS: Ativan 0.5 MG PO PRN (21:22)
[2021-08-19] MEDS: OXYCODONE-ACETAMINOPHEN 10-325 PO PRN ×5 (01:34→20:59)
[2021-08-19] MEDS: Prozac 20 MG PO SCH (09:14)
[2021-08-19] MEDS: Protonix 40MG Tablet PO SCH (09:14)
[2021-08-19] MEDS: MYRBETRIQ PO SCH (09:15)
[2021-08-19] MEDS: MELOXICAM PO SCH ×2 (09:15→20:59)
[2021-08-19] MEDS: LYRICA 150MG PO SCH ×2 (09:15→20:59)
--- NOTE | 2021-08-19 09:15 | PCM.NOTE ---
Date and Time: 08/19/21911 Subjective Assessment: patient is tearful, states her legs are moving better. she is awaiting rehab placement at [facility] Objective Exam General Appearance: no apparent distress Neurologic Exam: alert, oriented x 3, motor deficits (diffusely weak in lower extremities, symmetric. sensation intact) Respiratory Exam: normal breath sounds, lungs clear, No respiratory distress Cardiovascular Exam: regular rate/rhythm, normal heart sounds Gastrointestinal/Abdomen Exam: soft, No tenderness, No mass OBJECTIVE DATA Vital Signs: Vital Signs - 24 hr Temp Pulse Resp BP Pulse Ox 08/19/21 08:00 98.3 F 70 16 135/60 94 L 08/19/21 04:00 98.8 F 72 18 155/69 95 08/18/21 23:44 99.1 F 80 18 140/79 95 08/18/21 20:00 97.7 F 72 18 152/67 98 08/18/21 16:00 98.4 F 79 16 141/78 98 08/18/21 11:25 97.5 F 71 18 129/62 98 Pain Assessment - Last Documented Pain Intensity 0 Pain Scale Used 0-10 Pain Scale,FLACC Intake and Output: Intake & Output 08/16/21 08/17/21 08/18/21 08/19/21 11:59 11:59 11:59 11:59 Intake Total 0 4162 740 240 Output Total 710 2782 400 350 Balance -710 1380 340 -110 Weight 76.4 kg 78.8 kg 78.1 kg 76.4 kg Lab Results: Lab Results-Last 24 Hours 08/18/21 08/18/21 08/18/21 Range/Units 11:20 16:32 20:51 POC Glucometer 141 H 95 118 H (74 to 106) mg/dL 08/19/21 Range/Units 06:56 POC Glucometer 103 (74 to 106) mg/dL Radiology Exams: Radiology Procedures Category Date Time Status HEAD W/WO CONTRAST [CT] Urgent Exams 08/17/21 09:33 Completed Assessment/Plan (1) Failure to thrive Current Visit: Yes Status: Acute Assessment & Plan: ordered b12/folate and tsh due to burning in feet. awaiting rehab stay for PT/OT Code(s): [id number] - (2) Generalized weakness Current Visit: Yes Status: Acute Code(s): R53.1 - WEAKNESS (3) Dementia Current Visit: Yes Status: Chronic Code(s): F03.90 - UNSPECIFIED DEMENTIA WITHOUT BEHAVIORAL DISTURBANCE (4) Neuropathy Current Visit: Yes Status: Chronic Code(s): G62.9 - POLYNEUROPATHY, UNSPECIFIED (5) Depressed Current Visit: No Status: Chronic Qualifiers: Depression Type: major depressive disorder Major depression recurrence: rec urrent Active/Remission status: currently active Major depression episode severity: moderate Qualified Code(s): F33.1 - Major depressive disorder, recurrent, moderate Assessment & Plan: on prozac 40mg Code(s): F32.9 - MAJOR DEPRESSIVE DISORDER, SINGLE EPISODE, UNSPECIFIED (6) Diabetes mellitus Current Visit: No Status: Chronic Qualifiers: Diabetes mellitus type: type 2 Diabetes mellitus mcc insulin use: unspecified mcc insulin use status Diabetes mellitus complication status: with skin complications Diabetes mellitus complication detail: with other skin complication Qualified Code(s): E11.628 - Type 2 diabetes mellitus with other skin complications Code(s): E11.9 - TYPE 2 DIABETES MELLITUS WITHOUT COMPLICATIONS
[2021-08-19] MEDS: Lantus Insulin SQ SCH (09:16)
[2021-08-19] MEDS: Ativan 0.5 MG PO PRN ×2 (09:18→20:59)
[2021-08-19] MEDS: Trileptal 300 MG Tablet PO SCH ×2 (09:19→21:01)
[2021-08-19 15:01] LABS: Folate (Folic Acid) 7.82 ng/mL (2.76 - >20)
[2021-08-19] MEDS ORDERED: DESYREL 50 MG ONE (20:24)
[2021-08-19] MEDS ORDERED: AMITRIPTYLINE 25 MG TABLET ONE (20:24)
[2021-08-19] MEDS ORDERED: clonazePAM PO ONE (20:25)
[2021-08-19] MEDS ORDERED: NEURONTIN ONE (20:26)
[2021-08-19] MEDS ORDERED: ZOCOR 20MG ONE (20:27)
[2021-08-19] MEDS: HOLD METFORMIN PRODUCTS FOR 48 HOURS MC SCH (20:35)
[2021-08-20] MEDS: OXYCODONE-ACETAMINOPHEN 10-325 PO PRN ×5 (02:04→21:03)
[2021-08-20] MEDS: Glucophage XR 500 MG PO SCH (07:32)
--- NOTE | 2021-08-20 09:18 | PCM.NOTE ---
Date and Time: 08/20/21911 Subjective Assessment: Pt is complaining of pain this morning that starts at L femoral head and radiates down to L lower leg. She is kyree po. She would like to go to [facility] and would be willing to get a Covid shot if that would make it possible for her to go there. Hoping to stay here until Thursday. - Review of Systems Constitutional: No Fever Abdominal/Gastrointestinal: No Vomiting Musculoskeletal: Other (pain radiating down L leg) Objective Exam General Appearance: no apparent distress, alert Neurologic Exam: oriented x 3, cooperative Skin Exam: warm, dry, No rash Ears, Nose, Throat Exam: moist mucous membranes Neck Exam: normal inspection Respiratory Exam: normal breath sounds, lungs clear, No crackles/rales, No rhonchi, No wheezing Cardiovascular Exam: regular rate/rhythm, normal heart sounds, No murmur Gastrointestinal/Abdomen Exam: soft, normal bowel sounds, No tenderness, No distention, No mass, No guarding, No rebound Extremity Exam: swelling (trace edema bilat LE) Back Exam: normal inspection, other (L SI joint ttp. Pt unable to kyree SLR due to tenderness of L calf when touched.), No rash OBJECTIVE DATA Vital Signs: Vital Signs - 24 hr Temp Pulse Resp BP Pulse Ox 08/20/21 07:53 96.1 F 73 12 143/84 95 08/20/21 04:00 97.7 F 74 18 144/68 99 08/20/21 00:00 98.5 F 74 16 131/65 97 08/19/21 18:55 97.6 F 73 16 145/63 100 08/19/21 16:00 98.4 F 73 12 123/60 98 08/19/21 12:00 98.5 F 69 16 129/59 93 L Pain Assessment - Last Documented Pain Intensity 9 Pain Scale Used 0-10 Pain Scale Intake and Output: Intake & Output 08/17/21 08/18/21 08/19/21 08/20/21 11:59 11:59 11:59 11:59 Intake Total 4162 740 240 340 Output Total 2782 400 350 200 Balance 1380 340 -110 140 Weight 78.8 kg 78.1 kg 76.4 kg 79.1 kg Lab Results: Lab Results-Last 24 Hours 08/19/21 08/19/21 08/19/21 Range/Units 10:45 10:45 11:31 POC Glucometer 128 H (74 to 106) mg/dL Vitamin B12 449 (239-931) pg/mL Folic Acid 7.82 (2.76 - >20) ng/mL TSH 3rd Generation 2.970 (0.47-4.68) mIU/L 08/19/21 08/19/21 08/20/21 Range/Units 15:59 21:21 07:18 POC Glucometer 161 H 134 H 123 H (74 to 106) mg/dL Vitamin B12 (239-931) pg/mL Folic Acid (2.76 - >20) ng/mL TSH 3rd Generation (0.47-4.68) mIU/L Radiology Exams: Radiology Procedures Category Date Time Status LUMBAR LIMITED (2 OR 3 VIEWS) Routine Exams 08/20/21 Ordered Multi-Disciplinary Progress Notes: Multi-Disciplinary Progress Notes 08/19/21 11:38 Case Management Note by Yamel Alfonso [employer] CALLED BACK- HAS ACCEPTED PATIENT CLINICALLY- WILL START PRECERT TODAY [place] NOTIFIED TO DISREGARD REFERRAL Initialized on 08/19/21 11:38 - END OF NOTE 08/19/21 11:25 (created 08/19/21 11:37) Case Management Note by Yamel Alfonso DAUGHTER UPDATED THAT REFERRALS WERE SENT TO [facility] [place] AND [facility]- SHE VERIFIED UNDERSTANDING Initialized on 08/19/21 11:37 - END OF NOTE 08/19/21 10:35 Case Management Note by Yamel Alfonso S/W PATIENT- SHE IS DISAPPOINTED SHE CAN NOT GO TO [facility] BUT IS OPEN TO GO TO [facility] [place] OR [place] [facility] REFERRALS SENT Initialized on 08/19/21 10:35 - END OF NOTE 08/19/21 10:14 Physical Therapy Note by Cheryl(L#[id number]),Akila PT. SEEN BY P.T. THIS A.M. IN BED UPON P.T. ARRIVAL TO ROOM. C/O FATIGUE D/T NOT SLEEPING WELL LAST NIGHT. REPORTS L LE PN AT 12/02 EVEN W/ PN MEDS D/T CHRONIC RADICULOPATHY. PT. STATED SHE NEEDED TO USE RESTROOM. HAD BEEN USING BEDPAN AT HOME AND OVER WEEKEND. AGREED TO USE BEDSIDE COMMODE. SUPINE TO SIT PERFORMED W/ CGA W/ HOB ELEVATED. PT. ABLE TO MAINTAIN SITTING BALANCE ON SIDE OF BED W/ CGA-SBA. 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 PT. STATES SHE HAS NOT BEEN AMBULATORY SINCE LAST BACK SX IN DEC 2020. PT. REQUIRED MOD ASSIST X 2 TO WB ENOUGH FOR NURSE TO PERFORM HYGIENE AFTER TOILETING. THEN TRANSFERED W/ SQUAT PIVOT TO BEDSIDE CHAIR W/ MOD-MAX ASSIST X 2. PT. ABLE TO SCOOT BACKWARD IN CHAIR INDEPENDENTLY. PT. PERFORMED SEATED ACTIVE-ASSISTED EX'S OF QUAD/GLUT SETS, ANKLE PUMPS, HIP ABD SLIDES, SLRS. NOTED MIN L ANKLE AROM IN DF TODAY. CONT. W/ SEVERE QUAD WEAKNESS L > R. L (2/5; R 2-2+/5), GLUT MAX AND MED BILATERALLY. ATTEMPTED HAMSTRING/HEEL CORD STRETCH IN SITTING; PNFUL FOR PT. D/T CONTRACTURES. PT. REPORTS HE HAS MULIPLE WALKERS AND CANES AT HOME WELL SLIDEBOARD FOR TRANSFERS AND MOTORIZED SCOOTER. 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 WILL CONT. P.T. @ [facility] 5X/WK UNTIL D/C. Initialized on 08/19/21 10:14 - END OF NOTE 08/19/21 09:13 Case Management Note by Yamel Alfonso S/W [place] [facility]- UNABLE TO TAKE PATIENT Initialized on 08/19/21 09:13 - END OF NOTE Assessment/Plan (1) Failure to thrive Current Visit: Yes Status: Acute Qualifiers: Failure to thrive age range: in adult Qualified Code(s): R62.7 - Adult failure to thrive Assessment & Plan: With multiple medical issues. Has obviously lost a marked amount of weight since I saw her. Code(s): [id number] - (2) Generalized weakness Current Visit: Yes Status: Chronic Assessment & Plan: To rehab after acute stay is complete. Code(s): R53.1 - WEAKNESS (3) Paresthesia and pain of left extremity Current Visit: No Status: Chronic Assessment & Plan: Has been a somewhat chronic issue. XR lumbar spine. 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 PT. Should f/u with neurology if she hasn't seen them. Code(s): M79.609 - PAIN IN UNSPECIFIED LIMB; R20.2 - PARESTHESIA OF SKIN (4) Dementia Current Visit: Yes Status: Chronic Code(s): F03.90 - UNSPECIFIED DEMENTIA WITHOUT BEHAVIORAL DISTURBANCE (5) Neuropathy Current Visit: Yes Status: Chronic Code(s): G62.9 - POLYNEUROPATHY, UNSPECIFIED (6) Cirrhosis Current Visit: No Status: Chronic Qualifiers: Ascites presence: unspecified (7) Depressed Current Visit: No Status: Chronic Qualifiers: Depression Type: major depressive disorder Major depression recurrence: recurrent Active/Remission status: currently active Major depression episode severity: moderate Qualified Code(s): F33.1 - Major depressive disorder, recurrent, moderate Assessment & Plan: on prozac 40mg/d Code(s): F32.9 - MAJOR DEPRESSIVE DISORDER, SINGLE EPISODE, UNSPECIFIED (8) Diabetes type 2, uncontrolled Current Visit: No Status: Chronic Qualifiers: Glycemic state: with hyperglycemia Qualified Code(s): E11.65 - Type 2 diabetes mellitus with hyperglycemia Code(s): E11.65 - TYPE 2 DIABETES MELLITUS WITH HYPERGLYCEMIA (9) HX: breast cancer Current Visit: No Status: Chronic Onset Date: ~03/22/18 Code(s): Z85.3 - PERSONAL HISTORY OF MALIGNANT NEOPLASM OF BREAST
--- NOTE | 2021-08-20 10:04 | XRAY ---
Indication: Left leg pain and SI joint tenderness. Comparison: January 30, 2021. 3 view lumbar spine again demonstrate osteopenia, L5-S1 fusion surgery with intact bilateral posterior spinal hardware/intervertebral spacer, mild multilevel thoracolumbar degenerative endplate spurring, and incompletely visualized bilateral hip arthroplasty all unchanged. New right mid abdomen suture material. No other bony, articular, or soft tissue abnormalities.
[2021-08-20] MEDS: LYRICA 150MG PO SCH ×2 (10:16→21:06)
[2021-08-20] MEDS: MELOXICAM PO SCH ×2 (10:16→21:06)
[2021-08-20] MEDS: Prozac 20 MG PO SCH (10:16)
[2021-08-20] MEDS: MYRBETRIQ PO SCH (10:16)
[2021-08-20] MEDS: Protonix 40MG Tablet PO SCH (10:16)
[2021-08-20] MEDS: Trileptal 300 MG Tablet PO SCH ×2 (10:16→21:06)
[2021-08-20] MEDS: Lantus Insulin SQ SCH (10:36)
[2021-08-20] MEDS: Ativan 0.5 MG PO PRN (21:03)
[2021-08-21] MEDS: OXYCODONE-ACETAMINOPHEN 10-325 PO PRN ×5 (03:26→21:23)
[2021-08-21 05:27] LABS: Hemoglobin 10.5 g/dL (12.0-16.0); Mean Cell Volume 96.1 fL (78-100); Mean Corpuscular Hemoglobin 31.5 pg (26-32); Mean Corpuscular Hgb Concent. 32.8 g/dL (32-36); Mean Platelet Volume 10.6 fL (7.5-11.0); Platelet Count 110 x10^3/uL (150-450); Red Blood Count 3.33 x10^6/uL (4.1-5.4); Red Cell Distribution Width 14.8 % (11.5-14.0); White Blood Count 2.4 x10^3/uL (4.0-10.5)
[2021-08-21 05:49] LABS: ALBUMIN 3.4 g/dL (3.5-5.0); ALKALINE PHOSPHATASE 101 U/L (38-126); ANION GAP 13.3 MEQ/L (5-15); BLOOD UREA NITROGEN 26 mg/dL (7-17); CHLORIDE 106 mmol/L (98-107); Calcium 8.7 mg/dL (8.4-10.2); Carbon Dioxide 21 mmol/L (22-30); Creatinine 1 0.64 mg/dL (0.52-1.04); EST GLOMERULAR FILTRATION RATE > 60.0 ML/MIN; Glucose 110 mg/dL (74-106); SGOT/AST 29 U/L (14-36); SGPT/ALT 16 U/L (0-35); SODIUM 137 mmol/L (137-145)
[2021-08-21] MEDS: Sodium Chloride 0.9% 1000 ML 1,000 ML IV SCH (07:51)
[2021-08-21] MEDS: Glucophage XR 500 MG PO SCH (08:04)
--- NOTE | 2021-08-21 08:45 | PCM.NOTE ---
Date and Time: 08/21/21 0842 Subjective Assessment: Pt is eating well. Still c/o pain in her legs, R>L, which is chronic. Denies suicidal ideation. - Review of Systems Constitutional: No Fever Neurological: Parasthesia Objective Exam General Appearance: no apparent distress, alert Neurologic Exam: oriented x 3, cooperative, other (sitting in chair eating rae) Skin Exam: normal color, warm, dry, No rash Respiratory Exam: normal breath sounds, lungs clear, No crackles/rales, No rhonchi, No wheezing Cardiovascular Exam: regular rate/rhythm, normal heart sounds, No murmur Gastrointestinal/Abdomen Exam: soft, normal bowel sounds, No tenderness, No distention, No mass, No guarding, No rebound Extremity Exam: No pedal edema, No swelling Back Exam: normal inspection, No rash OBJECTIVE DATA Vital Signs: Vital Signs - 24 hr Temp Pulse Resp BP Pulse Ox 08/21/21 07:13 98.0 F 72 16 118/62 98 08/21/21 04:00 97.7 F 78 21 126/70 97 08/20/21 23:52 97.8 F 82 16 137/63 95 08/20/21 20:00 98.4 F 73 19 130/64 97 08/20/21 16:00 98.2 F 75 10 L 150/70 96 08/20/21 12:00 98.1 F 70 12 142/65 93 L Pain Assessment - Last Documented Pain Intensity 0 Pain Scale Used [facility] Intake and Output: Intake & Output 08/18/21 08/19/21 08/20/21 08/21/21 11:59 11:59 11:59 11:59 Intake Total 740 240 340 240 Output Total 400 773 239 6084 Balance 340 -110 140 -910 Weight 78.1 kg 76.4 kg 79.1 kg 79.1 kg Lab Results: Lab Results-Last 24 Hours 08/20/21 08/20/21 08/20/21 Range/Units 11:50 16:12 20:36 WBC (4.0-10.5) x10^3/uL RBC (4.1-5.4) x10^6/uL Hgb (12.0-16.0) g/dL Hct (35-47) % MCV (78-100) fL MCH (26-32) pg MCHC (32-36) g/dL RDW (11.5-14.0) % Plt Count (150-450) x10^3/uL MPV (7.5-11.0) fL Sodium (137-145) mmol/L Potassium (3.5-5.1) mmol/L Chloride (98-107) mmol/L Carbon Dioxide (22-30) mmol/L Anion Gap (5-15) MEQ/L BUN (7-17) mg/dL Creatinine (0.52-1.04) mg/dL Estimated GFR ML/MIN Glucose (74-106) mg/dL POC Glucometer 122 H TNP 142 H (74 to 106) mg/dL Calcium (8.4-10.2) mg/dL Total Bilirubin (0.2-1.3) mg/dL AST (14-36) U/L ALT (0-35) U/L Alkaline Phosphatase (38-126) U/L Serum Total Protein (6.3-8.2) g/dL Albumin (3.5-5.0) g/dL 08/21/21 08/21/21 08/21/21 Range/Units 05:10 05:10 07:23 WBC 2.4 L (4.0-10.5) x10^3/uL RBC 3.33 L (4.1-5.4) x10^6/uL Hgb 10.5 L (12.0-16.0) g/dL Hct 32.0 L (35-47) % MCV 96.1 (78-100) fL MCH 31.5 (26-32) pg MCHC 32.8 (32-36) g/dL RDW 14.8 H (11.5-14.0) % Plt Count 110 L (150-450) x10^3/uL MPV 10.6 (7.5-11.0) fL Sodium 137 (137-145) mmol/L Potassium 4.0 (3.5-5.1) mmol/L Chloride 106 (98-107) mmol/L Carbon Dioxide 21 L (22-30) mmol/L Anion Gap 13.3 (5-15) MEQ/L BUN 26 H (7-17) mg/dL Creatinine 0.64 (0.52-1.04) mg/dL Estimated GFR > 60.0 ML/MIN Glucose 110 H (74-106) mg/dL POC Glucometer 110 H (74 to 106) mg/dL Calcium 8.7 (8.4-10.2) mg/dL Total Bilirubin 0.40 (0.2-1.3) mg/dL AST 29 (14-36) U/L ALT 16 (0-35) U/L Alkaline Phosphatase 101 (38-126) U/L Serum Total Protein 7.0 (6.3-8.2) g/dL Albumin 3.4 L (3.5-5.0) g/dL Radiology Exams: Radiology Procedures Category Date Time Status LUMBAR LIMITED (2 OR 3 VIEWS) Routine Exams 08/20/21 09:47 Completed Multi-Disciplinary Progress Notes: Multi-Disciplinary Progress Notes 08/20/21 19:51 Physical Therapy Note by Cheryl(Antwon#[id number])Akila PT. SEEN BY P.TBarb BID THIS DATE. AM RX - PT. IN BED UPON P.T. ARRIVAL TO ROOM. MOTHER, AUNT, AND FRIEND PRESENT DURING RX. PT. AND FAMILY EXPRESSED CONCERNS ABOUT D/C PLAN. PT. STATED THAT HER MOTHER WANTED HER TO GO HOME W/ HHC. YAMEL WAY PRESENT DURING CONVERSATION AND PT. AND FAMILY WERE ADVISED THAT PT. IS NOT SAFE TO D/C HOME AT THIS TIME D/T WEAKNESS AND DECREASED ABILITY TO CARE FOR HERSELF. ADVISED PT. THAT SHORT REHAB STAY WOULD BE BEST TO MAXIMIZE FUNCTIONAL POTENTIAL SO THAT SHE COULD RETURN HOME W/ HER MOTHER W/ IMPROVED FUNCTIONAL INDEPENDENCE AND BE MORE APPROPRIATE FOR HHC INTERVENTION AFTER SNF STAY. PT. REPORTS CONT. L LE PN AT 10/02. TRANSFERRED FROM BED TO BEDSIDE CHAIR W/ MOD ASSIST X 2. RX TIME 9:45-10:00 PM RX - PT. IN BED UPON P.T. ARRIVAL TO ROOM. PT. REPORTED SHE NEEDED ASSIST OF 3 TO TRANSFER TO BEDSIDE COMMODE AND THEN TO BED. PT. TEARFUL AND REPORTS SHE REALIZED SHE CANNOT GO HOME YET AND NEEDS REHAB STAY. PT. PERFORMED LE AROM EX'S OF QUAD/GLUT SETS, ANKLE PUMPS R; MIN-NO ACTIVE L ANKLE DF NOTED AGAIN TODAY. ALSO PERFORMED ACITVE ASSISTED HEEL SLIDES, ABD SLIDES. WORKED ON QUAD/GLUT STRENGTHENING AND ACTIVE HIP AND KNEE / W/ MANUAL RESISTANCE BILATERALLY TO FACILITATE INCREASED STRENGTH FOR TRANSFERS. WILL CONT. P.T. 5X/WK TO PREP FOR REHAB STAY. RX TIME [id number] Initialized on 08/20/21 19:51 - END OF NOTE 08/20/21 09:55 Case Management Note by Yamel Way S/W [employer]- STILL WAITING ON APPROVAL AT THIS TIME Initialized on 08/20/21 09:55 - END OF NOTE Assessment/Plan (1) Failure to thrive Current Visit: Yes Status: Acute Qualifiers: Failure to thrive age range: in adult Qualified Code(s): R62.7 - Adult failure to thrive Assessment & Plan: To LTCF when approved. 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 Code(s): R53.1 - WEAKNESS (3) Paresthesia and pain of left extremity Current Visit: No Status: Chronic Code(s): M79.609 - PAIN IN UNSPECIFIED LIMB; R20.2 - PARESTHESIA OF SKIN (4) Dementia Current Visit: Yes Status: Chronic Code(s): F03.90 - UNSPECIFIED DEMENTIA WITHOUT BEHAVIORAL DISTURBANCE (5) Neuropathy Current Visit: Yes Status: Chronic Code(s): G62.9 - POLYNEUROPATHY, UNSPECIFIED (6) Cirrhosis Current Visit: No Status: Chronic Qualifiers: Ascites presence: unspecified (7) Depressed Current Visit: No Status: Chronic Qualifiers: Depression Type: major depressive disorder Major depression recurrence: recurrent Active/Remission status: currently active Major depression episode severity: moderate Qualified Code(s): F33.1 - Major depressive disorder, recurrent, moderate Code(s): F32.9 - MAJOR DEPRESSIVE DISORDER, SINGLE EPISODE, UNSPECIFIED (8) Diabetes type 2, uncontrolled Current Visit: No Status: Chronic Qualifiers: Glycemic state: with hyperglycemia Qualified Code(s): E11.65 - Type 2 diabetes mellitus with hyperglycemia Code(s): E11.65 - TYPE 2 DIABETES MELLITUS WITH HYPERGLYCEMIA (9) HX: breast cancer Current Visit: No Status: Chronic Onset Date: ~03/22/18 Code(s): Z85.3 - PERSONAL HISTORY OF MALIGNANT NEOPLASM OF BREAST
[2021-08-21 08:55] LABS: Basophil 1 % (0.0-1.0); Eosinophil 6 % (0.00-3.0); Lymphocytes 46 % (24-44); Platelet Estimate NORMAL (NORMAL); Total Cells Counted 100
[2021-08-21 08:56] LABS: Hypochromia 1+
[2021-08-21] MEDS: Prozac 20 MG PO SCH (09:09)
[2021-08-21] MEDS: MYRBETRIQ PO SCH (09:09)
[2021-08-21] MEDS: MELOXICAM PO SCH ×2 (09:09→21:22)
[2021-08-21] MEDS: Trileptal 300 MG Tablet PO SCH ×2 (09:09→21:23)
[2021-08-21] MEDS: Protonix 40MG Tablet PO SCH (09:09)
[2021-08-21] MEDS: LYRICA 150MG PO SCH ×2 (09:10→21:22)
[2021-08-21] MEDS: Lantus Insulin SQ SCH (09:10)
[2021-08-21] MEDS: Ativan 0.5 MG PO PRN ×3 (12:18→21:23)
[2021-08-22] MEDS: OXYCODONE-ACETAMINOPHEN 10-325 PO PRN ×2 (06:56→10:25)
[2021-08-22] MEDS: Glucophage XR 500 MG PO SCH (07:24)
--- NOTE | 2021-08-22 08:39 | PCM.NOTE ---
Date and Time: 08/22/21 0835 Subjective Assessment: Pt feels the same, no change. tolerating po. Still c/o LE pain. C/o depression, which is chronic. - Review of Systems Constitutional: No Fever Abdominal/Gastrointestinal: No Vomiting Objective Exam General Appearance: no apparent distress, alert Neurologic Exam: oriented x 3, cooperative Skin Exam: normal color, warm, dry, No rash Ears, Nose, Throat Exam: moist mucous membranes Neck Exam: normal inspection Respiratory Exam: normal breath sounds, lungs clear, No crackles/rales, No rhonchi, No wheezing Cardiovascular Exam: regular rate/rhythm, normal heart sounds, No murmur Gastrointestinal/Abdomen Exam: soft, normal bowel sounds, No tenderness, No distention, No mass, No guarding, No rebound Extremity Exam: No pedal edema, No swelling Back Exam: normal inspection, No rash OBJECTIVE DATA Vital Signs: Vital Signs - 24 hr Temp Pulse Resp BP Pulse Ox 08/22/21 07:36 98.5 F 77 16 122/59 99 08/22/21 04:00 98.4 F 73 17 112/63 95 08/22/21 00:00 65 94 L 08/21/21 19:36 97.8 F 78 18 128/75 97 08/21/21 15:58 98.2 F 79 16 106/63 97 08/21/21 11:42 97.8 F 74 16 116/56 97 Pain Assessment - Last Documented Pain Intensity 9 Pain Scale Used 0-10 Pain Scale Intake and Output: Intake & Output 08/19/21 08/20/21 08/21/21 08/22/21 11:59 11:59 11:59 11:59 Intake Total 240 340 240 240 Output Total 791 963 9141 1300 Balance -110 140 -910 -1060 Weight 76.4 kg 79.1 kg 79.1 kg 80 kg Lab Results: Lab Results-Last 24 Hours 08/21/21 08/21/21 08/21/21 Range/Units 05:10 11:28 16:07 Segmented Neutrophils 47 (36.0-66.0) % Lymphocytes (Manual) 46 H (24-44) % Eosinophils (Manual) 6 H (0.00-3.0) % Basophils (Manual) 1 (0.0-1.0) % Hypochromia 1+ Platelet Estimate NORMAL (NORMAL) RBC Morphology ABNORMAL POC Glucometer TNP 130 H 08/21/21 08/22/21 Range/Units 20:06 07:10 Segmented Neutrophils (36.0-66.0) % Lymphocytes (Manual) (24-44) % Eosinophils (Manual) (0.00-3.0) % Basophils (Manual) (0.0-1.0) % Hypochromia Platelet Estimate (NORMAL) RBC Morphology POC Glucometer 118 H 115 H Radiology Exams: Radiology Procedures Category Date Time Status LUMBAR LIMITED (2 OR 3 VIEWS) Routine Exams 08/20/21 09:47 Completed Multi-Disciplinary Progress Notes: Multi-Disciplinary Progress Notes 08/21/21 17:17 Physical Therapy Note by Cheryl(L#[id number])Akila PT. SEEN BY P.T. THIS PM PT. HAD JUST TRANSFERRED BACK TO BED W/ NSG ASSIST THIS A.M. AND C/O LE PN. PM RX - MOTHER PRESENT TO VISIT. PT. REPORTED SHE NEEDED TO URINATE. PT. ASKED TO USE BEDPAN, BUT WAS ADVISED THAT SHE NEEDS TO TRANSFER TO BEDSIDE COMMODE TO INCREASE LE STRENGTH AND INCREASE INDEPENDENCE W/ TRANSFERS. PT. PERFORMED SUPINE TO SIT W/ SBA. ABLE TO SIT ON SIDE OF BED W/ SBA. PT. [facility] W/ MOD ASSIST X 2; SLIGHT INCREASE TOLERANCE TO LE WB BUT STILL DIFFICULT D/T LE PN, WEAKNESS, AND HAMSTRING CONTRACTURES. PT. THEN ASSISTED W/ TRANSFER TO BEDSIDE CHAIR W/ CHAIR POSITIONED ALMOST IN FRONT OF HER. PERFORMED W/ MIN-MOD ASSIST X 2 ; PT. REPORTS THIS IS COMPARABLE TO METHOD SHE USES @ HOME. STILL AWAITING INSURANCE PA FOR SNF STAY. WILL CONT. P.T. 5X/WK UNTIL D/C. RX TIME - [id number] Initialized on 08/21/21 17:17 - END OF NOTE 08/21/21 13:19 Case Management Note by Yamel Alfonso UPDATED CLINICALS FAXED TO [employer] PER REQUEST Initialized on 08/21/21 13:19 - END OF NOTE 08/21/21 13:09 Case Management Note by Yamel Alfonso S/W PATIENT- SHE IS STILL AGREEABLE TO DC TO [facility]. S/W [facility] AGAIN FROM [employer]- STILL WAITING ON APPROVAL Initialized on 08/21/21 13:09 - END OF NOTE 08/21/21 10:10 Case Management Note by Yamel Alfonso/Mandie AVENDANO AT [facility] STILL WAITING ON APPROVAL AT THIS TIME Initialized on 08/21/21 10:10 - END OF NOTE Assessment/Plan (1) Failure to thrive Current Visit: Yes Status: Acute Qualifiers: Failure to thrive age range: in adult Qualified Code(s): R62.7 - Adult failure to thrive Assessment & Plan: to LTCF when approved. Code(s): [id number] - (2) Generalized weakness Current Visit: Yes Status: Chronic Code(s): R53.1 - WEAKNESS (3) Paresthesia and pain of left extremity Current Visit: No Status: Chronic Assessment & Plan: Will add amitriptyline after EKG (if QTc is nl). Should help her depression too. Code(s): M79.609 - PAIN IN UNSPECIFIED LIMB; R20.2 - PARESTHESIA OF SKIN (4) Dementia Current Visit: Yes Status: Chronic Code(s): F03.90 - UNSPECIFIED DEMENTIA WITHOUT BEHAVIORAL DISTURBANCE (5) Neuropathy Current Visit: Yes Status: Chronic Assessment & Plan: amitriptyline and B12 complex. Code(s): G62.9 - POLYNEUROPATHY, UNSPECIFIED (6) Cirrhosis Current Visit: No Status: Chronic Qualifiers: Ascites presence: unspecified (7) Depressed Current Visit: No Status: Chronic Qualifiers: Depression Type: major depressive disorder Major depression recurrence: recurrent Active/Remission status: currently active Major depression episode severity: moderate Qualified Code(s): F33.1 - Major depressive disorder, recurrent, moderate Code(s): F32.9 - MAJOR DEPRESSIVE DISORDER, SINGLE EPISODE, UNSPECIFIED (8) Diabetes type 2, uncontrolled Current Visit: No Status: Chronic Qualifiers: Glycemic state: with hyperglycemia Qualified Code(s): E11.65 - Type 2 diabetes mellitus with hyperglycemia Code(s): E11.65 - TYPE 2 DIABETES MELLITUS WITH HYPERGLYCEMIA (9) HX: breast cancer Current Visit: No Status: Chronic Onset Date: ~03/22/18 Code(s): Z85.3 - PERSONAL HISTORY OF MALIGNANT NEOPLASM OF BREAST
[2021-08-22] MEDS: MELOXICAM PO SCH (09:08)
[2021-08-22] MEDS: Protonix 40MG Tablet PO SCH (09:08)
[2021-08-22] MEDS: Lantus Insulin SQ SCH (09:08)
[2021-08-22] MEDS: Trileptal 300 MG Tablet PO SCH (09:08)
[2021-08-22] MEDS: Prozac 20 MG PO SCH (09:08)
[2021-08-22] MEDS: MYRBETRIQ PO SCH (09:08)
[2021-08-22] MEDS: LYRICA 150MG PO SCH (09:08)
--- NOTE | 2021-08-22 09:10 | PCM.DS ---
Discharge Summary Date of Admission: 08/16/21 02:35 Admitting Physician: RANCHO SMILEY DO Consults: Consults on Case 08/16/21 12:46 Psychiatric Consult STAT Primary Care Provider: JOLANTA TEMPLETON Allergies Allergies methadone [Methadone] Allergy (Mild, Verified 08/15/21 21:11) Hives oxycodone HCl [From OxyContin] Adverse Reaction (Severe, Verified 08/15/21 21:11) "makes me crazy" Hospital Summary - Hospital Course Hospital Course: is a 66 year old female patient, terminated from my office actually, with Hx of HTN,HLD,DM2,Breast cancer tx bilateral mastectomy 2019 in remission,dementia,cirrhosis(unspecified),RA,fibromyalgia,chronic back pain,neuropathy who was brought to ER by EMS with c/o decreased po intake x 2d. Had been on hospice for decreased ability to do ADLs. She remains weak and will be discharged to skilled nursing. Complains of LE pain, which is chronic. Plan was to start pt on amitriptyline if her EKG showed nl QTc, but it was prolonged at 473. Was started on B-com plex. Complains of depression, which is chronic, and may improve if her pain improves. On fluoxetine. - Vitals & Intake/Output Vital Signs: Vital Signs Temperature 98.5 F 08/22/21 07:36 Pulse Rate 77 08/22/21 07:36 Respiratory Rate 16 08/22/21 07:36 Blood Pressure 122/59 08/22/21 07:36 O2 Sat by Pulse Oximetry 99 08/22/21 07:36 Intake & Output: Intake & Output 08/19/21 08/20/21 08/21/21 08/22/21 11:59 11:59 11:59 11:59 Intake Total 240 340 240 240 Output Total 252 008 1767 1300 Balance -110 140 -910 -1060 Weight 76.4 kg 79.1 kg 79.1 kg 80 kg - Lab Result Diagrams: 08/21/21 05:10 08/21/21 05:10 Lab Results-Last 24 Hrs: Lab Results-Last 24 Hours 08/21/21 08/21/21 08/21/21 Range/Units 11:28 16:07 20:06 POC Glucometer TNP 130 H 118 H 08/22/21 Range/Units 07:10 POC Glucometer 115 H Micro Results-Entire Visit: Accuchecks Date 08/21/21 Date 08/21/21 Date 08/21/21 Time 21:06 Time 16:23 Time 11:44 - Radiology Exams Ordered Rad Exams-Entire Visit: Radiology Procedures Category Date Time Status LUMBAR LIMITED (2 OR 3 VIEWS) Routine Exams 08/20/21 09:47 Completed - Procedures and Test Procedures and Tests throughout Hospitalization: Therapy Orders & Screens 08/16/21 09:40 PT Eval & Treat ( Order) ONCE Reason for Eval:: RETIREMENT PLACEMENT Diagnosis: Generalized weakness 08/18/21 08:47 PT Eval & Treat (MD Order) ONCE Reason for Eval:: WEAKNESS Diagnosis: Generalized weakness 08/22/21 08:35 EKG ROUTINE Comment: not stat Diagnosis: Generalized weakness Discharge Exam General Appearance: no apparent distress, alert Neurologic Exam: oriented x 3, cooperative Eye Exam: eyes nml inspection Ears, Nose, Throat Exam: moist mucous membranes Neck Exam: normal inspection Respiratory Exam: normal breath sounds, lungs clear, No crackles/rales, No rhonchi, No wheezing Cardiovascular Exam: regular rate/rhythm, normal heart sounds, No murmur Gastrointestinal/Abdomen Exam: soft, normal bowel sounds, No tenderness, No distention, No mass, No guarding, No rebound Back Exam: normal inspection, No rash Extremity Exam: normal inspection, other (tender to touch bilat anterior LE), No pedal edema, No swelling Skin Exam: normal color, warm, dry, No rash Final Diagnosis/Problem List - Final Discharge Diagnosis/Problem (1) Failure to thrive Current Visit: Yes Status: Acute Assessment & Plan: To LTCF today. Code(s): [id number] - (2) Generalized weakness Current Visit: Yes Status: Chronic Assessment & Plan: persistent. Discharge to skilled nursing. Labs have been nonacute, but did show mild anemia, leukpenia. Renal function is good. Will need repeat CBC in 1 week. Code(s): R53.1 - WEAKNESS (3) Paresthesia and pain of left extremity Current Visit: No Status: Chronic Code(s): M79.609 - PAIN IN UNSPECIFIED LIMB; R20.2 - PARESTHESIA OF SKIN (4) Dementia Current Visit: Yes Status: Chronic Code(s): F03.90 - UNSPECIFIED DEMENTIA WITHOUT BEHAVIORAL DISTURBANCE (5) Neuropathy Current Visit: Yes Status: Chronic Assessment & Plan: Added B complex to her regimen. Code(s): G62.9 - POLYNEUROPATHY, UNSPECIFIED (6) Cirrhosis Current Visit: No Status: Chronic (7) Depressed Current Visit: No Status: Chronic Assessment & Plan: Considered amitriptyline, but unable to prescribe as her QTc is 473. Will send continue her fluoxetine. Code(s): F32.9 - MAJOR DEPRESSIVE DISORDER, SINGLE EPISODE, UNSPECIFIED (8) Diabetes type 2, uncontrolled Current Visit: No Status: Chronic Code(s): E11.65 - TYPE 2 DIABETES MELLITUS WITH HYPERGLYCEMIA (9) HX: breast cancer Current Visit: No Status: Chronic Onset Date: ~03/22/18 Code(s): Z85.3 - PERSONAL HISTORY OF MALIGNANT NEOPLASM OF BREAST (10) Leukopenia Current Visit: Yes Status: Acute Code(s): D72.819 - DECREASED WHITE BLOOD CELL COUNT, UNSPECIFIED (11) Anemia Current Visit: No Status: Acute Assessment & Plan: mild Code(s): D64.9 - ANEMIA, UNSPECIFIED - Discharge Disposition: DC TO ANY "OTHER" RETIREMENT Condition: Stable Prescriptions: New Pregabalin [Lyrica 150Mg] 150 mg PO BID 3 Days #6 cap MDD 2 Oxycodone / APAP 10/325 mg [Oxycodone-Acetaminophen 10-325] 1 tab PO Q4H PRN PRN 3 Days #18 tablet MDD 6 PRN Reason: Pain PANTOPRAZOLE 40 mg Tablet [Protonix 40MG Tablet] 40 mg PO DAILY 30 Days #30 tab Vitamin B Comp W-C [Lula-Bee with C] 1 tab PO DAILY #30 tablet Continue Insulin Lispro [Insulin Lispro Kwikpen U-100] 10 units SQ AC Insulin Glargine [Lantus Insulin] 40 units SQ DAILY Meloxicam 7.5 mg PO BID Oxcarbazepine 300 mg [Trileptal 300 MG Tablet] 300 mg PO BID Mirabegron [Myrbetriq] 25 mg PO DAILY Metformin HCl [Metformin HCl ER] 1,000 mg PO DAILY Fluoxetine HCl 20 mg [Prozac 20 MG] 40 mg PO DAILY Discontinued Morphine Sulfate 0.5 ml SL Q2H/PRN PRN PRN Reason: pain, shortness of breath Amoxicillin 500 mg PO TID Gabapentin [Neurontin ] 600 mg PO TID Additional Instructions: SIGNATURE RETIREMENT ORDERS: -PT/OT EVAL AND TREAT -1800 ADA DIET -ACCUCHECKS ACHS -SEE ATTACHED MEDICATION LIST FOR ORDERS. Follow up with: JOLANTA TEMPLETON [Primary Care Provider] -
[2021-08-22] MEDS: Ativan 0.5 MG PO PRN (09:59)
[2021-08-22] MEDS ORDERED: VITA-BEE WITH C PO SCH (10:00)
[2021-08-22 11:29] VITALS: BP 133/68; PULSE 78; O2SAT 100
== END 2021-08-22 13:42 ==
LOC: ED 21:08 → MED SURG 08-16 02:35
PROVIDERS: ADMIT Family Medicine; ATTEND Family Medicine
DX: R62.7 Adult failure to thrive (principal); R53.1 Weakness; M79.662 Pain in left lower leg; M79.661 Pain in right lower leg; R20.2 Paresthesia of skin; F03.90 Unspecified dementia, unspecified severity, without behavioral disturbance, psychotic disturbance, mood disturbance, and anxiety; G62.9 Polyneuropathy, unspecified; K74.60 Unspecified cirrhosis of liver; E11.65 Type 2 diabetes mellitus with hyperglycemia; Z85.3 Personal history of malignant neoplasm of breast; I10 Essential (primary) hypertension; D72.819 Decreased white blood cell count, unspecified; D64.9 Anemia, unspecified; M79.672 Pain in left foot; E78.5 Hyperlipidemia, unspecified; Z79.899 Other long term (current) drug therapy; Z20.828 Contact with and (suspected) exposure to other viral communicable diseases
CPT/HCPCS: 0241U; 36000; 36415; 70470; 71045; 72100; 73630; 80053; 80307; 81015; 82550; 82607; 82746; 82947; 83036; 83605; 83735; 84443; 85025; 90791; 93005; 93268; 96360; 97110; 97161; 97530; 99285; G0378; Q3014; A9270-GY